=== PATIENT | male | born 1940 | race Caucasian/White ===

== ENCOUNTER 2019-11-22 08:56 | Outpatient (CLI) | payer MEDICARE, SELFPAY ==
[2019-11-22 13:19] LABS: Hematocrit 41.7 % (42.0-52.0); Hemoglobin 13.6 g/dL (14.0-18.0); Mean Corpuscular HGB Conc 32.6 g/dl (32-36); Mean Corpuscular Hemoglobin 32.2 pg (26-34); Mean Corpuscular Volume 98.8 fl (80-100); Mean Platelet Volume 10.5 fl (7.4-10.4); Platelet Count Result 227 k/mm3 (150-375); Red Blood Count 4.22 M/mm3 (4.6-6.20); Red Cell Distribution Width 12.1 % (11.5-14.5); White Blood Count 5.2 K/mm3 (4.5-10.0)
[2019-11-22 13:30] LABS: Alanine Aminotransferase 30 U/L (4-50); Albumin Level 4.2 g/dL (3.5-5.1); Alkaline Phosphatase 128 U/L (38-126); Aspartate Amino Transferase 53 U/L (17-59); Bilirubin,Total 0.7 mg/dL (0.2-1.3); Blood Urea Nitrogen 12 mg/dL (9-20); Calcium 9.5 mg/dL (8.4-10.2); Carbon Dioxide 27 mmol/L (22-30); Chloride 92 mmol/L (98-107); Estimated Glomerular Filt Rate > 60; Glucose 96 mg/dL (75-110); Potassium 4.5 mmol/L (3.4-5.0); Sodium 135 mmol/L (137-145)
== END 2019-11-22 08:57 | disposition home or self-care (01) ==
PROVIDERS: PCP Internal Medicine; Visit Provider Internal Medicine
DX: I10 Essential (primary) hypertension (principal)
CPT/HCPCS: 36415; 80053; 85027

== ENCOUNTER 2020-01-14 11:26 | Emergency (ER) | payer MEDICARE, SELFPAY ==
[2020-01-14 11:38] VITALS: BP 210/95; PULSE 86; RESP 18; TEMP 36.4; O2SAT 100
--- NOTE | 2020-01-14 11:38 | ED.GENADULT ---
HPI - General Adult General Chief complaint: Shortness of Breath/Dyspnea Stated complaint: CO exposure Time Seen by Provider: 01/14/20 11:35 Mode of arrival: ambulatory Limitations: no limitations Related Data Home Medications Medication Instructions Recorded Confirmed lisinopril 40 mg tablet 40 mg PO DAILY 11/26/19 12/09/19 sildenafil 50 mg tablet 50 mg PO DAILY PRN 11/26/19 12/09/19 Allergies Allergy/AdvReac Type Severity Reaction Status Date / Time No Known Allergies Allergy Verified 11/29/19 09:01 [facility] Social History Social History Smoking status: Former smoker Smoking end date: 10/13/1967 Alcohol intake: current Discharge Plan Discharge Prescriptions: No Action verapamil 80 mg tablet 80 mg PO BID Qty: 180 RF: 1 metoprolol tartrate 50 mg tablet 50 mg PO Q12H Qty: 180 RF: 1 lisinopril 40 mg tablet 40 mg PO DAILY RF: 0 sildenafil [Viagra] 50 mg tablet 50 mg PO DAILY PRNRF: 0
== END 2020-01-14 11:46 | disposition left against medical advice (07) ==
LOC: ANHED 11:42
PROVIDERS: Emergency Provider Emergency Medicine; PCP Internal Medicine
DX: Z53.21 Procedure and treatment not carried out due to patient leaving prior to being seen by health care provider (principal)
CPT/HCPCS: 99199

== ENCOUNTER 2020-08-15 13:00 | Outpatient (CLI) | payer MEDICARE, SELFPAY ==
--- NOTE | ~2020-08-15 | XR_ITS ---
EXAMINATION: XR chest 2V EXAM DATE: 08/15/2020 13:28 INDICATION: Aortic valve replacement. CABG. TECHNIQUE: Frontal and lateral projections of the chest obtained and reviewed. There is no prior leland dy for comparison. FINDINGS: Sternotomy wires are present without findings to suggest sternal dehiscence. Small to moder ate left pleural effusion, adjacent linear opacities likely atelectasis. No pneumothorax. Right lung is clear, no right pleural effusion. Mild cardiomegaly. Left shoulder replacement. There is aortic ar teriosclerosis. Old left rib fractures. IMPRESSION: Small to moderate left pleural effusion, adjacent atelectasis. Mild cardiomegaly. Reviewed, dictated and finalized at location B. STRAINER
== END 2020-08-15 13:01 | disposition home or self-care (01) ==
PROVIDERS: PCP Internal Medicine
DX: Z95.1 Presence of aortocoronary bypass graft (principal); J90 Pleural effusion, not elsewhere classified; J98.11 Atelectasis; I51.7 Cardiomegaly
CPT/HCPCS: 71046

== ENCOUNTER 2020-09-04 10:24 | Emergency (ER) | payer MEDICARE, SELFPAY ==
--- NOTE | ~2020-09-04 | XR_ITS ---
EXAMINATION: XR chest 1V portable DATE: 09/04/2020 11:09 INDICATION: Leg swelling. TECHNIQUE: A single frontal view of the chest was obtained. COMPARISON: Chest 2 views 08/15/2020 FINDINGS: There is an interstitial pattern in the lungs, consistent with mild pulmonary edema. There are airspace opacities in left lower lung zone. No pleural effusion or pneumothorax. Cardiomegaly is noted. There are changes of heart valve replacement. There is a left shoulder arthroplasty. IMPRESSION: 1. Mild pulmonary edema. 2. Airspace opacities in left lower lung zone with interval improvement, consistent with atelectasis versus pneumonia. 3. Cardiomegaly. Reviewed, dictated and finalized at location A. ER OFF IMPRESSION: 1. Mild pulmonary edema. 2. Airspace opacities in left lower lung zone with interval improvement, consis tent with atelectasis versus pneumonia. 3. Cardiomegaly.
--- NOTE | ~2020-09-04 | US_ITS ---
EXAMINATION:US venous doppler LE BI INDICATION:Lower extremity swelling TECHNIQUE: Multiple grayscale, color flow and Doppler images of the right and left lower extremity de ep venous systems were obtained and reviewed. COMPARISON:No prior studies for comparison. FINDINGS: The common femoral, superficial femoral and popliteal veins demonstrate normal respiratory variation, augmentation and compressibility. Color flow is also seen within the posterior tibial, pe roneal, greater saphenous and profunda veins. IMPRESSION: 1: No lower extremity deep venous thrombosis. Reviewed, dictated and finalized at location A. ATAL SPECIALIST
[2020-09-04 10:32] VITALS: BP 196/98; PULSE 69; RESP 18; TEMP 36.3; O2SAT 100
--- NOTE | 2020-09-04 11:01 | ECG_ITS ---
Measurements Intervals [place] Rate: 61 P: -9 [place]: 208 QRS: 13 QRSD: 103 T: 126 QT: 432 QTc: 437 Interpretive Statements SINUS RHYTHM POSSIBLE LEFT ATRIAL ENLARGEMENT INFERIOR INFARCT, AGE INDETERMINATE ST-T WAVE ABNORMALITY IN HIGH LATERAL LEADS- CONSIDER ISCHEMIA BASELINE ARTIFACT- I, II, III, AVR, AVL, AVF, V3 ABNORMAL ECG Electronically Signed On 09-04-2020 11:17:54 SENIOR DATA DEVELOPER by Steve Tinsley D.O.
--- NOTE | 2020-09-04 11:09 | ED.GENADULT ---
HPI - General Adult General Chief complaint: Extremity Problem,Nontraumatic Stated complaint: Possible DVT Time Seen by Provider: 09/04/20 10:25 Source: patient Mode of arrival: ambulatory Limitations: no limitations Related Data Home Medications Medication Instructions Recorded Confirmed amiodarone 200 mg tablet 200 mg PO DAILY tablet 08/30/20 apixaban 5 mg tablet 5 mg PO BID 08/30/20 acetaminophen 325 mg capsule 325 mg PO Q6H PRN 08/31/20 aspirin 81 mg tablet,delayed 81 mg PO DAILY 08/31/20 release furosemide 40 mg tablet 40 mg PO QAM 08/31/20 Allergies Allergy/AdvReac Type Severity Reaction Status Date / Time No Known Allergies Allergy Verified 09/04/20 10:43 [facility] Social History Social History Smoking status: Former smoker Smoking end date: 10/13/1967 Alcohol intake: current Gender identity (if verbalized by the patient): Male Course Consultations Consultation #1: Discussed case with cardiology office nurse who notes that the patient follows Friday with the specialist and agrees that the patient can be started on a light diuretic during this period and will be reevaluated on Friday patient given a dose of Lasix in the emergency department patient and family made aware of case findings treatment plan diagnosis and discussion with specialist office Date: 09/04/20 Time: 14:39 Vital Signs Vital signs: Vital Signs Temperature 97.4 F L 09/04/20 10:32 Pulse Rate 69 09/04/20 10:32 Respiratory Rate 18 09/04/20 10:32 Blood Pressure 196/98 H 09/04/20 10:32 Pulse Oximetry 100 09/04/20 10:32 Temperature 97.4 F L 09/04/20 10:32 Pulse Rate 61 09/04/20 12:16 Respiratory Rate 14 09/04/20 12:16 Blood Pressure 190/88 H 09/04/20 12:16 Pulse Oximetry 97 09/04/20 12:16 Medical Decision Making [facility] Narrative Medical decision making narrative: Patient with mild heart failure as the likely etiology of the swelling of his lower legs patient did not have DVT patient is in the room without other high risk changes given a dose of Lasix will follow in clinic with his specialist on Friday and is felt appropriate for outpatient reevaluation Vital Signs Vital Signs: Vital Signs Temperature 97.4 F L 09/04/20 10:32 Pulse Rate 69 09/04/20 10:32 Respiratory Rate 18 09/04/20 10:32 Blood Pressure 196/98 H 09/04/20 10:32 Pulse Oximetry 100 09/04/20 10:32 Temperature 97.4 F L 09/04/20 10:32 Pulse Rate 61 09/04/20 12:16 Respiratory Rate 14 09/04/20 12:16 Blood Pressure 190/88 H 09/04/20 12:16 Pulse Oximetry 97 09/04/20 12:16 Lab Data Result diagrams: 09/04/20 11:04 09/04/20 11:04 Labs: Lab Results 09/04/20 09/04/20 09/04/20 Range/Units 11:04 11:04 11:04 WBC 7.4 (4.5-10.0) K/mm3 RBC 3.57 L (4.6-6.20) M/mm3 Hgb 11.0 L (14.0-18.0) g/dL Hct 34.6 L (42.0-52.0) % MCV 96.9 (80-100) fl MCH 30.8 (26-34) pg MCHC 31.8 L (32-36) g/dl RDW 17.8 H (11.5-14.5) % Plt Count 207 (150-375) k/mm3 MPV 9.4 (7.4-10.4) fl Immature Gran % (Auto) 0.4 (0-0.5) % Neut % (Auto) 53.1 (45.5-73.1) % Lymph % (Auto) 29.4 (18.3-44.2) % [place] % (Auto) 9.1 H (2.6-8.5) % Eos % (Auto) 7.2 H (0-4.4) % Baso % (Auto) 0.8 (0.2-1.2) % Lymph # (Auto) 2.17 (0.9-3.2) K/mm3 [place] # (Auto) 0.7 H (0.1-0.6) K/mm3 Eos # (Auto) 0.5 H (0-0.3) K/mm3 Baso # (Auto) 0.1 (0.0-0.1) K/mm3 Abs Immat Gran (auto) 0.03 (0.00-0.031) K/mm3 Absolute Neuts (auto) 3.9 (1.3-6.7) K/mm3 Absolute Nucleated RBC 0.0 (0.0-0.012) K/mm3 Nucleated RBC % 0.0 (0.0-0.2) % PT 13.3 (11.1-14.7) Seconds INR 1.0 APTT 32.3 (22.3-36.8) SECONDS Sodium 139 (137-145) mmol/L Potassium 3.8 (3.4-5.0) mmol/L Chloride 103 (98-107) mmol/L Carbon Dioxide 27 (22-30) mmol/L Anion Gap 9 (8-16) mmol/L BUN
[2020-09-04 11:10] LABS: Basophils Absolute Auto 0.1 K/mm3 (0.0-0.1); Basophils Percent Auto 0.8 % (0.2-1.2); Eosinophils Absolute Auto 0.5 K/mm3 (0-0.3); Eosinophils Percent Auto 7.2 % (0-4.4); Hematocrit 34.6 % (42.0-52.0); Immature Granulocyte Absolute 0.03 K/mm3 (0.00-0.031); Immature Granulocyte Percent A 0.4 % (0-0.5); Lymphocytes Absolute Auto 2.17 K/mm3 (0.9-3.2); Lymphocytes Percent Auto 29.4 % (18.3-44.2); Mean Corpuscular HGB Conc 31.8 g/dl (32-36); Mean Corpuscular Hemoglobin 30.8 pg (26-34); Mean Corpuscular Volume 96.9 fl (80-100); Mean Platelet Volume 9.4 fl (7.4-10.4); Monocytes Absolute Auto 0.7 K/mm3 (0.1-0.6); Monocytes Percent Auto 9.1 % (2.6-8.5); Neutrophils Absolute Auto 3.9 K/mm3 (1.3-6.7); Neutrophils Percent Auto 53.1 % (45.5-73.1); Platelet Count Result 207 k/mm3 (150-375); Red Blood Count 3.57 M/mm3 (4.6-6.20); Red Cell Distribution Width 17.8 % (11.5-14.5); White Blood Count 7.4 K/mm3 (4.5-10.0)
[2020-09-04 11:22] LABS: Prothrombin Time 13.3 Seconds (11.1-14.7)
[2020-09-04 11:23] LABS: Partial Thromboplastin Time 32.3 SECONDS (22.3-36.8)
[2020-09-04 11:26] LABS: Alanine Aminotransferase 25 U/L (4-50); Albumin Level 3.9 g/dL (3.5-5.1); Alkaline Phosphatase 192 U/L (38-126); Anion Gap 9 mmol/L (8-16); Aspartate Amino Transferase 38 U/L (17-59); Bilirubin,Total 0.7 mg/dL (0.2-1.3); Blood Urea Nitrogen 13 mg/dL (9-20); Calcium 8.7 mg/dL (8.4-10.2); Carbon Dioxide 27 mmol/L (22-30); Chloride 103 mmol/L (98-107); Estimated CRCL calculation 64 ml/min; Estimated Glomerular Filt Rate > 60; Glucose 99 mg/dL (75-110); Potassium 3.8 mmol/L (3.4-5.0); Sodium 139 mmol/L (137-145)
[2020-09-04 11:32] LABS: NT Pro B Type Natriuretic Pept 2760 PG/ML (5-100)
[2020-09-04 12:16] VITALS: BP 190/88; PULSE 61; RESP 14; O2SAT 97
[2020-09-04] MEDS: FUROSEMIDE INJ 40 MG/4 ML VIAL 20 MG IV PUSH (14:58)
== END 2020-09-04 15:47 | disposition home or self-care (01) ==
PROVIDERS: Emergency Medicine Emergency Medical Services; Emergency Provider Emergency Medicine; PCP Internal Medicine
DX: I50.9 Heart failure, unspecified (principal); M79.89 Other specified soft tissue disorders; Z87.891 Personal history of nicotine dependence; R94.31 Abnormal electrocardiogram [ECG] [EKG]
CPT/HCPCS: 36415; 71045; 80053; 83880; 85025; 85610; 85730; 93005; 93970; 96372; 99284; J1940

== ENCOUNTER 2021-01-10 10:16 | Outpatient (CLI) | payer MEDICARE, SELFPAY ==
--- NOTE | ~2021-01-10 | CT_ITS ---
EXAMINATION:CT diagnostic chest wo con DATE: 01/10/2021 11:13 INDICATION: Lump near incision from heart surgery. TECHNIQUE: Computed tomography (CT) of the chest was performed without intravenous contrast. Automate d exposure control and iterative reconstruction technique were employed. The dose-length product (DLP ) was 180.35 mGy-cm. COMPARISON: Chest single view 09/04/2020 FINDINGS: There is mild scarring at the lung apices. There is mild atelectasis bilaterally. There is a small pneumatocele in left lower lobe. No pleural effusion. Cardiomegaly is noted. There are angel ry artery calcifications. There are changes of aortic valve replacement. No pericardial effusion. The re is a moderate-sized sliding hiatal hernia. There is a 3.4 cm cyst in right kidney. There is a tota l left shoulder arthroplasty. There are changes of median sternotomy. There is severe cervical and th oracic spondylosis. IMPRESSION: 1. Changes of median sternotomy. No abnormal chest wall mass. Reviewed, dictated and finalized at location A.
== END 2021-01-10 10:17 | disposition home or self-care (01) ==
PROVIDERS: PCP Internal Medicine
DX: Z95.1 Presence of aortocoronary bypass graft (principal); Z95.2 Presence of prosthetic heart valve; Z98.890 Other specified postprocedural states
CPT/HCPCS: 71250

== ENCOUNTER 2021-03-20 09:29 | Outpatient (CLI) | payer MEDICARE, SELFPAY ==
--- NOTE | ~2021-03-20 | XR_ITS ---
EXAMINATION: XR chest 2V DATE: 03/20/2021 09:55 INDICATION: Hypertension. Preop. Incisional hernia without obstruction or gangrene. TECHNIQUE: Frontal and lateral views of the chest were obtained. COMPARISON: Chest single view 09/04/2020, chest CT 01/10/2021 FINDINGS: There is mild atelectasis at left lung base. No pleural effusion or pneumothorax. Cardiomeg samanta is noted. There are changes of aortic valve replacement. There is a total left shoulder arthropla sty. IMPRESSION: 1. Mild atelectasis at left lung base. 2. Cardiomegaly. Reviewed, dictated and finalized at location A.
--- NOTE | 2021-03-20 09:30 | ECG_ITS ---
Measurements Intervals [place] Rate: 56 P: 52 NM: 275 QRS: 33 QRSD: 108 T: 33 QT: 444 QTc: 431 Interpretive Statements SINUS BRADYCARDIA WITH FIRST DEGREE AV BLOCK ST ELEVATION IN ANTEROLATERAL LEADS, PROBABLY EARLY REPOLARIZATION CONSIDER INFERIOR INFARCT, AGE INDETERMINATE BASELINE ARTIFACT- I, II, III, AVR, AVL, AVF ABNORMAL ECG Electronically Signed On 03-20-2021 12:05:03 CDT by Steve Tinsley D.O.
[2021-03-20 09:57] LABS: Hematocrit 36.8 % (42.0-52.0); Hemoglobin 12.3 g/dL (14.0-18.0); Mean Corpuscular HGB Conc 33.4 g/dl (32-36); Mean Corpuscular Hemoglobin 32.1 pg (26-34); Mean Corpuscular Volume 96.1 fl (80-100); Platelet Count Result 194 k/mm3 (150-375); Red Blood Count 3.83 M/mm3 (4.6-6.20); Red Cell Distribution Width 12.8 % (11.5-14.5); White Blood Count 7.9 K/mm3 (4.5-10.0)
[2021-03-20 10:11] LABS: Anion Gap 10 mmol/L (8-16); Blood Urea Nitrogen 13 mg/dL (9-20); Calcium 9.2 mg/dL (8.4-10.2); Carbon Dioxide 26 mmol/L (22-30); Chloride 99 mmol/L (98-107); Estimated Glomerular Filt Rate > 60; Glucose 92 mg/dL (75-110); Sodium 135 mmol/L (137-145)
[2021-03-20 10:18] LABS: Band Neutrophils Percent 4 % (0-6); Eosinophils Absolute Manual 0.47 K/mm3 (0.02-0.5); Eosinophils Percent Manual 6 % (0-4); Lymphocytes Absolute Manual 2.37 K/mm3 (1.1-4.5); Monocytes Absolute Manual 0.71 K/mm3 (0.1-0.90); Monocytes Percent Manual 9 % (3-9); Neutrophils Absolute Manual 4.34 K/mm3 (1.3-6.7); Neutrophils Percent Manual 51 % (46-73); Platelet Estimate Adequate (Adequate); Total Cells Counted 100
== END 2021-03-20 09:30 | disposition home or self-care (01) ==
PROVIDERS: PCP Internal Medicine; Visit Provider Surgery
DX: K43.2 Incisional hernia without obstruction or gangrene (principal); I44.0 Atrioventricular block, first degree; I51.7 Cardiomegaly; R00.1 Bradycardia, unspecified
CPT/HCPCS: 36415; 71046; 80048; 85025; 93005

== ENCOUNTER → 2021-03-24 01:05 | Outpatient (CLI) | payer MEDICARE, SELFPAY ==
[2021-03-24 17:56] LABS: SARS-CoV-2 RNA PCR Negative
== END ==
PROVIDERS: PCP Internal Medicine; Visit Provider Surgery
DX: Z01.812 Encounter for preprocedural laboratory examination (principal); Z20.822 Contact with and (suspected) exposure to COVID-19
CPT/HCPCS: C9803; U0003; U0005

== ENCOUNTER 2021-03-28 01:05 | Day surgery (SDC) | payer MEDICARE, SELFPAY ==
[2021-03-14 10:56] VITALS: BMI 24.0
--- NOTE | 2021-03-27 13:21 | WPDANESEPPF ---
Anes - Initial Pre Proc Eval Procedure: Operation Date: 03/28/21 13:00 Proposed Procedures p Epigastric Incisional Hernia Repair With Mesh - Vincenzo Starkey MD Date/Time: 03/27/21 13:21 Surgeon: Vincenzo Starkey MD Pre Op Diagnosis: Incisional Hernia Patient Data Age: 80 Gender: M Height: 1.79 m Weight: 77.15 kg Allergies Allergy/AdvReac Type Severity Reaction Status Date / Time No Known Allergies Allergy Verified 03/28/21 09:21 Home Medications Medication Instructions Recorded Confirmed Type aspirin 81 mg tablet,delayed 81 mg PO DAILY 08/31/20 03/28/21 History release amlodipine 10 mg tablet 10 mg PO DAILY 01/31/21 03/28/21 History lisinopril 40 mg tablet See Rx Instructions .ROUTE 02/26/21 03/28/21 Rx .COMPLEX #90 tablet atorvastatin 40 mg PO HS 03/14/21 03/28/21 History furosemide 20 mg PO QAM 03/14/21 03/28/21 History metoprolol tartrate 50 mg PO BID 03/14/21 03/28/21 History multivitamin,eo-rjzd-pdmdyepx 1 tablet PO DAILY 03/14/21 03/28/21 History [Complete Multivitamin] Patient hx anesthesia problems: none Family hx anesthesia problems: none PMFSH Past Medical History Medical History (Updated 03/27/21 @ 13:22 by Reece Shen MD) Aortic stenosis, severe WINSTON (dyspnea on exertion) Essential hypertension Heart disease High cholesterol HTN (hypertension) Incisional hernia Moderate mitral regurgitation Subclinical hypothyroidism Surgical History Surgical History (Updated 03/27/21 @ 13:22 by Reece Shen MD) S/P aortic valve replacement S/P CABG (coronary artery bypass graft) 07/24/20 Social History Social History (Updated 03/05/21 @ 09:07 by Amira Roblero CMA) Smoking packs per day: 2 Smoking cigarettes per day: 40.0 Years smoked: 10 Smoking pack-years: 20.00 Smoking status: Former smoker Tobacco type: cigarettes Smokeless tobacco user: chewing tobacco Smoking end date: 10/13/67 Additional smoking assessment comments: CURRENTLY CHEWING TOBACCO OCCASIONALLY Alcohol intake: current Drinks per week: 9 Substance use: unknown Living arrangements: with family Gender identity (if verbalized by the patient): Male Spiritual care concerns: No Anes - Eval Final PreProcedure Day of Procedure 03/27/21 13:21 Patient weight: normal Heart: regular rate and rhythm Lungs: clear to auscultation and normal air movement Airway: Mallampati scale class II Neurological: alert and oriented Last oral intake: >/= 8 hours ASA classification: III Emergent: no Anesthetic plan: proceed Anesthesia type and monitoring: general GIVS, LMA and ETT Informed Consent: The patient's anesthetic plan and its attendant risks and benefits were discussed with the patient/family/POA. Questions were solicited and answers provided to the satisfaction of the patient/family/POA.
[2021-03-28 09:09] VITALS: BP 159/72; PULSE 64; RESP 16; TEMP 35.9; O2SAT 100
[2021-03-28] MEDS: ACETAMINOPHEN 500 MG TABLET 1000 MG PO (09:29)
[2021-03-28] MEDS: LACTATED RINGERS 1,000 ML 30 ML IV CONT (09:36)
[2021-03-28] MEDS: KETOROLAC 15 MG/ML VIAL (*BKC) IV PUSH (09:37)
--- NOTE | 2021-03-28 09:48 | WPDHPUPDATE1 ---
History and Physical Update Update Date/Time: 03/28/21 09:48 History and Physical has been reviewed, including an updated exam of the patient. There are NO changes in the patient's condition. Risks, benefits, and alternatives have been discussed and questions answered. Patient agrees to proceed with procedure.
[2021-03-28] MEDS: ceFAZolin 2 GM/D5W 50 ML 2 GM/50 ML BAG IVPB (10:04)
[2021-03-28] MEDS: BUPIVACAINE HCL 0.5% PF 30 ML VIAL INFILTRATE (10:33)
[2021-03-28 11:19] VITALS: BP 118/65; PULSE 51; RESP 12; O2SAT 96
--- NOTE | 2021-03-28 11:28 | P.OP_ITS ---
Procedure Note - Detailed Date of Procedure 03/28/21 Pre-op Diagnosis Incisional Hernia Post-op Diagnosis same Procedure Performed Repair incisional hernia with 8.6 cm Parietex underlay mesh Surgeon Vincenzo Starkey MD Policy Cancellation Clerk Shahana Chapman ADMINISTRATIVE DIETITIAN ADMINISTRATIVE DIETITIAN Anesthesia MAC (G IV S) and local (0.5% Marcaine with Exparel) Indications Patient is an 80-year-old man who had coronary surgery last July. He has developed an incisional hernia in the epigastrium at the lower most aspect of his median sternotomy incision. This is getting larger and is sometimes bothersome for him. He is taken to surgery now for repair with mesh. Findings Showed a 2 cm epigastric hernia defect just below and all along side the xiphoid process. Description of Procedure Patient was checked in the preoperative holding area. He was then taken to surgery and IV sedation was administered. Prep and drape was carried out. An ellipse was drawn along the lower aspect of the previous median sternotomy incision to plan to excise this area that was overlying the hernia. Local anesthetic was infiltrated into this area of skin. The old scar was excised. More local was infiltrated at the lower aspect of this incision and the incision was extended in a caudad direction. The hernia was now in the center of the incision. The hernia sac was found and dissected free from the subcutaneous. It was lying on the left side of the xiphoid, very close to the sternum and ribs. Once the hernia defect had been delineated, the hernia sac was excised at its neck. This was discarded. Some of the fatty tissue associated with the falciform ligament was also excised and discarded. Under the xiphoid and ribs the peritoneum was dissected away so that the mesh would be able to lie directly up against the structures. Some undermining around the hernia defect was carried out as well. An 8.6 cm Parietex kw[place]uk was chosen. It was folded and placed in the defect. It was position symmetrically. Several transfascial sutures of 0 Ethibond were then placed to secure the mesh to the undersurface of the lower chest and upper abdomen. Once all the transfascial sutures had been positioned, each was tied down. The mesh appeared to be in very good position and well secured to the abdominal wall. The hernia defect was then closed over the mesh. Each of these sutures were also Ethibond and incorporated a bit of th e mesh as well. The defect was closed completely and the mesh was no longer exposed. Local anesthetic was infiltrated thoroughly in the areas of the transfascial sutures and repair. The subcutaneous was then approximated using interrupted 3 0 Vicryl suture. The skin was loosely approximated with subcuticular interrupted 3 0 Vicryl suture. The skin was finally closed with a running 4 0 Monocryl skin suture. The wound was dressed with Exofin surgical adhesive. The patient was awakened and taken to recovery in good condition. Sponge and needle counts were correct x2. Implants 8.6 cm Parietex mesh Estimated Blood Loss 5 Drains No Packing No Pathology none sent Complications None Condition stable Disposition same day
[2021-03-28 11:50] VITALS: BP 118/65; PULSE 60; RESP 16; O2SAT 99
--- NOTE | 2021-03-28 14:30 | SUR.PHASEII ---
Pt daughter calling with concerns to wound care. States pt called her complaining that wound was bleeding again. Daughter states she doesn't know what to do because patient states he will not return to hospital. Instructed daughter to applying pressure and ice to wound to stop bleeding and if bleeding does not stop within ten minutes of applying pressure/ice to call Dr. Starkey's office for further instruction or return to hospital ER.
== END 2021-03-28 12:35 | disposition home or self-care (01) ==
PROVIDERS: PCP Internal Medicine; Visit Provider Surgery
PROC: 0WQF0ZZ Repair Abdominal Wall, Open Approach (ICD-10-PCS; CPT 49560; principal; 2021-03-28 11:00)
DX: K43.2 Incisional hernia without obstruction or gangrene (principal); I11.9 Hypertensive heart disease without heart failure; E78.00 Pure hypercholesterolemia, unspecified; I35.0 Nonrheumatic aortic (valve) stenosis; I34.0 Nonrheumatic mitral (valve) insufficiency; Z95.4 Presence of other heart-valve replacement; Z95.1 Presence of aortocoronary bypass graft; Z79.82 Long term (current) use of aspirin; F17.220 Nicotine dependence, chewing tobacco, uncomplicated
CPT/HCPCS: 49560; 49568; A9270; C1781; C9290; C9803; J0690; J1100; J1885; J2405; J2704; J3010; J7120; U0003; U0005

== ENCOUNTER 2023-05-02 14:00 | Outpatient (RCR) | payer MEDICARE, SELFPAY ==
--- NOTE | 2023-04-30 13:16 | PTOPEVAL1 ---
Assessment and note entered by Sg Payan, PT Evaluation Information Assessment Status Evaluation Diagnosis low back radiculopathy Onset about 8 days ago Subjective Information Patient reports getting out of bed 8 days ago, when he stood up he felt like his L LE would not support him. Patient Has since then had pain going down to his toes and specifically stabbing in the L quads and a dull pressure on his knee. Patient was given Meloxicam and Gabapentin, but reports it does not feel like it is doing much. Main issue is walking and prolonged time sitting. Prior to this patient reports occasional pain, but no significant back injuries. Reported Pain Level Pain Score 0: Self Report Additional Pain Score Comments can get up to 10/10 pain. stabbing in the proximal leg, dull heavy in the knee. Assessment PT Clinical Summary Leno is an 82 year old male coming into the clinic with a diagnosis of low back radiculopathy going down to his toes. Patient has tight hamstring, low back, piriformis, calfs, and hip flexors to go with a weak core. Physical therapy will work on improving muscle balance through gentle stretching and strengthening along with manual and modalities as needed. Plan of Care Interventions Electrical Stimulation,Gait Training,Hot Pack/Cold Pack,Manual Therapy,Neuro Re-education,Patient/ Caregiver Education,Therapeutic Activities, Therapeutic Exercise,Ultrasound Other Interventions cupping, taping, IASTM PT Services Indicated Yes Treatment Frequency and 1-2x/wk for 4 weeks Duration These treatments will address the objective and functional deficits as defined above. The patient will be advanced safely and appropriately in order for the patient to progress towards his/her prior level of function. Additional exercises will be introduced and as well as a comprehensive home exercise program upon discharge, if needed, ?to ensure carryover of functional gains achieved in the clinic. This treatment plan has been reviewed and agreement upon by the patient.
--- NOTE | 2023-04-30 13:16 | OPREHPOC ---
Outpatient Therapy Plan of Care This is a Multidisciplinary Plan of Care that may contain components documented by all disciplines (PT, OT, and ST.) PT Problem 1 PT Problem #1 Knowledge Deficit PT Goal 1 Goal Independent with HEP Target Visit 8 PT Problem 2 PT Problem #2 Pain PT Goal 1 Goal decrease pain to 3/10 at worst Target Visit 8 PT Goal 2 Goal centralize symptoms to no further down than the hips Target Visit 8 PT Problem 3 PT Problem #3 Impaired Flexibility PT Goal 1 Goal PORFIRIO HS -25 degrees Target Visit 8
--- NOTE | 2023-05-06 08:28 | PCPTNOTE ---
Pt. canceled 05/06/23 appointment stating that a new medication has been bothering him a lot and wouldn't be able to come in.
--- NOTE | 2023-05-09 11:40 | PCPTNOTE ---
Patient did not show up for scheduled appointment this date. After he was called he stated that he had just got a steroid shot and if that goes well he won't need therapy. He stated that he would call and let us know.
--- NOTE | 2023-05-13 08:32 | PCPTNOTE ---
Pt. had steroid injection and he is feeling great and would like to be discharged at this time.
--- NOTE | 2023-05-13 08:50 | PTOPDC ---
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 Asks to be discharged. Assessment PT Clinical Summary Leno is an 82 year old male coming into the clinic with a diagnosis of low back radiculopathy. Patient was evaluated on 04/30/23 and attended one other appointment. Patient has cancelled has following therapy sessions. Since the patient called to asked to be discharged unable to assess goals. Plan of Care PT Services Indicated No
== END 2023-05-13 10:12 | disposition home or self-care (01) ==
LOC: ANHPT 14:00
PROVIDERS: PCP Nurse Practitioner Family; Visit Provider Nurse Practitioner Family
DX: M54.10 Radiculopathy, site unspecified (principal)
CPT/HCPCS: 97110; 97161; 97530; 99199

== ENCOUNTER 2023-06-26 12:11 | Outpatient (CLI) | payer SELFPAY ==
--- NOTE | ~2023-06-26 | XR_ITS ---
AP and lateral views of the left hip Clinical history: Pain Findings: No acute fracture or dislocation is seen. Osseous alignment is anatomic. Left hip joint is intact. Soft tissues are unremarkable. Impression: No significant abnormality is seen. Reviewed, dictated and finalized at location M. Impression: No significant abnormality is seen.
--- NOTE | ~2023-06-26 | XR_ITS ---
Lumbosacral Spine: AP and lateral views Clinical History: Pain Findings: There is mild dextroscoliosis. No acute fracture identified. There is minimal grade 1 retro listhesis of L1 over L2. There is 7 mm anterolisthesis of L4 over L5. There is severe degenerative di sc narrowing throughout the lumbar spine. There is severe facet arthropathy throughout the lumbar spi ne. Sacroiliac joints are normally outlined. Impression: Severe degenerative spondylosis, as above. Minimal grade 1 retrolisthesis of L1 over L2. 7 mm anterolisthesis of L4 over L5. Reviewed, dictated and finalized at location M. Impression: Severe degenerative spondylosis, as above. Minimal grade 1 retrolisthesis of L1 over L2. 7 mm anterolisthesis of L4 over L5.
== END 2023-06-26 12:12 ==
PROVIDERS: PCP Nurse Practitioner Family; Visit Provider Nurse Practitioner Family
DX: M54.10 Radiculopathy, site unspecified (principal); M47.816 Spondylosis without myelopathy or radiculopathy, lumbar region
CPT/HCPCS: 72100; 73502

== ENCOUNTER 2023-10-11 02:24 | Inpatient (IN) | payer MEDICARE, SELFPAY ==
[2023-10-11] VITALS (10 sets, daily range): BP systolic 90–136; BP diastolic 72–84; PULSE 80–110; RESP 13–16; TEMP 36.6–37.2; O2SAT 96–100; BMI 22.7
--- NOTE | ~2023-10-11 | CT_ITS ---
EXAMINATION: CT cervical spine wo con DATE: 10/11/2023 03:12 INDICATION: Neck injury. TECHNIQUE: Computed tomography (CT) of the cervical spine was performed without intravenous contrast. Automated exposure control and iterative reconstruction technique were employed. The dose-length pro duct was 382.34 mGy-cm. COMPARISON: None FINDINGS: There is 3 mm anterolisthesis of C4 on C5 and 3 mm retrolisthesis of C5 on C6. Vertebral joanne dy heights are normal. There is severely decreased disc height from C2-C3 through C6-C7. There is int erbody fusion at C3-C4. There is degenerative pseudopannus around the dens. The following disc levels are specifically discussed: C2-C3: There is moderate bilateral uncovertebral joint osteoarthritis. There is severe bilateral face t joint osteoarthritis. There is mild bilateral neural foraminal stenosis. There is no central canal stenosis. C3-C4: There is ankylosis of the uncovertebral joints with moderate hypertrophy. There is ankylosis o f the facet joints with mild hypertrophy. There is mild bilateral neural foraminal stenosis. There is mild central canal stenosis. C4-C5: There is severe bilateral uncovertebral joint osteoarthritis. There is severe bilateral facet joint osteoarthritis. There is mild right and moderate left neural foraminal stenosis. There is mild central canal stenosis. C5-C6: There is severe bilateral uncovertebral joint osteoarthritis. There is moderate bilateral face t joint osteoarthritis. There is moderate bilateral neural foraminal stenosis. There is mild central canal stenosis. C6-C7: There is severe bilateral uncovertebral joint osteoarthritis. There is severe bilateral facet joint osteoarthritis. There is mild right and moderate left neural foraminal stenosis. There is mild central canal stenosis. C7-T1: There is mild bilateral uncovertebral joint osteoarthritis. There is severe bilateral facet dread int osteoarthritis. There is mild bilateral neural foraminal stenosis. There is no central canal sten osis. IMPRESSION: 1. No fracture. 2. Severe cervical spondylosis. Reviewed, dictated and finalized at location A. ERY RN
--- NOTE | ~2023-10-11 | CT_ITS ---
EXAMINATION: CT chest abdomen pelvis wo con DATE: 10/11/2023 03:12 INDICATION: Chest and abdominal injury. Altered mental status. TECHNIQUE: Computed tomography (CT) of the chest, abdomen, and pelvis was performed without intraveno us contrast. Automated exposure control and iterative reconstruction technique were employed. The dos e-length product was 772.76 mGy-cm. COMPARISON: Chest CT 01/10/2021 FINDINGS: CHEST CT: There are centrilobular nodules and patchy airspace opacities in right middle lobe and right lower lo be. There are groundglass opacities in right upper lobe. There is mild atelectasis bilaterally. No pl eural effusion. Cardiomegaly is noted. There are coronary artery calcifications. There are changes of aortic valve replacement. No pericardial effusion. There is a moderate-sized sliding hiatal hernia. There is severe thoracic spondylosis. Lateral left rib fractures. There is a left shoulder arthroplas ty. ABDOMEN/PELVIS CT: The liver, gallbladder, spleen, pancreas, adrenal glands, and left kidney are normal. There is a 2.9 cm cyst in right kidney. There is no urolithiasis. There is diverticulosis of the colon without evide nce of diverticulitis. The prostate is mildly enlarged. There is a left inguinal hernia containing fa t. The appendix is normal. There is calcified atherosclerosis of the aorta and many of the other ector tisha. There are no pathologically enlarged lymph nodes. There is no free intraperitoneal fluid. There is severe lumbar spondylosis. IMPRESSION: 1. Pneumonia in right lung and left lower lobe. 2. Moderate-sized sliding hiatal hernia. Reviewed, dictated and finalized at location A. URY CRACKING TESTER
--- NOTE | ~2023-10-11 | CT_ITS ---
EXAMINATION: CT brain wo con DATE: 10/11/2023 03:12 INDICATION: Head injury. Altered mental status. TECHNIQUE: Computed tomography (CT) of the head was performed without intravenous contrast. The mA wa s adjusted according to patient size. Iterative reconstruction technique was employed. The dose-lengt h product was 681.00 mGy-cm. COMPARISON: None FINDINGS: There are scattered areas of low attenuation in the cerebral white matter, which is within normal limits for the patient's age. There is no intracranial hemorrhage, acute infarction, or abnorm al intracranial mass lesion. The ventricles are normal in size. There is mucosal thickening in the pa ranasal sinuses. There are likely changes of ocular lens replacement surgeries. The mastoid air cells are normal. IMPRESSION: 1. Normal aging brain. Reviewed, dictated and finalized at location A. OR MAINFRAME DEVELOPER IMPRESSION: 1. Normal aging brain.
[2023-10-11] MEDS: LORazepam INJ (*CRX) 2 MG/ML VIAL 1 MG IV PUSH (02:44)
[2023-10-11 02:58] LABS: Basophils Absolute Auto 0.2 K/mm3 (0.0-0.1); Eosinophils Absolute Auto 0.2 K/mm3 (0-0.3); Hematocrit 41.5 % (42.0-52.0); Hemoglobin 13.7 g/dL (14.0-18.0); Immature Granulocyte Absolute 0.22 K/mm3 (0.00-0.031); Immature Granulocyte Percent A 1.3 % (0-0.5); Lymphocytes Absolute Auto 5.99 K/mm3 (0.9-3.2); Lymphocytes Percent Auto 36.6 % (18.3-44.2); Mean Corpuscular Hemoglobin 32.2 pg (26-34); Mean Corpuscular Volume 97.4 fl (80-100); Mean Platelet Volume 9.8 fl (7.4-10.4); Monocytes Absolute Auto 1.3 K/mm3 (0.1-0.6); Monocytes Percent Auto 8.1 % (2.6-8.5); Neutrophils Absolute Auto 8.5 K/mm3 (1.3-6.7); Platelet Count Result 364 k/mm3 (150-375); Red Blood Count 4.26 M/mm3 (4.6-6.20); Red Cell Distribution Width 11.8 % (11.5-14.5); White Blood Count 16.4 K/mm3 (4.5-10.0)
[2023-10-11 03:05] LABS: Appearance Urine Clear (Clear); Bacteria Urine None Seen /hpf; Bilirubin Urine Negative (Negative); Blood Urine Negative (Negative); Color Urine Yellow (Yellow); Glucose Urine UA Negative (Negative); Ketones Urine Negative (Negative); Leukocyte Esterase Ur Negative LEU/UL (Negative); Nitrate Urine Negative (Negative); Protein Urine 2+ mg/dL (Negative); RBC Urine 0-2 /hpf (0-2); Specific Grav Ur 1.009 (1.001-1.035); Squamous Epithelial Cell Urine None seen /hpf (Few); Urobilinogen Urine 0.2 mg/dL (<2.0); WBC Urine 0-5 /hpf; pH Urine 8.5 (5.0-9.0)
[2023-10-11 03:09] LABS: Alveolar/Arterial O2 Gradient 42.6 mmHg; Base Excess ABG -1.7 mEq/l (+/-2.0); Fractional Inspired Oxygen 21 %; HCO3 ABG 22.1 mEq/l (22.0-26.0); Oxygen Content ABG 17.2 %vol (16.0-22.0); Oxygen Saturation ABG 93.4 % (95.0-100.0); Oxyhemoglobin 91.3 % THb (90.0-100.0); PCO2 ABG 34.9 mmHg (35.0-45.0); PO2 ABG 65.3 mmHg (80.0-100.0); PO2 FiO2 Ratio Arterial Blood 3.11 %; Total Hemoglobin 13.4 g/dL (12.0-18.0)
[2023-10-11 03:10] LABS: Device ROOM AIR; Modified Allen's Test Pass; Site Drawn LEFT RADIAL
[2023-10-11 03:16] LABS: Alanine Aminotransferase 40 U/L (6-50); Albumin Level 4.7 g/dL (3.5-5.1); Alkaline Phosphatase 98 U/L (38-126); Anion Gap 18 mmol/L (8-16); Aspartate Amino Transferase 38 U/L (17-59); Bilirubin,Total 0.5 mg/dL (0.2-1.3); Blood Urea Nitrogen 9 mg/dL (9-20); Calcium 9.9 mg/dL (8.4-10.2); Carbon Dioxide 21 mmol/L (22-30); Chloride 98 mmol/L (98-107); Estimated CRCL calculation 54 ml/min; Estimated Glomerular Filt Rate > 60; Ethanol < 10 mg/dL (<10); Glucose 163 mg/dL (65-110); Magnesium 1.7 mg/dL (1.6-2.3); Potassium 3.6 mmol/L (3.4-5.0); Sodium 137 mmol/L (137-145)
[2023-10-11 03:23] LABS: Lactic Acid Reflex 6.5 mmol/L (0.7-2.0)
[2023-10-11 03:26] LABS: Amphetamine Screen Urine Negative (Negative); Barbiturate Screen Urine Negative (Negative); Benzodiazepines Screen Urine Negative (Negative); Cannabinoid Screen Urine Positive (Negative); Cocaine Screen Urine Negative (Negative); Methadone Screen Urine Negative (Negative); Opiate Screen Urine Negative (Negative); Phencyclidine Screen Urine Negative (Negative)
[2023-10-11 03:26] LABS: Prothrombin Time 14.2 Seconds (11.1-14.7)
[2023-10-11 03:27] LABS: Partial Thromboplastin Time 34.5 SECONDS (22.3-36.8)
[2023-10-11 03:35] LABS: Troponin I < 0.012 ng/mL (0.000-0.034)
[2023-10-11 03:45] LABS: Add Urine Microscopic? YES
[2023-10-11] MEDS: SODIUM CHLORIDE 0.9% IV 1,000 ML 999 ML IV CONT ×2 (03:47)
--- NOTE | 2023-10-11 05:18 | ED.GENADULT ---
HPI - General Adult General Chief complaint: Altered Mental Status Stated complaint: FALL, AMS, COMBATIVE Time Seen by Provider: 10/11/23 02:29 History of Present Illness HPI narrative: Patient is a 83-year-old gentleman presents emerged from with chief complaint of altered mental status per the EMS report the patient had a fall and was confused afterwards the patient was combative initially kicking and yelling when EMS transported him. The family reports that he had fallen and and also use some marijuana today this is the patient is originally said earlier today that he was concerned that he may have COVID. Related Data Home Medications Medication Instructions Recorded Confirmed multivitamin,ri-oksy-tczatpcf 1 tablet PO DAILY 03/14/21 08/27/23 Allergies Allergy/AdvReac Type Severity Reaction Status Date / Time No Known Allergies Allergy Verified 08/27/23 08:51 Review of Systems Review of Systems: A 10 system review of systems was completed on the patient and is negative except for what is stated in the HPI. Nursing and ancillary documentation was reviewed. [facility] Past Medical History Medical History Aortic stenosis, severe WINSTON (dyspnea on exertion) Essential hypertension Heart disease High cholesterol HTN (hypertension) Incisional hernia Moderate mitral regurgitation Subclinical hypothyroidism Surgical History Surgical History History of incisional hernia repair 03/28/21 repair epigastric incisional hernia with mesh S/P aortic valve replacement S/P CABG (coronary artery bypass graft) 07/24/20 Social History Social History Smoking packs per day: 2 Smoking cigarettes per day: 40.0 Years smoked: 10 Smoking pack-years: 20.00 Smoking status: Former smoker Tobacco type: smokeless tobacco Smokeless tobacco user: chewing tobacco Smoking end date: 10/13/67 Additional smoking assessment comments: CURRENTLY CHEWING TOBACCO OCCASIONALLY Alcohol intake: current Drinks per week: 2 Substance use: former Substance use type: marijuana Living arrangements: with family Occupation/Education: retired Gender identity (if verbalized by the patient): Male Spiritual care concerns: No Course Vital Signs Vital signs: Vital Signs Temperature 36.6 C 10/11/23 02:33 Pulse Rate 110 H 10/11/23 02:33 Respiratory Rate 16 10/11/23 02:33 Blood Pressure 90/78 L 10/11/23 02:33 Pulse Oximetry 100 10/11/23 02:33 Oxygen Delivery Room Air 10/11/23 02:33 Temperature 36.6 C 10/11/23 02:33 Pulse Rate 85 10/11/23 04:45 Respiratory Rate 13 10/11/23 04:45 Blood Pressure 133/76 10/11/23 04:45 Pulse Oximetry 96 10/11/23 04:45 Oxygen Delivery Room Air 10/11/23 02:33 Medical Decision Making Vital Signs Vital Signs: Vital Signs Temperature 36.6 C 10/11/23 02:33 Pulse Rate 110 H 10/11/23 02:33 Respiratory Rate 16 10/11/23 02:33 Blood Pressure 90/78 L 10/11/23 02:33 Pulse Oximetry 100 10/11/23 02:33 Oxygen Delivery Room Air 10/11/23 02:33 Temperature 36.6 C 10/11/23 02:33 Pulse Rate 85 10/11/23 04:45 Respiratory Rate 13 10/11/23 04:45 Blood Pressure 133/76 10/11/23 04:45 Pulse Oximetry 96 10/11/23 04:45 Oxygen Delivery Room Air 10/11/23 02:33 Lab Data 10/11/23 02:38 10/11/23 02:38 Labs: Lab Results 10/11/23 10/11/23 10/11/23 Range/Units 02:38 02:40 05:15 WBC 16.4 H (4.5-10.0) K/mm3 RBC 4.26 L (4.6-6.20) M/mm3 Hgb 13.7 L (14.0-18.0) g/dL Hct 41.5 L (42.0-52.0) % MCV 97.4 (80-100) fl MCH 32.2 (26-34) pg MCHC 33.0 (32-36) g/dl RDW 11.8 (11.5-14.5) % Plt Count 364 D (150-375) k/mm3 MPV 9.8 (7.4-10.4) fl Immature Gran % (Auto) 1.3
[2023-10-11 05:41] LABS: Lactic Acid Reflex 2.4 mmol/L (0.7-2.0)
[2023-10-11 05:47] LABS: Reflex Lactic Acid Yes or No Add Lactic
[2023-10-11 06:46] LABS: Influenza A QL RT-PCR Negative (Negative); Influenza B QL RT-PCR Negative (Negative); RSV RNA, RT-PCR Positive (Negative); SARS-CoV-2 RNA PCR Negative (Negative)
--- NOTE | 2023-10-11 08:40 | ADMGEN ---
This patient, Adán Wall, was admitted to Medical Room 255-01. Patient/family oriented to hospital policies and general routines including ID bracelet, bed and alarms, visiting hours, pain management, procedures, bathroom and other care routines, personal items, smoking policy, room service/diet, and visiting hours. Information on how to activate the Rapid Response Team has been discussed. Patient/Family are encouraged to report perceived risks to care and to ask questions if they do not understand what they are told or what they should do.
[2023-10-11] MEDS: AZITHROMYCIN 500 MG/NS 250 ML 500 MG/250 ML BAG 250 MG IVPB (09:00)
[2023-10-11] MEDS: SODIUM CHLORIDE 0.9% IV 1,000 ML 125 ML IV CONT ×2 (09:00→19:25)
--- NOTE | 2023-10-11 13:37 | PM.IMHP ---
H&P: HPI History of Present Illness Date/Time: 10/11/23 13:30 Chief Complaint: Fall, altered mental status. Narrative: This is an 83-year-old male with hypertension, hyperlipidemia, coronary artery disease status post bypass, bioprosthetic porcine aortic valve replacement, and gastroesophageal reflux disease who presented to the emergency department via EMS for evaluation altered mental status and fall. He is not the greatest historian thus some of the following is supplemented via a review of his electronic medical records. He has not been feeling well for couple of days and reports having a fall yesterday evening though he can provide no specifics. Family members felt that he was acting differently after the fall (unknown if he had any head trauma or loss of consciousness) and they called the ambulance to bring in for evaluation. He was combative for EMS and was placed in soft restraints on arrival to the ED. Upon arrival the patient voiced that he was concerned that he may have COVID due to URI symptoms the last couple of days. He tested negative for COVID but did test positive for RSV. Urine drug screen was positive for cannabinoids which he admits to using daily. Head and cervical spine CT were negative for acute findings. CT of the chest, abdomen, and pelvis showed pneumonia in the right lung and left lower lobe. He was given 2 L of normal saline, 2 mg of Ativan, 1 g ceftriaxone, and 500 mg azithromycin and he has been admitted to the floor for further treatment and evaluation. Since arrival to the floor he has been calm and cooperative. He has no current complaints and denies fever, chest pain, shortness a breath, abdominal pain, nausea, vomiting, and diarrhea. Review of Systems Review of Systems: Twelve systems were reviewed and are negative except for as per HPI. [facility] Past Medical History Medical History Aortic stenosis Arthritis Coronary artery disease Essential hypertension Gastroesophageal reflux disease Hyperlipidemia Hypertension Subclinical hypothyroidism Surgical History Surgical History History of aortic valve replacement with bioprosthetic valve (07/2020) At [facility]. History of arthroplasty of left shoulder History of coronary artery bypass graft x 1 (07/2020) At [facility]. History of incisional hernia repair (03/2021) Epigastric incisional hernia with mesh. Family History Family History Other Family history unknown Social History Social History Social History: Surrogate medical decision maker: Kalyani Haley, daughter. Code status: Full code. Smoking packs per day: 2 Smoking cigarettes per day: 40.0 Years smoked: 10 Smoking pack-years: 20.00 Smoking status: Former smoker Smokeless tobacco user: chewing tobacco Alcohol intake: current Drinks per week: 2 Substance use: former Substance use type: marijuana Do You Feel Safe in your Home?: No Lack of Transportation: No Lack of Food: Never True Current Housing: I Do Not Have Housing Concerned About Future Housing: No Difficulty Paying Gas/Electric Bills: No Difficulty Paying for Meds: No Currently Unemployed: No Education: Don't Know Difficulty w/ Childcare or Family Care: No Living arrangements: with family Occupation/Education: retired Spiritual care concerns: No Meds Home Medications and Allergies Home Medications Medication Instructions Recorded Confirmed Type multivitamin,gf-zxyl-rizxosya 1 tablet PO DAILY 03/14/21 10/11/23 History amlodipine 10 mg tablet 10 mg PO DAILY #90 tabs 05/19/23 10/11/23 Rx duloxetine 60 mg capsule,delayed 60 mg PO DAILY #30 caps 07/09/23 10/11/23 Rx release metoprolol tartrate 50 mg tablet See Rx Instructions .Route 07/29/23 10/11/23 Rx
[2023-10-12] VITALS: PULSE 78
[2023-10-12 04:00] VITALS: PULSE 94
[2023-10-12 04:53] VITALS: BP 120/81; BP 142/74; PULSE 88; PULSE 93
[2023-10-12 04:54] VITALS: BP 126/66; PULSE 105
[2023-10-12 05:02] VITALS: RESP 19; TEMP 36.4; O2SAT 99
[2023-10-12 05:39] LABS: Hematocrit 38.5 % (42.0-52.0); Mean Corpuscular HGB Conc 33.8 g/dl (32-36); Mean Corpuscular Hemoglobin 32.3 pg (26-34); Mean Corpuscular Volume 95.5 fl (80-100); Mean Platelet Volume 9.1 fl (7.4-10.4); Platelet Count Result 323 k/mm3 (150-375); Red Blood Count 4.03 M/mm3 (4.6-6.20); Red Cell Distribution Width 11.8 % (11.5-14.5); White Blood Count 9.3 K/mm3 (4.5-10.0)
[2023-10-12 05:52] LABS: Anion Gap 10 mmol/L (8-16); Blood Urea Nitrogen 4 mg/dL (9-20); Calcium 8.5 mg/dL (8.4-10.2); Carbon Dioxide 23 mmol/L (22-30); Chloride 103 mmol/L (98-107); Estimated CRCL calculation 78 ml/min; Estimated Glomerular Filt Rate > 60; Glucose 89 mg/dL (65-110); Magnesium 1.5 mg/dL (1.6-2.3); Sodium 136 mmol/L (137-145)
[2023-10-12 05:53] LABS: Ammonia < 9 umol/L (9-30)
[2023-10-12 06:58] LABS: Folic Acid > 20.0 ng/mL (2.76->20); Vitamin B12 > 1000.0 pg/mL (239-931)
[2023-10-12 08:00] VITALS: PULSE 93
[2023-10-12] MEDS: amLODIPine BESYLATE 5 MG TABLET 10 MG PO (09:15)
[2023-10-12] MEDS: DULoxetine HCL 60 MG CAPSULE.DR PO (09:15)
[2023-10-12] MEDS: AZITHROMYCIN 500 MG/NS 250 ML 500 MG/250 ML BAG 250 MG IVPB (09:16)
[2023-10-12] MEDS: METOPROLOL TARTRATE 50 MG TAB BY MOUTH (09:16)
[2023-10-12] MEDS: THERAPEUTIC MULTIVITAMINS/MINERALS TAB (*BKC) 1 TABLET PO (09:16)
[2023-10-12] MEDS: MAGNESIUM OXIDE 400 MG TABLET PO (09:18)
[2023-10-12] MEDS: POTASSIUM CHLORIDE 20 MEQ ER TABLET 60 MEQ PO (09:18)
--- NOTE | 2023-10-12 11:22 | PM.DS ---
DS: Admitting Diagnosis Discharge Date 10/12/2023 Admitting Diagnosis Altered mental status, pneumonia, RSV infection, hypertension DS: Discharge Diagnosis Discharge Diagnosis (1) Altered mental status: Code(s): R41.82 - Altered mental status, unspecified Status: Acute (2) Pneumonia: Code(s): J18.9 - Pneumonia, unspecified organism Status: Acute (3) RSV infection: Code(s): B33.8 - Other specified viral diseases Status: Acute (4) Hypertension: Code(s): I10 - Essential (primary) hypertension Status: Acute DS: Summary Hospital Course Reason for hospitalization: Patient was admitted for altered mental status in the setting of RSV and pneumonia Hospital Course: Patient was admitted after fluids IV antibiotics. He initially had elevated lactic acid tachycardia tachypnea and elevated white blood cell. This may all be attributable to RSV or he may coinciding bacterial pneumonia. This morning white blood cell count had improved and chemistry panel remained unremarkable except for slightly decreased potassium and magnesium. Oral replacement ordered for those. On exam patient demanded immediate discharge. He states that he was out of it yesterday or he never would of let anybody bring him to the hospital. He states that he feels fine this morning. Patient denies any respiratory discomfort, difficulty breathing, pain, nausea, vomiting or any other concerning symptoms. He states that he feels back to his normal self and that he is ready to go back home a. Family has been called and they agree with discharge. He will be discharged with Augmentin and azithromycin for presumed bacterial pneumonia. Time spent discussing smoking cessation with patient: 3 to 10 minutes Status at Discharge Cognitive/behavioral status at discharge: Awake alert oriented Functional status at discharge: independent ambulation Overall status at discharge: patient is progressing back to baseline Time Spent with Patient Time attestation: Total time spent providing and/or coordinating discharge services: 35 minutes Time spent: Greater than 30 minutes Exam Narrative: General: Nontoxic-appearing male in the semi-Dixon position in bed. Weight: HEENT: Normocephalic, atraumatic. PERRL, EOMI. Sclera anicteric. Moist mucous membranes. Neck: Supple. No JVD. Respiratory: Respirations are nonlabored. Coarse lung sounds heard at the bases. Cardiovascular: Regular rate and rhythm with S1-S2. Systolic murmur at the upper sternal border. Gastrointestinal: Abdomen is soft, nontender, and nondistended with positive bowel sounds. Skin: Warm and dry. No rash or lesions on limited exam. Extremities: No cyanosis, clubbing, or edema. Radial and pedal pulses intact. Neurological: Alert. Cranial nerves 2-12 are grossly intact. No gross focal deficits to casual conversation. Psychiatric: Cooperative with appropriate mood but insistent on prompt discharge. DS: Data Data Completed and Pending Completed studies during hospitalization: Head CT, C-spine CT, chest abdomen pelvis CT Labs on day of discharge: Labs from last 24 hours 10/12/23 10/12/23 05:26 02:07 WBC 9.3 RBC 4.03 L Hgb 13.0 L Hct 38.5 L MCV 95.5 MCH 32.3 MCHC 33.8 RDW 11.8 Plt Count 323 MPV 9.1 Sodium 136 L Potassium 3.0 L Chloride 103 Carbon Dioxide 23 Anion Gap 10 BUN 4 L D Creatinine 0.60 L Estim Creat Clear Calc 78 Estimated GFR > 60 Glucose 89 Calcium 8.5 Magnesium 1.5 L Ammonia < 9 L Vitamin B12 > 1000.0 H Folate > 20.0 H TSH (Reflex) 1.340 Ur L.pneumophila Ag Pending Mycoplasma pneumon IgM Pending Urine Pneumococcal Ag Pending Preliminary micro results at discharge 10/11/23 07:38 Blood Culture - Preliminary Blood 10/11/23 07:38 Blood Culture - Preliminary Blood Additional Comments Additional comments: Patient definitely improved much faster than anti
[2023-10-15 00:47] LABS: Pneumococcal Antigen Urine Not Detected (Not Detected)
[2023-10-15 04:03] LABS: Legionella pneumophila Ag Ur Not Detected (Not Detected)
[2023-10-15 11:50] LABS: Mycoplasma IgM Antibody Titer 49 U/mL (<770)
== END 2023-10-12 12:50 | disposition home or self-care (01) | DRG 195 ==
LOC: ANHED 07:28 → ANH2MED 08:09 → ANH3MEDSUR 08:09
PROVIDERS: Physician Assistant; Admitting Provider Internal Medicine; Emergency Provider Emergency Medicine; PCP Nurse Practitioner Family; Visit Provider Nurse Practitioner
DX: J18.9 Pneumonia, unspecified organism (principal); B97.4 Respiratory syncytial virus as the cause of diseases classified elsewhere; E78.5 Hyperlipidemia, unspecified; I10 Essential (primary) hypertension; I25.10 Atherosclerotic heart disease of native coronary artery without angina pectoris; K21.9 Gastro-esophageal reflux disease without esophagitis; W19.XXXA Unspecified fall, initial encounter; Z28.21 Immunization not carried out because of patient refusal; Z20.822 Contact with and (suspected) exposure to COVID-19; Z95.1 Presence of aortocoronary bypass graft; Z87.891 Personal history of nicotine dependence; Z95.2 Presence of prosthetic heart valve
CPT/HCPCS: 36415; 36600; 70450; 71250; 72125; 74176; 80048; 80053; 80307; 81001; 82140; 82607; 82746; 82805; 83605; 83735; 84145; 84443; 84484; 85025; 85027; 85610; 85730; 86738; 87040; 87449; 87637; 87899; 96361; 96374; 99285; A9270; J0456; J0696; J2060; J7030

== ENCOUNTER 2023-10-30 06:28 | Emergency (ER) | payer MEDICARE, SELFPAY ==
--- NOTE | ~2023-10-30 | CT_ITS ---
EXAMINATION: CT cervical spine wo con DATE: 10/30/2023 08:09 INDICATION: Neck pain. TECHNIQUE: Computed tomography (CT) of the cervical spine was performed without intravenous contrast. Automated exposure control and iterative reconstruction technique were employed. The dose-length pro duct was 389.03 mGy-cm. COMPARISON: CT cervical spine 10/11/2023 FINDINGS: There is 3 mm anterolisthesis of C4 on C5 and 3 mm retrolisthesis of C5 on C6. Vertebral joanne dy heights are normal. There is severely decreased disc height from C2-C3 through C6-C7. There is int erbody fusion at C3-C4. There is degenerative pseudopannus around the dens. The following disc levels are specifically discussed: C2-C3: There is moderate bilateral uncovertebral joint osteoarthritis. There is severe bilateral face t joint osteoarthritis. There is mild bilateral neural foraminal stenosis. There is no central canal stenosis. C3-C4: There is ankylosis of the uncovertebral joints with moderate hypertrophy. There is ankylosis o f the facet joints with mild hypertrophy. There is mild bilateral neural foraminal stenosis. There is mild central canal stenosis. C4-C5: There is severe bilateral uncovertebral joint osteoarthritis. There is severe bilateral facet joint osteoarthritis. There is mild right and moderate left neural foraminal stenosis. There is mild central canal stenosis. C5-C6: There is severe bilateral uncovertebral joint osteoarthritis. There is moderate bilateral face t joint osteoarthritis. There is moderate bilateral neural foraminal stenosis. There is mild central canal stenosis. C6-C7: There is severe bilateral uncovertebral joint osteoarthritis. There is severe bilateral facet joint osteoarthritis. There is mild right and moderate left neural foraminal stenosis. There is mild central canal stenosis. C7-T1: There is mild bilateral uncovertebral joint osteoarthritis. There is severe bilateral facet dread int osteoarthritis. There is mild bilateral neural foraminal stenosis. There is no central canal sten osis. IMPRESSION: 1. Stable severe cervical spondylosis. Reviewed, dictated and finalized at location E. ETING RESEARCH COORDINATOR
[2023-10-30 06:33] VITALS: BP 151/89; PULSE 110; RESP 16; TEMP 36.6; O2SAT 100
[2023-10-30] MEDS: HYDROcodone/acetaminophen (*CRX) 7.5-325 MG TABLET 1 TAB PO (07:02)
[2023-10-30 07:04] VITALS: BP 172/90; PULSE 99; RESP 15; O2SAT 100
--- NOTE | 2023-10-30 08:12 | ED.GENADULT ---
HPI - General Adult General Chief complaint: Neck Pain/Injury Stated complaint: neck pain Time Seen by Provider: 10/30/23 07:29 History of Present Illness HPI narrative: Patient is an 83-year-old male who presents emergency department this morning complaining of neck pain that has been ongoing for the past few days. Patient denies any injury, denies lifting any heavy objects and denies any recent falls or trauma. Patient states that the pain is in the left and right paraspinal lesions worse on the left side. Patient states any time he tries to move his head to the right or to the left he feels pain in his muscles and feels as though they are stiff. Patient has not tried to take anything for the pain at home. Patient denies any pain, numbness or tingling along his bilateral upper extremities denies any shooting pain. He denies any additional symptoms including chest pain, shortness of breath, nausea, vomiting, abdominal pain, dysuria, hematuria, constipation, diarrhea, melena, hematochezia, fevers or chills. Patient also denies any headaches, dizziness, lightheadedness, blurry visions, focal weakness, numbness and or tingling. There are no other modifying, alleviating, or precipitating factors at this time. Related Data Home Medications Medication Instructions Recorded Confirmed multivitamin,[id number] 1 tablet PO DAILY 03/14/21 10/11/23 Allergies Allergy/AdvReac Type Severity Reaction Status Date / Time No Known Allergies Allergy Verified 08/27/23 08:51 Review of Systems Review of Systems: All systems are reviewed and are negative unless stated otherwise in the HPI. [facility] Past Medical History Medical History Aortic stenosis Arthritis Coronary artery disease Essential hypertension Gastroesophageal reflux disease Hyperlipidemia Hypertension Subclinical hypothyroidism Surgical History Surgical History History of aortic valve replacement with bioprosthetic valve (07/2020) At [facility]. History of arthroplasty of left shoulder History of coronary artery bypass graft x 1 (07/2020) At [facility]. History of incisional hernia repair (03/2021) Epigastric incisional hernia with mesh. Family History Family History Other Family history unknown Social History Social History Social History: Surrogate medical decision maker: Kalyani Haley, daughter. Code status: Full code. Smoking packs per day: 2 Smoking cigarettes per day: 40.0 Years smoked: 10 Smoking pack-years: 20.00 Smoking status: Former smoker Smokeless tobacco user: chewing tobacco Alcohol intake: current Drinks per week: 2 Substance use: former Substance use type: marijuana Do You Feel Safe in your Home?: No Lack of Transportation: No Lack of Food: Never True Current Housing: I Do Not Have Housing Concerned About Future Housing: No Difficulty Paying Gas/Electric Bills: No Difficulty Paying for Meds: No Currently Unemployed: No Education: Don't Know Difficulty w/ Childcare or Family Care: No Living arrangements: with family Occupation/Education: retired Spiritual care concerns: No Exam Narrative: General: Alert, awake, afebrile, in no acute distress. HEENT: PERRL, no rhinorrhea, no post nasal drip, oropharynx clear. Neck: Trachea midline, no JVD, no lymphadenopathy, reproducible tenderness to palpation over the bilateral cervical paraspinal region along the superior portion of the trapezius muscle, negative Spurling's test. Cardiovascular: Regular rate and rhythm, no murmurs, rubs or gallops, no peripheral edema. Respiratory: Clear to auscultation bilaterally, no tachypnea, no wheezing, no rhonchi, no rubs, no respiratory distress. Abdomen: Soft, nontender, nondistended, no rebou
== END 2023-10-30 08:30 | disposition home or self-care (01) ==
PROVIDERS: Emergency Provider Emergency Medicine; PCP Nurse Practitioner Family
DX: S16.1XXA Strain of muscle, fascia and tendon at neck level, initial encounter (principal); S46.812A Strain of other muscles, fascia and tendons at shoulder and upper arm level, left arm, initial encounter; S46.811A Strain of other muscles, fascia and tendons at shoulder and upper arm level, right arm, initial encounter; I35.0 Nonrheumatic aortic (valve) stenosis; I25.10 Atherosclerotic heart disease of native coronary artery without angina pectoris; I10 Essential (primary) hypertension; E78.5 Hyperlipidemia, unspecified; E03.8 Other specified hypothyroidism; K21.9 Gastro-esophageal reflux disease without esophagitis; M19.90 Unspecified osteoarthritis, unspecified site; Z95.2 Presence of prosthetic heart valve; Z95.1 Presence of aortocoronary bypass graft; Z96.612 Presence of left artificial shoulder joint; Z87.891 Personal history of nicotine dependence; X58.XXXA Exposure to other specified factors, initial encounter
CPT/HCPCS: 72125; 99284; A9270

== ENCOUNTER 2024-06-17 20:16 | Emergency (ER) | payer MEDICARE, SELFPAY ==
--- NOTE | ~2024-06-17 | CT_ITS ---
EXAMINATION: CT brain wo con DATE: 06/17/2024 22:56 INDICATION: Seizure. TECHNIQUE: Computed tomography (CT) of the head was performed without intravenous contrast. The mA wa s adjusted according to patient size. Iterative reconstruction technique was employed. The dose-lengt h product was 605.33 mGy-cm. COMPARISON: Head CT 10/11/2023 FINDINGS: There is no intracranial hemorrhage, acute infarction, or abnormal intracranial mass lesion . There are scattered areas of low attenuation in the cerebral white matter, which is within normal l imits for the patient's age. The ventricles are normal in size. There are likely changes of ocular le ns replacement surgeries. There is mild mucosal thickening in the paranasal sinuses. The mastoid air cells are normal. IMPRESSION: 1. Normal aging brain. Reviewed, dictated and finalized at location A. IMPRESSION: 1. Normal aging brain.
--- NOTE | ~2024-06-17 | XR_ITS ---
EXAMINATION: XR chest 1V portable DATE: 06/17/2024 20:50 INDICATION: Altered mental status. TECHNIQUE: A single frontal view of the chest was obtained. COMPARISON: Chest 2 views 03/20/2021 FINDINGS: There is a moderate-sized hiatal hernia. No pneumonia, pleural effusion, or pneumothorax. T he heart size is normal. There are changes of aortic valve replacement. There are bilateral shoulder arthroplasties. There are old healed left rib fractures. IMPRESSION: 1. Moderate-sized hiatal hernia. Reviewed, dictated and finalized at location A.
[2024-06-17 20:18] VITALS: BP 142/65; PULSE 97; RESP 25; TEMP 36.6; O2SAT 100
--- NOTE | 2024-06-17 20:24 | ECG_ITS ---
Test Date: 2024-06-17 21:27:00 Measurements Intervals [place] Rate: 77 P: 0 MT: 0 QRS: 40 QRSD: 95 T: 32 QT: 425 QTc: 484 Interpretive Statements SINUS RHYTHM FREQUENT ATRIAL PREMATURE COMPLEX BORDERLINE AV CONDUCTION DELAY DELAYED PRECORDIAL R/S TRANSITION BORDERLINE ST-T WAVE ABNORMALITY- INFERIOR LEADS BASELINE ARTIFACT- I, II, III, AVR, AVL, AVF, V1-V6 ABNORMAL ECG No previous ECG available for comparison Electronically Signed On 06-18-2024 06:49:08 CDT by Steve Tinsley D.O.
--- NOTE | 2024-06-17 20:25 | ED.GENADULT ---
HPI - General Adult General Chief complaint: Seizure Stated complaint: POSSIBLE SZ? History of Present Illness HPI narrative: 83-year-old male presenting to the emergency department for evaluation after having a possible seizure. Patient went to check on him and found him unresponsive in his chair. When EMS arrived he was rigid. Please suspected they had been to the hospital for an suspected that he did have a prior history of seizure. Patient and family deny any prior history of seizure. Patient was combative EN route to the emergency department but upon arrival to the emergency department patient is more alert and appropriate. Patient is unsure of where he is at but denies any prior history of seizure and denies any current pain or injury. EMS reports that the patient does drink beer daily. Related Data Allergies Allergy/AdvReac Type Severity Reaction Status Date / Time No Known Allergies Allergy Verified 06/10/24 09:03 Review of Systems Review of Systems: All systems reviewed & are unremarkable except as noted in HPI and below PMFSH Past Medical History Medical History Aortic stenosis Aortic stenosis, severe Arthritis Coronary artery disease Essential hypertension Gastroesophageal reflux disease Hyperlipidemia Hypertension Subclinical hypothyroidism Surgical History Surgical History History of aortic valve replacement with bioprosthetic valve (07/2020) At [facility]. History of arthroplasty of left shoulder History of coronary artery bypass graft x 1 (07/2020) At [facility]. History of incisional hernia repair (03/2021) Epigastric incisional hernia with mesh. S/P aortic valve replacement Family History Family History Other Family history unknown Social History Social History Social History: Surrogate medical decision maker: Kalyani Haley, daughter. Code status: Full code. Smoking packs per day: 2 Smoking cigarettes per day: 40.0 Years smoked: 10 Smoking pack-years: 20.00 Smoking status: Former smoker Smokeless tobacco user: chewing tobacco Second hand tobacco smoke exposure: No Alcohol intake: current Drinks per week: 2 Substance use: current Substance use type: marijuana Lack of Food: Never True Current Housing: Decline to Answer Concerned About Future Housing: Decline to Answer Difficulty Paying Gas/Electric Bills: Decline to Answer Difficulty Paying for Meds: Decline to Answer Currently Unemployed: Decline to Answer Education: Decline to Answer Difficulty w/ Childcare or Family Care: Decline to Answer Living arrangements: with family Occupation/Education: retired Additional occupation/education comments: [employer] Gender identity (if verbalized by the patient): Male Spiritual care concerns: No Exam Narrative: APPEARANCE: Well appearing, no pain, no distress, well-nourished. HEAD: normocephalic, atraumatic. EYES: PERRLA/EOMI, conjunctivae clear. NOSE: Normal no drainage EARS:TMS clear with good light reflex. THROAT: Pharynx clear, no exudate. NECK: Supple. No adenopathy, no masses. RESPIRATORY: Airway patent, respirations nonlabored. Clear to auscultation bilaterally, no rales, rhonchi, wheezing. CARDIOVASCULAR: Regular rate and rhythm without murmurs rubs or gallops. ABDOMINAL: Soft, nontender, nondistended, normal bowel sounds MUSCULOSKELETAL: Moves all extremities. Strength/ROM intact, No edema, No calf tenderness. NEURO: Alert but confused. Cranial nerves II through XII intact. Good gait. Good coordination SKIN: Warm, dry. Normal Color Course Course Emergency Course: Patient had a first-time seizure, he was willing to start medications for seizure but preferred to be discharged to home. Vital Signs Vital signs: Vital
--- NOTE | 2024-06-17 20:28 | PC.NURSE ---
Unable to fully complete triage d/t pt condition.
[2024-06-17 20:40] LABS: Hematocrit 41.2 % (42.0-52.0); Hemoglobin 13.7 g/dL (14.0-18.0); Mean Corpuscular HGB Conc 33.3 g/dl (32-36); Mean Corpuscular Hemoglobin 31.7 pg (26-34); Mean Corpuscular Volume 95.4 fl (80-100); Mean Platelet Volume 9.3 fl (7.4-10.4); Platelet Count Result 286 k/mm3 (150-375); Red Blood Count 4.32 M/mm3 (4.6-6.20); Red Cell Distribution Width 14.1 % (11.5-14.5); White Blood Count 12.5 K/mm3 (4.5-10.0)
[2024-06-17 20:41] VITALS: PULSE 84; O2SAT 95
[2024-06-17 20:42] VITALS: BP 115/67; PULSE 81; RESP 24; TEMP 36.6; O2SAT 95
[2024-06-17 20:45] LABS: Glucose Point of Care 104 mg/dl (65-105)
[2024-06-17 20:50] LABS: Prothrombin Time 13.2 Seconds (11.1-14.7)
[2024-06-17 20:51] LABS: Partial Thromboplastin Time 26.5 Seconds (22.3-36.8)
[2024-06-17 20:52] LABS: Acetaminophen < 10 ug/mL (10-30); Ethanol 18 mg/dL (<10); Salicylate < 1.0 mg/dL (2-20)
[2024-06-17 20:53] LABS: Alanine Aminotransferase 15 U/L (6-50); Albumin Level 4.7 g/dL (3.5-5.1); Alkaline Phosphatase 94 U/L (38-126); Anion Gap 19 mmol/L (4-12); Aspartate Amino Transferase 34 U/L (17-59); Bilirubin,Total 0.3 mg/dL (0.2-1.3); Blood Urea Nitrogen 11 mg/dL (9-20); Calcium 9.5 mg/dL (8.4-10.2); Carbon Dioxide 20 mmol/L (22-30); Chloride 94 mmol/L (98-107); Estimated CRCL calculation 57 ml/min; Estimated Glomerular Filt Rate > 60; Glucose 110 mg/dL (65-110); Magnesium 1.7 mg/dL (1.6-2.3); Potassium 3.8 mmol/L (3.4-5.0); Sodium 133 mmol/L (137-145)
[2024-06-17 20:56] LABS: Lactic Acid Reflex 7.1 mmol/L (0.7-2.0)
[2024-06-17 21:02] LABS: Add Urine Microscopic? YES; Appearance Urine Clear (Clear); Bacteria Urine None Seen /hpf; Bilirubin Urine Negative (Negative); Blood Urine Negative (Negative); Color Urine Yellow (Yellow); Glucose Urine UA Negative (Negative); Hyaline Casts Urine Present /lpf; Ketones Urine Negative (Negative); Leukocyte Esterase Ur Negative LEU/UL (Negative); Mucus Urine Present /lpf; Need Manual Microscopic Reviewed; Nitrate Urine Negative (Negative); Protein Urine 1+ mg/dL (Negative); RBC Urine 0-2 /hpf (0-2); Specific Grav Ur 1.016 (1.001-1.035); Squamous Epithelial Cell Urine None Seen /hpf (Few); Urobilinogen Urine 0.2 mg/dL (<2.0); WBC Urine 0-5 /hpf (0-3)
[2024-06-17 21:09] LABS: Basophils Absolute Manual 0.12 K/mm3 (0.0-0.1); Basophils Percent Manual 1 % (0-1); Lymphocytes Absolute Manual 4.37 K/mm3 (1.1-4.5); Lymphocytes Percent Manual 35 % (18-44); Metamyelocytes Percent 8 %; Monocytes Absolute Manual 0.75 K/mm3 (0.1-0.90); Monocytes Percent Manual 6 % (3-9); Myelocytes Percent 4 %; Neutrophils Percent Manual 46 % (46-73); Total Cells Counted 100
[2024-06-17 21:10] LABS: Platelet Estimate Adequate (Adequate); Schistocytes None Seen
[2024-06-17 21:16] LABS: Influenza A QL RT-PCR Negative (Negative); Influenza B QL RT-PCR Negative (Negative); RSV RNA, RT-PCR Negative (Negative); SARS-CoV-2 RNA PCR Negative (Negative)
[2024-06-17] MEDS: SODIUM CHLORIDE 0.9% IV 1,000 ML 999 ML IV CONT (21:19)
[2024-06-17] MEDS: levETIRAcetam 1000MG/NACL100ML 1,000 MG/100 ML BAG 400 MG IVPB (21:43)
[2024-06-17 23:01] VITALS: BP 131/81; PULSE 82; RESP 16; TEMP 36.4; O2SAT 99
[2024-06-17 23:05] LABS: Lactic Acid Reflex 2.3 mmol/L (0.7-2.0)
[2024-06-17 23:37] LABS: Reflex Lactic Acid Yes or No Add Lactic
== END 2024-06-17 23:44 | disposition home or self-care (01) ==
PROVIDERS: Emergency Provider Emergency Medicine; PCP Nurse Practitioner Family
DX: R56.9 Unspecified convulsions (principal); I25.10 Atherosclerotic heart disease of native coronary artery without angina pectoris; K21.9 Gastro-esophageal reflux disease without esophagitis; E78.5 Hyperlipidemia, unspecified; I10 Essential (primary) hypertension; Z87.891 Personal history of nicotine dependence; Z20.822 Contact with and (suspected) exposure to COVID-19
CPT/HCPCS: 36415; 70450; 71045; 80053; 80307; 81001; 82948; 83605; 83735; 84443; 85025; 85610; 85730; 87637; 93005; 96374; 99284; J1953; J7030

== ENCOUNTER 2024-08-09 07:14 | Outpatient (CLI) | payer MEDICARE, SELFPAY ==
--- NOTE | ~2024-08-09 | NM_ITS ---
EXAMINATION: NM meir stress w perfusion DATE: 08/09/2024 10:48 INDICATION: Presence of echogenic heart valve TECHNIQUE: Rest images were obtained following intravenous administration of 11.6 mCi Tc99m tetrofosm in (Myoview). The patient was infused intravenously with Lexiscan (Regadenoson). Then, 34.3 mCi Tc99m tetrofosmin (Myoview) was administered intravenously, and stress images were obtained. Data was peg nstructed into short axis and horizontal and vertical long axis SPECT images. Gated SPECT images were also obtained. COMPARISON: None. FINDINGS: There is no definite reversible or fixed perfusion abnormality to suggest ischemia or infar ction. There is normal left ventricular chamber size, wall motion and ejection fraction. Left ventr icular ejection fraction measures 68%. IMPRESSION: 1. Normal myocardial perfusion at rest and during stress. 2. Left ventricular ejection fraction measuring 68%. Reviewed, dictated and finalized at location A.
--- NOTE | 2024-08-09 07:50 | ECHO_ITS ---
Patient Info Name: Adán Wall Age: 84 years : 1940 Gender: Male Ht: 70 in Wt: 150 lbs BSA: 1.83 m2 HR: 65 bpm BP: 156 / 93 mmHg Technical Quality: Good Exam Date: 08/09/2024 8:12 AM Exam Location: Echo Lab Patient Status: Outpatient Admit Date: 08/09/2024 Staff Ordering Physician: Steve Tinsley DO Channel Sales Manager: Ruby Solis RDCS Attending Provider: Steve Tinsley DO Referring Physician: Laureano HUNT; Exam Type: CA echo doppler color flow Study Info Indications Z95.3 - PRESENCE OF XENOGENIC HEART VALVE Complete two-dimensional, color flow and Doppler transthoracic echocardiogram is performed. Strain analysis performed. Summary 1. Complete two-dimensional, color flow and Doppler transthoracic echocardiogram is performed. 2. Left ventricular chamber dimension is normal. 3. Left ventricular systolic function is normal, estimated at 60-65%. 4. The left ventricular diastolic function is grade I diastolic dysfunction. 5. E/e' 11 is mildly elevated. 6. Global longitudinal strain is mildly abnormal at -16.6%. 7. Left atrial chamber dimension is moderately enlarged. 8. Right atrial chamber dimension is moderately enlarged. 9. The aortic valve is not well visualized. Cannot determine number of aortic valve leaflets. 10. The mitral valve has mildly calcified annulus. 11. There is moderate mitral valve regurgitation. 12. There is moderate tricuspid valve regurgitation. 13. No pulmonary hypertension, estimated pulmonary arterial systolic pressure is 36 mmHg. Left Ventricle E/e' 11 is mildly elevated. Global longitudinal strain is mildly abnormal at -16.6%. Left ventricular chamber dimension is normal. Left ventricular systolic function is normal, estimated at 60-65%. The left ventricular diastolic function is grade I diastolic dysfunction. Right Ventricle Right ventricular systolic function is normal and with normal TAPSE 2.2 cm. Right ventricular chamber dimension is normal. Left Atria Left atrial chamber dimension is moderately enlarged. Right Atria Right atrial chamber dimension is moderately enlarged. Aortic Valve The aortic valve is not well visualized. Cannot determine number of aortic valve leaflets. There is no aortic valve stenosis based on valve area and gradients. There is no aortic valve regurgitation. Pulmonic Valve There is no pulmonic regurgitation. Mitral Valve The mitral valve has mildly calcified annulus. There is no mitral valve stenosis. There is moderate mitral valve regurgitation. Tricuspid Valve There is moderate tricuspid valve regurgitation. No pulmonary hypertension, estimated pulmonary arterial systolic pressure is 36 mmHg. Pericardium/Pleural There is no pericardial effusion. Inferior Vena Cava Normal inferior vena cava with >50% collapse upon inspiration consistent with normal right atrial pressure, 5 mmHg. Aorta The aortic root size at the sinus of Valsalva is normal. Left Ventricular Outflow Tract Name Value Normal LVOT 2D LVOT Diameter 1.9 cm LVOT Doppler LVOT Peak Gradient 6 mmHg LVOT Mean Gradient 3 mmHg LVOT VTI 37 cm LVOT VTI/AV VTI Ratio 0.8 LVOT Stroke Volume 99 ml LVOT CO 7.1 l/min LVOT CI 3.9 l/min/m2 Pulmonic Valve Name Value Normal RVOT Doppler RVOT Peak Gradient 1 mmHg PV Doppler PV Peak Gradient 4 mmHg Mitral Valve Name Value Normal MV Doppler MV Decel Converse 320 cm/s2 MV PHT 78 ms MV Area (PHT) 2.8 cm2 4.0-5.0 MV Regurgitation Doppler MR Peak Gradient 95 mmHg MV Diastolic Function MV E Peak Velocity 86 cm/s MV A Peak Velocity 94 cm/s MV E/A 0.9 MV Decel Time 269 ms Tricuspid Valve Name Value Normal TV Regurgitation Doppler TR Peak Velocity 280 cm/s TR Peak Gradient 31 mmHg Estimated PAP/RSVP RA Pressure 5 mmHg <=5 PA Systolic Pressure 36 mmHg <36 RV Systolic Pressure 36 mmHg <36 Aorta Name Value Normal Ascending Aorta Ao Root Diameter (MM) 2.2 cm Ao Root Diam Index (MM) 1.2 cm/m2 Aortic Valve Name Value Normal AV Doppler AV Peak Velocity 207 cm/s AV Peak Gradient 16 mmHg AV Mean Gradient 9 mmHg AV VTI 44 cm AV Area (Cont Eq VTI) 2.3 cm2 >=3.0 AV Area (Cont Eq Tariq) 1.7 cm2 AV Regurgitation 2D LVOT Area 2.7 cm2 Ventricles Name Value Normal LV Dimensions 2D/MM IVS Diastolic Thickness (2D) 0.7 cm 0.6-1.0 IVS Diastole Thickness (MM) 0.6 cm 0.6-1.0 LVID Diastole (2D) 4.6 cm 4.2-5.8 LVID Diastole (MM) 6.3 cm 4.2-5.8 LVIW Diastolic Thickness (2D) 1.0 cm 0.6-1.0 LVIW Diastolic Thickness (MM) 0.7 cm 0.6-1.0 LVID Systole (2D) 2.6 cm 2.5-4.0 LVID Systole (MM) 3.9 cm 2.5-4.0 LVOT Diameter 1.9 cm LV Mass (2D Cubed) 128.05 g 88.00-224.00 LV Mass Index (2D Cubed) 70 g/m2 49-115 Relative Wall Thickness (2D) 0.44 LV Mass (MM Cubed) 156.06 g 88.00-224.00 LV Mass Index (MM Cubed) 85 g/m2 49-115 Relative Wall Thickness (MM) 0.22 LV Fractional Shortening/Ejection Fraction 2D/MM LV Fractional Shortening (2D) 42 % 25-43 LV Fractional Shortening (MM) 37 % 25-43 LV EF (MM Teicholz) 67 % 52-72 LV EF (2D Teicholz) 73 % 52-72 LV Diastolic Volume (4C MOD) 65 ml LV EF (4C MOD) 70 % LV Diastolic Volume (2C MOD) 40 ml LV EF (2C MOD) 71 % LV Diastolic Volume (BP MOD) 51 ml 62-150 LV Diastolic Volume Index (BP MOD) 28 ml/m2 34-74 LV Systolic Volume (BP MOD) 15 ml 21-61 LV Systolic Volume Index (BP MOD) 8 ml/m2 11-31 LV EF (BP MOD) 70 % 52-72 LV Diastolic Length (4C) 7.4 cm LV Systolic Length (4C) 5.5 cm LV Stroke Volume (4C MOD) 46 ml Atria Name Value Normal LA Dimensions LA Dimension (MM) 3.2 cm 3.0-4.1 LA Volume (4C A-L) 61 ml LA Volume (BP A-L) 63 ml RA Dimensions RA Area (4C) 24.5 cm2 <=18.0 EchoPAC Name Value Normal AutoEF LVCO_BiP_Q (Lfgi5EDN) 2.4 l/min LVEF_BiP_Q (Yrrx1FZT) 54 % LVSV_BiP_Q (Mzyy6VDE) 40 ml LVVED_BiP_Q (Mcxq2DBC) 73 ml LVVES_BiP_Q (Uifi9OAW) 33 ml HR_4Ch_Q (Vyzx0YJB) 61 bpm LVCO_4Ch_Q (Mnww0YRF) 2.5 l/min LVEF_4Ch_Q (Lawv1WGC) 53 % LVLd_4Ch_Q (Sajn4LUG) 7.1 cm LVLs_4Ch_Q (Tudr5GCU) 5.9 cm LVSV_4Ch_Q (Sxjl1GDM) 42 ml LVVED_4Ch_Q (Ansz1YUY) 79 ml LVVES_4Ch_Q (Zmsv7XNV) 37 ml HR_2Ch_Q (Vogy5SUL) 63 bpm LVCO_2Ch_Q (Zfnn8QGN) 2.2 l/min LVEF_2Ch_Q (Hqoz8NBB) 53 % LVLd_2Ch_Q (Klew9ANR) 7.0 cm LVLs_2Ch_Q (Vxoy4NAT) 6.0 cm LVSV_2Ch_Q (Kgsz4YOS) 35 ml LVVED_2Ch_Q (Iwkk1SIH) 66 ml LVVES_2Ch_Q (Wguj1QZI) 31 ml JOCY AA peak sys SL (AWMA) 5.4 % AAS peak sys SL (AWMA) 26.5 % AI peak sys SL (AWMA) 25.2 % AL peak sys SL (AWMA) 18.2 % AP peak sys SL (AWMA) 21.7 % peak sys SL (AWMA) 25.8 % AVC (AWMA) 397 ms BA peak sys SL (AWMA) 18.2 % BAS peak sys SL (AWMA) 12.1 % BI peak sys SL (AWMA) 13.4 % BL peak sys SL (AWMA) 17.1 % BP peak sys SL (AWMA) 11.0 % BS peak sys SL (AWMA) 7.9 % G peak SL(A2C) (AWMA) 15.3 % G peak SL(A4C) (AWMA) 17.5 % G peak SL(APLAX) (AWMA) 17.3 % G peak SL(Avg) (AWMA) 16.7 % MA peak sys SL (AWMA) 8.3 % MAS peak sys SL (AWMA) 23.0 % NC peak sys SL (AWMA) 20.7 % ML peak sys SL (AWMA) 17.9 % MP peak sys SL (AWMA) 14.5 % MS peak sys SL (AWMA) 23.1 % Report Signatures
--- NOTE | 2024-08-09 07:50 | EST_ITS ---
Patient Info Name: Adán Wall Age: 84 years : 1940 Gender: Male Ht: 70 in Wt: 150 lbs BSA: 1.83 m2 HR: 64 bpm BP: 140 / 82 mmHg Heart Rhythm: Sinus Rhythm Exam Date: 08/09/2024 9:40 AM Exam Location: Echo Lab Patient Status: Outpatient Admit Date: 08/09/2024 Staff Ordering Physician: Steve Tinsley DO Attending Provider: Steve Tinsley DO Exercise Technologist: Sara Richardson RDCS Exercise Physician: Steve Tinsley DO Exam Type: CA stress meir w NM Study Info A regadenoson stress test was performed. Summary 1. 1. Negative lexiscan stress test for ischemic ST changes by ECG criteria. 2. 2. Baseline hypertension. 3. 3. Nuclear scan to follow and will be reported separately. Please correlate with it. 4. 4. Patient informed of the above results. Protocol: Lexiscan Stress ECG Details Stage: REST Duration (min): 0 min : 42 sec HR (bpm): 63 SBP (mmHg): 140 DBP (mmHg): 82 Stage: REST Duration (min): 9 min : 44 sec HR (bpm): 68 SBP (mmHg): 140 DBP (mmHg): 82 Stage: STAGE 1 Duration (min): 1 min : 0 sec HR (bpm): 81 SBP (mmHg): 140 DBP (mmHg): 82 Stage: RECOVERY Duration (min): 1 min : 0 sec HR (bpm): 87 SBP (mmHg): 140 DBP (mmHg): 82 Stage: RECOVERY Duration (min): 2 min : 0 sec HR (bpm): 83 SBP (mmHg): 140 DBP (mmHg): 82 Stage: RECOVERY Duration (min): 3 min : 0 sec HR (bpm): 79 SBP (mmHg): 152 DBP (mmHg): 85 Stage: RECOVERY Duration (min): 4 min : 0 sec HR (bpm): 86 SBP (mmHg): 152 DBP (mmHg): 85 Stage: RECOVERY Duration (min): 5 min : 0 sec HR (bpm): 82 SBP (mmHg): 141 DBP (mmHg): 89 Stage: RECOVERY Duration (min): 5 min : 8 sec HR (bpm): 81 SBP (mmHg): 141 DBP (mmHg): 89 Rest HR: 68 bpm Peak HR: 88 bpm Rest Sys BP: 140 mmHg Peak Sys BP: 152 mmHg Max Pred HR: 134 bpm % Max Pred HR: 66 % Target HR: 114 bpm Max RPP: 13,376 bpm*mmHg Termination Reason: Completed protocol Cardiac Symptoms: Shortness of breath Total Time: 1 min : 0 sec Rest Flores BP: 82 mmHg Peak Flores BP: 85 mmHg Total Dose: 0.4 mg Resting ECG Sinus rhythm. Stress ECG No ST changes. Arrhythmias None. Report Signatures
== END 2024-08-09 07:15 | disposition home or self-care (01) ==
LOC: ANHCARD 07:15
PROVIDERS: PCP Nurse Practitioner Family; Visit Provider Internal Medicine Cardiovascular Disease
DX: I08.1 Rheumatic disorders of both mitral and tricuspid valves (principal); Z95.3 Presence of xenogenic heart valve; R93.429 Abnormal radiologic findings on diagnostic imaging of unspecified kidney
CPT/HCPCS: 78452; 93017; 93306; A9502; J2785

== ENCOUNTER 2024-08-19 11:50 | Outpatient (CLI) | payer MEDICARE, SELFPAY ==
[2024-08-19 13:57] LABS: Basophils Absolute Auto 0.1 K/mm3 (0.0-0.1); Basophils Percent Auto 1.2 % (0.2-1.2); Eosinophils Absolute Auto 0.5 K/mm3 (0-0.3); Eosinophils Percent Auto 4.3 % (0-4.4); Hematocrit 39.5 % (42.0-52.0); Hemoglobin 13.2 g/dL (14.0-18.0); Immature Granulocyte Absolute 0.05 K/mm3 (0.00-0.031); Immature Granulocyte Percent A 0.5 % (0-0.5); Lymphocytes Absolute Auto 3.71 K/mm3 (0.9-3.2); Lymphocytes Percent Auto 35.4 % (18.3-44.2); Mean Corpuscular HGB Conc 33.4 g/dl (32-36); Mean Corpuscular Volume 95.9 fl (80-100); Mean Platelet Volume 9.7 fl (7.4-10.4); Monocytes Percent Auto 9.8 % (2.6-8.5); Neutrophils Absolute Auto 5.1 K/mm3 (1.3-6.7); Neutrophils Percent Auto 48.8 % (45.5-73.1); Platelet Count Result 378 k/mm3 (150-375); Red Blood Count 4.12 M/mm3 (4.6-6.20); Red Cell Distribution Width 13.2 % (11.5-14.5); White Blood Count 10.5 K/mm3 (4.5-10.0)
[2024-08-19 14:04] LABS: Albumin Level 4.6 g/dL (3.5-5.1); Estimated Glomerular Filt Rate > 60; Glucose 96 mg/dL (65-110)
[2024-08-19 14:06] LABS: Hemoglobin A1C 5.4 % (<5.7)
[2024-08-19 14:11] LABS: Urine Cotinine NEGATIVE
[2024-08-19 16:25] LABS: MRSA (PCR) DETECTED (NOT DETECTE)
== END 2024-08-19 11:51 | disposition home or self-care (01) ==
LOC: ANHSURGERY 11:55
PROVIDERS: PCP Nurse Practitioner Family; Visit Provider Orthopaedic Surgery
DX: Z01.812 Encounter for preprocedural laboratory examination (principal); M17.12 Unilateral primary osteoarthritis, left knee
CPT/HCPCS: 80307; 82040; 82565; 82947; 83036; 85025; 86850; 86900; 86901; 87641

== ENCOUNTER 2024-09-03 10:50 | Inpatient (IN) | payer MEDICARE, SELFPAY ==
[2024-08-19 12:01] VITALS: BMI 24.3
--- NOTE | 2024-08-19 12:35 | PC.NURSE ---
Addendum entered by Coty Piña RN 08/19/24 14:57: NAPROXEN PER DR HERRERA Original Note: Report to the Outpatient Waiting Room, entrance under the green pavilion located off [facility], at time _8 AM on date 09/01/24 . Planned Procedure Time: __10 AM .? Time changes happen often and if your time is changed the preop area will call you the afternoon before. - You and your visitor will be asked to self-screen and do not enter if you have any COVID symptoms. Please call surgeon if you need to reschedule. - A mask is optional within the hospital at this time. Patients may have clear liquids (water, carbonated beverages, clear teas, apple juice) until 3 hours prior to surgery( 7 AM) with a maximum of 20 ounces. - No food from midnight until time of surgery and no smoking - Infants may have breast milk until 4 hours before surgery, infant formula 6 hours prior to surgery. - Children will be allowed to drink immediately following surgery.? If applicable, please bring a bottle or sippy cup to assist with drinking. Juice, water, soda, and popsicles are readily available.? For infants on formula, please bring formula the day of surgery.? Pacifiers are allowed. Take only the following medications with a SIP of water on the morning of surgery: __AMLODIPINE,METOPROLOL DO NOT STOP ANY OF YOUR OTHER PRESCRIPTION MEDICATIONS PRIOR TO SURGERY EXCEPT THE FOLLOWING Medications to discontinue per physician ___HOLD ALL VITAMINS 3 DAYS PRE OP .LAST DOSE 08/28/24. Please no make-up, nail libyan, hairspray, perfume, deodorant, or body powder the day of surgery.? No jewelry (including any body piercings) or valuables the day of surgery, leave them at home.? Please take a shower or bath the night before, or the morning of, surgery with an antibacterial soap.? Wear comfortable, loose fitting clothing.? Children are encouraged to wear pajamas. - Jewelry must be removed prior to entering the operating room.? Rings and piercings that are not removed may be cut off. - The hospital will not accept responsibility for valuables.? - Please leave all valuables, including medications, at home the day of surgery. If you are going home after surgery, a licensed driver education road instructor must drive you home.? - NO public transportation without another adult if you receive anesthesia. - We recommend that an adult stay with you for 24 hours following discharge. - We also recommend that you do not drive, make important decision, drink alcoholic beverages, or take any drugs that were not prescribed by your health care provider for at least 24 hours after your discharge time. Follow any additional instructions given to you from your surgeon. VERBAL AND WRITTEN instructions given to _PATIENT and asked if any additional questions and then verbalized understanding. Patient advised to call surgeon office or pre surgery nurse liaison [phone] if any additional questions.
[2024-08-19 12:54] VITALS: BP 134/85; PULSE 69; RESP 18; TEMP 36.7; O2SAT 99
--- NOTE | 2024-08-31 07:31 | PM.IMHP ---
H&P: HPI History of Present Illness Date/Time: 08/31/24 07:31 Chief Complaint: Patient has osteoarthritis left knee unresponsive to conservative treatment. He like to consider knee replacement surgery. Review of Systems Musculoskeletal: Musculoskeletal: Reports arthralgias, Reports joint swelling and Reports stiffness Neurologic: Reports abnormal gait [facility] Past Medical History Medical History (Updated 07/06/24 @ 09:22 by Steve Tinsley DO) Aortic stenosis Aortic stenosis, severe Arthritis Coronary artery disease Essential hypertension Gastroesophageal reflux disease Hyperlipidemia Hypertension Subclinical hypothyroidism Surgical History Surgical History (Updated 07/06/24 @ 09:21 by Steve Tinsley DO) History of aortic valve replacement with bioprosthetic valve (07/2020) At [facility]. History of arthroplasty of left shoulder History of coronary artery bypass graft x 1 (07/2020) At [facility]. History of incisional hernia repair (03/2021) Epigastric incisional hernia with mesh. S/P aortic valve replacement Family History Family History Other Family history unknown Social History Social History Social History: Surrogate medical decision maker: Kalyani Haley, daughter. Code status: Full code. Smoking packs per day: 1 Smoking cigarettes per day: 20.0 Years smoked: 15 Smoking pack-years: 15.00 Smoking status: Former smoker Tobacco type: cigarettes Smokeless tobacco user: chewing tobacco Second hand tobacco smoke exposure: No Smoking end date: 10/13/69 Alcohol intake: current Drinks per week: 7 Alcohol use details: BEER Substance use: current Substance use type: marijuana Lack of Food: Never True Current Housing: Decline to Answer Concerned About Future Housing: Decline to Answer Difficulty Paying Gas/Electric Bills: Decline to Answer Difficulty Paying for Meds: Decline to Answer Currently Unemployed: Decline to Answer Education: Decline to Answer Difficulty w/ Childcare or Family Care: Decline to Answer Living arrangements: with family Occupation/Education: retired Additional occupation/education comments: [employer] Gender identity (if verbalized by the patient): Male Spiritual care concerns: No Meds Home Medications and Allergies Home Medications Medication Instructions Recorded Confirmed Type amlodipine 10 mg tablet 10 mg PO DAILY #90 tabs 03/03/24 08/19/24 Rx metoprolol tartrate 50 mg tablet See Rx Instructions .Route 07/02/24 08/19/24 Rx .COMPLEX #90 tabs multivitamin 1 tablet PO DAILY 08/19/24 08/19/24 History naproxen 500 mg tablet 500 mg PO PRN PRN Pain 08/19/24 08/19/24 History mupirocin 2 % topical ointment 1 applic topical BID #15 grams 08/23/24 Rx Allergies Allergy/AdvReac Type Severity Reaction Status Date / Time No Known Allergies Allergy Verified 08/19/24 12:03 Exam Narrative: Examination of his left knee demonstrates motion from about 3-110 degrees. He has varus deformity. He has grinding crepitus and pain with any manipulation. Neurologically he is grossly intact. He walks with an antalgic gait. Eyes: General: appearance normal, both eyes and all related structures Neck: Neck: supple Resp: Effort & Inspection: normal respiratory effort Cardio: Rate: regular rate Rhythm: regular rhythm Assessment and Plan Assessment and plan (1) Osteoarthritis of left knee: Code(s): M17.12 - Unilateral primary osteoarthritis, left knee Status: Acute Assessment and Plan: Patient has osteoarthritis of the left knee. He has been unresponsive to conservative treatment. He continues to have pain and difficult time getting around. He like to consider knee replacement surgery. I discussed this with him risks benefits limitations and alternatives in detail. He understands and agrees would like to proceed. Will proceed per his request.
[2024-09-01] VITALS (16 sets, daily range): BP systolic 89–130; BP diastolic 52–81; PULSE 55–113; RESP 10–19; TEMP 36–36.3; O2SAT 91–100
[2024-09-01] MEDS: LACTATED RINGERS 1,000 ML 30 ML IV CONT ×2 (08:30→11:58)
[2024-09-01] MEDS: TRANEXAMIC ACID 1,000MG/ISO100 1,000 MG/100 ML BAG 200 MG IVPB (08:30)
[2024-09-01] MEDS: VANCOMYCIN 1,250 MG/NS 250 ML BAG 166.67 MG IVPB (08:30)
[2024-09-01] MEDS: ACETAMINOPHEN 500 MG TABLET 1000 MG PO (08:30)
--- NOTE | 2024-09-01 08:55 | WPDHPUPDATE1 ---
History and Physical Update Update Date/Time: 09/01/24 08:55 History and Physical has been reviewed, including an updated exam of the patient. There are NO changes in the patient's condition. Risks, benefits, and alternatives have been discussed and questions answered. Patient agrees to proceed with procedure.
--- NOTE | 2024-09-01 09:41 | P.PNAN_ITS ---
Anes - Initial Pre Proc Eval Procedure: Operation Date: 09/01/24 10:00 Proposed Procedures p Left Total Knee Arthroplasty - Karl Parada MD Date/Time: 09/01/24 09:41 Surgeon: Karl Parada MD Pre Op Diagnosis: OA left knee Patient Data Age: 84 Gender: M Height: 1.7 m Weight: 67.4 kg Last Vital Signs Temp 36.2 C L 09/01/24 08:30 Pulse 56 L 09/01/24 08:30 Resp 16 09/01/24 08:30 BP 128/68 09/01/24 08:30 Pulse Ox 100 09/01/24 08:30 O2 Del Method Room Air 09/01/24 08:30 Allergies Allergy/AdvReac Type Severity Reaction Status Date / Time No Known Allergies Allergy Verified 09/01/24 09:17 Home Medications Medication Instructions Recorded Confirmed Type amlodipine 10 mg tablet 10 mg PO DAILY #90 tabs 03/03/24 09/01/24 Rx metoprolol tartrate 50 mg tablet See Rx Instructions .Route 07/02/24 09/01/24 Rx .COMPLEX #90 tabs multivitamin 1 tablet PO DAILY 08/19/24 09/01/24 History naproxen 500 mg tablet 500 mg PO PRN PRN Pain 08/19/24 09/01/24 History mupirocin 2 % topical ointment 1 applic topical BID #15 grams 08/23/24 09/01/24 Rx Patient hx anesthesia problems: none Family hx anesthesia problems: none Results Review: All pre-operative results and documents have been reviewed as part of the pre- operative evaluation. [facility] Past Medical History Medical History Aortic stenosis Aortic stenosis, severe Arthritis Coronary artery disease Essential hypertension Gastroesophageal reflux disease Hyperlipidemia Hypertension Subclinical hypothyroidism Surgical History Surgical History History of aortic valve replacement with bioprosthetic valve (07/2020) At [facility]. History of arthroplasty of left shoulder History of coronary artery bypass graft x 1 (07/2020) At [facility]. History of incisional hernia repair (03/2021) Epigastric incisional hernia with mesh. S/P aortic valve replacement Family History Family History Other Family history unknown Social History Social History Social History: Surrogate medical decision maker: Kalyani Haley, daughter. Code status: Full code. Smoking packs per day: 1 Smoking cigarettes per day: 20.0 Years smoked: 15 Smoking pack-years: 15.00 Smoking status: Former smoker Tobacco type: cigarettes Smokeless tobacco user: chewing tobacco Second hand tobacco smoke exposure: No Smoking end date: 10/13/69 Alcohol intake: current Drinks per week: 7 Alcohol use details: BEER Substance use: current Substance use type: marijuana Lack of Food: Never True Current Housing: Decline to Answer Concerned About Future Housing: Decline to Answer Difficulty Paying Gas/Electric Bills: Decline to Answer Difficulty Paying for Meds: Decline to Answer Currently Unemployed: Decline to Answer Education: Decline to Answer Difficulty w/ Childcare or Family Care: Decline to Answer Living arrangements: with family Occupation/Education: retired Additional occupation/education comments: [employer] Gender identity (if verbalized by the patient): Male Spiritual care concerns: No Anes - Eval Final PreProcedure Day of Procedure 09/01/24 09:41 Patient weight: normal Heart: regular rate and rhythm Lungs: decreased breath sounds Airway: Mallampati scale class II Neurological: alert and oriented Last oral intake: >/= 8 hours ASA classification: III Emergent: no Anesthetic plan: proceed Anesthesia type and monitoring: general LMA and standard monitoring Results Review: All pre-operative results and documents have been reviewed as part of the pre- operative evaluation. Informed Consent: The patient's anesthetic plan and its attendant risks and benefits were discussed with the patient/family/POA. Questions were solicited and answers provided to the satisfaction of the patient/family/POA.
[2024-09-01] MEDS: ceFAZolin 2 GM/D5W 50 ML 2 GM/50 ML BAG IVPB ×2 (09:58→17:03)
[2024-09-01] MEDS: SODIUM CHLORIDE 0.9% IV 37.7 ML, MORPHINE SULFATE INJ (*CRX) 2 MG, ROPivacaine HCL 1% 2... INFILTRATE (10:35)
--- NOTE | 2024-09-01 11:29 | W.PM.PROC2 ---
Procedure Note - Detailed Date of Procedure 09/01/24 Pre-op Diagnosis Osteoarthritis LEFT knee Post-op Diagnosis Same Procedure Performed LEFT total knee arthroplasty Surgeon Karl Parada MD [facility] Anesthesia General Indications Pain and Arthritis Description of Procedure The patient was brought to operating room #7. A general anesthetic was administered. Placed on the operating table and sterilely prepped and draped in usual manner. A longitudinal incision was made. Tourniquet inflated to 300 mmHg for a total of 42 minutes. Dissection was carried down to the fascia. Medial parapatellar incision was made and the patella subluxated laterally. Patella cut from 27 to 17 mm and sized for a 37 mm button. The tibia was cut perpendicular to the long axis and femur cut in 5 degrees of valgus. A 67.5 femur trialed. 71 tibia was felt to fit the best. The soft tissues balanced, hemostasis obtained. All [address], 71 tibia, 67.5 femur, 37 mm patella, and 12AS mm poly. Motion was 0-125 degrees with good stability in both flexion and extension. The wound was closed with #2 Vicryl, 2-0 Vicryl and monika. [employer]plants [employer] Estimated Blood Loss 200 Drains No Packing No Pathology None sent Complications No immediate complications Condition Stable Disposition PACU [facility] Billing Surgery - Charge Forward: Surgery Billing ([id number] Total Knee)
--- NOTE | 2024-09-01 12:06 | WPDANESPNB ---
Anes - Peripheral Nerve Block Date/Time: 09/01/24 12:06 I have discussed with the patient/family/POA the placement of a peripheral nerve block for post-operative pain management, including associated risks, benefits, complications, and side effects. Alternative methods of post-operative analgesia were detailed. Questions were solicited and answers provided to the satisfaction of the patient/family/POA. Time-Out: A pre-procedural Time-Out was completed immediately before starting the procedure and confirmed: Patient Identification, Site, Procedure, Patient Position and the Availability of Requisite Equipment. Clinical Indications: Acute post-operative pain management requested by the operative surgeon. Nerve Block Insertion Note Anes-nerve block: adductor canal left Patient position: supine Skin prep: chlorhexidine Needle: 22 gauge, stimulating, insulated echogenic needle. Needle length: 80 mm Technique: ultrasound Technique comment: mid2mg [id number] Injectate: bupivacaine 0.5% with epi 5 mcg/ml (30ml no epi) Observations: tolerated well Complications: none Procedure start time:: 949 Procedure end time:: 956
--- NOTE | 2024-09-01 14:14 | P.CONIM_ITS ---
Assessment and Plan Assessment and plan (1) Osteoarthritis of left knee: Code(s): M17.12 - Unilateral primary osteoarthritis, left knee Status: Acute Assessment and Plan: * postop day 0 from left total knee arthroplasty done by Dr. Parada * Orthopedic surgery primary * continue pain and nausea control * PT and OT ordered * continue incentive spirometry Q 2 hours * continue neurovascular checks * full weight-bearing status as tolerated * SCDs and Xarelto ordered per ortho surgery team * history of MRSA on 08/19/2024 * continue antibiotics postoperative per ortho team (2) Essential hypertension: Code(s): I10 - Essential (primary) hypertension Status: Acute Assessment and Plan: * blood pressure ranging 119/75 to 121/69 * continue amlodipine and metoprolol (3) Coronary artery disease: Code(s): I25.10 - Atherosclerotic heart disease of [place] coronary artery without angina pectoris Status: Acute Assessment and Plan: * status post CABG 1 vessel * Not on any statins HPI Date of Consult Consult date: 09/01/24 Requesting Physician: Karl Parada MD Primary Care Provider: Ana Murillo APRN Consult Narrative Narrative: Adán Wall is a 84 year old male with a significant past medical history of aortic stenosis status post aortic valve replacement with bioprosthetic valve, arthritis, coronary artery disease status post CABG x1 vessel, hypertension, GERD, hyperlipidemia, hypothyroidism, hernia repair, former smoker, marijuana abuse, alcohol abuse who presents to the hospital for an elective left total knee arthroplasty with Dr. Parada. His knee x-ray postoperative showed total knee arthroplasty in near anatomical position. Last echo on 08/09/2024 showed a normal LV systolic function with an estimated EF of 60-65%, grade 1 diastolic dysfunction, moderate mitral and tricuspid valve regurgitation. patient is alert oriented x4, like the bed. he initially had nausea postoperatively however that has resolved. He reports that he has no pain while at rest However when he gets up his pain shoots up to about 8/10. He denies any fever, chills, nausea, vomiting, diarrhea, abdominal pain, chest pain, shortness a breath. plan is for him to return home with outpatient PT and OT tomorrow. We were consulted for medical management. Review of Systems Review of Systems: All systems reviewed & are unremarkable except as noted in HPI and below Constitutional: Constitutional: Reports as per HPI and Reports no additional constitutional complaints Eyes: Eyes: Reports as per HPI and Reports no additional eye complaints ENT: Reports system reviewed and no additional complaints, except as documented and Reports as per HPI Cardiovascular: Cardiovascular: Reports as per HPI and Reports no additional cardiovascular complaints Respiratory: Respiratory: Reports as per HPI and Reports no additional respiratory complaints Gastrointestinal: Gastrointestinal: Reports as per HPI and Reports no additional gastrointestinal complaints Genitourinary: Genitourinary: Reports no additional male genitourinary complaints and Reports as per HPI Musculoskeletal: Musculoskeletal: Reports no additional musculoskeletal complaints and Reports as per HPI Integumentary/Breasts: Skin/Breast: Reports system reviewed and no additional complaints, except as docu and Reports as per HPI Neurologic: Reports system reviewed and no additional complaints, except as documented and Reports as per HPI Psychiatric: Psychiatric: Reports no additional psychiatric complaints and Reports as per HPI [facility] Past Medical History Medical History Aortic stenosis Aortic stenosis, severe Arthritis Coronary artery disease Essential hypertension Gastroesophageal reflux disease Hyperlipidemia Hypertension Subclinical hypothyroidism Surgical History Surgical History History of aortic valve replacement with bioprosthetic valve (07/2020) At [facility]. History of arthroplasty of left shoulder History of coronary artery bypass graft x 1 (07/2020) At [facility]. History of incisional hernia repair (03/2021) Epigastric incisional hernia with mesh. S/P aortic valve replacement Family History Family History Other Family history unknown Social History Social History Social History: Surrogate medical decision maker: Kalyani Haley, daughter. Code status: Full code. Smoking packs per day: 1 Smoking cigarettes per day: 20.0 Years smoked: 15 Smoking pack-years: 15.00 Smoking status: Former smoker Tobacco type: cigarettes Smokeless tobacco user: chewing tobacco Second hand tobacco smoke exposure: No Smoking end date: 10/13/69 Alcohol intake: current Drinks per week: 7 Alcohol use details: BEER Substance use: never Substance use type: marijuana Do You Feel Safe in your Home?: Yes Lack of Transportation: No Lack of Food: Never True Current Housing: Decline to Answer Concerned About Future Housing: Decline to Answer Difficulty Paying Gas/Electric Bills: Decline to Answer Difficulty Paying for Meds: Decline to Answer Currently Unemployed: Decline to Answer Education: Decline to Answer Difficulty w/ Childcare or Family Care: Decline to Answer Living arrangements: with family Occupation/Education: retired Additional occupation/education comments: [employer] Gender identity (if verbalized by the patient): Male Spiritual care concerns: No Meds Home Medications and Allergies Home Medications Medication Instructions Recorded Confirmed Type amlodipine 10 mg tablet 10 mg PO DAILY #90 tabs 03/03/24 09/01/24 Rx metoprolol tartrate 50 mg tablet See Rx Instructions .Route 07/02/24 09/01/24 Rx .COMPLEX #90 tabs multivitamin 1 tablet PO DAILY 08/19/24 09/01/24 History naproxen 500 mg tablet 500 mg PO PRN PRN Pain 08/19/24 09/01/24 History mupirocin 2 % topical ointment 1 applic topical BID #15 grams 08/23/24 09/01/24 Rx Allergies Allergy/AdvReac Type Severity Reaction Status Date / Time No Known Allergies Allergy Verified 09/01/24 09:17 Vital Signs Vital Signs - 24 hr 09/01/24 08:30 09/01/24 11:58 09/01/24 12:10 Temperature 97.2 F L 97.4 F L Pulse Rate 56 L 58 L 55 L Respiratory Rate 16 10 L 10 L Blood Pressure 128/68 89/52 L 94/56 L Pulse Oximetry 100 100 98 Oxygen Delivery Room Air Simple Face Mask Simple Face Mask Oxygen Flow Rate 6 6 09/01/24 12:20 09/01/24 12:25 09/01/24 12:40 Temperature Pulse Rate 58 L 61 63 Respiratory Rate 12 12 16 Blood Pressure 120/72 119/75 128/69 Pulse Oximetry 100 100 100 Oxygen Delivery Simple Face Mask Simple Face Mask Room Air Oxygen Flow Rate 8 8 09/01/24 12:47 09/01/24 13:03 09/01/24 13:18 Temperature 96.9 F L Pulse Rate 58 L 61 63 Respiratory Rate 12 15 19 Blood Pressure 122/68 126/67 121/69 Pulse Oximetry 100 100 100 Oxygen Delivery Room Air Room Air Room Air Oxygen Flow Rate Exam Narrative: General: In no acute distress, well nourished Head: atraumatic, no encephalopathy Eyes: EOMI, PERRLA, sclera clear ENT: moist mucous membranes, nasal passages clear Neck: supple, no JVD, no adenopathy, trachea midline Cardiac: Normal S1 and S2. No murmur, gallops or friction rubs, peripheral pulses intact. Respiratory: Lungs clear to auscultation, no adventitious lung sounds, currently on room air Gastrointestinal: soft, non-distended, non-tender, normoactive bowel sounds. : voiding without difficulty. Extremities: Limited range of motion of left knee Skin: surgical incision left knee wrapped in Blake wrap Neuro: Alert and oriented x4, cranial nerves intact, no neuro deficits. Psych: normal mood, normal affect, interactive Results Imaging Radiologist's impression: [id number] Ordering provider: Karl Parada MD History: . POST-OP, LEFT TKA . Comparison: None. FINDINGS: BONES: No acute fracture or dislocation. JOINT SPACES: Total knee arthroplasty. SOFT TISSUES: Postoperative changes in the soft tissues. Vascular calcifications. IMPRESSION: No acute osseous abnormality left knee. Total knee arthroplasty. Reviewed, dictated and finalized at location A. TECH[employer] Quality VTE Prophylaxis VTE prophylaxis: mechanical ordered and pharmacologic ordered Hospitalist [facility] Advance Care Plan I have confirmed that the patient's Advanced Care Plan is present, code status is documented, or surrogate decision maker is listed in patient medical record.: Yes Medication Reconciliation I have utilized all available resources to obtain, update and review the patients current medications (includes all prescriptions, OTC, herbals, cannabis, and nutritional supplements).: Yes
--- NOTE | 2024-09-01 14:14 | ADMGEN ---
This patient, Adán Wall, was admitted to [facility] [place] Surg Room 306-01. Patient/family oriented to hospital policies and general routines including ID bracelet, bed and alarms, visiting hours, pain management, procedures, bathroom and other care routines, personal items, smoking policy, room service/diet, and visiting hours. Information on how to activate the Rapid Response Team has been discussed. Patient/Family are encouraged to report perceived risks to care and to ask questions if they do not understand what they are told or what they should do.
[2024-09-01] MEDS: HYDROcodone/acetaminophen (*CRX) 7.5-325 MG TABLET 1 TAB PO ×2 (16:07→21:59)
[2024-09-01] MEDS: SENNA/DOCUSATE SODIUM TABLET 2 TAB PO (16:07)
[2024-09-01] MEDS: CELECOXIB 200 MG CAPSULE PO (16:07)
[2024-09-01] MEDS: SODIUM CHLORIDE 0.9% IV 1,000 ML 125 ML IV CONT (17:34)
[2024-09-01] MEDS: RIVAROXABAN 10 MG TABLET PO (20:52)
[2024-09-01] MEDS: METOPROLOL TARTRATE 50 MG TAB PO (20:52)
[2024-09-02] VITALS (7 sets, daily range): BP systolic 120–130; BP diastolic 68–81; PULSE 58–82; RESP 14–17; TEMP 36–36.3; O2SAT 98–100
[2024-09-02] MEDS: ceFAZolin 2 GM/D5W 50 ML 2 GM/50 ML BAG IVPB ×2 (01:55→11:10)
[2024-09-02] MEDS: HYDROmorphone HCL INJ (*CRX) 1 MG/ML SYR IV PUSH (02:32)
[2024-09-02] MEDS: HYDROcodone/acetaminophen (*CRX) 7.5-325 MG TABLET 1 TAB PO ×3 (02:59→23:37)
[2024-09-02 06:55] LABS: Basophils Absolute Auto 0.1 K/mm3 (0.0-0.1); Basophils Percent Auto 0.3 % (0.2-1.2); Hematocrit 33.9 % (42.0-52.0); Hemoglobin 11.8 g/dL (14.0-18.0); Immature Granulocyte Absolute 0.14 K/mm3 (0.00-0.031); Immature Granulocyte Percent A 0.8 % (0-0.5); Mean Corpuscular HGB Conc 34.8 g/dl (32-36); Mean Corpuscular Volume 94.7 fl (80-100); Mean Platelet Volume 10.1 fl (7.4-10.4); Monocytes Absolute Auto 0.9 K/mm3 (0.1-0.6); Monocytes Percent Auto 5.5 % (2.6-8.5); Neutrophils Absolute Auto 13.6 K/mm3 (1.3-6.7); Neutrophils Percent Auto 80.4 % (45.5-73.1); Platelet Count Result 257 k/mm3 (150-375); Red Blood Count 3.58 M/mm3 (4.6-6.20); Red Cell Distribution Width 12.3 % (11.5-14.5); White Blood Count 16.9 K/mm3 (4.5-10.0)
--- NOTE | 2024-09-02 07:10 | P.PNOP_ITS ---
Progress Note: A&P Assessment and Plan (1) History of knee replacement procedure of left knee: Code(s): Z96.652 - Presence of left artificial knee joint Status: Acute Assessment and Plan: Patient underwent total knee arthroplasty for osteoarthritis left knee. He has progressed reasonably well so far. Of concern is affect is 84 years old lives with the son-in-law. He feels comfortable home and is relatively comfortable the hospital here. Assuming he does well at therapy will dismissed home. Follow-up in 2 weeks. Subjective Subjective Date/Time Seen: 09/02/24 07:10 Post Op day: 1 Principal diagnosis: Left Total Knee Arthoplasty for Osteoarthritis. Review of Systems Review of Systems: All systems reviewed & are unremarkable except as noted in HPI and below Constitutional: Constitutional: Reports as per HPI and Reports no additional constitutional complaints Eyes: Eyes: Reports as per HPI and Reports no additional eye complaints ENT: Reports system reviewed and no additional complaints, except as documented and Reports as per HPI Cardiovascular: Cardiovascular: Reports as per HPI and Reports no additional cardiovascular complaints Respiratory: Respiratory: Reports as per HPI and Reports no additional respiratory complaints Gastrointestinal: Gastrointestinal: Reports as per HPI and Reports no additional gastrointestinal complaints Genitourinary: Genitourinary: Reports no additional male genitourinary complaints and Reports as per HPI Musculoskeletal: Musculoskeletal: Reports no additional musculoskeletal complaints and Reports as per HPI Integumentary/Breasts: Skin/Breast: Reports system reviewed and no additional complaints, except as docu and Reports as per HPI Neurologic: Reports system reviewed and no additional complaints, except as documented and Reports as per HPI Psychiatric: Psychiatric: Reports no additional psychiatric complaints and Reports as per HPI Exam Narrative: Patient to wiggle his toes his dressing is intact. Neurologically he seems to be intact he can ambulate with a walker. Resp: Effort & Inspection: normal respiratory effort Cardio: Rate: regular rate Rhythm: regular rhythm Objective Data Vital Signs Vital Signs: Vital Signs - 24 hr 09/01/24 08:30 09/01/24 11:58 09/01/24 12:10 Temperature 97.2 F L 97.4 F L Pulse Rate 56 L 58 L 55 L Respiratory Rate 16 10 L 10 L Blood Pressure 128/68 89/52 L 94/56 L Pulse Oximetry 100 100 98 Oxygen Delivery Room Air Simple Face Mask Simple Face Mask Oxygen Flow Rate 6 6 09/01/24 12:20 09/01/24 12:25 09/01/24 12:40 Temperature Pulse Rate 58 L 61 63 Respiratory Rate 12 12 16 Blood Pressure 120/72 119/75 128/69 Pulse Oximetry 100 100 100 Oxygen Delivery Simple Face Mask Simple Face Mask Room Air Oxygen Flow Rate 8 8 09/01/24 12:47 09/01/24 13:03 09/01/24 13:18 Temperature 96.9 F L Pulse Rate 58 L 61 63 Respiratory Rate 12 15 19 Blood Pressure 122/68 126/67 121/69 Pulse Oximetry 100 100 100 Oxygen Delivery Room Air Room Air Room Air Oxygen Flow Rate 09/01/24 14:30 09/01/24 13:50 09/01/24 14:05 Temperature 97.3 F L 96.8 F L Pulse Rate 113 H 66 Respiratory Rate 18 18 Blood Pressure 117/68 107/81 Pulse Oximetry 97 95 Oxygen Delivery Room Air Oxygen Flow Rate 09/01/24 14:35 09/01/24 15:35 09/01/24 19:08 Temperature 97.0 F L 97.1 F L 97.1 F L Pulse Rate 75 65 65 Respiratory Rate 18 18 12 Blood Pressure 130/80 108/61 112/63 Pulse Oximetry 98 95 97 Oxygen Delivery Oxygen Flow Rate 09/01/24 20:52 09/01/24 23:08 09/01/24 20:52 Temperature 97.1 F L Pulse Rate 65 69 Respiratory Rate 16 Blood Pressure 102/61 Pulse Oximetry 91 Oxygen Delivery Room Air Oxygen Flow Rate 09/02/24 03:08 Temperature 97.3 F L Pulse Rate 64 Respiratory Rate 14 Blood Pressure 120/81 Pulse Oximetry 99 Oxygen Delivery Oxygen Flow Rate Intake/Output Intake/Output: Intake & Output 08/30/24 08/31/24 09/01/24 09/02/24 23:59 23:59 23:59 23:59 Intake Total 1110 50 Output Total 300 425 Balance 810 -375 Meds/Results Medications: Active Medications Generic Name Dose Route Start Last Admin Trade Name Freq PRN Reason Stop Dose Admin Hydrocodone Bitart/Acetaminophen 1 tab 09/01/24 13:23 Hydrocodone/Acetaminophen (*Crx) 5-325 Mg Tablet PO Q4H PRN Pain Rated 4-6 Hydrocodone Bitart/Acetaminophen 1 tab 09/01/24 13:23 09/02/24 02:59 Hydrocodone/Acetaminophen (*Crx) 7.5-325 Mg Tablet PO 1 tab Q4H PRN Administration Pain Rated 7-10 Amlodipine Besylate 10 mg 09/02/24 09:00 Amlodipine Besylate 10 Mg Tablet PO DAILY SHANIQUE Celecoxib 200 mg 09/01/24 17:00 09/01/24 16:07 Celecoxib 200 Mg Capsule PO 200 mg BIDWM SHANIQUE Administration Cyclobenzaprine HCl 10 mg 09/01/24 13:23 Cyclobenzaprine Hcl 10 Mg Tablet PO Q8H PRN Spasms Diphenhydramine HCl 25 mg 09/01/24 13:23 Diphenhydramine Hcl Inj 50 Mg/Ml Vial IV PUSH Q6H PRN Itching Hydromorphone HCl 1 mg 09/01/24 13:23 09/02/24 02:32 Hydromorphone Hcl Inj (*Crx) 1 Mg/Ml Syr IV PUSH 1 mg Q2H PRN Administration Breakthrough Pain Rated 7-10 or NPO Hydromorphone HCl 0.5 mg 09/01/24 13:23 Hydromorphone Hcl Inj (*Crx) 1 Mg/Ml Syr IV PUSH Q2H PRN Breakthrough Pain Rated 4-6 or NPO Cefazolin Sodium 2 gm in 50 mls @ 100 mls/hr 09/01/24 18:00 09/02/24 02:25 Ancef 2 Gm/D5w 50 Ml IVPB 09/02/24 10:29 Infused Q8H SHANIQUE Infusion Ibuprofen 800 mg in 200 mls @ 400 mls/hr 09/01/24 13:23 Caldolor 800 Mg/200 Ml IVPB Q6H PRN Breakthrough Pain Rated 1-3 or NPO Metoprolol Tartrate 50 mg 09/01/24 21:00 09/01/24 20:52 Metoprolol Tartrate 50 Mg Tab PO 50 mg Q12HR SHANIQUE Administration Miscellaneous Information 0 each 09/01/24 00:01 Order Clarification XX 10/01/24 00:00 CLARIFY SHANIQUE Naloxone HCl 0.1 mg 09/01/24 13:23 Naloxone Hcl 0.4 Mg/Ml Vial IV PUSH Q2M PRN Opiate Reversal Ondansetron HCl 4 mg 09/01/24 13:23 Ondansetron Inj 4 Mg/2 Ml Vial IV PUSH Q4H PRN Nausea And Vomiting Polyethylene Glycol 17 gm 09/02/24 09:00 Polyethylene Glycol 3350 17 Gm Powd.Pack PO QAM [facility] Rivaroxaban 10 mg 09/01/24 21:00 09/01/24 20:52 Rivaroxaban 10 Mg Tablet PO 09/12/24 17:01 10 mg DAILY@17 SHANIQUE Administration Senna/Docusate Sodium 2 tab 09/01/24 17:00 09/01/24 16:07 Senna/Docusate Sodium Tablet PO 2 tab BID SHANIQUE Administration Tramadol HCl 50 mg 09/01/24 13:23 Tramadol Hcl (*Crx) 50 Mg Tablet PO Q4H PRN Pain Rated 1-3 Radiology Results: ITS Impressions Knee X-Ray 09/01/24 14:13 IMPRESSION: No acute osseous abnormality left knee. Total knee arthroplasty. Labs Labs: Laboratory Results - last 24 hr 09/02/24 06:46 WBC 16.9 H RBC 3.58 L Hgb 11.8 L Hct 33.9 L MCV 94.7 MCH 33.0 MCHC 34.8 RDW 12.3 Plt Count 257 MPV 10.1 Immature Gran % (Auto) 0.8 H Neut % (Auto) 80.4 H Lymph % (Auto) 13.0 L [place] % (Auto) 5.5 Eos % (Auto) 0.0 Baso % (Auto) 0.3 Lymph # (Auto) 2.20 [place] # (Auto) 0.9 H Eos # (Auto) 0.0 Baso # (Auto) 0.1 Abs Immat Gran (auto) 0.14 H Absolute Neuts (auto) 13.6 H Absolute Nucleated RBC 0.000 Nucleated RBC % 0.0
--- NOTE | 2024-09-02 07:12 | PM.DS ---
DS: Admitting Diagnosis Discharge Date 09/01/2024 Admitting Diagnosis Left knee osteoarthritis DS: Discharge Diagnosis Discharge Diagnosis (1) History of knee replacement procedure of left knee: Code(s): Z96.652 - Presence of left artificial knee joint Status: Acute Assessment and Plan: Patient underwent total knee arthroplasty for osteoarthritis left knee. He has progressed well. DS: Summary Hospital Course Hospital Course: Patient underwent total knee arthroplasty on the left for osteoarthritis. He has progressed in a reasonable manner. Will ambulate day and the plan on discharge home pending his performance in therapy. Overall he seems to be progressing nicely. Time Spent with Patient Time attestation: Total time spent providing and/or coordinating discharge services: Exam Narrative: The dressing is intact. Patient can wiggle his toes. He can ambulate with a walker. DS: Data Data Completed and Pending Labs on day of discharge: Labs from last 24 hours 09/02/24 06:46 WBC 16.9 H RBC 3.58 L Hgb 11.8 L Hct 33.9 L MCV 94.7 MCH 33.0 MCHC 34.8 RDW 12.3 Plt Count 257 MPV 10.1 Immature Gran % (Auto) 0.8 H Neut % (Auto) 80.4 H Lymph % (Auto) 13.0 L [place] % (Auto) 5.5 Eos % (Auto) 0.0 Baso % (Auto) 0.3 Lymph # (Auto) 2.20 [place] # (Auto) 0.9 H Eos # (Auto) 0.0 Baso # (Auto) 0.1 Abs Immat Gran (auto) 0.14 H Absolute Neuts (auto) 13.6 H Absolute Nucleated RBC 0.000 Nucleated RBC % 0.0 Sodium Pending Potassium Pending Chloride Pending Carbon Dioxide Pending Anion Gap Pending BUN Pending Creatinine Pending Estim Creat Clear Calc Pending Estimated GFR Pending Glucose Pending Calcium Pending Discharge Plan Discharge Patient Disposition: Home, Self-Care Discharge Instructions: Dr. Karl Parada M.D [id number] [address] POST-OPERATIVE DISCHARGE INSTRUCTIONS TOTAL KNEE ARTHROPLASTY 1. When resting, do not rest in the chair.When resting, lie on your back, with back flat on the couch or bed, with leg elevated above heart to minimize swelling. You may put a pillow under your head. . Significant swelling could indicate a blood clot and if this occurs call the office (or go to the ER) to have a venous ultrasound. Therefore, do not rest in a chair. 2. At least five times a day spend several minutes stretching your knee into flexion while sitting in the chair and also stretching your knee out straight The abilities to bend your knee fulling and straighten your knee fully are two most important knee functions to focus on during your recovery. 3. It is ok to sit in chair to eat, use the toilet and receive a guest and to do your stretching exercises, but, sitting in a chair will cause your leg to swell. Therefore, avoid additional time sitting in the chair. and don't rest in the chair. 4. Wound Care: Nursing will give you an additional Mepilex dressing at the time of discharge. Patient to remove the dressing and apply a new Mepilex dressing at home 7 days after surgery and leave the dressing on until seen in office. 5. May shower with a Mepilex dressing in place.The water will run off the dressing. 6. Unless you are told otherwise, you may put full weight on your operated leg. Use a walker for balance and practice walking as normally as you can, ideally for a few minutes every hour while you are awake. 7. I would advise against putting ice packs on your knee incision. Ice constricts blood flow which can impar healing of the knee incision. IMPORTANT: Remember not to sit in the chair for more than 30 minutes at a time. As a rule, during the first 14 days after surgery, only sit in the chair to work on the chair knee bending stretch exercise, for meals or for use of the restroom. Sitting in the chair promotes significant swelling in the knee and leg which will make your knee stiff and more painful and which simulates having a blood clot in the veins of the leg. If this type of significant diffuse swelling occurs, an ultrasound at the hospital will be necessary to rule out a blood clot. Be up walking around with the walker for a few minutes every hour while awake and then rest laying on your back on the couch or in bed with your leg elevated on cushions or pillows. Do not rest in the chair. Stand Alone Forms: General Discharge Instructions Follow-up/Referrals: Karl Parada MD [Physician] - Discharge Medications: New cyclobenzaprine 10 mg tablet 10 mg PO HS PRN (Reason: muscle spasm) Qty: 30 0RF hydrocodone-acetaminophen 7.5-325 mg tablet 1 tablet PO Q4H PRN (Reason: pain) Qty: 40 0RF doxycycline hyclate 100 mg tablet 100 mg PO DAILY Qty: 10 0RF Continued amlodipine 10 mg tablet 10 mg PO DAILY Qty: 90 1RF multivitamin Tablet 1 tablet PO DAILY naproxen 500 mg tablet 500 mg PO PRN PRN (Reason: Pain) metoprolol tartrate 50 mg tablet See Rx Instructions .ROUTE .COMPLEX Qty: 90 0RF Dose Instruction: TAKE 1 TABLET BY MOUTH TWICE DAILY Rx Instructions: TAKE 1 TABLET BY MOUTH TWICE DAILY mupirocin 2 % ointment 1 applic topical BID Qty: 15 0RF Rx Instructions: Apply to each nostril
[2024-09-02 07:16] LABS: Anion Gap 7 mmol/L (4-12); Blood Urea Nitrogen 17 mg/dL (9-20); Calcium 9.3 mg/dL (8.4-10.2); Carbon Dioxide 26 mmol/L (22-30); Chloride 99 mmol/L (98-107); Estimated CRCL calculation 48 ml/min; Estimated Glomerular Filt Rate > 60; Glucose 105 mg/dL (65-110); Potassium 4.2 mmol/L (3.4-5.0); Sodium 132 mmol/L (137-145)
[2024-09-02] MEDS: HYDROcodone/acetaminophen (*CRX) 5-325 MG TABLET 1 TAB PO (08:11)
[2024-09-02] MEDS: METOPROLOL TARTRATE 50 MG TAB PO ×2 (08:12→19:56)
[2024-09-02] MEDS: polyethylene glycoL 3350 17 GM POWD.PACK PO (08:12)
[2024-09-02] MEDS: CELECOXIB 200 MG CAPSULE PO ×2 (08:12→17:15)
[2024-09-02] MEDS: SENNA/DOCUSATE SODIUM TABLET 2 TAB PO ×2 (08:12→17:15)
[2024-09-02] MEDS: amLODIPine BESYLATE 10 MG TABLET PO (08:13)
--- NOTE | 2024-09-02 09:22 | P.PNIM_ITS ---
Progress Note: A&P Assessment and Plan (1) Osteoarthritis of left knee: Code(s): M17.12 - Unilateral primary osteoarthritis, left knee Status: Acute Assessment and Plan: * postop day 1 from left total knee arthroplasty done by Dr. 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 Pressure dressing with karla wrap. (2) Essential hypertension: Code(s): I10 - Essential (primary) hypertension Status: Acute Assessment and Plan: * blood pressure 128/70 * continue amlodipine and metoprolol (3) Coronary artery disease: Code(s): I25.10 - Atherosclerotic heart disease of [place] coronary artery without angina pectoris Status: Acute Assessment and Plan: * status post CABG 1 vessel * Not on any statins (4) Nausea & vomiting: Code(s): R11.2 - Nausea with vomiting, unspecified Status: Acute Assessment and Plan: * Ondansetron 4 mg ivp q 4 PRN. Subjective Date/time seen: 09/02/24 09:22 Interval history: Nurse reports patient bleeding from a couple areas of incision and she had to change dressing 3 times in 30 minutes. Left knee with blood filling around surgical site. Ortho ordered pressure dressing and karla wrap, ice can be applied. Patient denies pain, headache, dizziness, or shortness of breath. Patient did have episode nausea with small amount of water coming up. Patient reported to nurse that this sometimes happens in the morning. Review of Systems Review of Systems: All systems reviewed & are unremarkable except as noted in HPI and below Exam Const: General: comfortable Resp: Effort & Inspection: normal respiratory effort Auscultation: clear to auscultation bilaterally Cardio: Rate: regular rate Rhythm: regular rhythm GI: GI Palp: Yes Soft to palpation Auscultation: normal bowel sounds Skin: Other: surgical incision with monika bleeding from top mostly, slight middle of incision, and bottom of incision small amount. Incision filling with blood. Pressure dressing and karla wrap applied. Neuro: Speech: normal speech Extrem: General: normal to inspection Psych: Mental Status: mental status grossly normal Affect: normal affect Objective Data Vital Signs Vital Signs: Vital Signs - 24 hr 09/01/24 11:58 09/01/24 12:10 09/01/24 12:20 Temperature 97.4 F L Pulse Rate 58 L 55 L 58 L Respiratory Rate 10 L 10 L 12 Blood Pressure 89/52 L 94/56 L 120/72 Pulse Oximetry 100 98 100 Oxygen Delivery Simple Face Mask Simple Face Mask Simple Face Mask Oxygen Flow Rate 6 6 8 09/01/24 12:25 09/01/24 12:40 09/01/24 12:47 Temperature Pulse Rate 61 63 58 L Respiratory Rate 12 16 12 Blood Pressure 119/75 128/69 122/68 Pulse Oximetry 100 100 100 Oxygen Delivery Simple Face Mask Room Air Room Air Oxygen Flow Rate 8 09/01/24 13:03 09/01/24 13:18 09/01/24 14:30 Temperature 96.9 F L Pulse Rate 61 63 Respiratory Rate 15 19 Blood Pressure 126/67 121/69 Pulse Oximetry 100 100 Oxygen Delivery Room Air Room Air Room Air Oxygen Flow Rate 09/01/24 13:50 09/01/24 14:05 09/01/24 14:35 Temperature 97.3 F L 96.8 F L 97.0 F L Pulse Rate 113 H 66 75 Respiratory Rate 18 18 18 Blood Pressure 117/68 107/81 130/80 Pulse Oximetry 97 95 98 Oxygen Delivery Oxygen Flow Rate 09/01/24 15:35 09/01/24 19:08 09/01/24 20:52 Temperature 97.1 F L 97.1 F L Pulse Rate 65 65 65 Respiratory Rate 18 12 Blood Pressure 108/61 112/63 Pulse Oximetry 95 97 Oxygen Delivery Oxygen Flow Rate 09/01/24 23:08 09/01/24 20:52 09/02/24 03:08 Temperature 97.1 F L 97.3 F L Pulse Rate 69 64 Respiratory Rate 16 14 Blood Pressure 102/61 120/81 Pulse Oximetry 91 99 Oxygen Delivery Room Air Oxygen Flow Rate 09/02/24 07:51 09/02/24 08:12 09/02/24 07:08 Temperature 97.3 F L Pulse Rate 80 61 Respiratory Rate 14 Blood Pressure 121/69 Pulse Oximetry 98 Oxygen Delivery Room Air Oxygen Flow Rate Intake/Output Intake/Output: Intake & Output 08/30/24 08/31/24 09/01/24 09/02/24 23:59 23:59 23:59 23:59 Intake Total 1110 50 Output Total 300 425 Balance 810 -375 Meds/Results Medications: Active Medications Generic Name Dose Route Start Last Admin Trade Name Freq PRN Reason Stop Dose Admin Hydrocodone Bitart/Acetaminophen 1 tab 09/01/24 13:23 09/02/24 08:11 Hydrocodone/Acetaminophen (*Crx) 5-325 Mg Tablet PO 1 tab Q4H PRN Administration Pain Rated 4-6 Hydrocodone Bitart/Acetaminophen 1 tab 09/01/24 13:23 09/02/24 02:59 Hydrocodone/Acetaminophen (*Crx) 7.5-325 Mg Tablet PO 1 tab Q4H PRN Administration Pain Rated 7-10 Amlodipine Besylate 10 mg 09/02/24 09:00 09/02/24 08:13 Amlodipine Besylate 10 Mg Tablet PO 10 mg DAILY SHANIQUE Administration Celecoxib 200 mg 09/01/24 17:00 09/02/24 08:12 Celecoxib 200 Mg Capsule PO 200 mg BIDWM SHANIQUE Administration Cyclobenzaprine HCl 10 mg 09/01/24 13:23 Cyclobenzaprine Hcl 10 Mg Tablet PO Q8H PRN Spasms Diphenhydramine HCl 25 mg 09/01/24 13:23 Diphenhydramine Hcl Inj 50 Mg/Ml Vial IV PUSH Q6H PRN Itching Hydromorphone HCl 1 mg 09/01/24 13:23 09/02/24 02:32 Hydromorphone Hcl Inj (*Crx) 1 Mg/Ml Syr IV PUSH 1 mg Q2H PRN Administration Breakthrough Pain Rated 7-10 or NPO Hydromorphone HCl 0.5 mg 09/01/24 13:23 Hydromorphone Hcl Inj (*Crx) 1 Mg/Ml Syr IV PUSH Q2H PRN Breakthrough Pain Rated 4-6 or NPO Cefazolin Sodium 2 gm in 50 mls @ 100 mls/hr 09/01/24 18:00 09/02/24 02:25 Ancef 2 Gm/D5w 50 Ml IVPB 09/02/24 10:29 Infused Q8H SHANIQUE Infusion Metoprolol Tartrate 50 mg 09/01/24 21:00 09/02/24 08:12 Metoprolol Tartrate 50 Mg Tab PO 50 mg Q12HR SHANIQUE Administration Naloxone HCl 0.1 mg 09/01/24 13:23 Naloxone Hcl 0.4 Mg/Ml Vial IV PUSH Q2M PRN Opiate Reversal Ondansetron HCl 4 mg 09/01/24 13:23 Ondansetron Inj 4 Mg/2 Ml Vial IV PUSH Q4H PRN Nausea And Vomiting Polyethylene Glycol 17 gm 09/02/24 09:00 09/02/24 08:12 Polyethylene Glycol 3350 17 Gm Powd.Pack PO 17 gm QAM SHANIQUE Administration Rivaroxaban 10 mg 09/01/24 21:00 09/01/24 20:52 Rivaroxaban 10 Mg Tablet PO 09/12/24 17:01 10 mg DAILY@17 SHANIQUE Administration Senna/Docusate Sodium 2 tab 09/01/24 17:00 09/02/24 08:12 Senna/Docusate Sodium Tablet PO 2 tab BID SHANIQUE Administration Tramadol HCl 50 mg 09/01/24 13:23 Tramadol Hcl (*Crx) 50 Mg Tablet PO Q4H PRN Pain Rated 1-3 Radiology Results: ITS Impressions Knee X-Ray 09/01/24 14:13 IMPRESSION: No acute osseous abnormality left knee. Total knee arthroplasty. Labs Labs: Laboratory Results - last 24 hr 09/02/24 06:46 WBC 16.9 H RBC 3.58 L Hgb 11.8 L Hct 33.9 L MCV 94.7 MCH 33.0 MCHC 34.8 RDW 12.3 Plt Count 257 MPV 10.1 Immature Gran % (Auto) 0.8 H Neut % (Auto) 80.4 H Lymph % (Auto) 13.0 L [place] % (Auto) 5.5 Eos % (Auto) 0.0 Baso % (Auto) 0.3 Lymph # (Auto) 2.20 [place] # (Auto) 0.9 H Eos # (Auto) 0.0 Baso # (Auto) 0.1 Abs Immat Gran (auto) 0.14 H Absolute Neuts (auto) 13.6 H Absolute Nucleated RBC 0.000 Nucleated RBC % 0.0 Sodium 132 L Potassium 4.2 Chloride 99 Carbon Dioxide 26 Anion Gap 7 BUN 17 Creatinine 0.90 Estim Creat Clear Calc 48 Estimated GFR > 60 Glucose 105 Calcium 9.3 Quality VTE Prophylaxis VTE prophylaxis: mechanical ordered and pharmacologic ordered
--- NOTE | 2024-09-02 09:36 | PCOTNOTE ---
Per MD, no OT treatment this date. Just let Patient rest with a pressure dressing due to increased bleeding. Come back to treat tomorrow.
--- NOTE | 2024-09-02 10:11 | PC.NURSE ---
RN called surgeon Dr. Parada to inform him patient is bleeding through current dressing on left knee. RN changed dressing to a pressure dressing. Patient still continuing to bleed through pressure dressing. RN undated access representative Janis. RN updated hospitalist Dena Shook while she was at bedside with patient. Patient's knee continues to bleed with any movement. access representative and patient's RN changed pressure dressing again. access representative called surgeon Dr. Parada to update him that the patient's left knee is still continuing to bleed. Hospitalist Dena reached out to surgeon Dr. Parada as well to inform him of what has happened in the last [address] Parada come to bedside and assessed patient's knee.
--- NOTE | 2024-09-02 14:43 | P.PNAN_ITS ---
Anes - Prog Note Post-Op Date/Time: 09/02/24 14:43 Cardiovascular status: normal Respiratory status: normal Airway patency: baseline Mental status: baseline Post-Op hydration status: normal Vital Signs: Last Vital Signs Temp 36.1 C L 09/02/24 14:18 Pulse 78 09/02/24 14:18 Resp 14 09/02/24 14:18 BP 128/70 09/02/24 14:18 Pulse Ox 100 09/02/24 14:18 O2 Del Method Room Air 09/02/24 08:21 O2 Flow Rate 8 09/01/24 12:25 Pain Score (VAS): 12/20 I/O: Intake & Output 09/01/24 09/02/24 09/02/24 23:59 07:59 15:59 Intake Total 410 50 550 Output Total 300 425 900 Balance 110 -375 -350 Laboratory Tests 09/02/24 06:46 09/02/24 06:46 09/02/24 06:46 WBC 16.9 H RBC 3.58 L Hgb 11.8 L Hct 33.9 L MCV 94.7 MCH 33.0 MCHC 34.8 RDW 12.3 Plt Count 257 MPV 10.1 Immature Gran % (Auto) 0.8 H Neut % (Auto) 80.4 H Lymph % (Auto) 13.0 L [place] % (Auto) 5.5 Eos % (Auto) 0.0 Baso % (Auto) 0.3 Lymph # (Auto) 2.20 [place] # (Auto) 0.9 H Eos # (Auto) 0.0 Baso # (Auto) 0.1 Abs Immat Gran (auto) 0.14 H Absolute Neuts (auto) 13.6 H Absolute Nucleated RBC 0.000 Nucleated RBC % 0.0 Sodium 132 L Potassium 4.2 Chloride 99 Carbon Dioxide 26 Anion Gap 7 BUN 17 Creatinine 0.90 Estim Creat Clear Calc 48 Estimated GFR > 60 Glucose 105 Calcium 9.3 Post-procedural complaints: none Patient Feedback: Patient satisfied with anesthetic care.
[2024-09-02] MEDS: CALCIUM CARBONATE (TUMS) 500 MG (200 MG ELEMENTAL) PO (17:15)
[2024-09-02] MEDS: CYCLOBENZAPRINE HCL 10 MG TABLET PO (20:09)
[2024-09-03] VITALS (12 sets, daily range): BP systolic 103–146; BP diastolic 56–79; PULSE 79–113; RESP 14–18; TEMP 36–36.6; O2SAT 93–99
--- NOTE | ~2024-09-03 | US_ITS ---
EXAMINATION: US carotid duplex BI DATE: 09/05/2024 08:25 INDICATION: New onset seizure disorder. Cerebral atherosclerosis. TECHNIQUE: Grayscale, color Doppler, and pulsed Doppler images of the cervical carotid arteries were obtained. The degree of vessel stenosis is placed in one of the following categories: normal, <50%, 5 0-69%, >=70% but less than near-occlusion, near-occlusion, or total occlusion. Note that percent sten osis relative to normal distal artery lumen diameter is indirectly measured from velocity measurement s as described by Geovany, et al. Radiology 2003; 229:340-346. COMPARISON: None. FINDINGS: RIGHT: The right common carotid artery (CCA) peak systolic velocity (PSV) is 64 cm/s. The right internal car otid artery (ICA) PSV is 63 cm/s. The right ICA end-diastolic velocity (EDV) is 19 cm/s. The right IC A/CCA PSV ratio is 1.0. Grayscale and color Doppler images yield an estimate of <50% diameter reducti on from plaque in the ICA. The external carotid artery (ECA) PSV is 52 cm/s. There is antegrade flow in the right vertebral artery. LEFT: The left CCA PSV is 79 cm/s. The left ICA PSV is 68 cm/s. The left ICA EDV is 19 cm/s. The left ICA/C CA PSV ratio is 0.9. Grayscale and color Doppler images yield an estimate of <50% diameter reduction from plaque in the ICA. The ECA PSV is 55 cm/s. There is antegrade flow in the left vertebral artery. IMPRESSION: 1. <50% stenosis in the right internal carotid artery. 2. <50% stenosis in the left internal carotid artery. Reviewed, dictated and finalized at location A. STANT DIRECTOR OF RESIDENCE LIFE
--- NOTE | ~2024-09-03 | CT_ITS ---
History: Altered mental status PROCEDURE: CT head without contrast. COMPARISON: 06/17/2024 TECHNIQUE: Axial imaging of the head performed from the skull base to the vertex without IV contrast. Sagittal a nd coronal reformations obtained. DLP: 749 mGy-cm FINDINGS: The ventricles are dilated. The dilatation of the ventricles is proportional to the degree of sulcal prominence, not uncommon in the senescent brain. Decreased attenuation is identified within the periventricular white matter, likely secondary to micr ovascular ischemic disease, in a patient of this age. There is no mass, mass effect or midline shift. There is no abnormal extra-axial fluid collection or intracranial hemorrhage. Visualized paranasal sinuses are clear. The mastoid air cells are well aerated. No acute displaced fractures within the overlying cranium. Impression: No acute intracranial hemorrhage or suspicious mass effect. Reviewed, dictated and finalized at location A. ENT SERVICE SPECIALIST Impression: No acute intracranial hemorrhage or suspicious mass effect.
--- NOTE | ~2024-09-03 | XR_ITS ---
[id number] Ordering provider: Karl Parada MD History: . POST-OP, LEFT TKA . Comparison: None. FINDINGS: BONES: No acute fracture or dislocation. JOINT SPACES: Total knee arthroplasty. SOFT TISSUES: Postoperative changes in the soft tissues. Vascular calcifications. IMPRESSION: No acute osseous abnormality left knee. Total knee arthroplasty. Reviewed, dictated and finalized at location A. ED PRODUCTS INSPECTOR TRIMMER
--- NOTE | 2024-09-03 02:30 | PC.NURSE ---
Rapid Response called. See assessment
--- NOTE | 2024-09-03 02:40 | ECG_ITS ---
Test Date: 2024-09-03 03:08:16 Measurements Intervals [place] Rate: 94 P: 88 AL: 195 QRS: 52 QRSD: 109 T: -67 QT: 352 QTc: 442 Interpretive Statements SINUS RHYTHM WITH OCCASIONAL SUPRAVENTRICULAR PREMATURE COMPLEXES ST-T WAVE ABNORMALITY IN INF/LAT LEADS- CONSIDER ISCHEMIA ABNORMAL ECG Compared to ECG 06/17/2024 21:27:00 POSSIBLE ISCHEMIA NOW PRESENT Electronically Signed On 09-03-2024 06:43:02 [employer] by Steve Tinsley D.O.
[2024-09-03 03:00] LABS: Basophils Absolute Auto 0.1 K/mm3 (0.0-0.1); Basophils Percent Auto 0.5 % (0.2-1.2); Eosinophils Absolute Auto 0.1 K/mm3 (0-0.3); Eosinophils Percent Auto 0.4 % (0-4.4); Hematocrit 32.9 % (42.0-52.0); Hemoglobin 11.2 g/dL (14.0-18.0); Immature Granulocyte Absolute 0.04 K/mm3 (0.00-0.031); Immature Granulocyte Percent A 0.3 % (0-0.5); Lymphocytes Absolute Auto 5.67 K/mm3 (0.9-3.2); Lymphocytes Percent Auto 44.5 % (18.3-44.2); Mean Corpuscular Hemoglobin 32.5 pg (26-34); Mean Corpuscular Volume 95.4 fl (80-100); Monocytes Absolute Auto 1.3 K/mm3 (0.1-0.6); Monocytes Percent Auto 10.5 % (2.6-8.5); Neutrophils Absolute Auto 5.6 K/mm3 (1.3-6.7); Neutrophils Percent Auto 43.8 % (45.5-73.1); Platelet Count Result 258 k/mm3 (150-375); Red Blood Count 3.45 M/mm3 (4.6-6.20); Red Cell Distribution Width 12.5 % (11.5-14.5); White Blood Count 12.7 K/mm3 (4.5-10.0)
[2024-09-03] MEDS: LORazepam INJ (*CRX) 2 MG/ML VIAL 1 MG IV PUSH (03:06)
[2024-09-03] MEDS: levETIRAcetam 1500MG/NACL100ML 1,500 MG/100 ML BAG 400 MG IVPB (03:06)
[2024-09-03 03:09] LABS: Anion Gap 12 mmol/L (4-12); Blood Urea Nitrogen 14 mg/dL (9-20); Calcium 9.6 mg/dL (8.4-10.2); Carbon Dioxide 23 mmol/L (22-30); Chloride 100 mmol/L (98-107); Estimated CRCL calculation 48 ml/min; Estimated Glomerular Filt Rate > 60; Glucose 113 mg/dL (65-110); Magnesium 1.4 mg/dL (1.6-2.3); Phosphorus 2.8 mg/dL (2.5-4.5); Potassium 3.7 mmol/L (3.4-5.0); Sodium 135 mmol/L (137-145)
[2024-09-03 03:16] LABS: Glucose Point of Care 98 mg/dl (65-105)
[2024-09-03 03:19] LABS: Lactic Acid Reflex 6.2 mmol/L (0.7-2.0)
--- NOTE | 2024-09-03 03:39 | PC.NURSE ---
To Radiology per bed, transported by Roly GRIJALVA and Aleksandra, unable to obtain Head CT due to restless behaviors.
[2024-09-03] MEDS: MAGNESIUM SULF 2 GM/WATER 50ML 2 GM/50 ML BAG IVPB (04:14)
[2024-09-03 05:57] LABS: Reflex Lactic Acid Yes or No Add Lactic
[2024-09-03 06:37] LABS: Lactic Acid Reflex 1.7 mmol/L (0.7-2.0)
[2024-09-03] MEDS: LORazepam INJ (*CRX) 2 MG/ML VIAL IV PUSH ×2 (08:08→09:05)
--- NOTE | 2024-09-03 08:38 | PCOTNOTE ---
Patient out od the room at this time. Patient down having a head CT at this time. Per RN, Patient had a rapid response called last night, having testing this A.M. and also had to be given medication to assist him in calming down. RN states Patient is unable to participate this A.M. Check back this afternoon.
--- NOTE | 2024-09-03 09:29 | P.PNIM_ITS ---
Progress Note: A&P Assessment and Plan (1) Osteoarthritis of left knee: Code(s): M17.12 - Unilateral primary osteoarthritis, left knee Status: Acute Assessment and Plan: * postop day 2 from left total knee arthroplasty done by Dr. 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 Swollen left knee. Pressure dressing. (2) Seizure: Code(s): R56.9 - Unspecified convulsions Status: Inactive Assessment and Plan: * Patient had seizure overnight. Patient received IV Levetiracetam 1,500 mg IVPB. * Head CT showed No acute intracranial hemorrhage or suspicious mass effect. * Levetiracetam 1,000 mg ivpb q 12. * Seizure precautions. * Neurology consult. * CIWA ordered. * Patient came to the ER on 06/17/24 after having a possible seizure. Patient was ordered Keppra 500 mg PO BID and to follow up closely with provider. (3) Essential hypertension: Code(s): I10 - Essential (primary) hypertension Status: Acute Assessment and Plan: * blood pressure 132/79 * continue amlodipine and metoprolol (4) Coronary artery disease: Code(s): I25.10 - Atherosclerotic heart disease of [place] coronary artery without angina pectoris Status: Acute Assessment and Plan: * status post CABG 1 vessel * Not on any statins (5) Nausea & vomiting: Code(s): R11.2 - Nausea with vomiting, unspecified Status: Acute Assessment and Plan: * Ondansetron 4 mg ivp q 4 PRN. Subjective Date/time seen: 09/03/24 09:29 Interval history: Patient drowsy, arousable to stimulus. Patient had a seizure overnight. Patient received IV Levetiracetam 1,[address] showed No acute intracranial hemorrhage or suspicious mass effect. No nausea or vomiting per nursing. Review of Systems Review of Systems: All systems reviewed & are unremarkable except as noted in HPI and below Exam Const: General: comfortable Other: Drowsy Eyes: Pupils: Equal, round and reactive pupils present Resp: Effort & Inspection: normal respiratory effort Auscultation: clear to auscultation bilaterally Cardio: Rate: regular rate Rhythm: regular rhythm Other: Telemetry SR 85 GI: GI Palp: Yes Soft to palpation Auscultation: normal bowel sounds Skin: Other: left knee surgical incision with monika, scant bloody drainage. Swollen left knee. Extrem: General: normal to inspection Objective Data Vital Signs Vital Signs: Vital Signs - 24 hr 09/02/24 11:05 09/02/24 14:18 09/02/24 19:56 Temperature 96.8 F L 97 F L Pulse Rate 58 L 78 78 Respiratory Rate 14 14 Blood Pressure 126/68 128/70 Pulse Oximetry 100 100 Oxygen Delivery 09/02/24 20:00 09/02/24 21:33 09/03/24 02:30 Temperature 97.1 F L Pulse Rate 82 90 Respiratory Rate 17 16 Blood Pressure 130/74 140/70 Pulse Oximetry 99 99 Oxygen Delivery Room Air 09/03/24 03:15 09/03/24 04:00 09/03/24 02:30 Temperature Pulse Rate 79 80 90 Respiratory Rate 18 16 Blood Pressure 104/57 L 140/70 Pulse Oximetry 96 99 Oxygen Delivery Room Air 09/03/24 08:00 Temperature Pulse Rate 79 Respiratory Rate Blood Pressure Pulse Oximetry Oxygen Delivery Intake/Output Intake/Output: Intake & Output 08/31/24 09/01/24 09/02/24 09/03/24 23:59 23:59 23:59 23:59 Intake Total 1110 700 100 Output Total 300 1775 800 Balance 810 -4075 -700 Meds/Results Medications: Active Medications Generic Name Dose Route Start Last Admin Trade Name Freq PRN Reason Stop Dose Admin Hydrocodone Bitart/Acetaminophen 1 tab 09/01/24 13:23 09/02/24 08:11 Hydrocodone/Acetaminophen (*Crx) 5-325 Mg Tablet PO 1 tab Q4H PRN Administration Pain Rated 4-6 Hydrocodone Bitart/Acetaminophen 1 tab 09/01/24 13:23 09/02/24 23:37 Hydrocodone/Acetaminophen (*Crx) 7.5-325 Mg Tablet PO 1 tab Q4H PRN Administration Pain Rated 7-10 Amlodipine Besylate 10 mg 09/02/24 09:00 09/03/24 09:24 Amlodipine Besylate 10 Mg Tablet PO Not Given DAILY SHANIQUE Calcium Carbonate 200 mg 09/02/24 16:29 09/02/24 17:15 Calcium Carbonate (Tums) 500 Mg (200 Mg Elemental) PO 200 mg Q6H PRN Administration Indigestion Celecoxib 200 mg 09/01/24 17:00 09/03/24 09:24 Celecoxib 200 Mg Capsule PO Not Given BIDWM SHANIQUE Cyclobenzaprine HCl 10 mg 09/01/24 13:23 09/02/24 20:09 Cyclobenzaprine Hcl 10 Mg Tablet PO 10 mg Q8H PRN Administration Spasms Diphenhydramine HCl 25 mg 09/01/24 13:23 Diphenhydramine Hcl Inj 50 Mg/Ml Vial IV PUSH Q6H PRN Itching Hydromorphone HCl 1 mg 09/01/24 13:23 09/02/24 02:32 Hydromorphone Hcl Inj (*Crx) 1 Mg/Ml Syr IV PUSH 1 mg Q2H PRN Administration Breakthrough Pain Rated 7-10 or NPO Hydromorphone HCl 0.5 mg 09/01/24 13:23 Hydromorphone Hcl Inj (*Crx) 1 Mg/Ml Syr IV PUSH Q2H PRN Breakthrough Pain Rated 4-6 or NPO Metoprolol Tartrate 50 mg 09/01/24 21:00 09/03/24 09:25 Metoprolol Tartrate 50 Mg Tab PO Not Given Q12HR [facility] Naloxone HCl 0.1 mg 09/01/24 13:23 Naloxone Hcl 0.4 Mg/Ml Vial IV PUSH Q2M PRN Opiate Reversal Ondansetron HCl 4 mg 09/01/24 13:23 Ondansetron Inj 4 Mg/2 Ml Vial IV PUSH Q4H PRN Nausea And Vomiting Polyethylene Glycol 17 gm 09/02/24 09:00 09/03/24 09:25 Polyethylene Glycol 3350 17 Gm Powd.Pack PO Not Given QAM [facility] Rivaroxaban 10 mg 09/01/24 21:00 09/02/24 17:14 Rivaroxaban 10 Mg Tablet PO Not Given DAILY@17 [facility] Senna/Docusate Sodium 2 tab 09/01/24 17:00 09/03/24 09:24 Senna/Docusate Sodium Tablet PO Not Given BID [facility] Tramadol HCl 50 mg 09/01/24 13:23 Tramadol Hcl (*Crx) 50 Mg Tablet PO Q4H PRN Pain Rated 1-3 Radiology Results: ITS Impressions Knee X-Ray 09/01/24 14:13 IMPRESSION: No acute osseous abnormality left knee. Total knee arthroplasty. Head CT 09/03/24 09:09 Impression: No acute intracranial hemorrhage or suspicious mass effect. Labs Labs: Laboratory Results - last 24 hr 09/03/24 09/03/24 09/03/24 02:31 02:52 06:05 WBC 12.7 H RBC 3.45 L Hgb 11.2 L Hct 32.9 L MCV 95.4 MCH 32.5 MCHC 34.0 RDW 12.5 Plt Count 258 MPV 10.0 Immature Gran % (Auto) 0.3 Neut % (Auto) 43.8 L Lymph % (Auto) 44.5 H [place] % (Auto) 10.5 H Eos % (Auto) 0.4 Baso % (Auto) 0.5 Lymph # (Auto) 5.67 H [place] # (Auto) 1.3 H Eos # (Auto) 0.1 Baso # (Auto) 0.1 Abs Immat Gran (auto) 0.04 H Absolute Neuts (auto) 5.6 Absolute Nucleated RBC 0.000 Nucleated RBC % 0.0 Sodium 135 L Potassium 3.7 Chloride 100 Carbon Dioxide 23 Anion Gap 12 BUN 14 Creatinine 0.90 Estim Creat Clear Calc 48 Estimated GFR > 60 Glucose 113 H POC Capillary Glucose 98 Lactic Acid 6.2 H* 1.7 Calcium 9.6 Phosphorus 2.8 2.0 L Magnesium 1.4 L Quality VTE Prophylaxis VTE prophylaxis: mechanical ordered and pharmacologic ordered
--- NOTE | 2024-09-03 09:45 | PCPTNOTE ---
The patient treatment was not able to be completed at this time. powder loader advises to hold PT this morning due to change in medical status. Patient had increased confusion and was given medication to help him rest and achieve CT scan. Will plan to continue treatment per plan of care.
--- NOTE | 2024-09-03 12:49 | PCOTNOTE ---
Patient unable to be aroused this P.M. Pr RN, Patient had medication in his system to assist with calming him and is aware. Patient unable to participate in therapy sessions.
--- NOTE | 2024-09-03 14:06 | PCPTNOTE ---
PT attempted to see patient this afternoon, however patient sleeping soundly, unable to arouse to participate in PT at this time. RN and hospitalist aware. PT will continue to follow per plan of care.
--- NOTE | 2024-09-03 17:49 | PM.PNORT ---
Progress Note: A&P Assessment and Plan (1) History of knee replacement procedure of left knee: Code(s): Z96.652 - Presence of left artificial knee joint Status: Acute Assessment and Plan: S/P Total Knee. Drainage is better (2) Seizure: Code(s): R56.9 - Unspecified convulsions Status: Acute Subjective Subjective Date/Time Seen: 09/03/24 17:49 Post Op day: 2 Principal diagnosis: Total Knee Review of Systems Review of Systems: Confusion Musculoskeletal: Musculoskeletal: Reports arthralgias, Reports joint swelling and Reports muscle weakness Exam Narrative: Confused Wiggles toes Drainage decreased Objective Data Vital Signs Vital Signs: Vital Signs - 24 hr 09/02/24 19:56 09/02/24 20:00 09/02/24 21:33 Temperature 97.1 F L Pulse Rate 78 82 Pulse Rate [Monitor] Respiratory Rate 17 Blood Pressure 130/74 Pulse Oximetry 99 Oxygen Delivery Room Air 09/03/24 02:30 09/03/24 03:15 09/03/24 04:00 Temperature Pulse Rate 90 79 80 Pulse Rate [Monitor] Respiratory Rate 16 18 Blood Pressure 140/70 104/57 L Pulse Oximetry 99 96 Oxygen Delivery 09/03/24 02:30 09/03/24 08:00 09/03/24 08:00 Temperature Pulse Rate 90 79 Pulse Rate [Monitor] 85 Respiratory Rate 16 Blood Pressure 140/70 Pulse Oximetry 99 Oxygen Delivery Room Air 09/03/24 08:10 09/03/24 12:00 09/03/24 12:02 Temperature Pulse Rate 79 85 Pulse Rate [Monitor] 81 Respiratory Rate 18 Blood Pressure Pulse Oximetry 96 Oxygen Delivery Room Air 09/03/24 13:43 09/03/24 14:00 09/03/24 16:00 Temperature 97.8 F 96.8 F L Pulse Rate 84 90 Pulse Rate [Monitor] 94 Respiratory Rate 16 14 Blood Pressure 103/56 L 132/79 Pulse Oximetry 99 93 Oxygen Delivery Intake/Output Intake/Output: Intake & Output 08/31/24 09/01/24 09/02/24 09/03/24 23:59 23:59 23:59 23:59 Intake Total 1110 700 100 Output Total 300 5170 800 Balance 810 -3851 -520 Meds/Results Medications: Active Medications Generic Name Dose Route Start Last Admin Trade Name Freq PRN Reason Stop Dose Admin Hydrocodone Bitart/Acetaminophen 1 tab 09/01/24 13:23 09/02/24 08:11 Hydrocodone/Acetaminophen (*Crx) 5-325 Mg Tablet PO 1 tab Q4H PRN Administration Pain Rated 4-6 Hydrocodone Bitart/Acetaminophen 1 tab 09/01/24 13:23 09/02/24 23:37 Hydrocodone/Acetaminophen (*Crx) 7.5-325 Mg Tablet PO 1 tab Q4H PRN Administration Pain Rated 7-10 Amlodipine Besylate 10 mg 09/02/24 09:00 09/03/24 09:24 Amlodipine Besylate 10 Mg Tablet PO Not Given DAILY SHANIQUE Calcium Carbonate 200 mg 09/02/24 16:29 09/02/24 17:15 Calcium Carbonate (Tums) 500 Mg (200 Mg Elemental) PO 200 mg Q6H PRN Administration Indigestion Celecoxib 200 mg 09/01/24 17:00 09/03/24 09:24 Celecoxib 200 Mg Capsule PO Not Given BIDWM SHANIQUE Cyclobenzaprine HCl 10 mg 09/01/24 13:23 09/02/24 20:09 Cyclobenzaprine Hcl 10 Mg Tablet PO 10 mg Q8H PRN Administration Spasms Diphenhydramine HCl 25 mg 09/01/24 13:23 Diphenhydramine Hcl Inj 50 Mg/Ml Vial IV PUSH Q6H PRN Itching Hydromorphone HCl 1 mg 09/01/24 13:23 09/02/24 02:32 Hydromorphone Hcl Inj (*Crx) 1 Mg/Ml Syr IV PUSH 1 mg Q2H PRN Administration Breakthrough Pain Rated 7-10 or NPO Hydromorphone HCl 0.5 mg 09/01/24 13:23 Hydromorphone Hcl Inj (*Crx) 1 Mg/Ml Syr IV PUSH Q2H PRN Breakthrough Pain Rated 4-6 or NPO Levetiracetam 1,000 mg in 100 mls @ 400 mls/hr 09/03/24 21:00 Keppra Iv IVPB Q12HR SHANIQUE Metoprolol Tartrate 50 mg 09/01/24 21:00 09/03/24 09:25 Metoprolol Tartrate 50 Mg Tab PO Not Given Q12HR [facility] Naloxone HCl 0.1 mg 09/01/24 13:23 Naloxone Hcl 0.4 Mg/Ml Vial IV PUSH Q2M PRN Opiate Reversal Ondansetron HCl 4 mg 09/01/24 13:23 Ondansetron Inj 4 Mg/2 Ml Vial IV PUSH Q4H PRN Nausea And Vomiting Polyethylene Glycol 17 gm 09/02/24 09:00 09/03/24 09:25 Polyethylene Glycol 3350 17 Gm Powd.Pack PO Not Given QAM [facility] Rivaroxaban 10 mg 09/01/24 21:00 09/02/24 17:14 Rivaroxaban 10 Mg Tablet PO Not Given DAILY@17 [facility] Senna/Docusate Sodium 2 tab 09/01/24 17:00 09/03/24 09:24 Senna/Docusate Sodium Tablet PO Not Given BID SHANIQUE Tramadol HCl 50 mg 09/01/24 13:23 Tramadol Hcl (*Crx) 50 Mg Tablet PO Q4H PRN Pain Rated 1-3 Radiology Results: ITS Impressions Knee X-Ray 09/01/24 14:13 IMPRESSION: No acute osseous abnormality left knee. Total knee arthroplasty. Head CT 09/03/24 09:09 Impression: No acute intracranial hemorrhage or suspicious mass effect. Labs Labs: Laboratory Results - last 24 hr 09/03/24 09/03/24 09/03/24 02:31 02:52 06:05 WBC 12.7 H RBC 3.45 L Hgb 11.2 L Hct 32.9 L MCV 95.4 MCH 32.5 MCHC 34.0 RDW 12.5 Plt Count 258 MPV 10.0 Immature Gran % (Auto) 0.3 Neut % (Auto) 43.8 L Lymph % (Auto) 44.5 H [place] % (Auto) 10.5 H Eos % (Auto) 0.4 Baso % (Auto) 0.5 Lymph # (Auto) 5.67 H [place] # (Auto) 1.3 H Eos # (Auto) 0.1 Baso # (Auto) 0.1 Abs Immat Gran (auto) 0.04 H Absolute Neuts (auto) 5.6 Absolute Nucleated RBC 0.000 Nucleated RBC % 0.0 Sodium 135 L Potassium 3.7 Chloride 100 Carbon Dioxide 23 Anion Gap 12 BUN 14 Creatinine 0.90 Estim Creat Clear Calc 48 Estimated GFR > 60 Glucose 113 H POC Capillary Glucose 98 Lactic Acid 6.2 H* 1.7 Calcium 9.6 Phosphorus 2.8 2.0 L Magnesium 1.4 L
[2024-09-03] MEDS: levETIRAcetam 1000MG/NACL100ML 1,000 MG/100 ML BAG 400 MG IVPB (20:08)
[2024-09-03] MEDS: HYDROmorphone HCL INJ (*CRX) 1 MG/ML SYR IV PUSH (22:29)
[2024-09-04] VITALS (8 sets, daily range): BP systolic 107–127; BP diastolic 63–65; PULSE 86–120; RESP 14–20; TEMP 36.1–36.6; O2SAT 95–100
[2024-09-04] MEDS: HYDROmorphone HCL INJ (*CRX) 1 MG/ML SYR IV PUSH (05:52)
[2024-09-04 06:23] LABS: Basophils Absolute Auto 0.1 K/mm3 (0.0-0.1); Basophils Percent Auto 1.1 % (0.2-1.2); Eosinophils Absolute Auto 0.1 K/mm3 (0-0.3); Hemoglobin 11.9 g/dL (14.0-18.0); Immature Granulocyte Absolute 0.03 K/mm3 (0.00-0.031); Immature Granulocyte Percent A 0.3 % (0-0.5); Lymphocytes Percent Auto 28.9 % (18.3-44.2); Mean Corpuscular Hemoglobin 32.5 pg (26-34); Mean Corpuscular Volume 95.6 fl (80-100); Mean Platelet Volume 10.6 fl (7.4-10.4); Monocytes Absolute Auto 1.1 K/mm3 (0.1-0.6); Monocytes Percent Auto 10.3 % (2.6-8.5); Neutrophils Absolute Auto 6.1 K/mm3 (1.3-6.7); Neutrophils Percent Auto 58.4 % (45.5-73.1); Platelet Count Result 242 k/mm3 (150-375); Red Blood Count 3.66 M/mm3 (4.6-6.20); Red Cell Distribution Width 12.5 % (11.5-14.5); White Blood Count 10.4 K/mm3 (4.5-10.0)
[2024-09-04 06:36] LABS: Alanine Aminotransferase 12 U/L (6-50); Albumin Level 4.1 g/dL (3.5-5.1); Alkaline Phosphatase 84 U/L (38-126); Anion Gap 10 mmol/L (4-12); Aspartate Amino Transferase 48 U/L (17-59); Bilirubin,Total 0.8 mg/dL (0.2-1.3); Blood Urea Nitrogen 13 mg/dL (9-20); Calcium 9.1 mg/dL (8.4-10.2); Carbon Dioxide 26 mmol/L (22-30); Chloride 100 mmol/L (98-107); Estimated CRCL calculation 61 ml/min; Estimated Glomerular Filt Rate > 60; Glucose 73 mg/dL (65-110); Magnesium 1.9 mg/dL (1.6-2.3); Potassium 3.1 mmol/L (3.4-5.0); Sodium 136 mmol/L (137-145)
[2024-09-04] MEDS: levETIRAcetam 1000MG/NACL100ML 1,000 MG/100 ML BAG 400 MG IVPB ×2 (09:16→19:33)
--- NOTE | 2024-09-04 10:29 | P.PNIM_ITS ---
Progress Note: A&P Assessment and Plan (1) Osteoarthritis of left knee: Code(s): M17.12 - Unilateral primary osteoarthritis, left knee Status: Acute Assessment and Plan: * postop day 3 from left total knee arthroplasty done by Dr. 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 Swollen left knee. Pressure dressing. (2) Seizure: Code(s): R56.9 - Unspecified convulsions Status: Inactive Assessment and Plan: * Patient had seizure overnight. Patient received IV Levetiracetam 1,500 mg IVPB. * Head CT showed No acute intracranial hemorrhage or suspicious mass effect. * Levetiracetam 1,000 mg ivpb q 12. * Seizure precautions. * Neurology consult. * CIWA ordered. * Patient came to the ER on 06/17/24 after having a possible seizure. Patient was ordered Keppra 500 mg PO BID and to follow up closely with provider. (3) Essential hypertension: Code(s): I10 - Essential (primary) hypertension Status: Acute Assessment and Plan: * blood pressure 121/63 * continue amlodipine and metoprolol (4) Coronary artery disease: Code(s): I25.10 - Atherosclerotic heart disease of [place] coronary artery without angina pectoris Status: Acute Assessment and Plan: * status post CABG 1 vessel * Not on any statins Subjective Date/time seen: 09/04/24 10:29 Interval history: Alert to self. Restless at times pulling off telemetry, gown, and pulled out an IV. Answers questions but not appropriately at times. Denies pain, headache, dizziness, shortness of breath, nausea, or vomiting. Review of Systems Review of Systems: All systems reviewed & are unremarkable except as noted in HPI and below Exam Const: General: comfortable and no acute distress Eyes: Pupils: Equal, round and reactive pupils present Resp: Effort & Inspection: normal respiratory effort Auscultation: clear to auscultation bilaterally Cardio: Other: Patient briefly in afib at [address] with 1st degree AV block with rate of 102 on EKG. GI: GI Palp: Yes Soft to palpation Auscultation: normal bowel sounds Skin: Other: Left knee surgical incision with scant dried blood on dressing. Trace edema left knee. Extrem: General: normal to inspection Psych: Other: Restless at times pulling off telemetry, gown, and pulled out an IV. Answers questions but not appropriately at times. Objective Data Vital Signs Vital Signs: Vital Signs - 24 hr 09/03/24 12:00 09/03/24 12:02 09/03/24 13:43 Temperature 97.8 F Pulse Rate 85 84 Pulse Rate [Left Pedal (Dorsalis Pedis) Palpation] Pulse Rate [Monitor] 81 Pulse Rate [Right Pedal (Dorsalis Pedis) Palpation] Respiratory Rate 16 Blood Pressure 103/56 L Pulse Oximetry 99 Oxygen Delivery 09/03/24 14:00 09/03/24 16:00 09/03/24 16:00 Temperature 96.8 F L Pulse Rate 90 113 H Pulse Rate [Left Pedal (Dorsalis Pedis) Palpation] Pulse Rate [Monitor] 94 Pulse Rate [Right Pedal (Dorsalis Pedis) Palpation] Respiratory Rate 14 Blood Pressure 132/79 Pulse Oximetry 93 Oxygen Delivery 09/03/24 22:41 09/03/24 22:00 09/03/24 20:00 Temperature 96.9 F L Pulse Rate 85 Pulse Rate [Left Pedal (Dorsalis Pedis) Palpation] Pulse Rate [Monitor] 95 Pulse Rate [Right Pedal (Dorsalis Pedis) Palpation] 95 Respiratory Rate 14 Blood Pressure 146/69 H Pulse Oximetry 95 Oxygen Delivery Room Air 09/04/24 00:00 09/04/24 00:00 09/04/24 04:00 Temperature Pulse Rate 103 H 106 H Pulse Rate [Left Pedal (Dorsalis Pedis) Palpation] 86 Pulse Rate [Monitor] 89 Pulse Rate [Right Pedal (Dorsalis Pedis) Palpation] 86 Respiratory Rate Blood Pressure Pulse Oximetry Oxygen Delivery 09/04/24 06:00 09/04/24 08:00 Temperature 97.0 F L Pulse Rate 100 100 Pulse Rate [Left Pedal (Dorsalis Pedis) Palpation] Pulse Rate [Monitor] Pulse Rate [Right Pedal (Dorsalis Pedis) Palpation] Respiratory Rate 14 Blood Pressure 121/63 Pulse Oximetry 95 Oxygen Delivery Intake/Output Intake/Output: Intake & Output 09/01/24 09/02/24 09/03/24 09/04/24 23:59 23:59 23:59 23:59 Intake Total 1110 700 200 75 Output Total 300 8275 800 Balance 810 -6400 -694 75 Meds/Results Medications: Active Medications Generic Name Dose Route Start Last Admin Trade Name Freq PRN Reason Stop Dose Admin Hydrocodone Bitart/Acetaminophen 1 tab 09/01/24 13:23 09/02/24 08:11 Hydrocodone/Acetaminophen (*Crx) 5-325 Mg Tablet PO 1 tab Q4H PRN Administration Pain Rated 4-6 Hydrocodone Bitart/Acetaminophen 1 tab 09/01/24 13:23 09/02/24 23:37 Hydrocodone/Acetaminophen (*Crx) 7.5-325 Mg Tablet PO 1 tab Q4H PRN Administration Pain Rated 7-10 Amlodipine Besylate 10 mg 09/02/24 09:00 09/03/24 09:24 Amlodipine Besylate 10 Mg Tablet PO Not Given DAILY SHANIQUE Calcium Carbonate 200 mg 09/02/24 16:29 09/02/24 17:15 Calcium Carbonate (Tums) 500 Mg (200 Mg Elemental) PO 200 mg Q6H PRN Administration Indigestion Celecoxib 200 mg 09/01/24 17:00 09/03/24 17:51 Celecoxib 200 Mg Capsule PO Not Given BIDWM SHANIQUE Cyclobenzaprine HCl 10 mg 09/01/24 13:23 09/02/24 20:09 Cyclobenzaprine Hcl 10 Mg Tablet PO 10 mg Q8H PRN Administration Spasms Diphenhydramine HCl 25 mg 09/01/24 13:23 Diphenhydramine Hcl Inj 50 Mg/Ml Vial IV PUSH Q6H PRN Itching Hydromorphone HCl 1 mg 09/01/24 13:23 09/04/24 05:52 Hydromorphone Hcl Inj (*Crx) 1 Mg/Ml Syr IV PUSH 1 mg Q2H PRN Administration Breakthrough Pain Rated 7-10 or NPO Hydromorphone HCl 0.5 mg 09/01/24 13:23 Hydromorphone Hcl Inj (*Crx) 1 Mg/Ml Syr IV PUSH Q2H PRN Breakthrough Pain Rated 4-6 or NPO Levetiracetam 1,000 mg in 100 mls @ 400 mls/hr 09/03/24 21:00 09/04/24 09:16 Keppra Iv IVPB 400 mls/hr Q12HR SHANIQUE Administration Metoprolol Tartrate 50 mg 09/01/24 21:00 09/03/24 20:10 Metoprolol Tartrate 50 Mg Tab PO Not Given Q12HR SH[facility]QUE Naloxone HCl 0.1 mg 09/01/24 13:23 Naloxone Hcl 0.4 Mg/Ml Vial IV PUSH Q2M PRN Opiate Reversal Ondansetron HCl 4 mg 09/01/24 13:23 Ondansetron Inj 4 Mg/2 Ml Vial IV PUSH Q4H PRN Nausea And Vomiting Polyethylene Glycol 17 gm 09/02/24 09:00 09/03/24 09:25 Polyethylene Glycol 3350 17 Gm Powd.Pack PO Not Given QAM [facility] Rivaroxaban 10 mg 09/01/24 21:00 09/02/24 17:14 Rivaroxaban 10 Mg Tablet PO Not Given DAILY@17 [facility] Senna/Docusate Sodium 2 tab 09/01/24 17:00 09/03/24 17:51 Senna/Docusate Sodium Tablet PO Not Given BID [facility] Tramadol HCl 50 mg 09/01/24 13:23 Tramadol Hcl (*Crx) 50 Mg Tablet PO Q4H PRN Pain Rated 1-3 Radiology Results: ITS Impressions Knee X-Ray 09/01/24 14:13 IMPRESSION: No acute osseous abnormality left knee. Total knee arthroplasty. Head CT 09/03/24 09:09 Impression: No acute intracranial hemorrhage or suspicious mass effect. Labs Labs: Laboratory Results - last 24 hr 09/04/24 05:47 WBC 10.4 H RBC 3.66 L Hgb 11.9 L Hct 35.0 L MCV 95.6 MCH 32.5 MCHC 34.0 RDW 12.5 Plt Count 242 MPV 10.6 H Immature Gran % (Auto) 0.3 Neut % (Auto) 58.4 Lymph % (Auto) 28.9 [place] % (Auto) 10.3 H Eos % (Auto) 1.0 Baso % (Auto) 1.1 Lymph # (Auto) 3.00 [place] # (Auto) 1.1 H Eos # (Auto) 0.1 Baso # (Auto) 0.1 Abs Immat Gran (auto) 0.03 Absolute Neuts (auto) 6.1 Absolute Nucleated RBC 0.000 Nucleated RBC % 0.0 Sodium 136 L Potassium 3.1 L Chloride 100 Carbon Dioxide 26 Anion Gap 10 BUN 13 Creatinine 0.70 Estim Creat Clear Calc 61 Estimated GFR > 60 Glucose 73 Calcium 9.1 Magnesium 1.9 Total Bilirubin 0.8 AST 48 ALT 12 Alkaline Phosphatase 84 Total Protein 8.0 Albumin 4.1 Quality VTE Prophylaxis VTE prophylaxis: mechanical ordered and pharmacologic ordered
[2024-09-04] MEDS: CELECOXIB 200 MG CAPSULE PO ×2 (10:30→17:31)
[2024-09-04] MEDS: METOPROLOL TARTRATE 50 MG TAB PO ×2 (10:30→19:32)
[2024-09-04] MEDS: amLODIPine BESYLATE 10 MG TABLET PO (10:30)
--- NOTE | 2024-09-04 10:38 | ECG_ITS ---
Test Date: 2024-09-04 11:11:36 Measurements Intervals [place] Rate: 102 P: 116 NM: 214 QRS: 39 QRSD: 106 T: -85 QT: 343 QTc: 447 Interpretive Statements SINUS TACHYCARDIA WITH FIRST DEGREE AV BLOCK WITH OCCASIONAL SUPRAVENTRICULAR PREMATURE COMPLEXES CONSIDER INFERIOR INFARCT, AGE INDETERMINATE BORDERLINE ST-T WAVE ABNORMALITY- ANTEROLATERAL LEADS BASELINE ARTIFACT- I, II, III, AVR, AVL, AVF, V1-V6 ABNORMAL ECG Compared to ECG 09/03/2024 03:08:16 First degree AV block now present Electronically Signed On 09-04-2024 15:48:53 [employer] by Steve Tinsley D.O.
[2024-09-04] MEDS: POTASSIUM CHLORIDE INJ 40 MEQ in SODIUM CHLORIDE 0.9% IV 500 ML 130 MEQ IVPB (13:00)
[2024-09-04] MEDS: SENNA/DOCUSATE SODIUM TABLET 2 TAB PO (17:31)
[2024-09-04 18:22] LABS: Folic Acid > 20.0 ng/mL (2.76->20)
--- NOTE | 2024-09-04 18:41 | P.CONNEU_ITS ---
Assessment and Plan Assessment and plan (1) Seizure disorder: Code(s): G40.909 - Epilepsy, unspecified, not intractable, without status epilepticus Status: Acute (2) History of aortic valve replacement with bioprosthetic valve: Onset Date: 07/2020 Code(s): Z95.3 - Presence of xenogenic heart valve Status: Acute (3) History of knee replacement procedure of left knee: Code(s): Z96.652 - Presence of left artificial knee joint Status: Acute Plan it appears the patient became combative and has had head injury in September 2023. I am not sure whether he had a seizure that led to the injury or he had an injury that led to the seizure or neither since the history was not clear. He is not thought to have had a seizure that time. There was a change in mental status and he was admitted to the hospital for day but heme was stable and discharged home after that. Then he was seen again in emergency room in [facility]20[facility] and was diagnosed to have seizure and started on Keppra 500 mg twice a day. A CT scan of brain without contrast done on both occasion were within normal range. Her the CT scan the brain performed on this admission after he had a seizure last night also was within normal range. I will suggest an MRI of the brain with and without contrast and a EEG and a carotid Doppler study. If his baseline is not combativeness then he can be kept on Keppra or or he can be switched to Depakote extended release at bedtime as an alternate since Depakote may have some calming effect compared to Keppra. We can clinically follow-up and also discusses the family members. In view of the seizure I would suggest to discontinue tramadol since the tramadol can cause seizures. Also a question regarding alcohol use that may require some further looking into from the family members. Consult date: 09/04/24 HPI: Adán Wall is a 84 year old male Admitted to the hospital for left knee arthroplasty on 07/02/2024 and has had a seizure last night. He has been confused and somewhat combative today. According to the records he was admitted to the hospital on 10/11/2023 with a spell where he became combative and he was brought by ambulance to the hospital. Apparently he has had some sort of head trauma. CT scan of brain was normal at that time. There did not appear to be in a suspicion of a seizure-like activity at the time however he was seen again emergency room on 06/17/2024 with a seizure-like spell and was started on Keppra at the time. Appointment was made for him to see me in the Neurology office. He has not been to see me yet. According to his son-in-law who normally takes care of him he has not been compliant with the medications. Patient apparently lives with his son-in-law. He states that he is normally independent and is able to walk except for the knee problem. He has had aortic valve replacement in the past and is on Xarelto for that. At this time he denies any active symptoms. Review of Systems Review of Systems: All systems reviewed & are unremarkable except as noted in HPI and below PMFSH Past Medical History Medical History (Updated 09/04/24 @ 18:46 by Isidro Jean Baptiste MD) Aortic stenosis Aortic stenosis, severe Arthritis Coronary artery disease Essential hypertension Gastroesophageal reflux disease Hyperlipidemia Hypertension Seizure disorder Subclinical hypothyroidism Surgical History Surgical History (Updated 09/04/24 @ 18:46 by Isidro Jean Baptiste MD) History of aortic valve replacement with bioprosthetic valve (07/2020) At [facility]. History of arthroplasty of left knee History of arthroplasty of left shoulder History of coronary artery bypass graft x 1 (07/2020) At [facility]. History of incisional hernia repair (03/2021) Epigastric incisional hernia with mesh. S/P aortic valve replacement Family History Family History Other Family history unknown Social History Social History Social History: Surrogate medical decision maker: Kalyani Haley, daughter. Code status: Full code. Smoking packs per day: 1 Smoking cigarettes per day: 20.0 Years smoked: 15 Smoking pack-years: 15.00 Smoking status: Former smoker Tobacco type: cigarettes Smokeless tobacco user: chewing tobacco Second hand tobacco smoke exposure: No Smoking end date: 10/13/69 Alcohol intake: current Drinks per week: 7 Alcohol use details: BEER Substance use: never Substance use type: marijuana Do You Feel Safe in your Home?: Yes Lack of Transportation: No Lack of Food: Never True Current Housing: Decline to Answer Concerned About Future Housing: Decline to Answer Difficulty Paying Gas/Electric Bills: Decline to Answer Difficulty Paying for Meds: Decline to Answer Currently Unemployed: Decline to Answer Education: Decline to Answer Difficulty w/ Childcare or Family Care: Decline to Answer Living arrangements: with family Occupation/Education: retired Additional occupation/education comments: [employer] Gender identity (if verbalized by the patient): Male Spiritual care concerns: No Meds Home Medications and Allergies Home Medications Medication Instructions Recorded Confirmed Type amlodipine 10 mg tablet 10 mg PO DAILY #90 tabs 03/03/24 09/01/24 Rx metoprolol tartrate 50 mg tablet See Rx Instructions .Route 07/02/24 09/01/24 Rx .COMPLEX #90 tabs multivitamin 1 tablet PO DAILY 08/19/24 09/01/24 History naproxen 500 mg tablet 500 mg PO PRN PRN Pain 08/19/24 09/01/24 History mupirocin 2 % topical ointment 1 applic topical BID #15 grams 08/23/24 09/01/24 Rx cyclobenzaprine 10 mg tablet 10 mg PO HS PRN muscle spasm #30 09/02/24 Rx tabs doxycycline hyclate 100 mg tablet 100 mg PO DAILY #10 tabs 09/02/24 Rx hydrocodone 7.5 mg-acetaminophen 1 tablet PO Q4H PRN pain #40 tabs 09/02/24 Rx 325 mg tablet Allergies Allergy/AdvReac Type Severity Reaction Status Date / Time No Known Allergies Allergy Verified 09/01/24 09:17 Vital Signs Vital Signs - 24 hr 09/03/24 22:41 09/03/24 22:00 09/03/24 20:00 Temperature 96.9 F L Pulse Rate 85 Pulse Rate [Left Pedal (Dorsalis Pedis) Palpation] Pulse Rate [Monitor] 95 Pulse Rate [Right Pedal (Dorsalis Pedis) Palpation] 95 Respiratory Rate 14 Blood Pressure 146/69 H Pulse Oximetry 95 Oxygen Delivery Room Air 09/04/24 00:00 09/04/24 00:00 09/04/24 04:00 Temperature Pulse Rate 103 H 106 H Pulse Rate [Left Pedal (Dorsalis Pedis) Palpation] 86 Pulse Rate [Monitor] 89 Pulse Rate [Right Pedal (Dorsalis Pedis) Palpation] 86 Respiratory Rate Blood Pressure Pulse Oximetry Oxygen Delivery 09/04/24 06:00 09/04/24 08:00 09/04/24 10:30 Temperature 97.0 F L Pulse Rate 100 100 120 H Pulse Rate [Left Pedal (Dorsalis Pedis) Palpation] Pulse Rate [Monitor] Pulse Rate [Right Pedal (Dorsalis Pedis) Palpation] Respiratory Rate 14 Blood Pressure 121/63 Pulse Oximetry 95 Oxygen Delivery 09/04/24 14:40 09/04/24 08:00 Temperature 97.9 F Pulse Rate 95 Pulse Rate [Left Pedal (Dorsalis Pedis) Palpation] Pulse Rate [Monitor] Pulse Rate [Right Pedal (Dorsalis Pedis) Palpation] Respiratory Rate 20 Blood Pressure 107/65 Pulse Oximetry 99 Oxygen Delivery Room Air Exam Narrative: Fully conscious alert oriented to self time place and person. Patient appears disheveled and somewhat argumentative. No aphasia or dysarthria. Examination head and neck shows no evidence of external injuries. No carotid bruit. No nuchal rigidity. Cranial nerves pupils were equal reactive light. Visual richards by confrontation are normal. There is no facial asymmetry. Face sensation normal. Tongue was midline. Other cranial nerves within normal limits. Motor system normal power and tone in both upper lower limbs. Bandages around the left knee were noted. Deep tendon reflexes except left knee did not show any asymmetry. Plantars were downgoing. Since sensations are grossly intact. Ataxia nystagmus or intention tremors were noted. No involuntary movements are seen. No cogwheeling. Results Labs 09/04/24 05:47 09/04/24 05:47 Labs: Short CBC 09/04/24 Range/Units 05:47 WBC 10.4 H (4.5-10.0) K/mm3 Hgb 11.9 L (14.0-18.0) g/dL Hct 35.0 L (42.0-52.0) % Plt Count 242 (150-375) k/mm3 [facility] 09/04/24 05:47 Sodium 136 L Potassium 3.1 L Chloride 100 Carbon Dioxide 26 BUN 13 Creatinine 0.70 Glucose 73 Calcium 9.1 Liver Function 09/04/24 Range/Units 05:47 Total Bilirubin 0.8 (0.2-1.3) mg/dL AST 48 (17-59) U/L ALT 12 (6-50) U/L Alkaline Phosphatase 84 (38-126) U/L Albumin 4.1 (3.5-5.1) g/dL
[2024-09-04] MEDS: SODIUM CHLORIDE 0.9% IV 250 ML 100 ML IV CONT (18:45)
[2024-09-04] MEDS: DIVALPROEX SODIUM ER 500 MG TAB.24H PO (19:32)
[2024-09-04] MEDS: HYDROcodone/acetaminophen (*CRX) 5-325 MG TABLET 1 TAB PO (19:32)
[2024-09-04 20:06] LABS: Vitamin D 25 Hydroxy 24.6 ng/mL
[2024-09-04 21:01] LABS: Folic Acid 19.1 ng/mL (2.76->20); Vitamin B12 > 1000.0 pg/mL (239-931)
[2024-09-05 06:00] VITALS: BP 127/75; PULSE 82; RESP 18; TEMP 36.4; O2SAT 99
[2024-09-05 06:38] LABS: Basophils Absolute Auto 0.1 K/mm3 (0.0-0.1); Basophils Percent Auto 0.9 % (0.2-1.2); Eosinophils Absolute Auto 0.4 K/mm3 (0-0.3); Eosinophils Percent Auto 4.2 % (0-4.4); Hematocrit 29.5 % (42.0-52.0); Hemoglobin 9.8 g/dL (14.0-18.0); Immature Granulocyte Absolute 0.06 K/mm3 (0.00-0.031); Immature Granulocyte Percent A 0.6 % (0-0.5); Lymphocytes Absolute Auto 2.81 K/mm3 (0.9-3.2); Lymphocytes Percent Auto 26.7 % (18.3-44.2); Mean Corpuscular HGB Conc 33.2 g/dl (32-36); Mean Corpuscular Hemoglobin 31.8 pg (26-34); Mean Corpuscular Volume 95.8 fl (80-100); Mean Platelet Volume 10.6 fl (7.4-10.4); Monocytes Absolute Auto 0.9 K/mm3 (0.1-0.6); Monocytes Percent Auto 8.6 % (2.6-8.5); Neutrophils Absolute Auto 6.2 K/mm3 (1.3-6.7); Platelet Count Result 256 k/mm3 (150-375); Red Blood Count 3.08 M/mm3 (4.6-6.20); Red Cell Distribution Width 12.4 % (11.5-14.5); White Blood Count 10.5 K/mm3 (4.5-10.0)
[2024-09-05 06:49] LABS: Alanine Aminotransferase 11 U/L (6-50); Albumin Level 3.4 g/dL (3.5-5.1); Alkaline Phosphatase 76 U/L (38-126); Anion Gap 7 mmol/L (4-12); Aspartate Amino Transferase 44 U/L (17-59); Blood Urea Nitrogen 15 mg/dL (9-20); Calcium 8.5 mg/dL (8.4-10.2); Carbon Dioxide 25 mmol/L (22-30); Chloride 102 mmol/L (98-107); Estimated CRCL calculation 61 ml/min; Estimated Glomerular Filt Rate > 60; Glucose 77 mg/dL (65-110); Magnesium 1.7 mg/dL (1.6-2.3); Potassium 3.4 mmol/L (3.4-5.0); Sodium 134 mmol/L (137-145)
--- NOTE | 2024-09-05 09:09 | PCPTNOTE ---
pt refused PT treatment, pt was encouraged to participate and educated on the importance of strengthening his legs but still refused and stated he needed to get cleaned up from breakfast, nursing staff aware
[2024-09-05] MEDS: amLODIPine BESYLATE 10 MG TABLET PO (10:08)
[2024-09-05] MEDS: POTASSIUM CHLORIDE 20 MEQ ER TABLET 40 MEQ PO (10:08)
[2024-09-05] MEDS: CELECOXIB 200 MG CAPSULE PO ×2 (10:08→17:26)
[2024-09-05] MEDS: SENNA/DOCUSATE SODIUM TABLET 2 TAB PO ×2 (10:08→17:26)
[2024-09-05] MEDS: METOPROLOL TARTRATE 50 MG TAB PO ×2 (10:08→20:23)
[2024-09-05] MEDS: CHOLECALCIFEROL 1,000 UNITS TABLET 1000 UNITS PO (10:08)
--- NOTE | 2024-09-05 10:59 | P.PNIM_ITS ---
Progress Note: A&P Assessment and Plan (1) Osteoarthritis of left knee: Code(s): M17.12 - Unilateral primary osteoarthritis, left knee Status: Acute Assessment and Plan: * postop day 4 from left total knee arthroplasty done by Dr. 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 Swollen left knee. Pressure dressing. (2) Seizure: Code(s): R56.9 - Unspecified convulsions Status: Inactive Assessment and Plan: * Patient had seizure overnight. Patient received IV Levetiracetam 1,500 mg IVPB. * Head CT showed No acute intracranial hemorrhage or suspicious mass effect. * Levetiracetam 1,000 mg PO q12 * Seizure precautions. * Neurology following * CIWA ordered. * Patient came to the ER on 06/17/24 after having a possible seizure. Patient was ordered Keppra 500 mg PO BID and to follow up closely with provider. * Carotid dopplers: IMPRESSION: 1. <50% stenosis in the right internal carotid artery. 2. <50% stenosis in the left internal carotid artery. * EEG ordered * MRI brain/brain stem with and without contrast ordered. (3) Essential hypertension: Code(s): I10 - Essential (primary) hypertension Status: Acute Assessment and Plan: * blood pressure 127/75 * continue amlodipine and metoprolol (4) Coronary artery disease: Code(s): I25.10 - Atherosclerotic heart disease of [place] coronary artery without angina pectoris Status: Acute Assessment and Plan: * status post CABG 1 vessel * Not on any statins Subjective Date/time seen: 09/05/24 10:59 Interval history: Patient denies chest pain, palpitations, headache, dizziness, nausea, or vomiting. Patient joking around. Alert and oriented 2-3. Walked in [place] with therapy today. Patient reports pain in left knee is a 4 , constant, and aching. Review of Systems Review of Systems: All systems reviewed & are unremarkable except as noted in HPI and below Exam Const: General: no acute distress and uncomfortable Resp: Effort & Inspection: normal respiratory effort Auscultation: clear to auscultation bilaterally Skin: Other: Left knee surgical incision with scant dried blood on dressing. Trace edema left knee. Neuro: Speech: normal speech Extrem: Other: Left knee surgical incision with scant dried blood on dressing. Trace edema left knee. Psych: Affect: normal affect Other: A&O2-3 Objective Data Vital Signs Vital Signs: Vital Signs - 24 hr 09/04/24 14:40 09/04/24 19:48 09/04/24 19:49 Temperature 97.9 F Pulse Rate 95 Pulse Rate [Monitor] 92 Respiratory Rate 20 Blood Pressure 107/65 Pulse Oximetry 99 Oxygen Delivery Room Air 09/04/24 21:43 09/05/24 06:00 Temperature 97.6 F 97.6 F Pulse Rate 98 82 Pulse Rate [Monitor] Respiratory Rate 18 18 Blood Pressure 127/63 127/75 Pulse Oximetry 100 99 Oxygen Delivery Intake/Output Intake/Output: Intake & Output 09/02/24 09/03/24 09/04/24 09/05/24 23:59 23:59 23:59 23:59 Intake Total 700 200 775 500 Output Total 1775 800 250 Balance -1075 -600 775 250 Meds/Results Medications: Active Medications Generic Name Dose Route Start Last Admin Trade Name Freq PRN Reason Stop Dose Admin Hydrocodone Bitart/Acetaminophen 1 tab 09/01/24 13:23 09/04/24 19:32 Hydrocodone/Acetaminophen (*Crx) 5-325 Mg Tablet PO 1 tab Q4H PRN Administration Pain Rated 4-6 Hydrocodone Bitart/Acetaminophen 1 tab 09/01/24 13:23 09/02/24 23:37 Hydrocodone/Acetaminophen (*Crx) 7.5-325 Mg Tablet PO 1 tab Q4H PRN Administration Pain Rated 7-10 Amlodipine Besylate 10 mg 09/02/24 09:00 09/05/24 10:08 Amlodipine Besylate 10 Mg Tablet PO 10 mg DAILY SHANIQUE Administration Calcium Carbonate 200 mg 09/02/24 16:29 09/02/24 17:15 Calcium Carbonate (Tums) 500 Mg (200 Mg Elemental) PO 200 mg Q6H PRN Administration Indigestion Celecoxib 200 mg 09/01/24 17:00 09/05/24 10:08 Celecoxib 200 Mg Capsule PO 200 mg BIDWM SHANIQUE Administration Cyclobenzaprine HCl 10 mg 09/01/24 13:23 09/02/24 20:09 Cyclobenzaprine Hcl 10 Mg Tablet PO 10 mg Q8H PRN Administration Spasms Diphenhydramine HCl 25 mg 09/01/24 13:23 Diphenhydramine Hcl Inj 50 Mg/Ml Vial IV PUSH Q6H PRN Itching Divalproex Sodium 500 mg 09/04/24 21:00 09/04/24 19:32 Divalproex Sodium Er 500 Mg Tab.24h PO 500 mg QHS SHANIQUE Administration Hydromorphone HCl 1 mg 09/01/24 13:23 09/04/24 05:52 Hydromorphone Hcl Inj (*Crx) 1 Mg/Ml Syr IV PUSH 1 mg Q2H PRN Administration Breakthrough Pain Rated 7-10 or NPO Hydromorphone HCl 0.5 mg 09/01/24 13:23 Hydromorphone Hcl Inj (*Crx) 1 Mg/Ml Syr IV PUSH Q2H PRN Breakthrough Pain Rated 4-6 or NPO Levetiracetam 1,000 mg in 100 mls @ 400 mls/hr 09/03/24 21:00 09/04/24 19:33 Keppra Iv IVPB 400 mls/hr Q12HR SHANIQUE Administration Metoprolol Tartrate 50 mg 09/01/24 21:00 09/05/24 10:08 Metoprolol Tartrate 50 Mg Tab PO 50 mg Q12HR SHANIQUE Administration Naloxone HCl 0.1 mg 09/01/24 13:23 Naloxone Hcl 0.4 Mg/Ml Vial IV PUSH Q2M PRN Opiate Reversal Ondansetron HCl 4 mg 09/01/24 13:23 Ondansetron Inj 4 Mg/2 Ml Vial IV PUSH Q4H PRN Nausea And Vomiting Polyethylene Glycol 17 gm 09/02/24 09:00 09/05/24 10:08 Polyethylene Glycol 3350 17 Gm Powd.Pack PO Not Given QAM [facility] Rivaroxaban 10 mg 09/01/24 21:00 09/02/24 17:14 Rivaroxaban 10 Mg Tablet PO Not Given DAILY@17 SHANIQUE Senna/Docusate Sodium 2 tab 09/01/24 17:00 09/05/24 10:08 Senna/Docusate Sodium Tablet PO 2 tab BID SHANIQUE Administration Vitamin D 1,000 units 09/05/24 09:00 09/05/24 10:08 Cholecalciferol 1,000 Units Tablet PO 1,000 units DAILY SHANIQUE Administration Radiology Results: ITS Impressions Knee X-Ray 09/01/24 14:13 IMPRESSION: No acute osseous abnormality left knee. Total knee arthroplasty. Head CT 09/03/24 09:09 Impression: No acute intracranial hemorrhage or suspicious mass effect. Labs Labs: Laboratory Results - last 24 hr 09/04/24 09/04/24 09/05/24 16:57 16:59 06:09 WBC 10.5 H RBC 3.08 L Hgb 9.8 L Hct 29.5 L MCV 95.8 MCH 31.8 MCHC 33.2 RDW 12.4 Plt Count 256 MPV 10.6 H Immature Gran % (Auto) 0.6 H Neut % (Auto) 59.0 Lymph % (Auto) 26.7 Dickson % (Auto) 8.6 H Eos % (Auto) 4.2 Baso % (Auto) 0.9 Lymph # (Auto) 2.81 [place]icks[place] # (Auto) 0.9 H Eos # (Auto) 0.4 H Baso # (Auto) 0.1 Abs Immat Gran (auto) 0.06 H Absolute Neuts (auto) 6.2 Absolute Nucleated RBC 0.000 Nucleated RBC % 0.0 Sodium 134 L Potassium 3.4 Chloride 102 Carbon Dioxide 25 Anion Gap 7 BUN 15 Creatinine 0.70 Estim Creat Clear Calc 61 Estimated GFR > 60 Glucose 77 Calcium 8.5 Magnesium 1.7 Total Bilirubin 1.0 AST 44 ALT 11 Alkaline Phosphatase 76 Total Protein 7.0 Albumin 3.4 L Vitamin B12 > 1000.0 H Vitamin D 25-Hydroxy 24.6 Folate 19.1 > 20.0 H Quality VTE Prophylaxis VTE prophylaxis: mechanical ordered and pharmacologic ordered
[2024-09-05 14:00] VITALS: BP 105/51; PULSE 75; RESP 17; TEMP 35.9; O2SAT 93
[2024-09-05] MEDS: levETIRAcetam 500 MG TABLET 1000 MG PO (20:23)
[2024-09-05 21:55] VITALS: BP 99/52; PULSE 61; RESP 20; TEMP 36.6; O2SAT 94
[2024-09-06 06:00] VITALS: BP 106/75; PULSE 85; RESP 18; TEMP 36.4; O2SAT 96
[2024-09-06 07:32] LABS: Basophils Absolute Auto 0.1 K/mm3 (0.0-0.1); Basophils Percent Auto 1.2 % (0.2-1.2); Eosinophils Absolute Auto 0.6 K/mm3 (0-0.3); Eosinophils Percent Auto 6.1 % (0-4.4); Hematocrit 29.5 % (42.0-52.0); Hemoglobin 9.8 g/dL (14.0-18.0); Immature Granulocyte Absolute 0.06 K/mm3 (0.00-0.031); Immature Granulocyte Percent A 0.6 % (0-0.5); Lymphocytes Absolute Auto 3.01 K/mm3 (0.9-3.2); Lymphocytes Percent Auto 31.7 % (18.3-44.2); Mean Corpuscular HGB Conc 33.2 g/dl (32-36); Mean Corpuscular Volume 96.4 fl (80-100); Mean Platelet Volume 11.1 fl (7.4-10.4); Monocytes Absolute Auto 0.7 K/mm3 (0.1-0.6); Monocytes Percent Auto 7.3 % (2.6-8.5); Neutrophils Percent Auto 53.1 % (45.5-73.1); Platelet Count Result 287 k/mm3 (150-375); Red Blood Count 3.06 M/mm3 (4.6-6.20); Red Cell Distribution Width 12.6 % (11.5-14.5); White Blood Count 9.5 K/mm3 (4.5-10.0)
--- NOTE | 2024-09-06 07:38 | PM.PNORT ---
Progress Note: A&P Assessment and Plan (1) History of arthroplasty of left knee: Code(s): Z96.652 - Presence of left artificial knee joint Status: Acute Assessment and Plan: S/P TKA for osteoarthritis. Slow progress due to other medical issues, primarily a seizure. From orthopedic standpoint he is doing OK. (2) Seizure disorder: Code(s): G40.909 - Epilepsy, unspecified, not intractable, without status epilepticus Status: Acute Subjective Subjective Date/Time Seen: 09/06/24 07:38 Post Op day: 5 Principal diagnosis: Left Total Knee:Seizure Review of Systems Review of Systems: Confusion Musculoskeletal: Musculoskeletal: Reports arthralgias, Reports joint swelling and Reports muscle weakness Exam Narrative: Dressing intact Moves toes well Ambulates with a walker Objective Data Vital Signs Vital Signs: Vital Signs - 24 hr 09/05/24 13:12 09/05/24 14:00 09/05/24 08:00 Temperature 96.6 F L Pulse Rate 75 Respiratory Rate 17 Blood Pressure 105/51 L Pulse Oximetry 93 Oxygen Delivery Room Air Room Air 09/05/24 21:55 09/05/24 20:00 09/06/24 06:00 Temperature 97.9 F 97.6 F Pulse Rate 61 85 Respiratory Rate 20 18 Blood Pressure 99/52 L 106/75 Pulse Oximetry 94 96 Oxygen Delivery Room Air Intake/Output Intake/Output: Intake & Output 09/03/24 09/04/24 09/05/24 09/06/24 23:59 23:59 23:59 23:59 Intake Total 109 507 6839 550 Output Total 800 650 200 Balance -600 775 750 350 Meds/Results Medications: Active Medications Generic Name Dose Route Start Last Admin Trade Name Freq PRN Reason Stop Dose Admin Hydrocodone Bitart/Acetaminophen 1 tab 09/01/24 13:23 09/04/24 19:32 Hydrocodone/Acetaminophen (*Crx) 5-325 Mg Tablet PO 1 tab Q4H PRN Administration Pain Rated 4-6 Hydrocodone Bitart/Acetaminophen 1 tab 09/01/24 13:23 09/02/24 23:37 Hydrocodone/Acetaminophen (*Crx) 7.5-325 Mg Tablet PO 1 tab Q4H PRN Administration Pain Rated 7-10 Amlodipine Besylate 10 mg 09/02/24 09:00 09/05/24 10:08 Amlodipine Besylate 10 Mg Tablet PO 10 mg DAILY SHANIQUE Administration Calcium Carbonate 200 mg 09/02/24 16:29 09/02/24 17:15 Calcium Carbonate (Tums) 500 Mg (200 Mg Elemental) PO 200 mg Q6H PRN Administration Indigestion Celecoxib 200 mg 09/01/24 17:00 09/05/24 17:26 Celecoxib 200 Mg Capsule PO 200 mg BIDWM SHANIQUE Administration Cyclobenzaprine HCl 10 mg 09/01/24 13:23 09/02/24 20:09 Cyclobenzaprine Hcl 10 Mg Tablet PO 10 mg Q8H PRN Administration Spasms Diphenhydramine HCl 25 mg 09/01/24 13:23 Diphenhydramine Hcl Inj 50 Mg/Ml Vial IV PUSH Q6H PRN Itching Hydromorphone HCl 1 mg 09/01/24 13:23 09/04/24 05:52 Hydromorphone Hcl Inj (*Crx) 1 Mg/Ml Syr IV PUSH 1 mg Q2H PRN Administration Breakthrough Pain Rated 7-10 or NPO Hydromorphone HCl 0.5 mg 09/01/24 13:23 Hydromorphone Hcl Inj (*Crx) 1 Mg/Ml Syr IV PUSH Q2H PRN Breakthrough Pain Rated 4-6 or NPO Levetiracetam 1,000 mg 09/05/24 21:00 09/05/24 20:23 Levetiracetam 500 Mg Tablet PO 1,000 mg Q12HR [facility] Administration Metoprolol Tartrate 50 mg 09/01/24 21:00 09/05/24 20:23 Metoprolol Tartrate 50 Mg Tab PO 50 mg Q12HR [facility] Administration Naloxone HCl 0.1 mg 09/01/24 13:23 Naloxone Hcl 0.4 Mg/Ml Vial IV PUSH Q2M PRN Opiate Reversal Ondansetron HCl 4 mg 09/01/24 13:23 Ondansetron Inj 4 Mg/2 Ml Vial IV PUSH Q4H PRN Nausea And Vomiting Polyethylene Glycol 17 gm 09/02/24 09:00 09/05/24 10:08 Polyethylene Glycol 3350 17 Gm Powd.Pack PO Not Given QAM [facility] Rivaroxaban 10 mg 09/01/24 21:00 09/02/24 17:14 Rivaroxaban 10 Mg Tablet PO Not Given DAILY@17 [facility] Senna/Docusate Sodium 2 tab 09/01/24 17:00 09/05/24 17:26 Senna/Docusate Sodium Tablet PO 2 tab BID SHANIQUE Administration Vitamin D 1,000 units 09/05/24 09:00 09/05/24 10:08 Cholecalciferol 1,000 Units Tablet PO 1,000 units DAILY SHANIQUE Administration Radiology Results: ITS Impressions Knee X-Ray 09/01/24 14:13 IMPRESSION: No acute osseous abnormality left knee. Total knee arthroplasty. Head CT 09/03/24 09:09 Impression: No acute intracranial hemorrhage or suspicious mass effect. Carotid Doppler Study 09/05/24 10:56 IMPRESSION: 1. <50% stenosis in the right internal carotid artery. 2. <50% stenosis in the left internal carotid artery. Labs Labs: Laboratory Results - last 24 hr 09/06/24 06:29 WBC 9.5 RBC 3.06 L Hgb 9.8 L Hct 29.5 L MCV 96.4 MCH 32.0 MCHC 33.2 RDW 12.6 Plt Count 287 MPV 11.1 H Immature Gran % (Auto) 0.6 H Neut % (Auto) 53.1 Lymph % (Auto) 31.7 Carbon % (Auto) 7.3 Eos % (Auto) 6.1 H Baso % (Auto) 1.2 Lymph # (Auto) 3.01 Carbon # (Auto) 0.7 H Eos # (Auto) 0.6 H Baso # (Auto) 0.1 Abs Immat Gran (auto) 0.06 H Absolute Neuts (auto) 5.0 Absolute Nucleated RBC 0.000 Nucleated RBC % 0.0
[2024-09-06 07:55] LABS: Alanine Aminotransferase 14 U/L (6-50); Albumin Level 3.6 g/dL (3.5-5.1); Alkaline Phosphatase 80 U/L (38-126); Anion Gap 9 mmol/L (4-12); Aspartate Amino Transferase 50 U/L (17-59); Blood Urea Nitrogen 20 mg/dL (9-20); Calcium 8.4 mg/dL (8.4-10.2); Carbon Dioxide 27 mmol/L (22-30); Chloride 99 mmol/L (98-107); Estimated CRCL calculation 48 ml/min; Estimated Glomerular Filt Rate > 60; Glucose 93 mg/dL (65-110); Magnesium 1.7 mg/dL (1.6-2.3); Potassium 3.4 mmol/L (3.4-5.0); Sodium 135 mmol/L (137-145)
[2024-09-06] MEDS: ASPIRIN 325 MG TABLET PO (08:45)
[2024-09-06] MEDS: SENNA/DOCUSATE SODIUM TABLET 2 TAB PO (08:45)
[2024-09-06] MEDS: polyethylene glycoL 3350 17 GM POWD.PACK PO (08:45)
[2024-09-06] MEDS: levETIRAcetam 500 MG TABLET 1000 MG PO (08:45)
[2024-09-06] MEDS: amLODIPine BESYLATE 10 MG TABLET PO (08:45)
[2024-09-06] MEDS: POTASSIUM CHLORIDE 20 MEQ ER TABLET 40 MEQ PO (08:45)
[2024-09-06] MEDS: MAGNESIUM SULF 1 GM/D5W 100 ML 1 GM/100 ML BAG IVPB (08:45)
[2024-09-06] MEDS: METOPROLOL TARTRATE 50 MG TAB PO (08:45)
[2024-09-06] MEDS: CHOLECALCIFEROL 1,000 UNITS TABLET 1000 UNITS PO (08:45)
[2024-09-06] MEDS: CELECOXIB 200 MG CAPSULE PO (08:45)
[2024-09-06 08:48] VITALS: O2SAT 95
--- NOTE | 2024-09-06 10:49 | WPDNEUROLOGY ---
Neurology EEG Report General Information Date of Study: 09/06/24 TEST EEG DIAGNOSIS new onset seizures. CONDITION OF RECORDING awake, drowsy and asleep. EEG NUMBER [id number] CLINICAL HISTORY Patient reports he was at home and had a new onset seizures. Had no warning symptoms before. EEG DESCRIPTION Basic resting occipital frequency consists of low voltage 8 to 9 hertz per 2nd alpha admixed with low-voltage 5 to 7 hertz per 2nd theta and 15 to 18 hertz per 2nd beta activity. During drowsiness bilateral low voltage 5 to 7 hertz per 2nd theta activity seen admixed with waxing and waning beta activity. Bilateral symmetrical sleep activity is noted during sleep with symmetrical spindles without any paroxysmal discharge. Non paroxysmal. Nonfocal. Nonlateralizing. IMPRESSION No significant abnormalities noted clinical correlation recommended patient can have the normal EEG and still can have clinical seizures.
--- NOTE | 2024-09-06 11:03 | P.PNIM_ITS ---
Progress Note: A&P Assessment and Plan (1) Osteoarthritis of left knee: Code(s): M17.12 - Unilateral primary osteoarthritis, left knee Status: Acute Assessment and Plan: * postop day 4 from left total knee arthroplasty done by Dr. 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 Swollen left knee. Pressure dressing. (2) Seizure: Code(s): R56.9 - Unspecified convulsions Status: Inactive Assessment and Plan: * Patient had seizure overnight. Patient received IV Levetiracetam 1,500 mg IVPB. * Head CT showed No acute intracranial hemorrhage or suspicious mass effect. * Levetiracetam 1,000 mg PO q12 * Seizure precautions. * Neurology following * Patient came to the ER on 06/17/24 after having a possible seizure. Patient was ordered Keppra 500 mg PO BID and to follow up closely with provider. * Carotid dopplers: IMPRESSION: 1. <50% stenosis in the right internal carotid artery. 2. <50% stenosis in the left internal carotid artery. * EEG - normal * MRI brain/brain stem with and without contrast to be done outpatient once information obtained about prosthetic valve. Neurology okayed to be outpatient. * Patient to be discharged today. (3) Essential hypertension: Code(s): I10 - Essential (primary) hypertension Status: Acute Assessment and Plan: * blood pressure 106/75 * continue amlodipine and metoprolol (4) Coronary artery disease: Code(s): I25.10 - Atherosclerotic heart disease of [place] coronary artery without angina pectoris Status: Acute Assessment and Plan: * status post CABG 1 vessel * Not on any statins Subjective Date/time seen: 09/06/24 11:03 Interval history: Patient sitting up in chair. Wanting to go home today. Patient reports that his mobility is improving and agreeable to follow up with Neurology and to take Keppra medication. EEG normal today. Patient denies pain at present. Patient denies chest pain, palpitations, headache, dizziness, nausea, or vomiting. We are a consult, orthopedic to discharge. Review of Systems Review of Systems: All systems reviewed & are unremarkable except as noted in HPI and below Exam Const: General: comfortable and no acute distress Resp: Effort & Inspection: normal respiratory effort Auscultation: clear to auscultation bilaterally Cardio: Rate: regular rate Rhythm: regular rhythm GI: GI Palp: Yes Soft to palpation Auscultation: normal bowel sounds Skin: Other: Left knee surgical dressing intact. Neuro: Speech: normal speech Psych: Affect: normal affect Other: A&Ox3. Objective Data Vital Signs Vital Signs: Vital Signs - 24 hr 09/05/24 13:12 09/05/24 14:00 09/05/24 21:55 Temperature 96.6 F L 97.9 F Pulse Rate 75 61 Respiratory Rate 17 20 Blood Pressure 105/51 L 99/52 L Pulse Oximetry 93 94 Oxygen Delivery Room Air Fraction of Inspired Oxygen 09/05/24 20:00 09/06/24 06:00 09/06/24 08:48 Temperature 97.6 F Pulse Rate 85 Respiratory Rate 18 Blood Pressure 106/75 Pulse Oximetry 96 95 Oxygen Delivery Room Air Room Air Fraction of Inspired Oxygen 21 Intake/Output Intake/Output: Intake & Output 09/03/24 09/04/24 09/05/24 09/06/24 23:59 23:59 23:59 23:59 Intake Total 931 985 3572 790 Output Total 800 650 200 Balance -600 775 750 590 Meds/Results Medications: Active Medications Generic Name Dose Route Start Last Admin Trade Name Freq PRN Reason Stop Dose Admin Hydrocodone Bitart/Acetaminophen 1 tab 09/01/24 13:23 09/04/24 19:32 Hydrocodone/Acetaminophen (*Crx) 5-325 Mg Tablet PO 1 tab Q4H PRN Administration Pain Rated 4-6 Hydrocodone Bitart/Acetaminophen 1 tab 09/01/24 13:23 09/02/24 23:37 Hydrocodone/Acetaminophen (*Crx) 7.5-325 Mg Tablet PO 1 tab Q4H PRN Administration Pain Rated 7-10 Amlodipine Besylate 10 mg 09/02/24 09:00 09/06/24 08:45 Amlodipine Besylate 10 Mg Tablet PO 10 mg DAILY SHANIQUE Administration Aspirin 325 mg 09/06/24 08:00 09/06/24 08:45 Aspirin 325 Mg Tablet PO 325 mg DAILY@0800 SHANIQUE Administration Calcium Carbonate 200 mg 09/02/24 16:29 09/02/24 17:15 Calcium Carbonate (Tums) 500 Mg (200 Mg Elemental) PO 200 mg Q6H PRN Administration Indigestion Calcium Carbonate 200 mg 09/06/24 10:31 Calcium Carbonate (Tums) 500 Mg (200 Mg Elemental) PO Q6H PRN Indigestion Celecoxib 200 mg 09/01/24 17:00 09/06/24 08:45 Celecoxib 200 Mg Capsule PO 200 mg BIDWM SHANIQUE Administration Cyclobenzaprine HCl 10 mg 09/01/24 13:23 09/02/24 20:09 Cyclobenzaprine Hcl 10 Mg Tablet PO 10 mg Q8H PRN Administration Spasms Diphenhydramine HCl 25 mg 09/01/24 13:23 Diphenhydramine Hcl Inj 50 Mg/Ml Vial IV PUSH Q6H PRN Itching Hydromorphone HCl 1 mg 09/01/24 13:23 09/04/24 05:52 Hydromorphone Hcl Inj (*Crx) 1 Mg/Ml Syr IV PUSH 1 mg Q2H PRN Administration Breakthrough Pain Rated 7-10 or NPO Hydromorphone HCl 0.5 mg 09/01/24 13:23 Hydromorphone Hcl Inj (*Crx) 1 Mg/Ml Syr IV PUSH Q2H PRN Breakthrough Pain Rated 4-6 or NPO Levetiracetam 1,000 mg 09/05/24 21:00 09/06/24 08:45 Levetiracetam 500 Mg Tablet PO 1,000 mg Q12HR SHANIQUE Administration Metoprolol Tartrate 50 mg 09/01/24 21:00 09/06/24 08:45 Metoprolol Tartrate 50 Mg Tab PO 50 mg Q12HR SHANIQUE Administration Naloxone HCl 0.1 mg 09/01/24 13:23 Naloxone Hcl 0.4 Mg/Ml Vial IV PUSH Q2M PRN Opiate Reversal Ondansetron HCl 4 mg 09/01/24 13:23 Ondansetron Inj 4 Mg/2 Ml Vial IV PUSH Q4H PRN Nausea And Vomiting Polyethylene Glycol 17 gm 09/02/24 09:00 09/06/24 08:45 Polyethylene Glycol 3350 17 Gm Powd.Pack PO 17 gm QAM SHANIQUE Administration Rivaroxaban 10 mg 09/01/24 21:00 09/02/24 17:14 Rivaroxaban 10 Mg Tablet PO Not Given DAILY@17 SHANIQUE Senna/Docusate Sodium 2 tab 09/01/24 17:00 09/06/24 08:45 Senna/Docusate Sodium Tablet PO 2 tab BID SHANIQUE Administration Vitamin D 1,000 units 09/05/24 09:00 09/06/24 08:45 Cholecalciferol 1,000 Units Tablet PO 1,000 units DAILY SHANIQUE Administration Radiology Results: ITS Impressions Knee X-Ray 09/01/24 14:13 IMPRESSION: No acute osseous abnormality left knee. Total knee arthroplasty. Head CT 09/03/24 09:09 Impression: No acute intracranial hemorrhage or suspicious mass effect. Carotid Doppler Study 09/05/24 10:56 IMPRESSION: 1. <50% stenosis in the right internal carotid artery. 2. <50% stenosis in the left internal carotid artery. Labs Labs: Laboratory Results - last 24 hr 09/06/24 06:29 WBC 9.5 RBC 3.06 L Hgb 9.8 L Hct 29.5 L MCV 96.4 MCH 32.0 MCHC 33.2 RDW 12.6 Plt Count 287 MPV 11.1 H Immature Gran % (Auto) 0.6 H Neut % (Auto) 53.1 Lymph % (Auto) 31.7 [place] % (Auto) 7.3 Eos % (Auto) 6.1 H Baso % (Auto) 1.2 Lymph # (Auto) 3.01 [place] # (Auto) 0.7 H Eos # (Auto) 0.6 H Baso # (Auto) 0.1 Abs Immat Gran (auto) 0.06 H Absolute Neuts (auto) 5.0 Absolute Nucleated RBC 0.000 Nucleated RBC % 0.0 Sodium 135 L Potassium 3.4 Chloride 99 Carbon Dioxide 27 Anion Gap 9 BUN 20 Creatinine 0.90 Estim Creat Clear Calc 48 Estimated GFR > 60 Glucose 93 Calcium 8.4 Magnesium 1.7 Total Bilirubin 1.0 AST 50 ALT 14 Alkaline Phosphatase 80 Total Protein 7.0 Albumin 3.6 Quality VTE Prophylaxis VTE prophylaxis: mechanical ordered and pharmacologic ordered
--- NOTE | 2024-09-06 11:28 | PM.DS ---
DS: Admitting Diagnosis Discharge Date 09/01/24 Admitting Diagnosis Osteoarthritis Left Knee DS: Discharge Diagnosis Discharge Diagnosis (1) History of arthroplasty of left knee: Code(s): Z96.652 - Presence of left artificial knee joint Status: Acute Assessment and Plan: Patient underwent Total Knee replacement for Osteoarthritis Left Knee. This was complicated by a seizure. Seizure W/U is negative. Will dismiss today. He may be full weight bearing (2) Seizure disorder: Code(s): G40.909 - Epilepsy, unspecified, not intractable, without status epilepticus Status: Acute DS: Summary Hospital Course Hospital Course: Eventful course complicated postoperatively by a seizure. Time Spent with Patient Time attestation: Total time spent providing and/or coordinating discharge services: Exam Narrative: Wiggles Toes Awake and Alert NVI Walks with a Walker DS: Data Data Completed and Pending Labs on day of discharge: Labs from last 24 hours 09/06/24 06:29 WBC 9.5 RBC 3.06 L Hgb 9.8 L Hct 29.5 L MCV 96.4 MCH 32.0 MCHC 33.2 RDW 12.6 Plt Count 287 MPV 11.1 H Immature Gran % (Auto) 0.6 H Neut % (Auto) 53.1 Lymph % (Auto) 31.7 [place] % (Auto) 7.3 Eos % (Auto) 6.1 H Baso % (Auto) 1.2 Lymph # (Auto) 3.01 [place] # (Auto) 0.7 H Eos # (Auto) 0.6 H Baso # (Auto) 0.1 Abs Immat Gran (auto) 0.06 H Absolute Neuts (auto) 5.0 Absolute Nucleated RBC 0.000 Nucleated RBC % 0.0 Sodium 135 L Potassium 3.4 Chloride 99 Carbon Dioxide 27 Anion Gap 9 BUN 20 Creatinine 0.90 Estim Creat Clear Calc 48 Estimated GFR > 60 Glucose 93 Calcium 8.4 Magnesium 1.7 Total Bilirubin 1.0 AST 50 ALT 14 Alkaline Phosphatase 80 Total Protein 7.0 Albumin 3.6 Discharge Plan Discharge Attending physician on discharge: Karl Parada Consulting providers: Yanelis Avila; Isidro Jean Baptiste Discharging Clinician: Karl Parada Patient Disposition: Home Health Service Activity: unlimited and no straining Diet: regular Discharge Instructions: Dr. Karl Parada M.D [address] [place] [address] POST-OPERATIVE DISCHARGE INSTRUCTIONS TOTAL KNEE ARTHROPLASTY 1. When resting, do not rest in the chair.When resting, lie on your back, with back flat on the couch or bed, with leg elevated above heart to minimize swelling. You may put a pillow under your head. . Significant swelling could indicate a blood clot and if this occurs call the office (or go to the ER) to have a venous ultrasound. Therefore, do not rest in a chair. 2. At least five times a day spend several minutes stretching your knee into flexion while sitting in the chair and also stretching your knee out straight The abilities to bend your knee fulling and straighten your knee fully are two most important knee functions to focus on during your recovery. 3. It is ok to sit in chair to eat, use the toilet and receive a guest and to do your stretching exercises, but, sitting in a chair will cause your leg to swell. Therefore, avoid additional time sitting in the chair. and don't rest in the chair. 4. Wound Care: Nursing will give you an additional Mepilex dressing at the time of discharge. Patient to remove the dressing and apply a new Mepilex dressing at home 7 days after surgery and leave the dressing on until seen in office. 5. May shower with a Mepilex dressing in place.The water will run off the dressing. 6. Unless you are told otherwise, you may put full weight on your operated leg. Use a walker for balance and practice walking as normally as you can, ideally for a few minutes every hour while you are awake. 7. I would advise against putting ice packs on your knee incision. Ice constricts blood flow which can impar healing of the knee incision. IMPORTANT: Remember not to sit in the chair for more than 30 minutes at a time. As a rule, during the first 14 days after surgery, only sit in the chair to work on the chair knee bending stretch exercise, for meals or for use of the restroom. Sitting in the chair promotes significant swelling in the knee and leg which will make your knee stiff and more painful and which simulates having a blood clot in the veins of the leg. If this type of significant diffuse swelling occurs, an ultrasound at the hospital will be necessary to rule out a blood clot. Be up walking around with the walker for a few minutes every hour while awake and then rest laying on your back on the couch or in bed with your leg elevated on cushions or pillows. Do not rest in the chair. Set up MRI of Brain/ Brain stem with and without contrast outpatient. Patient Instructions: Antibiotic Form, Apixaban (By mouth), Recurrent Seizures in Adults (DC), Vitamin D Deficiency (GEN) Stand Alone Forms: General Discharge Information, General Discharge Instructions Follow-up/Referrals: Karl Parada MD [Physician] - Isidro Jean Baptiste MD [Physician] - 2 Weeks Ana Murillo APRN [Primary Care Provider] - 1 Week Discharge Medications: New cyclobenzaprine 10 mg tablet 10 mg PO HS PRN (Reason: muscle spasm) Qty: 30 0RF hydrocodone-acetaminophen 7.5-325 mg tablet 1 tablet PO Q4H PRN (Reason: pain) Qty: 40 0RF doxycycline hyclate 100 mg tablet 100 mg PO DAILY Qty: 10 0RF cholecalciferol (vitamin D3) [Vitamin D3] 25 mcg (1,000 unit) Tablet 25 mcg PO DAILY Qty: 30 0RF levetiracetam [Keppra] 500 mg Tablet 1,000 mg PO Q12HR Qty: 60 0RF Continued amlodipine 10 mg tablet 10 mg PO DAILY Qty: 90 1RF multivitamin Tablet 1 tablet PO DAILY naproxen 500 mg tablet 500 mg PO PRN PRN (Reason: Pain) metoprolol tartrate 50 mg tablet See Rx Instructions .ROUTE .COMPLEX Qty: 90 0RF Dose Instruction: TAKE 1 TABLET BY MOUTH TWICE DAILY Rx Instructions: TAKE 1 TABLET BY MOUTH TWICE DAILY mupirocin 2 % ointment 1 applic topical BID Qty: 15 0RF Rx Instructions: Apply to each nostril Date of admission: 09/03/24 10:50 Primary Care Provider: Ana Murillo Admitting Provider: Karl Parada Attending physician on admission: Karl Parada Condition: Improved
--- NOTE | 2024-09-06 12:11 | P.PNNEUR_ITS ---
Progress Note: A&P Assessment and Plan (1) Seizure disorder: Code(s): G40.909 - Epilepsy, unspecified, not intractable, without status epilepticus Status: Acute (2) History of arthroplasty of left knee: Code(s): Z96.652 - Presence of left artificial knee joint Status: Acute Plan Given his current mental status I assumed that his combativeness was most likely postictal state and hence we can continue the Keppra 1000 mg twice a day. MRI of the brain if cleared by Cardiology from the point of view of his a heart valve can be done even as an outpatient however I would suggest an MRI with and without contrast and follow up with me. I have given him my phone number to contact and I shall be glad to see her for follow-up in 2 months time. If he has any further seizure-like spells he should come to the emergency room. He should also wear advised to defer driving for Six months. Subjective Date/time seen: 09/06/24 12:11 Interval history: The patient has history of seizure disorder is doing much better now. His previous he was combative and argumentative but even that has improved significantly. Is currently on Keppra 1000 mg twice a day. The nurse practitioner had discussed this with me over the weekend advised that since his combativeness has improved there is no need to give him Depakote and we can continue with the Keppra since it is less likely to interact with the other medications. The patient has had surgery on the left knee and he is doing much better in terms of fair walking and is happy with his own outcome pre was able to go up and down the steps and also walk today and is surprised at the outcome So far. He is scheduled to have an MRI of the brain however there is a history of aortic valve surgery long time ago the details of which are being explored before MRI can be scheduled. The nursing staff also discuss this with me. Review of Systems Review of Systems: All systems reviewed & are unremarkable except as noted in HPI and below Exam Narrative: Pleasant and cooperative. Fully conscious alert oriented to self time place and person. His attention cranial nerves and motor system within normal limits. No involuntary movements seen. Objective Data Vital Signs Vital Signs: Vital Signs - 24 hr 09/05/24 13:12 09/05/24 14:00 09/05/24 21:55 Temperature 96.6 F L 97.9 F Pulse Rate 75 61 Respiratory Rate 17 20 Blood Pressure 105/51 L 99/52 L Pulse Oximetry 93 94 Oxygen Delivery Room Air Fraction of Inspired Oxygen 09/05/24 20:00 09/06/24 06:00 09/06/24 08:48 Temperature 97.6 F Pulse Rate 85 Respiratory Rate 18 Blood Pressure 106/75 Pulse Oximetry 96 95 Oxygen Delivery Room Air Room Air Fraction of Inspired Oxygen 21 Intake/Output Intake/Output: Intake & Output 09/03/24 09/04/24 09/05/24 09/06/24 23:59 23:59 23:59 23:59 Intake Total 694 473 9956 790 Output Total 800 650 200 Balance -600 775 750 590 Meds/Results Medications: Active Medications Generic Name Dose Route Start Last Admin Trade Name Freq PRN Reason Stop Dose Admin Hydrocodone Bitart/Acetaminophen 1 tab 09/01/24 13:23 09/04/24 19:32 Hydrocodone/Acetaminophen (*Crx) 5-325 Mg Tablet PO 1 tab Q4H PRN Administration Pain Rated 4-6 Hydrocodone Bitart/Acetaminophen 1 tab 09/01/24 13:23 09/02/24 23:37 Hydrocodone/Acetaminophen (*Crx) 7.5-325 Mg Tablet PO 1 tab Q4H PRN Administration Pain Rated 7-10 Amlodipine Besylate 10 mg 09/02/24 09:00 09/06/24 08:45 Amlodipine Besylate 10 Mg Tablet PO 10 mg DAILY SHANIQUE Administration Aspirin 325 mg 09/06/24 08:00 09/06/24 08:45 Aspirin 325 Mg Tablet PO 325 mg DAILY@0800 SHANIQUE Administration Calcium Carbonate 200 mg 09/02/24 16:29 09/02/24 17:15 Calcium Carbonate (Tums) 500 Mg (200 Mg Elemental) PO 200 mg Q6H PRN Administration Indigestion Calcium Carbonate 200 mg 09/06/24 10:31 Calcium Carbonate (Tums) 500 Mg (200 Mg Elemental) PO Q6H PRN Indigestion Celecoxib 200 mg 09/01/24 17:00 09/06/24 08:45 Celecoxib 200 Mg Capsule PO 200 mg BIDWM SHANIQUE Administration Cyclobenzaprine HCl 10 mg 09/01/24 13:23 09/02/24 20:09 Cyclobenzaprine Hcl 10 Mg Tablet PO 10 mg Q8H PRN Administration Spasms Diphenhydramine HCl 25 mg 09/01/24 13:23 Diphenhydramine Hcl Inj 50 Mg/Ml Vial IV PUSH Q6H PRN Itching Hydromorphone HCl 1 mg 09/01/24 13:23 09/04/24 05:52 Hydromorphone Hcl Inj (*Crx) 1 Mg/Ml Syr IV PUSH 1 mg Q2H PRN Administration Breakthrough Pain Rated 7-10 or NPO Hydromorphone HCl 0.5 mg 09/01/24 13:23 Hydromorphone Hcl Inj (*Crx) 1 Mg/Ml Syr IV PUSH Q2H PRN Breakthrough Pain Rated 4-6 or NPO Levetiracetam 1,000 mg 09/05/24 21:00 09/06/24 08:45 Levetiracetam 500 Mg Tablet PO 1,000 mg Q12HR SHANIQUE Administration Metoprolol Tartrate 50 mg 09/01/24 21:00 09/06/24 08:45 Metoprolol Tartrate 50 Mg Tab PO 50 mg Q12HR SHANIQUE Administration Naloxone HCl 0.1 mg 09/01/24 13:23 Naloxone Hcl 0.4 Mg/Ml Vial IV PUSH Q2M PRN Opiate Reversal Ondansetron HCl 4 mg 09/01/24 13:23 Ondansetron Inj 4 Mg/2 Ml Vial IV PUSH Q4H PRN Nausea And Vomiting Polyethylene Glycol 17 gm 09/02/24 09:00 09/06/24 08:45 Polyethylene Glycol 3350 17 Gm Powd.Pack PO 17 gm QAM SHANIQUE Administration Rivaroxaban 10 mg 09/01/24 21:00 09/02/24 17:14 Rivaroxaban 10 Mg Tablet PO Not Given DAILY@17 SHANIQUE Senna/Docusate Sodium 2 tab 09/01/24 17:00 09/06/24 08:45 Senna/Docusate Sodium Tablet PO 2 tab BID SHANIQUE Administration Vitamin D 1,000 units 09/05/24 09:00 09/06/24 08:45 Cholecalciferol 1,000 Units Tablet PO 1,000 units DAILY SHANIQUE Administration Radiology Results: ITS Impressions Knee X-Ray 09/01/24 14:13 IMPRESSION: No acute osseous abnormality left knee. Total knee arthroplasty. Head CT 09/03/24 09:09 Impression: No acute intracranial hemorrhage or suspicious mass effect. Carotid Doppler Study 09/05/24 10:56 IMPRESSION: 1. <50% stenosis in the right internal carotid artery. 2. <50% stenosis in the left internal carotid artery. Labs Labs: Laboratory Results - last 24 hr 09/06/24 06:29 WBC 9.5 RBC 3.06 L Hgb 9.8 L Hct 29.5 L MCV 96.4 MCH 32.0 MCHC 33.2 RDW 12.6 Plt Count 287 MPV 11.1 H Immature Gran % (Auto) 0.6 H Neut % (Auto) 53.1 Lymph % (Auto) 31.7 [place] % (Auto) 7.3 Eos % (Auto) 6.1 H Baso % (Auto) 1.2 Lymph # (Auto) 3.01 [place] # (Auto) 0.7 H Eos # (Auto) 0.6 H Baso # (Auto) 0.1 Abs Immat Gran (auto) 0.06 H Absolute Neuts (auto) 5.0 Absolute Nucleated RBC 0.000 Nucleated RBC % 0.0 Sodium 135 L Potassium 3.4 Chloride 99 Carbon Dioxide 27 Anion Gap 9 BUN 20 Creatinine 0.90 Estim Creat Clear Calc 48 Estimated GFR > 60 Glucose 93 Calcium 8.4 Magnesium 1.7 Total Bilirubin 1.0 AST 50 ALT 14 Alkaline Phosphatase 80 Total Protein 7.0 Albumin 3.6
[2024-09-08 09:19] LABS: Vitamin A 22 mcg/dL (38-98)
[2024-09-09 07:38] LABS: Vitamin B6 5.1 ng/mL (2.1-21.7)
[2024-09-10 12:38] LABS: Vitamin B1 <6 nmol/L (8-30)
== END 2024-09-06 15:00 | disposition home or self-care (01) | DRG 470 ==
LOC: ANHSURGERY 10:52 → ANH3MEDSUR 10:52
PROVIDERS: Internal Medicine; Nurse Practitioner Family; Psychiatry & Neurology Neurology; Admitting Provider Orthopaedic Surgery; PCP Nurse Practitioner Family; Visit Provider Orthopaedic Surgery
PROC: 0SRD0J9 Replacement of Left Knee Joint with Synthetic Substitute, Cemented, Open Approach (ICD-10-PCS; CPT 27447; principal; 2024-09-01 10:00)
DX: M17.12 Unilateral primary osteoarthritis, left knee (principal); G40.909 Epilepsy, unspecified, not intractable, without status epilepticus; E78.5 Hyperlipidemia, unspecified; E03.9 Hypothyroidism, unspecified; F10.10 Alcohol abuse, uncomplicated; I10 Essential (primary) hypertension; I25.10 Atherosclerotic heart disease of native coronary artery without angina pectoris; I08.3 Combined rheumatic disorders of mitral, aortic and tricuspid valves; K21.9 Gastro-esophageal reflux disease without esophagitis; R11.2 Nausea with vomiting, unspecified; Z96.612 Presence of left artificial shoulder joint; Z87.891 Personal history of nicotine dependence; Z95.2 Presence of prosthetic heart valve; Z95.1 Presence of aortocoronary bypass graft; Z91.148 Patient's other noncompliance with medication regimen for other reason; Z79.01 Long term (current) use of anticoagulants
CPT/HCPCS: 36415; 70450; 73560; 80048; 80053; 82306; 82607; 82746; 82948; 83605; 83735; 84100; 84207; 84425; 84590; 85025; 93005; 93880; 95816; 97110; 97116; 97161; 97165; 97530; 97535; A9270; C1713; C1776; J0171; J0690; J1171; J1885; J1953; J2060; J2250; J2270; J2371; J2704; J2795; J3370; J3475; J3480; J7030; J7040; J7050; J7120

== ENCOUNTER 2024-11-17 16:00 | Observation (INO) | payer MEDICARE, SELFPAY ==
[2024-11-17] VITALS (30 sets, daily range): BP systolic 91–149; BP diastolic 45–72; PULSE 97–154; RESP 16–39; TEMP 37.7; O2SAT 94–100
--- NOTE | ~2024-11-17 | CT_ITS ---
History: Altered mental status. Multiple seizures PROCEDURE: CT head without contrast. COMPARISON: 09/03/2024 TECHNIQUE: Axial imaging of the head performed from the skull base to the vertex without IV contrast. Sagittal a nd coronal reformations obtained. DLP: 747 mGy-cm Examination is significantly limited by motion artifact FINDINGS: The ventricles are dilated. The dilatation of the ventricles is proportional to the degree of sulcal prominence. No large acute intracranial hemorrhage is appreciated. No acute displaced fractures within the overlying cranium. Impression: Limited examination of the brain secondary to motion artifact without large acute intracranial hemorr reji. Adequate sedation is suggested for repeat study, if the patient is clinically able. Reviewed, dictated and finalized at location A. CH COORDINATOR Impression: Limited examination of the brain secondary to motion artifact without large acu te intracranial hemorrhage. Adequate sedation is suggested for repeat study, if the patient is clinically a ble.
--- NOTE | ~2024-11-17 | XR_ITS ---
EXAMINATION: XR shoulder RT min 2V DATE: 11/18/2024 13:45 INDICATION: Right shoulder pain. TECHNIQUE: 2 views of right shoulder were obtained. COMPARISON: None. FINDINGS: There is a reverse [id number] total right shoulder arthroplasty. There is anterosuperi or dislocation of the humeral component with respect to the glenoid component. No fracture. No peripr osthetic lucency to suggest loosening or infection. 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 IMPRESSION: 1. Dislocated total right shoulder arthroplasty. Reviewed, dictated and finalized at location A. HANDISE STOCKER
--- NOTE | ~2024-11-17 | XR_ITS ---
CHEST RADIOGRAPH CLINICAL HISTORY: seizure . COMPARISON: 06/17/2024 TECHNIQUE: Single portable view of the chest. FINDINGS Sternal wires and mediastinal clips are identified, the wires are midline and intact. The remainder of the cardiomediastinal silhouette is otherwise unremarkable. Coarse interstitial lung markings are identified, likely chronic. The lungs are otherwise clear. Irregularity of the right glenohumeral joint space, for which a posterior dislocation is suspected. IMPRESSION: No focal infiltrate or effusion. Right-sided posterior shoulder dislocation is suspected. Reviewed, dictated and finalized at location A. CARPENTER
--- NOTE | ~2024-11-17 | XR_ITS ---
EXAMINATION: XR shoulder RT min 2V DATE: 11/18/2024 15:13 INDICATION: Right shoulder dislocation status post reduction. TECHNIQUE: 2 views of right shoulder were obtained. COMPARISON: Right shoulder radiographs at 1:37 PM FINDINGS: There is a reverse [id number] total right shoulder arthroplasty in near-anatomic align ment. There is a nondisplaced periprosthetic fracture of proximal right humerus laterally. There is s evere osteoarthritis of acromioclavicular joint. IMPRESSION: 1. Reverse [id number] total right shoulder arthroplasty in near-anatomic alignment. 2. Nondisplaced periprosthetic fracture of proximal right humerus laterally. Reviewed, dictated and finalized at location A. NOLOGY SERVICES MANAGER IMPRESSION: 1. Reverse [id number] total right shoulder arthroplasty in near-anatomic a lignment. 2. Nondisplaced periprosthetic fracture of proximal right humerus laterally.
--- NOTE | 2024-11-17 16:03 | ECG_ITS ---
Test Date: 2024-11-17 17:05:00 Measurements Intervals [place] Rate: 108 P: 54 [place]: 182 QRS: 57 QRSD: 100 T: -60 QT: 331 QTc: 444 Interpretive Statements SINUS TACHYCARDIA WITH SUPRAVENTRICULAR BIGEMINY DELAYED PRECORDIAL R/S TRANSITION ST-T WAVE ABNORMALITY IN INF/LAT LEADS- CONSIDER ISCHEMIA BASELINE WANDER- AVR, AVL, AVF, V4-V6 ABNORMAL ECG Compared to ECG 09/04/2024 11:11:36 SUPRAVENTRICULAR BIGEMINY NOW PRESENT Electronically Signed On 11-17-2024 18:02:27 [employer]SP[employer] WR[employer] by Steve Tinsley D.O.
--- NOTE | 2024-11-17 16:09 | PC.NURSE ---
pt arrived to ED postictal and combative, verbal order from MD to apply soft restraints to prevent pt from harming himself and others.
[2024-11-17 16:51] LABS: Basophils Percent Auto 0.4 % (0.2-1.2); Eosinophils Percent Auto 0.4 % (0-4.4); Hematocrit 36.4 % (42.0-52.0); Hemoglobin 12.2 g/dL (14.0-18.0); Immature Granulocyte Absolute 0.03 K/mm3 (0.00-0.031); Immature Granulocyte Percent A 0.3 % (0-0.5); Lymphocytes Absolute Auto 1.46 K/mm3 (0.9-3.2); Lymphocytes Percent Auto 15.4 % (18.3-44.2); Mean Corpuscular HGB Conc 33.5 g/dl (32-36); Mean Corpuscular Hemoglobin 31.4 pg (26-34); Mean Corpuscular Volume 93.6 fl (80-100); Mean Platelet Volume 9.1 fl (7.4-10.4); Monocytes Absolute Auto 0.4 K/mm3 (0.1-0.6); Monocytes Percent Auto 4.5 % (2.6-8.5); Neutrophils Absolute Auto 7.5 K/mm3 (1.3-6.7); Platelet Count Result 282 k/mm3 (150-375); Red Blood Count 3.89 M/mm3 (4.6-6.20); White Blood Count 9.5 K/mm3 (4.5-10.0)
[2024-11-17 17:11] LABS: Albumin Level 4.2 g/dL (3.5-5.1); Alkaline Phosphatase 89 U/L (38-126); Anion Gap 18 mmol/L (4-12); Aspartate Amino Transferase 28 U/L (17-59); Bilirubin,Total 0.6 mg/dL (0.2-1.3); Blood Urea Nitrogen 16 mg/dL (9-20); Calcium 9.4 mg/dL (8.4-10.2); Carbon Dioxide 16 mmol/L (22-30); Chloride 104 mmol/L (98-107); Estimated Glomerular Filt Rate > 60; Glucose 142 mg/dL (65-110); Potassium 3.5 mmol/L (3.4-5.0); Sodium 138 mmol/L (137-145)
[2024-11-17 17:20] LABS: Alanine Aminotransferase 23 U/L (6-50)
[2024-11-17] MEDS: LORazepam INJ (*CRX) 2 MG/ML VIAL IV PUSH (17:34)
[2024-11-17] MEDS: levETIRAcetam 1000MG/NACL100ML 1,000 MG/100 ML BAG 400 MG IVPB (17:35)
--- NOTE | 2024-11-17 17:51 | ED_ITS ---
HPI - General Adult General Chief complaint: Seizure <Stuart Marin MD - Last Filed: 11/17/24 18:30> Stated complaint: Seizure <Stuart Marin MD - Last Filed: 11/17/24 18:30> Time Seen by Provider: 11/17/24 17:31 <Stuart Marin MD - Last Filed: 11/17/24 18:30> History of Present Illness HPI narrative: patient 84-year-old gentleman who presents emergency department with chief complaint of seizure the patient has prior history of seizures and is noncompliant with his seizure medications patient does have history of alcohol abuse <Stuart Marin MD - Last Filed: 11/17/24 18:30> Related Data Home medications: Home Medications ?Medication ?Instructions ?Recorded ?Confirmed ?Last Taken ?Type naproxen 500 mg tablet 500 mg PO PRN PRN Pain 08/19/24 10/14/24 08/25/24 History <Stuart Marin MD - Last Filed: 11/17/24 18:30> Allergies/adverse reactions: Allergies Allergy/AdvReac Type Severity Reaction Status Date / Time No Known Allergies Allergy Verified 10/14/24 07:14 <Stuart Marin MD - Last Filed: 11/17/24 18:30> Review of Systems 2 Review of Systems: A 10 system review of systems was completed on the patient and is negative except for what is stated in the HPI. Nursing and ancillary documentation was reviewed. 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 History of aortic valve replacement with bioprosthetic valve (07/2020) At [facility]. History of incisional hernia repair (03/2021) Epigastric incisional hernia with mesh. S/P aortic valve replacement <Stuart Marin MD - Last Filed: 11/17/24 18:30> Family History Family History: Family History Other Family history unknown <Stuart Marin MD - Last Filed: 11/17/24 18:30> Social History Social History: Social History Social History: Surrogate medical decision maker: Kalyani Haley, sourav. Code status: Full code. Smoking packs per day: 1 Smoking cigarettes per day: 20.0 Years smoked: 15 Smoking pack-years: 15.00 Smoking status: Former smoker Tobacco type: cigarettes Smokeless tobacco user: chewing tobacco Second hand tobacco smoke exposure: No Smoking end date: 10/13/69 Alcohol intake: former Drinks per week: 7 Alcohol use details: BEER Substance use: never Do You Feel Safe in your Home?: Yes Lack of Transportation: No Current Housing: Decline to Answer Concerned About Future Housing: Decline to Answer Difficulty Paying Gas/Electric Bills: Decline to Answer Difficulty Paying for Meds: Decline to Answer Currently Unemployed: Decline to Answer Education: Decline to Answer Difficulty w/ Childcare or Family Care: Decline to Answer Living arrangements: with family Occupation/Education: retired Additional occupation/education comments: [employer] Gender identity (if verbalized by the patient): Male Sexual Orientation (if Verbalized by the Patient): Straight or Heterosexual Spiritual care concerns: No Agree to blood products: No <Stuart Marin MD - Last Filed: 11/17/24 18:30> Exam 2 Narrative: GENERAL: Well-appearing, well-nourished, and in no acute distress. patient is postictal HEAD: Normocephalic, atraumatic. EYES: PERRLA and EOMI. ENT: Nares clear, no rhinorrhea or epistaxis. Mucous membranes moist. NECK: Supple. CHEST: Clear to auscultation. No respiratory distress. HEART: tachycardic rate and regular rhythm. No murmur heard. Normal peripheral pulses. ABDOMEN: Soft, nontender, nondistended, normal active bowel sounds. EXTREMITIES: Normal range of motion. No edema. SKIN: Warm, dry, no rash. NEURO: No focal deficits. Alert and oriented x3. PSYCH: Normal mood and affect. <Stuart Marin MD - Last Filed: 11/17/24 18:30> Course Course Emergency Course: patient signed out to me pending of results of CT brain and reassessment. I did attempt to reassess patient 2004. he remains somnolent the protecting his airway. CT brain was limited due to motion artifact however no obvious intracranial hemorrhage. Reassessed multiple times, sleeping each time but continues to be protecting his airway. Soft restraint order DC'd by RN as he hasn't required it. Patient is reassessed at 10:10 p.m.. He is continuing to sleep however arouses to verbal stimuli and asks why are you screaming? he states he is feeling better, not any pain. Will have him p.o. challenge and ambulate before discharge given otherwise stable. It does also appear that he had a temp of 100F so will give a dose of acetaminophen. Multiple attempts made by the nurse to contact family. Patient doesn't have a phone and doesn't know any other numbers. He urinates on self and has difficulty swallowing Tylenol. At times he seems seems to be not responding to certain questions that are asked, ignoring them but answering others. Attempted to ambulate patient but he is too unsteady. Patient will require admission for continued monitoring, possibly placement after PT/OT assessment. Discussed with Dr Tapia who recommends placing neurology consultation and completing patient's Keppra load (total 60mg/kg) given he had not initially received full dose. This is ordered. Patient will be med tele. Otherwise, vital signs have been stable. <Kristan Garcia MD - Last Filed: 11/18/24 14:54> Vital Signs Vital signs: Vital Signs Temperature 100 F H 11/17/24 16:02 Pulse Rate 154 H 11/17/24 16:02 Respiratory Rate 22 H 11/17/24 16:02 Pulse Oximetry 95 11/17/24 16:02 Oxygen Delivery Room Air 11/17/24 16:02 Temperature 98.7 F 11/18/24 03:14 Pulse Rate 83 11/18/24 11:07 Respiratory Rate 19 11/18/24 11:07 Blood Pressure 100/59 L 11/18/24 11:07 Pulse Oximetry 98 11/18/24 11:07 Oxygen Delivery Room Air 11/17/24 17:37 <Stuart Marin MD - Last Filed: 11/17/24 18:30> Vital Signs Temperature 100 F H 11/17/24 16:02 Pulse Rate 154 H 11/17/24 16:02 Respiratory Rate 22 H 11/17/24 16:02 Pulse Oximetry 95 11/17/24 16:02 Oxygen Delivery Room Air 11/17/24 16:02 Temperature 98.7 F 11/18/24 03:14 Pulse Rate 83 11/18/24 11:07 Respiratory Rate 19 11/18/24 11:07 Blood Pressure 100/59 L 11/18/24 11:07 Pulse Oximetry 98 11/18/24 11:07 Oxygen Delivery Room Air 11/17/24 17:37 <Kristan Garcia MD - Last Filed: 11/18/24 14:54> Medical Decision Making MDM Narrative Medical decision making narrative: differential diagnosis includes noncompliance, on status epilepticus electrolyte abnormality, infection, the patient was actively seizing in the emergency department was given a dose of Ativan also has been given IV fluids and also was given thiamine as he does have prior history of alcohol abuse. The patient was loaded with a g Keppra as he has been known to be noncompliant. Currently the patient is postictal the patient will be observed until his postictal state has resolved a CT head has been ordered <Stuart Marin MD - Last Filed: 11/17/24 18:30> Vital Signs Vital Signs: Vital Signs Temperature 100 F H 11/17/24 16:02 Pulse Rate 154 H 11/17/24 16:02 Respiratory Rate 22 H 11/17/24 16:02 Pulse Oximetry 95 11/17/24 16:02 Oxygen Delivery Room Air 11/17/24 16:02 Temperature 98.7 F 11/18/24 03:14 Pulse Rate 83 11/18/24 11:07 Respiratory Rate 19 11/18/24 11:07 Blood Pressure 100/59 L 11/18/24 11:07 Pulse Oximetry 98 11/18/24 11:07 Oxygen Delivery Room Air 11/17/24 17:37 <Stuart Marin MD - Last Filed: 11/17/24 18:30> Vital Signs Temperature 100 F H 11/17/24 16:02 Pulse Rate 154 H 11/17/24 16:02 Respiratory Rate 22 H 11/17/24 16:02 Pulse Oximetry 95 11/17/24 16:02 Oxygen Delivery Room Air 11/17/24 16:02 Temperature 98.7 F 11/18/24 03:14 Pulse Rate 83 11/18/24 11:07 Respiratory Rate 19 11/18/24 11:07 Blood Pressure 100/59 L 11/18/24 11:07 Pulse Oximetry 98 11/18/24 11:07 Oxygen Delivery Room Air 11/17/24 17:37 <Kristan Garcia MD - Last Filed: 11/18/24 14:54> Lab Data Result diagrams: 11/17/24 16:46 11/17/24 16:46 <Stuart Marin MD - Last Filed: 11/17/24 18:30> Labs: Lab Results 11/17/24 Range/Units 16:46 WBC 9.5 (4.5-10.0) K/mm3 RBC 3.89 L (4.6-6.20) M/mm3 Hgb 12.2 L (14.0-18.0) g/dL Hct 36.4 L (42.0-52.0) % MCV 93.6 (80-100) fl MCH 31.4 (26-34) pg MCHC 33.5 (32-36) g/dl RDW 13.0 (11.5-14.5) % Plt Count 282 (150-375) k/mm3 MPV 9.1 (7.4-10.4) fl Immature Gran % (Auto) 0.3 (0-0.5) % Neut % (Auto) 79.0 H (45.5-73.1) % Lymph % (Auto) 15.4 L (18.3-44.2) % [place] % (Auto) 4.5 (2.6-8.5) % Eos % (Auto) 0.4 (0-4.4) % Baso % (Auto) 0.4 (0.2-1.2) % Lymph # (Auto) 1.46 (0.9-3.2) K/mm3 [place] # (Auto) 0.4 (0.1-0.6) K/mm3 Eos # (Auto) 0.0 (0-0.3) K/mm3 Baso # (Auto) 0.0 (0.0-0.1) K/mm3 Abs Immat Gran (auto) 0.03 (0.00-0.031) K/mm3 Absolute Neuts (auto) 7.5 H (1.3-6.7) K/mm3 Absolute Nucleated RBC 0.000 (0.0-0.012) K/mm3 Nucleated RBC % 0.0 (0.0-0.2) % Sodium 138 (137-145) mmol/L Potassium 3.5 (3.4-5.0) mmol/L Chloride 104 (98-107) mmol/L Carbon Dioxide 16 L (22-30) mmol/L Anion Gap 18 H (4-12) mmol/L BUN 16 (9-20) mg/dL Creatinine 0.96 (0.7-1.3) mg/dL Estim Creat Clear Calc Not Reportable Estimated GFR > 60 (59 - ) Glucose 142 H (65-110) mg/dL Calcium 9.4 (8.4-10.2) mg/dL Total Bilirubin 0.6 (0.2-1.3) mg/dL AST 28 (17-59) U/L ALT 23 (6-50) U/L Alkaline Phosphatase 89 (38-126) U/L Total Protein 8.0 (6.3-8.2) g/dL Albumin 4.2 (3.5-5.1) g/dL Ethyl Alcohol < 10 (<10) mg/dL <Stuart Marin MD - Last Filed: 11/17/24 18:30> Lab Results 11/17/24 Range/Units 16:46 WBC 9.5 (4.5-10.0) K/mm3 RBC 3.89 L (4.6-6.20) M/mm3 Hgb 12.2 L (14.0-18.0) g/dL Hct 36.4 L (42.0-52.0) % MCV 93.6 (80-100) fl MCH 31.4 (26-34) pg MCHC 33.5 (32-36) g/dl RDW 13.0 (11.5-14.5) % Plt Count 282 (150-375) k/mm3 MPV 9.1 (7.4-10.4) fl Immature Gran % (Auto) 0.3 (0-0.5) % Neut % (Auto) 79.0 H (45.5-73.1) % Lymph % (Auto) 15.4 L (18.3-44.2) % [place] % (Auto) 4.5 (2.6-8.5) % Eos % (Auto) 0.4 (0-4.4) % Baso % (Auto) 0.4 (0.2-1.2) % Lymph # (Auto) 1.46 (0.9-3.2) K/mm3 [place] # (Auto) 0.4 (0.1-0.6) K/mm3 Eos # (Auto) 0.0 (0-0.3) K/mm3 Baso # (Auto) 0.0 (0.0-0.1) K/mm3 Abs Immat Gran (auto) 0.03 (0.00-0.031) K/mm3 Absolute Neuts (auto) 7.5 H (1.3-6.7) K/mm3 Absolute Nucleated RBC 0.000 (0.0-0.012) K/mm3 Nucleated RBC % 0.0 (0.0-0.2) % Sodium 138 (137-145) mmol/L Potassium 3.5 (3.4-5.0) mmol/L Chloride 104 (98-107) mmol/L Carbon Dioxide 16 L (22-30) mmol/L Anion Gap 18 H (4-12) mmol/L BUN 16 (9-20) mg/dL Creatinine 0.96 (0.7-1.3) mg/dL Estim Creat Clear Calc Not Reportable Estimated GFR > 60 (59 - ) Glucose 142 H (65-110) mg/dL Calcium 9.4 (8.4-10.2) mg/dL Total Bilirubin 0.6 (0.2-1.3) mg/dL AST 28 (17-59) U/L ALT 23 (6-50) U/L Alkaline Phosphatase 89 (38-126) U/L Total Protein 8.0 (6.3-8.2) g/dL Albumin 4.2 (3.5-5.1) g/dL Ethyl Alcohol < 10 (<10) mg/dL <Kristan Garcia MD - Last Filed: 11/18/24 14:54> Critical Care Time Critical Care Time Critical Care Time: Yes <Stuart Marin MD - Last Filed: 11/17/24 18:30> Total Critical Care Time: 35 <Stuart Marin MD - Last Filed: 11/17/24 18:30> Discharge Plan Discharge Clinical Impression: Seizure, Alcohol abuse <Stuart Marin MD - Last Filed: 11/17/24 18:30> Patient Disposition: Still a Patient <Stuart Marin MD - Last Filed: 11/17/24 18:30> Condition: Stable <Stuart Marin MD - Last Filed: 11/17/24 18:30> Time of Disposition: 22:17 <Stuart Marin MD - Last Filed: 11/17/24 18:30> 22:17 <Kristan Garcia MD - Last Filed: 11/18/24 14:54>
[2024-11-17] MEDS: SODIUM CHLORIDE 0.9% IV 1,000 ML 999 ML IV CONT (18:04)
[2024-11-17 18:12] LABS: Ethanol < 10 mg/dL (<10)
--- NOTE | 2024-11-17 19:00 | PC.NURSE ---
pt to CT
[2024-11-17] MEDS: THIAMINE 500 MG/NS 100 ML 500 MG/100 ML BAG 200 MG IVPB (19:21)
[2024-11-17] MEDS: ACETAMINOPHEN 500 MG TABLET 1000 MG PO (22:43)
[2024-11-18] VITALS (55 sets, daily range): BP systolic 92–141; BP diastolic 51–89; PULSE 83–119; RESP 11–34; TEMP 36.3–37.1; O2SAT 94–100
--- NOTE | 2024-11-18 00:31 | PC.NURSE ---
This RN called pt daughter twice with no answer.
--- NOTE | 2024-11-18 05:07 | PC.NURSE ---
This RN tried to call pt daughter with no response
[2024-11-18] MEDS: KETOROLAC 15 MG/ML VIAL (*BKC) IV PUSH (05:57)
[2024-11-18] MEDS: levETIRAcetam IV 3,000 MG in DEXTROSE 5% 100 ML 780 MG IVPB (06:02)
[2024-11-18] MEDS: THIAMINE 500 MG/NS 100 ML 500 MG/100 ML BAG 200 MG IVPB ×3 (06:46→22:07)
--- NOTE | 2024-11-18 11:46 | PC.NURSE ---
ATTEMPTED TO CALL NEXT OF KIN DEQUAN AT [phone]. NO ANSWER VOICE MESSAGE WAS LEFT.
--- NOTE | 2024-11-18 14:44 | P.HP_ITS ---
H&P: HPI History of Present Illness Date/Time: 11/18/24 14:44 Chief Complaint: Seizure Narrative: 84 yo male with PMH hypertension, hyperlipidemia, coronary artery disease status post bypass, bioprosthetic porcine aortic valve replacement, and gastroesophageal reflux disease, seizure disorder history on account of seizure episode. Patient at bedside this morning did note he remember what brought him to the hospital. However it deny any chest pain shortness are a fever and dysuria no focal weakness prior to presentation. Discussed with ER provider I was located patient is likely noncompliant with his anti seizure medication. Patient did say he takes his antihypertensive medication but continues to deny that he has a history of seizure. Patient wanted to have another seizure episode while in the ER was given Keppra loading prior to admission. ER evaluation notable for vital signs pressure 100/59, pulse rate 83, respiratory rate 19, satting 98% on room air. Labs grossly unremarkable. Chest x-ray showed right-sided posterior shoulder dislocation, x-ray right shoulder showed a dislocated total right shoulder arthroplasty. CT head no acute changes. Denies alcohol use, no smoking noted pressure or drug abuser. ER physician at the patient's last drink was more than a week prior to presentation. Review of Systems Review of Systems: All other systems reviewed and negative except noted in history above. [facility] Past Medical History Medical History Seizure disorder Arthritis Gastroesophageal reflux disease Coronary artery disease Hyperlipidemia Hypertension Aortic stenosis Subclinical hypothyroidism Aortic stenosis, severe Essential hypertension Surgical History Surgical History History of arthroplasty of left knee History of arthroplasty of left shoulder History of coronary artery bypass graft x 1 (07/2020) At [facility]. History of aortic valve replacement with bioprosthetic valve (07/2020) At [facility]. History of incisional hernia repair (03/2021) Epigastric incisional hernia with mesh. S/P aortic valve replacement Family History Family History Other Family history unknown Social History Social History Social History: Surrogate medical decision maker: Kalyani Haley, daughter. Code status: Full code. Smoking packs per day: 1 Smoking cigarettes per day: 20.0 Years smoked: 15 Smoking pack-years: 15.00 Smoking status: Former smoker Tobacco type: cigarettes Smokeless tobacco user: chewing tobacco Second hand tobacco smoke exposure: No Smoking end date: 10/13/69 Alcohol intake: former Drinks per week: 7 Alcohol use details: BEER Substance use: never Do You Feel Safe in your Home?: Yes Lack of Transportation: No Current Housing: Decline to Answer Concerned About Future Housing: Decline to Answer Difficulty Paying Gas/Electric Bills: Decline to Answer Difficulty Paying for Meds: Decline to Answer Currently Unemployed: Decline to Answer Education: Decline to Answer Difficulty w/ Childcare or Family Care: Decline to Answer Living arrangements: with family Occupation/Education: retired Additional occupation/education comments: [employer] Gender identity (if verbalized by the patient): Male Sexual Orientation (if Verbalized by the Patient): Straight or Heterosexual Spiritual care concerns: No Agree to blood products: No Meds Home Medications and Allergies Home Medications ?Medication ?Instructions ?Recorded ?Confirmed ?Type amlodipine 10 mg tablet 10 mg PO DAILY #90 tabs 03/03/24 10/14/24 Rx naproxen 500 mg tablet 500 mg PO PRN PRN Pain 08/19/24 10/14/24 History mupirocin 2 % topical ointment 1 applic topical BID #15 grams 08/23/24 10/14/24 Rx hydrocodone 7.5 mg-acetaminophen 1 tablet PO Q4H PRN pain #40 tabs 09/02/24 10/14/24 Rx 325 mg tablet cholecalciferol (vitamin D3) 25 25 mcg PO DAILY #30 tabs 09/06/24 10/14/24 Rx mcg (1,000 unit) tablet (Vitamin D3) metoprolol tartrate 50 mg tablet See Rx Instructions .Route 09/13/24 10/14/24 Rx .COMPLEX #90 tabs Allergies Allergy/AdvReac Type Severity Reaction Status Date / Time No Known Allergies Allergy Verified 10/14/24 07:14 Vital Signs Vital Signs - 24 hr 11/17/24 16:02 11/17/24 16:13 11/17/24 16:17 Temperature 100 F H Pulse Rate 154 H Respiratory Rate 22 H Blood Pressure 149/69 H Pulse Oximetry 95 Oxygen Delivery Room Air Room Air 11/17/24 17:26 11/17/24 17:30 11/17/24 17:37 Temperature Pulse Rate 97 114 H Respiratory Rate 16 18 Blood Pressure Pulse Oximetry 96 Oxygen Delivery Room Air 11/17/24 17:40 11/17/24 17:45 11/17/24 18:00 Temperature Pulse Rate 126 H 113 H 105 H Respiratory Rate 20 21 H 31 H Blood Pressure 131/72 Pulse Oximetry 100 99 97 Oxygen Delivery 11/17/24 18:02 11/17/24 18:14 11/17/24 18:15 Temperature Pulse Rate 110 H 119 H 115 H Respiratory Rate 20 23 H 39 H Blood Pressure 112/65 112/65 Pulse Oximetry 96 97 95 Oxygen Delivery 11/17/24 18:17 11/17/24 18:42 11/17/24 18:43 Temperature Pulse Rate 115 H 108 H 110 H Respiratory Rate 31 H 19 21 H Blood Pressure 96/49 L 91/59 L Pulse Oximetry 94 Oxygen Delivery 11/17/24 18:45 11/17/24 18:47 11/17/24 19:13 Temperature Pulse Rate 108 H 111 H 113 H Respiratory Rate 19 17 22 H Blood Pressure 108/57 L Pulse Oximetry Oxygen Delivery 11/17/24 19:15 11/17/24 19:16 11/17/24 19:17 Temperature Pulse Rate 110 H 109 H 109 H Respiratory Rate 16 17 20 Blood Pressure 120/64 115/58 L Pulse Oximetry Oxygen Delivery 11/17/24 19:30 11/17/24 19:32 11/17/24 19:33 Temperature Pulse Rate 104 H 107 H 105 H Respiratory Rate 16 17 18 Blood Pressure 116/65 Pulse Oximetry Oxygen Delivery 11/17/24 20:04 11/17/24 20:18 11/17/24 20:46 Temperature Pulse Rate 107 H 102 H 100 Respiratory Rate 17 17 17 Blood Pressure Pulse Oximetry Oxygen Delivery 11/17/24 21:35 11/17/24 21:45 11/17/24 21:47 Temperature Pulse Rate 97 107 H 114 H Respiratory Rate 20 24 H 21 H Blood Pressure 100/45 L Pulse Oximetry 99 97 Oxygen Delivery 11/17/24 21:48 11/17/24 23:22 11/18/24 00:10 Temperature Pulse Rate 98 108 H 105 H Respiratory Rate 21 H 20 24 H Blood Pressure Pulse Oximetry 98 Oxygen Delivery 11/18/24 00:15 11/18/24 00:17 11/18/24 00:30 Temperature Pulse Rate 105 H 102 H 110 H Respiratory Rate 20 24 H 16 Blood Pressure 110/69 Pulse Oximetry Oxygen Delivery 11/18/24 00:32 11/18/24 00:33 11/18/24 00:45 Temperature Pulse Rate 107 H 106 H 118 H Respiratory Rate 23 H 19 34 H Blood Pressure 110/64 Pulse Oximetry Oxygen Delivery 11/18/24 00:47 11/18/24 01:00 11/18/24 01:02 Temperature Pulse Rate 103 H 107 H 112 H Respiratory Rate 17 19 22 H Blood Pressure 97/65 L 110/63 Pulse Oximetry Oxygen Delivery 11/18/24 01:15 11/18/24 01:17 11/18/24 01:30 Temperature Pulse Rate 105 H 105 H 107 H Respiratory Rate 16 15 27 H Blood Pressure 111/63 97/64 L Pulse Oximetry 95 Oxygen Delivery 11/18/24 01:32 11/18/24 01:45 11/18/24 01:47 Temperature Pulse Rate 97 108 H 102 H Respiratory Rate 16 17 18 Blood Pressure 109/65 111/63 Pulse Oximetry Oxygen Delivery 11/18/24 01:48 11/18/24 02:00 11/18/24 02:01 Temperature Pulse Rate 105 H 106 H 103 H Respiratory Rate 16 16 17 Blood Pressure 108/64 Pulse Oximetry Oxygen Delivery 11/18/24 02:15 11/18/24 02:16 11/18/24 02:17 Temperature Pulse Rate 100 100 102 H Respiratory Rate 15 25 H 22 H Blood Pressure 110/67 Pulse Oximetry Oxygen Delivery 11/18/24 02:31 11/18/24 02:32 11/18/24 02:45 Temperature Pulse Rate 108 H 100 102 H Respiratory Rate 17 15 18 Blood Pressure 101/63 Pulse Oximetry Oxygen Delivery 11/18/24 02:46 11/18/24 03:06 11/18/24 03:14 Temperature 98.7 F Pulse Rate 100 100 Respiratory Rate 16 20 Blood Pressure 92/57 L 101/64 Pulse Oximetry 99 Oxygen Delivery 11/18/24 04:54 11/18/24 04:57 11/18/24 05:00 Temperature Pulse Rate 101 H 98 Respiratory Rate 11 L 15 Blood Pressure 141/70 H Pulse Oximetry 98 Oxygen Delivery 11/18/24 05:01 11/18/24 05:02 11/18/24 05:15 Temperature Pulse Rate 87 94 94 Respiratory Rate 14 15 20 Blood Pressure 130/66 Pulse Oximetry Oxygen Delivery 11/18/24 05:16 11/18/24 06:04 11/18/24 06:52 Temperature Pulse Rate 87 105 H 119 H Respiratory Rate 15 13 18 Blood Pressure 124/87 123/67 Pulse Oximetry 97 98 Oxygen Delivery 11/18/24 06:59 11/18/24 08:16 11/18/24 09:01 Temperature Pulse Rate 97 89 102 H Respiratory Rate 22 H 17 Blood Pressure 110/60 105/65 Pulse Oximetry 98 99 Oxygen Delivery 11/18/24 09:30 11/18/24 11:07 Temperature Pulse Rate 88 83 Respiratory Rate 13 19 Blood Pressure 105/54 L 100/59 L Pulse Oximetry 98 98 Oxygen Delivery Exam Narrative: General: alert and comfortable Eyes: EOMI, PERRLA ENNT External ears normal, Neck is supple, no masses, Respiratory systems: Clear to auscultation Cardiovascular S1, S2, normal rhythm, no murmur, rub, or gallop; no thrill or palpable murmurs on palpation. Gastrointestinal: soft, non-tender, and non-distended abdomen with no masses; BS present Skin: no rash, lesions, ulcerations, subcutaneous nodules or induration Musculoskeletal: decreased range of motion Right shoulder due to pain Neurologic: Alert and oriented x3, non focal Mental Status Exam: normal affect H&P: Results Labs Labs: Short CBC 11/17/24 Range/Units 16:46 WBC 9.5 (4.5-10.0) K/mm3 Hgb 12.2 L (14.0-18.0) g/dL Hct 36.4 L (42.0-52.0) % Plt Count 282 (150-375) k/mm3 BMP 11/17/24 16:46 Sodium 138 Potassium 3.5 Chloride 104 Carbon Dioxide 16 L BUN 16 Creatinine 0.96 Glucose 142 H Calcium 9.4 Liver Function 11/17/24 Range/Units 16:46 Total Bilirubin 0.6 (0.2-1.3) mg/dL AST 28 (17-59) U/L ALT 23 (6-50) U/L Alkaline Phosphatase 89 (38-126) U/L Albumin 4.2 (3.5-5.1) g/dL Assessment and Plan Assessment and plan (1) Seizure: Code(s): R56.9 - Unspecified convulsions Status: Acute Plan Seizure Patient has a history of seizure and appears to be off his anti-seizure meds s/p 2 episodes of seizure continue Keppra 100mg bid, EEG neurology consulted Right shoulder total arthroplasty dislocation XRay reviewed Continue PRN pain control Ortho consulted HTN Blood pressure is soft now and antihypertensive is on hold monitor S/p Aortic bioprosthetic valve replacement monitor CAD s/p CABG Continue Aspirin and statin DVT prophylaxis on Sq Lovenox Full code Hospitalist MIPS Advance Care Plan I have confirmed that the patient's Advanced Care Plan is present, code status is documented, or surrogate decision maker is listed in patient medical record.: Yes Medication Reconciliation I have utilized all available resources to obtain, update and review the patients current medications (includes all prescriptions, OTC, herbals, cannabis, and nutritional supplements).: Yes
[2024-11-18] MEDS: fentaNYL CITRATE INJ (*CRX) 100 MCG/2 ML VIAL 25 MCG IV PUSH (15:00)
[2024-11-18] MEDS: SODIUM CHLORIDE 0.9% IV 1,000 ML 999 ML (15:00)
[2024-11-18] MEDS: PROPOFOL IV EMULSION 200 MG/20 ML VIAL 100 MG IV PUSH (15:01)
--- NOTE | 2024-11-18 15:10 | ED.PROCEDURE ---
Procedures Orthopedic Joint Reduction Joint #1: Time out performed: Yes Side: right Joint reduction location: shoulder Analgesia: procedural sedation Shoulder technique used (if applicable): external rotation Technique used: direct manipulation Post-reduction neuro exam: intact Post-reduction vascular exam: intact Post-reduction x-ray obtained: Yes Post-reduction x-ray results: reduced Patient tolerated procedure: well Other Procedures Procedure 1: Other Procedure: Procedural sedation Sedation for reduction of right shoulder prosthesis dislocation Time-out was performed at 1501 procedure lasted until 1510 Informed consent was obtained risk and benefits were discussed with the patient Last oral intake was last night Patient is a Mallampati 1 ASA 2 Patient was sedated with 25 mics of fentanyl Patient was given 70 mg of propofol fall as the patient is 69.8 kilos Patient tolerated the procedure well with no complications
[2024-11-18] MEDS: ONDANSETRON INJ 4 MG/2 ML VIAL IV PUSH (16:07)
--- NOTE | 2024-11-18 16:28 | ADMGEN ---
This patient, Adán Wall, was admitted to [facility] Surg Room 302-01. Patient/family oriented to hospital policies and general routines including ID bracelet, bed and alarms, visiting hours, pain management, procedures, bathroom and other care routines, personal items, smoking policy, room service/diet, and visiting hours. Information on how to activate the Rapid Response Team has been discussed. Patient/Family are encouraged to report perceived risks to care and to ask questions if they do not understand what they are told or what they should do.
[2024-11-18] MEDS: levETIRAcetam Tablet 250 MG, levETIRAcetam Tablet 500 MG 750 MG PO (22:06)
[2024-11-19] VITALS (8 sets, daily range): BP systolic 118–136; BP diastolic 70–80; PULSE 82–98; RESP 16–20; TEMP 36–36.3; O2SAT 98
[2024-11-19] MEDS: THIAMINE 500 MG/NS 100 ML 500 MG/100 ML BAG 200 MG IVPB ×3 (06:38→21:45)
[2024-11-19 07:46] LABS: Basophils Percent Auto 0.5 % (0.2-1.2); Eosinophils Absolute Auto 0.2 K/mm3 (0-0.3); Eosinophils Percent Auto 2.5 % (0-4.4); Hemoglobin 11.6 g/dL (14.0-18.0); Immature Granulocyte Absolute 0.02 K/mm3 (0.00-0.031); Immature Granulocyte Percent A 0.2 % (0-0.5); Lymphocytes Absolute Auto 1.94 K/mm3 (0.9-3.2); Lymphocytes Percent Auto 23.8 % (18.3-44.2); Mean Corpuscular HGB Conc 32.2 g/dl (32-36); Mean Corpuscular Hemoglobin 30.8 pg (26-34); Mean Corpuscular Volume 95.5 fl (80-100); Mean Platelet Volume 9.8 fl (7.4-10.4); Monocytes Absolute Auto 0.6 K/mm3 (0.1-0.6); Monocytes Percent Auto 7.9 % (2.6-8.5); Neutrophils Absolute Auto 5.3 K/mm3 (1.3-6.7); Neutrophils Percent Auto 65.1 % (45.5-73.1); Platelet Count Result 281 k/mm3 (150-375); Red Blood Count 3.77 M/mm3 (4.6-6.20); Red Cell Distribution Width 12.7 % (11.5-14.5); White Blood Count 8.1 K/mm3 (4.5-10.0)
[2024-11-19 07:53] LABS: Alanine Aminotransferase 13 U/L (6-50); Albumin Level 3.7 g/dL (3.5-5.1); Alkaline Phosphatase 81 U/L (38-126); Anion Gap 10 mmol/L (4-12); Aspartate Amino Transferase 48 U/L (17-59); Bilirubin,Total 0.5 mg/dL (0.2-1.3); Blood Urea Nitrogen 11 mg/dL (9-20); Calcium 8.6 mg/dL (8.4-10.2); Carbon Dioxide 24 mmol/L (22-30); Chloride 104 mmol/L (98-107); Estimated Glomerular Filt Rate > 60; Glucose 83 mg/dL (65-110); Magnesium 1.7 mg/dL (1.6-2.3); Potassium 3.1 mmol/L (3.4-5.0); Sodium 138 mmol/L (137-145)
[2024-11-19] MEDS: levETIRAcetam Tablet 250 MG, levETIRAcetam Tablet 500 MG 750 MG PO ×2 (10:10→21:46)
--- NOTE | 2024-11-19 12:19 | PM.IMPN ---
Progress Note: A&P Assessment and Plan (1) Seizure: Code(s): R56.9 - Unspecified convulsions Status: Acute Plan Seizure Patient has a history of seizure and appears to be off his anti-seizure meds s/p 2 episodes of seizure continue Keppra 1000mg bid, EEG pending awaiting neurology eval Right shoulder total arthroplasty dislocation s/p reduction Xray reviewed Continue PRN pain control ortho following HTN Titrate home medications with clinical course. monitor S/p Aortic bioprosthetic valve replacement monitor CAD s/p CABG Continue Aspirin and statin DVT prophylaxis on Sq Lovenox Full code Subjective Date/time seen: 11/19/24 12:19 Interval history: Patient comfortable at bedside awaiting neuro eval Review of Systems Review of Systems: All other systems reviewed and negative except noted in history above. Exam Narrative: General: alert and comfortable Eyes: EOMI, PERRLA ENNT External ears normal, Neck is supple, no masses, Respiratory systems: Clear to auscultation Cardiovascular S1, S2, normal rhythm, no murmur, rub, or gallop; no thrill or palpable murmurs on palpation. Gastrointestinal: soft, non-tender, and non-distended abdomen with no masses; BS present Skin: no rash, lesions, ulcerations, subcutaneous nodules or induration Musculoskeletal: decreased range of motion Right shoulder due to pain Neurologic: Alert and oriented x3, non focal Mental Status Exam: normal affect Objective Data Vital Signs Vital Signs: Vital Signs - 24 hr 11/18/24 13:06 11/18/24 14:02 11/18/24 15:00 Temperature 97.9 F Pulse Rate 96 112 H Pulse Rate [Apical] 93 Respiratory Rate 21 H 24 H 12 Blood Pressure 139/89 126/72 Blood Pressure [Left Arm] 111/83 Pulse Oximetry 96 96 100 Oxygen Delivery Nasal Cannula Oxygen Flow Rate 2 11/18/24 15:01 11/18/24 15:06 11/18/24 15:11 Temperature Pulse Rate Pulse Rate [Apical] 100 100 103 H Respiratory Rate 12 16 16 Blood Pressure Blood Pressure [Left Arm] 110/51 L 108/58 L 114/68 Pulse Oximetry 100 100 100 Oxygen Delivery Nasal Cannula Nasal Cannula Nasal Cannula Oxygen Flow Rate 2 2 2 11/18/24 15:12 11/18/24 15:27 11/18/24 15:42 Temperature 97.7 F Pulse Rate Pulse Rate [Apical] 102 H 98 96 Respiratory Rate 16 16 16 Blood Pressure Blood Pressure [Left Arm] 126/79 122/84 125/84 Pulse Oximetry 100 96 95 Oxygen Delivery Room Air Room Air Room Air Oxygen Flow Rate 11/18/24 16:00 11/18/24 17:03 11/18/24 20:00 Temperature Pulse Rate 98 Pulse Rate [Apical] Respiratory Rate 16 Blood Pressure 128/85 Blood Pressure [Left Arm] Pulse Oximetry 99 99 94 Oxygen Delivery Room Air Room Air Oxygen Flow Rate 11/18/24 21:20 11/19/24 00:00 11/19/24 06:00 Temperature 97.3 F L 97.4 F L Pulse Rate 99 96 98 Pulse Rate [Apical] Respiratory Rate 16 16 Blood Pressure 139/85 122/80 Blood Pressure [Left Arm] Pulse Oximetry 97 98 Oxygen Delivery Oxygen Flow Rate 11/19/24 08:00 11/19/24 08:00 11/19/24 12:00 Temperature Pulse Rate 88 88 Pulse Rate [Apical] Respiratory Rate Blood Pressure Blood Pressure [Left Arm] Pulse Oximetry 98 Oxygen Delivery Room Air Oxygen Flow Rate Intake/Output Intake/Output: Intake & Output 11/16/24 11/17/24 11/18/24 11/19/24 23:59 23:59 23:59 23:59 Intake Total 1200 910 360 Output Total 250 650 Balance 1200 660 -290 Meds/Results Medications: Active Medications Generic Name Dose Route Start Last Admin Trade Name Freq PRN Reason Stop Dose Admin Acetaminophen 650 mg 11/18/24 05:22 Acetaminophen 325 Mg Tablet PO Q4H PRN Mild Pain (1-3) or Fever Hydrocodone Bitart/Acetaminophen 1 tab 11/18/24 15:12 Hydrocodone/Acetaminophen (*Crx) 5-325 Mg Tablet PO Q4H PRN Pain Rated 4-6 Thiamine HCl 500 mg in 100 mls @ 200 mls/hr 11/18/24 06:00 11/19/24 06:38 IVPB 11/21/24 05:59 200 mls/hr Q8H SHANIQUE Administration Levetiracetam 250 mg/ 750 mg 11/18/24 21:00 11/19/24 10:10 Levetiracetam 500 mg PO 750 mg Q12HR SHANIQUE Administration Ondansetron HCl 4 mg 11/18/24 05:22 11/18/24 16:07 Ondansetron Inj 4 Mg/2 Ml Vial IV PUSH 4 mg Q4H PRN Administration Nausea Radiology Results: ITS Impressions Chest X-Ray 11/17/24 18:15 IMPRESSION: No focal infiltrate or effusion. Right-sided posterior shoulder dislocation is suspected. Head CT 11/17/24 19:28 Impression: Limited examination of the brain secondary to motion artifact without large acute intracranial hemorrhage. Adequate sedation is suggested for repeat study, if the patient is clinically able. Shoulder X-Ray 11/18/24 15:14 IMPRESSION: 1. Reverse [id number] total right shoulder arthroplasty in near-anatomic alignment. 2. Nondisplaced periprosthetic fracture of proximal right humerus laterally. Labs Labs: Laboratory Results - last 24 hr 11/19/24 06:45 WBC 8.1 RBC 3.77 L Hgb 11.6 L Hct 36.0 L MCV 95.5 MCH 30.8 MCHC 32.2 RDW 12.7 Plt Count 281 MPV 9.8 Immature Gran % (Auto) 0.2 Neut % (Auto) 65.1 Lymph % (Auto) 23.8 [place] % (Auto) 7.9 Eos % (Auto) 2.5 Baso % (Auto) 0.5 Lymph # (Auto) 1.94 [place] # (Auto) 0.6 Eos # (Auto) 0.2 Baso # (Auto) 0.0 Abs Immat Gran (auto) 0.02 Absolute Neuts (auto) 5.3 Absolute Nucleated RBC 0.000 Nucleated RBC % 0.0 Sodium 138 Potassium 3.1 L Chloride 104 Carbon Dioxide 24 Anion Gap 10 BUN 11 D Creatinine 0.66 L Estim Creat Clear Calc Not Reportable Estimated GFR > 60 Glucose 83 Calcium 8.6 Magnesium 1.7 Total Bilirubin 0.5 AST 48 ALT 13 Alkaline Phosphatase 81 Total Protein 7.0 Albumin 3.7
--- NOTE | 2024-11-19 12:27 | PCNEURO ---
EEG was completed this morning. There is no neurologist here today to read. Cancelling out the duplicute order
[2024-11-19] MEDS: POTASSIUM CHLORIDE 20 MEQ PACKET (FOR LIQUID) 40 MEQ PO (13:01)
--- NOTE | 2024-11-19 14:14 | P.CONOP_ITS ---
Assessment and Plan Assessment and plan (1) Status post reverse arthroplasty of right shoulder: Code(s): Z96.611 - Presence of right artificial shoulder joint Status: Acute (2) Closed dislocation of right shoulder: Qualifiers: Encounter type: initial encounter Qualified Code(s): S43.004A - Unspecified dislocation of right shoulder joint, initial encounter Code(s): S43.004A - Unspecified dislocation of right shoulder joint, initial encounter Status: Acute Assessment and Plan: patient evaluated and seen for right shoulder dislocation status post right shoulder arthroplasty 4 years ago. Surgery performed at [facility] by Dr. Zapata. reduction performed in the emergency room by the emergency room physician. Post reduction radiographs show anatomic reduction. There is question of an abnormality of the proximal humerus bone. This appears to be artifact and not a true fracture. He has no pain on exam and is neurovascular intact. We discussed treatment with sling immobilization. Pendulum exercises and gentle restricted range of motion. Ice and pain control. Would recommend to start therapy at about 3 weeks. He is going to follow up with his shoulder surgeon. History of Present Illness HPI Consult date: 11/19/24 Requesting physician: Stuart Marin MD Chief complaint: Right shoulder dislocation Narrative: 84-year-old gentleman with history of seizure disorder admitted to hospital yesterday for recent seizure activity and right shoulder dislocation. Closed reduction performed in the emergency room of the right shoulder. Radiographs confirmed reduction. He is admitted to the hospital. He complains of minimal pain right shoulder. Denies numbness or tingling. This is the 1st dislocation. He is approximately 4 years status post shoulder replacement at [facility]. Review of Systems 2 Constitutional: Constitutional: Denies fever(s) Eyes: Eyes: Denies blurry vision ENT: Reports Normal hearing present Cardiovascular: Cardiovascular: Denies chest pain and Denies dyspnea Respiratory: Respiratory: Denies dyspnea and Denies wheezing Gastrointestinal: Gastrointestinal: Denies abdominal pain Genitourinary: Genitourinary: Denies urinary urgency Musculoskeletal: Musculoskeletal: Reports as per HPI and Denies numbness Integumentary/Breasts: Skin/Breast: Denies changing lesions and Denies sores Neurologic: Reports Normal hearing present, Denies behavioral changes, Denies confusion, Denies numbness and Denies convulsions Psychiatric: Psychiatric: Denies behavioral changes, Denies confusion and Denies hallucinations Endocrine: Endocrine: Denies heat intolerance Hematologic/Lymphatic: Hematologic/Lymphatic: Denies easy bleeding Allergic/Immunologic: Allergic/Immunologic: Denies wheezing [facility] Past Medical History Medical History (Updated 11/19/24 @ 14:20 by Russel Wesley MD) Closed dislocation of right shoulder Dislocation, shoulder, posterior Seizure disorder Arthritis Gastroesophageal reflux disease Coronary artery disease Hyperlipidemia Hypertension Aortic stenosis Subclinical hypothyroidism Aortic stenosis, severe Essential hypertension Surgical History Surgical History (Updated 11/19/24 @ 14:18 by Russel Wesley MD) Status post reverse arthroplasty of right shoulder History of arthroplasty of left knee History of arthroplasty of left shoulder History of coronary artery bypass graft x 1 (07/2020) At [facility]. History of aortic valve replacement with bioprosthetic valve (07/2020) At [facility]. History of incisional hernia repair (03/2021) Epigastric incisional hernia with mesh. S/P aortic valve replacement Family History Family History Other Family history unknown Social History Social History Social History: Surrogate medical decision maker: Kalyani Haley, daughter. Code status: Full code. Smoking packs per day: 1 Smoking cigarettes per day: 20.0 Years smoked: 15 Smoking pack-years: 15.00 Smoking status: Former smoker Smokeless tobacco user: chewing tobacco Second hand tobacco smoke exposure: No Alcohol intake: former Drinks per week: 7 Alcohol use details: BEER Substance use: never Do You Feel Safe in your Home?: Yes Lack of Transportation: No Lack of Food: Never True Current Housing: Decline to Answer Concerned About Future Housing: Decline to Answer Difficulty Paying Gas/Electric Bills: Decline to Answer Difficulty Paying for Meds: Decline to Answer Currently Unemployed: Decline to Answer Education: Decline to Answer Difficulty w/ Childcare or Family Care: Decline to Answer Living arrangements: with family Occupation/Education: retired Additional occupation/education comments: [employer] Gender identity (if verbalized by the patient): Male Sexual Orientation (if Verbalized by the Patient): Straight or Heterosexual Spiritual care concerns: No Agree to blood products: No Meds Home Medications and Allergies Home Medications ?Medication ?Instructions ?Recorded ?Confirmed ?Type amlodipine 10 mg tablet 10 mg PO DAILY #90 tabs 03/03/24 11/18/24 Rx naproxen 500 mg tablet 500 mg PO PRN PRN Pain 08/19/24 11/18/24 History mupirocin 2 % topical ointment 1 applic topical BID #15 grams 08/23/24 11/18/24 Rx hydrocodone 7.5 mg-acetaminophen 1 tablet PO Q4H PRN pain #40 tabs 09/02/24 11/18/24 Rx 325 mg tablet cholecalciferol (vitamin D3) 25 25 mcg PO DAILY #30 tabs 09/06/24 11/18/24 Rx mcg (1,000 unit) tablet (Vitamin D3) metoprolol tartrate 50 mg tablet See Rx Instructions .Route 09/13/24 11/18/24 Rx .COMPLEX #90 tabs Allergies Allergy/AdvReac Type Severity Reaction Status Date / Time No Known Allergies Allergy Verified 10/14/24 07:14 Vital Signs Vital Signs - 24 hr 11/18/24 15:00 11/18/24 15:01 11/18/24 15:06 Temperature 97.9 F Pulse Rate Pulse Rate [Apical] 93 100 100 Respiratory Rate 12 12 16 Blood Pressure Blood Pressure [Left Arm] 111/83 110/51 L 108/58 L Pulse Oximetry 100 100 100 Oxygen Delivery Nasal Cannula Nasal Cannula Nasal Cannula Oxygen Flow Rate 2 2 2 11/18/24 15:11 11/18/24 15:12 11/18/24 15:27 Temperature 97.7 F Pulse Rate Pulse Rate [Apical] 103 H 102 H 98 Respiratory Rate 16 16 16 Blood Pressure Blood Pressure [Left Arm] 114/68 126/79 122/84 Pulse Oximetry 100 100 96 Oxygen Delivery Nasal Cannula Room Air Room Air Oxygen Flow Rate 2 11/18/24 15:42 11/18/24 16:00 11/18/24 17:03 Temperature Pulse Rate 98 Pulse Rate [Apical] 96 Respiratory Rate 16 16 Blood Pressure 128/85 Blood Pressure [Left Arm] 125/84 Pulse Oximetry 95 99 99 Oxygen Delivery Room Air Room Air Oxygen Flow Rate 11/18/24 20:00 11/18/24 21:20 11/19/24 00:00 Temperature 97.3 F L Pulse Rate 99 96 Pulse Rate [Apical] Respiratory Rate 16 Blood Pressure 139/85 Blood Pressure [Left Arm] Pulse Oximetry 94 97 Oxygen Delivery Room Air Oxygen Flow Rate 11/19/24 06:00 11/19/24 08:00 11/19/24 08:00 Temperature 97.4 F L Pulse Rate 98 88 Pulse Rate [Apical] Respiratory Rate 16 Blood Pressure 122/80 Blood Pressure [Left Arm] Pulse Oximetry 98 98 Oxygen Delivery Room Air Oxygen Flow Rate 11/19/24 12:00 Temperature Pulse Rate 88 Pulse Rate [Apical] Respiratory Rate Blood Pressure Blood Pressure [Left Arm] Pulse Oximetry Oxygen Delivery Oxygen Flow Rate Exam 2 Const: General: healthy appearing; No in distress or confusion O rientation/consciousness: oriented to person, oriented to place, oriented to time and No confusion HENMT: Head: normal to inspection, normocephalic and atraumatic Eyes: Conjunctivae: conjunctivae normal Sclera: sclerae normal Neck: Neck: supple and nontender Resp: Effort & Inspection: normal respiratory effort and no audible wheezes Cardio: Rate: regular rate Rhythm: regular rhythm Skin: General skin exam: no rashes or lesions noted Neuro: General: oriented to person, oriented to place, oriented to time and No confusion Extrem: Right upper extremity: shoulder/upper arm tenderness of the A-C joint, over the subacromial bursa and other (anterolateral acromion, joint), axillary nerve sensory function normal, abnormal ROM (Active FF 100, ABd 90, ER 40, IR L4) pain with active ROM in ABduction, in flexion and in internal rotation and pain with passive ROM with internal rotation and external rotation- and other (RC 4/5, Bicep 4/5, Deltoid 5-/5, ER 4/5), elbow/forearm normal ROM; no tenderness and no swelling, wrist normal ROM and radial pulse present; no tenderness and Extremity exam: right hand neuromotor exam normal wrist extension normal, thumb opposition normal, thumb IP flexion normal and fingers 2-5 ABduction normal, neurosensory exam normal radial nerve sensory function normal, ulnar nerve sensory function normal, median nerve sensory function normal and digital nerve sensory function normal and vascular exam radial pulse present and normal capillary refill; no tenderness, no swelling and no crepitus Left upper extremity: normal to inspection and shoulder/upper arm normal ROM (FF 130, Abd 125, ER 70, IR T7); no tenderness, no swelling, no ecchymosis and no crepitus Right lower extremity: normal to inspection Left lower extremity: normal to inspection Psych: Affect: normal affect Results Labs 11/19/24 06:45 11/19/24 06:45 Labs: Abnormal lab results 11/19/24 Range/Units 06:45 RBC 3.77 L (4.6-6.20) M/mm3 Hgb 11.6 L (14.0-18.0) g/dL Hct 36.0 L (42.0-52.0) % Potassium 3.1 L (3.4-5.0) mmol/L Creatinine 0.66 L (0.7-1.3) mg/dL H & H 11/17/24 11/19/24 Range/Units 16:46 06:45 Hgb 12.2 L 11.6 L (14.0-18.0) g/dL Hct 36.4 L 36.0 L (42.0-52.0) % All other labs normal. Results of Diagnostic Exam (Interpreted Today) Order: 11/18/24 XR shoulder RT min 2V Stat XR shoulder RT min 2V Stat Interpretation: Dislocation of right total shoulder arthroplasty. Post reduction films show good reduction. There is a questionable abnormality of the lateral cortex of the proximal humerus which appears to be chronic and not actual fracture.
[2024-11-19] MEDS: POTASSIUM CHLORIDE INJ 40 MEQ in SODIUM CHLORIDE 0.9% IV 500 ML 130 MEQ IVPB (14:19)
[2024-11-20] MEDS: THIAMINE 500 MG/NS 100 ML 500 MG/100 ML BAG 200 MG IVPB ×2 (05:38→13:53)
[2024-11-20 06:00] VITALS: BP 137/91; PULSE 90; RESP 16; TEMP 36.3; O2SAT 99
[2024-11-20 06:28] LABS: Basophils Percent Auto 0.4 % (0.2-1.2); Eosinophils Absolute Auto 0.2 K/mm3 (0-0.3); Eosinophils Percent Auto 2.6 % (0-4.4); Hematocrit 32.8 % (42.0-52.0); Hemoglobin 10.7 g/dL (14.0-18.0); Immature Granulocyte Absolute 0.01 K/mm3 (0.00-0.031); Immature Granulocyte Percent A 0.1 % (0-0.5); Mean Corpuscular HGB Conc 32.6 g/dl (32-36); Mean Corpuscular Hemoglobin 30.8 pg (26-34); Mean Corpuscular Volume 94.5 fl (80-100); Mean Platelet Volume 9.8 fl (7.4-10.4); Monocytes Absolute Auto 0.7 K/mm3 (0.1-0.6); Monocytes Percent Auto 9.7 % (2.6-8.5); Neutrophils Absolute Auto 4.2 K/mm3 (1.3-6.7); Neutrophils Percent Auto 58.2 % (45.5-73.1); Platelet Count Result 269 k/mm3 (150-375); Red Blood Count 3.47 M/mm3 (4.6-6.20); Red Cell Distribution Width 12.5 % (11.5-14.5); White Blood Count 7.2 K/mm3 (4.5-10.0)
[2024-11-20 06:38] LABS: Alanine Aminotransferase 15 U/L (6-50); Albumin Level 3.4 g/dL (3.5-5.1); Alkaline Phosphatase 81 U/L (38-126); Anion Gap 12 mmol/L (4-12); Aspartate Amino Transferase 36 U/L (17-59); Bilirubin,Total 0.6 mg/dL (0.2-1.3); Blood Urea Nitrogen 11 mg/dL (9-20); Calcium 8.3 mg/dL (8.4-10.2); Carbon Dioxide 20 mmol/L (22-30); Chloride 105 mmol/L (98-107); Estimated Glomerular Filt Rate > 60; Glucose 112 mg/dL (65-110); Magnesium 1.6 mg/dL (1.6-2.3); Potassium 3.4 mmol/L (3.4-5.0); Sodium 137 mmol/L (137-145)
[2024-11-20 08:00] VITALS: PULSE 92
[2024-11-20] MEDS: levETIRAcetam Tablet 250 MG, levETIRAcetam Tablet 500 MG 750 MG PO (08:07)
[2024-11-20 12:00] VITALS: PULSE 98
--- NOTE | 2024-11-20 12:14 | WPDNEUROLOGY ---
Neurology EEG Report General Information Date of Study: 11/19/24 TEST Eeg DIAGNOSIS seizures CONDITION OF RECORDING awake, drowsy and asleep. EEG NUMBER [id number] CLINICAL HISTORY Patient states he is here because he had another seizure. Had 1 about a month ago and had a normal EEG at that particular time. EEG DESCRIPTION Background rhythm consists of low voltage 8 to 9 hertz per 2nd alpha posteriorly admixed with low-voltage 6 to 7 hertz per 2nd theta activity intermittently. Bilateral symmetrical sleep activity is noted with admixture of alpha beta and theta activity initially and then evolving into bilateral symmetrical sleep spindles. Photic stimulation not done. Hyperventilation not done. Non paroxysmal. Nonfocal. Nonlateralizing. IMPRESSION Normal record the history of clinical seizures. EEG can be normal given the patient has had the seizures the clinical correlation recommended ,there is no evidence of any focal abnormal activity.
--- NOTE | 2024-11-20 12:44 | P.CONNEU_ITS ---
Assessment and Plan Assessment and plan (1) Closed dislocation of right shoulder: Qualifiers: Encounter type: initial encounter Qualified Code(s): S43.004A - Unspecified dislocation of right shoulder joint, initial encounter Code(s): S43.004A - Unspecified dislocation of right shoulder joint, initial encounter Status: Acute (2) Status post reverse arthroplasty of right shoulder: Code(s): Z96.611 - Presence of right artificial shoulder joint Status: Acute (3) Seizure: Code(s): R56.9 - Unspecified convulsions Status: Acute (4) Seizure: Code(s): R56.9 - Unspecified convulsions Status: Acute Plan 1. Seizure disorder with history of being noncompliant obviously needs to be started on the anticonvulsant that is Keppra with strong instruction for the follow-up 2. Carpal tunnel syndrome versus ulnar neuropathy with obvious wasting of the small muscles of the hand. 3. Noncompliance with the anticonvulsants 4. History of reverse arthroplasty of her right shoulder with subsequent right shoulder dislocation during this hospitalization requiring immobilization. Consult date: 11/20/24 HPI: Adán Wall is a 84 year old male has been admitted to the hospital through the emergency room for the chief complaint of seizure and also with the history the patient is known to have seizure disorder but unfortunately is a noncompliant patient in addition to the history of alcohol abuse. His medication at the time of admission to the ER included naproxen 500mg p.r.n., documented to be not allergic to any medication, and he has ongoing history of 1. Seizure disorder 2. Coronary artery disease with hyperlipidemia and hypertension and aortic stenosis of severe degree 3. History of left shoulder, left knee surgery and also history of coronary artery bypass grafting in July 2020 an aortic valve replacement with bioprosthetic valve in July of 2020, history of smoking packs per day 1 years smoked 15 but at present he is former smoker but history of drinking 7 drinks per week. Initial exam in the emergency room he was notedly postictal with grossly no focal neurological deficit. He was notedly very sleepy in the emergency room with difficulties in contacting with the family he was notedly unsteady when they tried to ambulate he was loaded with Keppra, his vital signs were with pulse rate of 154 respiration 22, initial CBC was normal so as the BMP and master scan except a glucose of [address] scan of the head was negative for the large intracranial bleed. Patient is being maintained on thiamine 500mg IV piggyback q.8 hours, levetiracetam 750mg q.[address] scan of the head was negative for the bleed the ventricles were somewhat dilated with prominent sulci. orthopedic consultation was also obtained in the ER for the dislocation right shoulder joint which has undergone arthroplasty about 4 years ago there was no fracture and sling immobilization was carried with follow-up therapy and follow-up with the ortho surgeon. EEG has already been obtained which is normal. Review of Systems 2 Review of Systems: All systems reviewed & are unremarkable except as noted in HPI and below PMFSH Past Medical History Medical History Closed dislocation of right shoulder Dislocation, shoulder, posterior Seizure disorder Arthritis Gastroesophageal reflux disease Coronary artery disease Hyperlipidemia Hypertension Aortic stenosis Subclinical hypothyroidism Aortic stenosis, severe Essential hypertension Surgical History Surgical History Status post reverse arthroplasty of right shoulder History of arthroplasty of left knee History of arthroplasty of left shoulder History of coronary artery bypass graft x 1 (07/2020) At [facility]. History of aortic valve replacement with bioprosthetic valve (07/2020) At [facility]. History of incisional hernia repair (03/2021) Epigastric incisional hernia with mesh. S/P aortic valve replacement Family History Family History Other Family history unknown Social History Social History Social History: Surrogate medical decision maker: Kalyani Haley, daughter. Code status: Full code. Smoking packs per day: 1 Smoking cigarettes per day: 20.0 Years smoked: 15 Smoking pack-years: 15.00 Smoking status: Former smoker Smokeless tobacco user: chewing tobacco Second hand tobacco smoke exposure: No Alcohol intake: former Drinks per week: 7 Alcohol use details: BEER Substance use: never Do You Feel Safe in your Home?: Yes Lack of Transportation: No Lack of Food: Never True Current Housing: Decline to Answer Concerned About Future Housing: Decline to Answer Difficulty Paying Gas/Electric Bills: Decline to Answer Difficulty Paying for Meds: Decline to Answer Currently Unemployed: Decline to Answer Education: Decline to Answer Difficulty w/ Childcare or Family Care: Decline to Answer Living arrangements: with family Occupation/Education: retired Additional occupation/education comments: [employer] Gender identity (if verbalized by the patient): Male Sexual Orientation (if Verbalized by the Patient): Straight or Heterosexual Spiritual care concerns: No Agree to blood products: No Meds Home Medications and Allergies Home Medications ?Medication ?Instructions ?Recorded ?Confirmed ?Type amlodipine 10 mg tablet 10 mg PO DAILY #90 tabs 03/03/24 11/18/24 Rx naproxen 500 mg tablet 500 mg PO PRN PRN Pain 08/19/24 11/18/24 History mupirocin 2 % topical ointment 1 applic topical BID #15 grams 08/23/24 11/18/24 Rx hydrocodone 7.5 mg-acetaminophen 1 tablet PO Q4H PRN pain #40 tabs 09/02/24 11/18/24 Rx 325 mg tablet cholecalciferol (vitamin D3) 25 25 mcg PO DAILY #30 tabs 09/06/24 11/18/24 Rx mcg (1,000 unit) tablet (Vitamin D3) metoprolol tartrate 50 mg tablet See Rx Instructions .Route 09/13/24 11/18/24 Rx .COMPLEX #90 tabs Allergies Allergy/AdvReac Type Severity Reaction Status Date / Time No Known Allergies Allergy Verified 10/14/24 07:14 Vital Signs Vital Signs - 24 hr 11/19/24 14:00 11/19/24 16:00 11/19/24 20:00 Temperature 36.3 C L Pulse Rate 86 87 87 Respiratory Rate 20 18 Blood Pressure 118/70 Pulse Oximetry 98 98 Oxygen Delivery Room Air 11/19/24 20:00 11/19/24 22:00 11/20/24 06:00 Temperature 36.0 C L 36.3 C L Pulse Rate 82 87 90 Respiratory Rate 18 16 Blood Pressure 136/75 137/91 H Pulse Oximetry 98 99 Oxygen Delivery 11/20/24 08:00 11/20/24 08:00 11/20/24 08:10 Temperature Pulse Rate 92 Respiratory Rate Blood Pressure Pulse Oximetry Oxygen Delivery Room Air Room Air 11/20/24 08:10 Temperature Pulse Rate Respiratory Rate Blood Pressure Pulse Oximetry Oxygen Delivery Room Air Exam 2 Narrative: Exam revealed him to be awake alert comfortable. Head normocephalic with no bruit. Ear nose throat examination normal. Neck supple with no meningeal signs. Regular with no murmur. Lungs clear to auscultation with no rhonchi or crepitation. Abdomen is soft nontender normal bowel sounds. Neurologically he is awake alert cooperative, speech not dysphasic not dysarthric, cranial examination is normal, motor examination revealed him to have small muscle wasting particularly of the hand raising the possibility of the neuropathy versus carpal tunnel syndrome reflexes symmetrical and plantars are downgoing. Results Labs 11/20/24 05:49 11/20/24 05:49 Labs: Short CBC 11/20/24 Range/Units 05:49 WBC 7.2 (4.5-10.0) K/mm3 Hgb 10.7 L (14.0-18.0) g/dL Hct 32.8 L (42.0-52.0) % Plt Count 269 (150-375) k/mm3 BMP 11/20/24 05:49 Sodium 137 Potassium 3.4 Chloride 105 Carbon Dioxide 20 L BUN 11 Creatinine 0.67 L Glucose 112 H Calcium 8.3 L Liver Function 11/20/24 Range/Units 05:49 Total Bilirubin 0.6 (0.2-1.3) mg/dL AST 36 (17-59) U/L ALT 15 (6-50) U/L Alkaline Phosphatase 81 (38-126) U/L Albumin 3.4 L (3.5-5.1) g/dL
--- NOTE | 2024-11-20 14:34 | PM.DS ---
DS: Admitting Diagnosis Discharge Date 11/20/24 Admitting Diagnosis Seizure DS: Discharge Diagnosis Discharge Diagnosis (1) Seizure: Code(s): R56.9 - Unspecified convulsions Status: Acute (2) Closed dislocation of right shoulder: Qualifiers: Encounter type: initial encounter Qualified Code(s): S43.004A - Unspecified dislocation of right shoulder joint, initial encounter Code(s): S43.004A - Unspecified dislocation of right shoulder joint, initial encounter Status: Acute DS: Summary Hospital Course Hospital Course: 84 yo male with PMH hypertension, hyperlipidemia, coronary artery disease status post bypass, bioprosthetic porcine aortic valve replacement, and gastroesophageal reflux disease, seizure disorder history on account of seizure episode. Patient at bedside this morning did note he remember what brought him to the hospital. However it deny any chest pain shortness are a fever and dysuria no focal weakness prior to presentation. Discussed with ER provider I was located patient is likely noncompliant with his anti seizure medication. Patient did say he takes his antihypertensive medication but continues to deny that he has a history of seizure. Patient wanted to have another seizure episode while in the ER was given Keppra loading prior to admission. ER evaluation notable for vital signs pressure 100/59, pulse rate 83, respiratory rate 19, satting 98% on room air. Labs grossly unremarkable. Chest x-ray showed right-sided posterior shoulder dislocation, x-ray right shoulder showed a dislocated total right shoulder arthroplasty. CT head no acute changes. Patient noted he has not drank since August when he was first diagnosed of seizure. Chart reviewed showed he was discharged on Keppra 1000mg bid, and did not fill his refills since the first one run out. Patient likely has not been on antiseizure meds for more than a month. Thus explains why he presented with seizure and had another episodes in the ER. Patient was placed on Keppra since admission and had no more seizures and he was discharged on the same dose last admission discussed with him the need to adhere to his meds and refills and also follow up with neuro follow up. Patient stated unequivocally he will adhere and follow up with appointment ORtho was consulted and right shoulder arthroplasty dislocation was reduced and eh will follow up with ortho outpatient. Discharged on PRN norco. F/u with PCP in 3-5 days F/u with ortho as instructed adn neuro in 1-2 weeks. Discharged home Time Spent with Patient Time attestation: Total time spent providing and/or coordinating discharge services: DS: Data Data Completed and Pending Labs on day of discharge: Labs from last 24 hours 11/20/24 05:49 WBC 7.2 RBC 3.47 L Hgb 10.7 L Hct 32.8 L MCV 94.5 MCH 30.8 MCHC 32.6 RDW 12.5 Plt Count 269 MPV 9.8 Immature Gran % (Auto) 0.1 Neut % (Auto) 58.2 Lymph % (Auto) 29.0 [place] % (Auto) 9.7 H Eos % (Auto) 2.6 Baso % (Auto) 0.4 Lymph # (Auto) 2.10 [place] # (Auto) 0.7 H Eos # (Auto) 0.2 Baso # (Auto) 0.0 Abs Immat Gran (auto) 0.01 Absolute Neuts (auto) 4.2 Absolute Nucleated RBC 0.000 Nucleated RBC % 0.0 Sodium 137 Potassium 3.4 Chloride 105 Carbon Dioxide 20 L Anion Gap 12 BUN 11 Creatinine 0.67 L Estim Creat Clear Calc Not Reportable Estimated GFR > 60 Glucose 112 H Calcium 8.3 L Magnesium 1.6 Total Bilirubin 0.6 AST 36 ALT 15 Alkaline Phosphatase 81 Total Protein 7.0 Albumin 3.4 L Discharge Plan Discharge Attending physician on discharge: Zuly Arias Consulting providers: Russel Wesley; Gwyn Farmer Discharging Clinician: Zuly Arias Anticipated Discharge Date/Time: 11/20/24 14:28 Patient Disposition: Home, Self-Care Activity: as tolerated Diet: as tolerated Patient Instructions: Antibiotic Form Patient Language: [place] Islander Stand Alone Forms: General Discharge Information Follow-up/Referrals: Russel Wesley MD [Physician] - (F/u with orthopedic surgery as instructed ) Gwyn Farmer MD [Physician] - (F/u with neurology in 1-2 weeks ) UNKNOWN,DOCTOR [Primary Care Provider] - (F/u with PCP in 3-5 days ) Discharge Medications: New oxycodone-acetaminophen 2.5-325 mg tablet 1 tablet PO Q4-6H PRN (Reason: pain) Qty: 12 0RF levetiracetam [Keppra] 1,000 mg tablet 1,000 mg PO BID 30 Days Qty: 60 2RF Continued amlodipine 10 mg tablet 10 mg PO DAILY Qty: 90 1RF naproxen 500 mg tablet 500 mg PO PRN PRN (Reason: Pain) cholecalciferol (vitamin D3) [Vitamin D3] 25 mcg (1,000 unit) Tablet 25 mcg PO DAILY Qty: 30 0RF mupirocin 2 % ointment 1 applic topical BID Qty: 15 0RF Rx Instructions: Apply to each nostril metoprolol tartrate 50 mg tablet See Rx Instructions .ROUTE .COMPLEX Qty: 90 1RF Dose Instruction: TAKE 1 TABLET BY MOUTH TWICE DAILY Rx Instructions: TAKE 1 TABLET BY MOUTH TWICE DAILY Discontinued hydrocodone-acetaminophen 7.5-325 mg tablet 1 tablet PO Q4H PRN (Reason: pain) Qty: 40 0RF Date of admission: 11/18/24 05:22 Primary Care Provider: UNKNOWN,DOCTOR Admitting Provider: Marcelina Bender Attending physician on admission: Marcelina Bender Condition: Stable
== END 2024-11-20 14:50 | disposition home or self-care (01) ==
LOC: ANHED 11-18 05:41 → ANH3MEDSUR 11-18 06:55
PROVIDERS: Emergency Medicine; Admitting Provider Internal Medicine; Emergency Provider Student in an Organized Health Care Education/Training Program; Visit Provider Internal Medicine
DX: G40.909 Epilepsy, unspecified, not intractable, without status epilepticus (principal); Z91.148 Patient's other noncompliance with medication regimen for other reason; F10.10 Alcohol abuse, uncomplicated; T84.028A Dislocation of other internal joint prosthesis, initial encounter; Z96.611 Presence of right artificial shoulder joint; F17.220 Nicotine dependence, chewing tobacco, uncomplicated; I25.10 Atherosclerotic heart disease of native coronary artery without angina pectoris; K21.9 Gastro-esophageal reflux disease without esophagitis; E78.5 Hyperlipidemia, unspecified; I10 Essential (primary) hypertension; E03.8 Other specified hypothyroidism; Z79.899 Other long term (current) drug therapy; Z95.1 Presence of aortocoronary bypass graft; Z95.3 Presence of xenogenic heart valve; Z96.612 Presence of left artificial shoulder joint; Z96.652 Presence of left artificial knee joint
CPT/HCPCS: 23605; 36415; 70450; 71045; 73030; 80053; 82077; 83735; 85025; 93005; 95816; 96361; 96365; 96366; 96367; 96375; 97161; 97165; 99285; A4565; A9270; G0378; J1885; J1953; J2060; J2405; J2704; J3010; J3411; J3480; J7030; J7040

== ENCOUNTER 2025-01-18 04:45 | Inpatient (IN) | payer MEDICARE, SELFPAY ==
[2025-01-18] VITALS (30 sets, daily range): BP systolic 78–133; BP diastolic 46–88; PULSE 59–144; RESP 10–27; TEMP 36.4–36.9; O2SAT 94–100; BMI 20.5
--- NOTE | ~2025-01-18 | CT_ITS ---
EXAMINATION: CT brain wo con DATE: 01/18/2025 13:04 INDICATION: Seizure TECHNIQUE: Computed tomography (CT) of the head was performed without intravenous contrast. Sagittal and coronal reconstructions were performed. The mA was adjusted according to patient size. Iterative reconstruction technique was employed. The dose-length product was 681.00 mGy-cm. COMPARISON: head CT dated 11/17/24 FINDINGS: No acute intracranial hemorrhage, acute infarction or abnormal extra axial fluid collection. There is mild scattered white matter hypoattenuation consistent with chronic small vessel ischemic disease. S ymmetric prominence of the sulci consistent with mild to moderate age-appropriate diffuse cerebral vo lume loss. Ventricles are normal and symmetric. No mass/mass effect. Changes of bilateral intraocular lens replacement. The orbits and mastoid air cells are normal. Mild mucoperiosteal thickening the bi lateral ethmoid sinuses. IMPRESSION: 1. Age-related changes including mild to moderate diffuse volume loss and mild scattered white matter hypoattenuation consistent with chronic small vessel ischemic disease. No acute intracranial process . Reviewed, dictated and finalized at location B. IMPRESSION: 1. Age-related changes including mild to moderate diffuse volume loss and mild scattered white matter hypoattenuation consistent with chronic small vessel isc hemic disease. No acute intracranial process.
--- NOTE | ~2025-01-18 | XR_ITS ---
XR shoulder RT min 2V Ordering provider: Kristan Garcia MD History: . post reduction . Comparison: January 18, 2025 FINDINGS: BONES: No acute fracture or dislocation. Status post reduction of the right shoulder arthroplasty. JOINT SPACES: The acromioclavicular joint shows osteoarthritic changes.. SOFT TISSUES: Normal. IMPRESSION: No acute osseous abnormality right shoulder. Right shoulder arthroplasty. Status post reduction. Reviewed, dictated and finalized at location A.
--- NOTE | ~2025-01-18 | MR_ITS ---
EXAMINATION: MR brain/brain stem wo/w con DATE: 01/20/2025 16:19 INDICATION: Seizure TECHNIQUE: Magnetic resonance imaging (MRI) of the brain and brainstem was performed without and with 13 mL ProHance intravenous contrast. Sequences included sagittal and axial T1-weighted SE, axial dif fusion-weighted FS SE, axial T2*-weighted GRE, axial T2-weighted FLAIR, and axial T2-weighted FSE. Po stcontrast axial and coronal T1-weighted SE was obtained. Apparent diffusion coefficient (ADC) maps w ere created. 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 There are no areas of restricted diffusion to suggest acute infarction. No intracranial hemorrhage or abnormal intracran ial mass lesion. There are scattered areas of nonspecific increased T2-weighted signal intensity in t he cerebral white matter, predominantly involving the deep and periventricular white matter which is within normal limits for age. There are no intraparenchymal signal abnormalities seen on the other pu lse sequences. Symmetric prominence of the sulci consistent with mild to moderate age-appropriate dif fuse cerebral volume loss. The ventricles are symmetric and normal in size. There are no abnormal ex tra-axial fluid collections. Flow voids are seen in the cerebral arteries on the T2-weighted sequence s consistent with their expected patency. Mild mucosal thickening in the paranasal sinuses. Changes o f bilateral intraocular lens replacement. Visualized orbits and soft tissues are unremarkable. There are no areas of abnormal enhancement on the post contrast images. IMPRESSION: 1. 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 No acute intracranial process. 2. Age-related changes including mild to moderate diffuse volume loss and mild scattered periventricu lar predominant white matter T2 hyperintensity consistent with chronic small vessel ischemic disease. Reviewed, dictated and finalized at location B. IMPRESSION: 1. 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 No acute intracranial process. 2. Age-related changes including mild to moderate diffuse volume loss and mild scattered periventricular predominant white matter T2 hyperintensity consistent with chronic small vessel ischemic disease.
--- NOTE | ~2025-01-18 | XR_ITS ---
Right Shoulder Technique: AP and scapular Y views were obtained. Clinical History: Seizure, pain Findings: No fracture or dislocation is seen. Osseous alignment is anatomic. The glenohumeral and acr omioclavicular joint spaces are preserved. Right shoulder arthritis is present. There is apparent sup erior dislocation of the femoral cup component relative to the glenoid component. There is mild AC dread int degenerative change. No acute fracture evident. Soft tissues are unremarkable. Impression: Apparent superior dislocation of right glenohumeral arthroplasty. Reviewed, dictated and finalized at location M. Impression: Apparent superior dislocation of right glenohumeral arthroplasty.
[2025-01-18] MEDS: MIDAZOLAM HCL (*CRX) 2 MG/2 ML VIAL 4 MG IM (04:50)
--- NOTE | 2025-01-18 04:57 | ECG_ITS ---
Test Date: 2025-01-18 05:02:37 Measurements Intervals [place] Rate: 123 P: 0 [place]: 0 QRS: 53 QRSD: 102 T: 241 QT: 304 QTc: 436 Interpretive Statements ATRIAL FIBRILLATION WITH RAPID VENTRICULAR RESPONSE ST DEVIATION AND MODERATE T-WAVE ABNORMALITY, CONSIDER LATERAL ISCHEMIA ST DEVIATION AND MODERATE T-WAVE ABNORMALITY, CONSIDER INFERIOR ISCHEMIA ABNORMAL ECG Compared to ECG 11/17/2024 17:05:00 Sinus tachycardia no longer present Possible ischemia still present Electronically Signed On 01-18-2025 06:29:07 CDT by Steve Tinsley D.O.
[2025-01-18 05:03] LABS: Hematocrit 40.5 % (42.0-52.0); Hemoglobin 13.1 g/dL (14.0-18.0); Mean Corpuscular HGB Conc 32.3 g/dl (32-36); Mean Corpuscular Hemoglobin 30.1 pg (26-34); Mean Corpuscular Volume 93.1 fl (80-100); Platelet Count Result 277 k/mm3 (150-375); Red Blood Count 4.35 M/mm3 (4.6-6.20); White Blood Count 18.7 K/mm3 (4.5-10.0)
[2025-01-18] MEDS: METOPROLOL TARTRATE INJ 5 MG/5 ML VIAL IV PUSH (05:05)
--- OUTSIDE RECORDS SUMMARY | 2025-01-18 05:12 | XMS_ITS | Clinical Summary ---
Author Organization [facility] Address [address] [place] [address] Care Team Providers Care Roller Mechanic Name Role Phone Ronnie Kinney MD Primary Care Provider [phone] Source Comments [facility],non-owned Affiliates and Associated Physician Practices is amultiple site organization consisting of ambulatory clinics and hospital sitesin [place], [place], [place] and [place]. This disclosure is being madepursuant to the Care Everywhere program and may not contain all information available regarding this patient. Last updated 18.[facility] Allergies No known active allergies Medications * Be aware that medications may not be up to date on this document. Alwaysverify current medications with the patient. Medication Sig Dispensed Refills Start Date End Date Status aspirin (ASPIRIN) 81 MG chew tablet Take 2 tablets by mouth once daily 08/01/2020 Active atorvastatin (LIPITOR) 40 MG tablet Take 1 tablet by mouth at bedtime 30 tablet 3 08/01/2020 Active lisinopril (PRINIVIL; ZESTRIL) 40 MG tablet Take 1 tablet by mouth once daily 08/30/2020 Active metoprolol tartrate (LOPRESSOR) 50 MG tablet Take 1 tablet by mouth 2 times daily 08/30/2020 Active amLODIPine (NORVASC) 10 MG tabletIndications:Hy pertension Take 1 (one) tablet by mouth once daily Reasons: High Blood Pressure Disorder 30 tablet 3 01/11/2021 Active furosemide (Lasix) 20 MG tablet TAKE 1 TABLET BY MOUTH EVERY DAY 90 tablet 4 02/28/2023 Active Active Problems Problem Noted Date Diagnosed Date Pre-op evaluation 05/23/2022 Assessment & Plan (05/23/2022 2:58 PM CDT): This individual is at low risk for cardiovascular event during the low risk surgery. The revised cardiovascular risk index is <2 and is associated with a <7 percent risk of major cardiovascular events. He has the following risk factor: history of ischemic heart disease. He does have the ability to perform > 4 MET levels of activity and has no active cardiac conditions. He may proceed with surgery with no additional cardiac testing or procedures. Paroxysmal atrial fibrillation 07/31/2020 Essential hypertension 07/31/2020 Assessment & Plan (05/23/2022 10:39 AM CDT): Good control today. Continue amlodipine, metoprolol, and lisinopril. Chronic systolic congestive heart failure 2019 Coronary artery disease of n ative heart with stable angina pectoris 07/24/2020 Assessment & Plan (05/23/2022 11:48 AM CDT): S/P CABG x 1 in 2020. Stable and asymptomatic today. Continue atorvastatin, metoprolol, and lisinopril. S/P CABG x 1 07/24/2020 Overview (07/24/2020): SVG to PDA S/P AVR (aortic valve replacement) 07/24/2020 Overview (07/24/2020): Serna II Porcine Valve, size 25mm Resolved Problems Problem Noted Date Diagnosed Date Resolved Date Other pneumothorax 07/31/2020 0 Hyponatremia 07/31/2020 08/01/2020 Immunizations Name Administration Dates Next Due Covid Moderna primary monova lent 12+ yr 0.5mL 08/07/2021 INFLUENZA VACCINE, HIGH-DOSE , QUADR. (FLUZONE HIGH-DOSE QUADRIVALENT; 65Y+), 0.7 ML (HD-IIV4) 08/01/2020(Deferred: Patient Refused) Family History Medical History Relation Name Comments None Known Mother 82 years old-sm oker Relation Name Status Comments Father unknown Maternal Grandfather Maternal Grandmother Mother Paternal Grandfather Paternal Grandmother Sister Social History Tobacco Use Types Packs/Day Years Used Date Smoking Tobacco: Former Cigarettes Q uit: 10/13/1967 Smokeless Tobacco: Current Chew Alcohol Use Standard Drinks/Week Comments Yes 7 (1 standard drink = 0.6 oz pur e alcohol) Sex and Gender Information Value Date Recorded Sex Assigned at Not on file Gender Identity Not on file Sexual Orientation Not on file Last Filed Vital Signs Vital Sign Reading Time Taken Comments Blood Pressure 138/80 05/23/2022 10:27 AM CDT Pulse 71 05/23/2022 10:27 AM CDT Temperature 36.4 C (97.5 F) 01/16/2021 4:30 PM CDT Respiratory Rate 20 01/11/2021 12:36 PM CDT Oxygen Saturation 95% 05/23/2022 10:27 AM CDT Inhaled Oxygen Concentration 21% 07/28/2020 9 :00 PM CDT Weight 83 kg (183 lb) 05/23/2022 10:27 AM CDT Height 180.3 cm (5' 11 ) 05/23/2022 10:27 AM CDT Body Mass Index 25.52 05/23/2022 10:27 AM CDT Plan of Treatment Health Maintenance Due Date Last Done Comments DTAP/TDAP/TD VACCINES (1 - Tdap) 1957 PNEUMOCOCCAL VACCINE 50+ (1 of 2 - PCV) 1957 ZOSTER VACCINE (1 of 2) 1988 Respiratory Syncytial Virus (RSV) Vaccine Pt: or over 60 yrs (1 - 1-dose 75+ series) 2013 COVID-19 VACCINE (3 - 2023-2 5 season) 2024 08/07/2021, 01/22/2021 INFLUENZA VACCINE (#1) 2024 DEPRESSION SCREENING 10/13/2024 MEDICARE AWV CALENDAR YEAR 2024 HEPATITIS B VACCINE Aged Out No longe r eligible based on patient's age to complete this topic HIB VACCINE Aged Out No longer eligi ble based on patient's age to complete this topic HPV VACCINE Aged Out No longer eligi ble based on patient's age to complete this topic MENINGOCOCCAL (Group B) VACCINE SHARED DECISION-MAKING Aged Out No longer eligible based on patient's age to complete this topic MENINGOCOCCAL GROUPS A/C/Y/W VACCINE Aged Out No longer eligible b ased on patient's age to complete this topic Medical Devices Implanted Type Area Chemical Process Project Engineer Device Identifier Shelf Expiration Date Model / Serial / Lot Vlv Aor [facility] Ii 25 - [id number] Implanted:Qty: 1 on 07/24/2020 by Gabriele Underwood MD at [facility] N/A: Heart [employer] 03/01/2022 [id number] / [id number] / Kit Tissue Clsr Duo Tssl 4ml Lf - [id number] Implanted:Qty: 1 on 07/24/2020 by Gabriele Underwood MD at [facility] N/A: Heart [employer] 12/10/2020 [id number] / [id number] / [id number] Patch Repair Anabella-Gurd 8.0cm X 14cm Implanted:Qty: 1 on 07/24/2020 by Gabriele Underwood MD at [facility] N/A: Heart [employer] 05/05/2024 [id number] / / [id number] Description:[facility] #[id number] Advance Directives * Full Code (Latest Code Status on File) Date Activated Date Inactivated Comments 07/24/2020 2:24 PM 08/01/2020 1:18 PM Care Teams Roller Mechanic Relationship Specialty Start Date End Date Ronnie Kinney MD [address] [place] [id number] PCP - General 07/19/20
--- OUTSIDE RECORDS SUMMARY | 2025-01-18 05:12 | XMS_ITS | Continuity of Care Document ---
Author Organization [facility] Address [address] [place] [phone] Phone Care Team Providers Care Audio Technician Name Role Phone Erik Jamil MD Unavailable [...] Diagnoses Date Provider Providers Copied on Encounter [facility], [address] [place] [address], [id number] , tel:+ [phone] Main Office No Information 7 Omero Valencia. [address] [place] [address], [id number] , [place]. tel:[phone] OFFICE/OUTPA TIENT VISIT, [facility] [employer] [facility], [address] [place] [address], [id number] , tel:+ [phone] [place] [facility] Consultation (chief complaint) Essential (primary) hypertensionCardia c murmur, unspecifiedOther specified symptoms and signs involving the circulatory and respiratory systems Omero Valencia. [address] [place] [address], [id number] , [place]. tel:[phone] Referring Provider: Stanislaw De Anda, [facility], [address]. tel:[phone] Family History Family Member Type Diagnosis Age At Onset No Information Payers Payer name Insurance type Covered republican ID Authoriza tion(s) [place] Medicare Part B Cl aims Primary MB [id number] Social History Type Description Quantity Date Captured [...] 2D image, spectral Doppler, color flow image ([id number]), Appointment on: , Collected on: , Sent on: Sent Future Order: Radiology Order Du plex scan of extracranial arteries; complete bilateral study ([id number]), Appointment on: , Collected on: , Sent [...]
--- OUTSIDE RECORDS SUMMARY | 2025-01-18 05:12 | XMS_ITS | Encounter Summary ---
Author Organization [facility] Address [address] [place] [address] Care Team Providers Care Flight Kitchen Manager Name Role Phone Ronnie Kinney MD Primary Care Provider [phone] Encounter Details Date Type Department Care Team (Late st Contact Info) Description 03/03/2023 Telephone [facility] - Centralized Scheduling [address] [place] [phone] Herminia Sanches, HEAD SETTER-QUICK MIXER OPERATOR [address] [address] Social History Tobacco Use Types Packs/Day Years Used Date Smoking Tobacco: Former Cigarettes Q uit: 10/13/1967 Smokeless Tobacco: Current Chew Alcohol Use Standard Drinks/Week Comments Yes 7 (1 standard drink = 0.6 oz pur e alcohol) Sex and Gender Information Value Date Recorded Sex Assigned at Not on file Gender Identity Not on file Sexual Orientation Not on file documented as of this encounter Functional Status Functional Status Response Date of Assess ment Is person deaf or have serious hearing difficult y? No 07/25/2020 Is person blind or have serious difficulty seein g? No 07/25/2020 Does person have serious dif ficulty walking/climbing stairs? Yes 07/25/2020 Does person have difficulty dressing/bathing? No 07/25/2020 Does person have difficulty doing errands alone? No 07/25/2020 Cognitive Status Response Date of Assessm ent Does person have difficulty concentrating/remembering/making decisions? No 07/25/2020 documented as of this encounter Plan of Treatment Not on file documented as of this encounter Visit Diagnoses Not on filedocumented in this encounter Care Teams Flight Kitchen Manager Relationship Specialty Start Date End Date Ronnie Kinney MD [address] [place] [phone] PCP - General 07/19/20 documented as of this encounter
--- OUTSIDE RECORDS SUMMARY | 2025-01-18 05:12 | XMS_ITS | Continuity of Care Document ---
Author Organization [facility] Address [address] [place] [phone] Phone Care Team Providers Care Refinery Operator Name Role Phone Unavailable Unavailable Unavailable Advance Directives Directive Yes / No Effective Date File Name No Information Encounters Encounter Description Practice Location Reason(s) For Visit Diagnoses Date Provider Providers Copied on Encounter [facility], [address] [place] [address], [id number], [place] tel:[phone] [facility] No Information 0 2 No Information Family [...]
--- OUTSIDE RECORDS SUMMARY | 2025-01-18 05:12 | XMS_ITS | CONTINUITY OF CARE DOCUMENT ---
Author Name jose garcia Address Unknown Organization [facility] Address [address] [place] [address] [address], [place] [address] Phone [phone] Care Team Providers Care Net Finisher Name Role Phone Lopez Suárez MD Unavailable Lopez Suárez MD Unavailable [phone] INSURANCE PROVIDERS Payer name Policy type / Coverage type [place] red green party ID [facility] [employer] [facility] [id number]
[2025-01-18] MEDS: levETIRAcetam 1500MG/NACL100ML 1,500 MG/100 ML BAG 400 MG IVPB (05:15)
[2025-01-18 05:24] LABS: Band Neutrophils Percent 3 % (0-6); Lymphocytes Absolute Manual 6.35 K/mm3 (1.1-4.5); Monocytes Percent Manual 7 % (3-9); Neutrophils Absolute Manual 11.03 K/mm3 (1.3-6.7); Neutrophils Percent Manual 56 % (46-73); Total Cells Counted 100
[2025-01-18 05:25] LABS: Platelet Estimate Adequate (Adequate); Schistocytes None Seen
--- NOTE | 2025-01-18 05:36 | ED_ITS ---
HPI - Seizure General Chief Complaint: Seizure <Wero Brown MD - Last Filed: 01/18/25 07:26> Stated Complaint: Sz/post ictal, uncooperative <Wero Brown MD - Last Filed: 01/18/25 07:26> Time Seen by Provider: 01/18/25 05:05 <Wero Brown MD - Last Filed: 01/18/25 07:26> Source: EMS <Wero Brown MD - Last Filed: 01/18/25 07:26> Mode of arrival: EMS <Wero Brown MD - Last Filed: 01/18/25 07:26> Limitations: altered mental status <Wero Brown MD - Last Filed: 01/18/25 07:26> History of Present Illness HPI Narrative: This is an 84-year-old male, with history of seizure disorder, brought in by EMS from home for seizure. EMS reports the patient's roommate heard a shaking sounds on the patient's bed. He reportedly found the patient having seizure-like activity lasting 3-4 minutes. EMS reports on arrival the patient appeared postictal and combative. EMS is familiar with the patient in notes this is his normal. <Wero Brown MD - Last Filed: 01/18/25 07:26> Related Data Allergies/Adverse Reactions: Allergies Allergy/AdvReac Type Severity Reaction Status Date / Time No Known Allergies Allergy Verified 10/14/24 07:14 <Wero Brown MD - Last Filed: 01/18/25 07:26> Review of Systems 2 Review of Systems: ROS unobtainable: Yes unobtainable due to mental status <Wero Brown MD - Last Filed: 01/18/25 07:26> [facility], [facility] Past Medical History Medical History: Medical History Seizure disorder Arthritis Gastroesophageal reflux disease Coronary artery disease Hyperlipidemia Hypertension Aortic stenosis Subclinical hypothyroidism <Wero Brown MD - Last Filed: 01/18/25 07:26> Surgical History Surgical History: Surgical History History of reverse total replacement of right shoulder joint History of arthroplasty of left knee History of arthroplasty of left shoulder 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 History of aortic valve replacement with bioprosthetic valve (07/2020) At [facility]. History of incisional hernia repair (03/2021) Epigastric incisional hernia with mesh. <Wero Brown MD - Last Filed: 01/18/25 07:26> Family History Family History: Family History Other Family history unknown <Wero Brown MD - Last Filed: 01/18/25 07:26> Social History Social History: Social History Social History: Surrogate medical decision maker: Kalyani Haley, daughter. Code status: Full code. Smoking packs per day: 1 Smoking cigarettes per day: 20.0 Years smoked: 15 Smoking pack-years: 15.00 Smoking status: Former smoker Smokeless tobacco user: chewing tobacco Second hand tobacco smoke exposure: No Additional smoking assessment comments: quit 20 years ago Alcohol intake: former Drinks per week: 7 Alcohol use details: Beer Substance use: current Substance use type: marijuana Other substance usage details: Patient answer-use ranges from a couple times a year to every week. Do You Feel Safe in your Home?: Yes Lack of Transportation: No Lack of Food: Never True Current Housing: I Have Housing Concerned About Future Housing: No Difficulty Paying Gas/Electric Bills: No Difficulty Paying for Meds: No Currently Unemployed: No Education: High School Diploma/GED Difficulty w/ Childcare or Family Care: No Living arrangements: with roommate(s) Additional living arrangements comments: lives with a roommate Occupation/Education: retired Additional occupation/education comments: [employer] Spiritual care concerns: No Agree to blood products: No <Wero Brown MD - Last Filed: 01/18/25 07:26> Exam 2 Narrative: GENERAL: Well-developed, well-nourished, confused, in mild distress due to disorientation, diaphoretic HEAD: Normocephalic, atraumatic. EYES: PERRLA and EOMI. ENT: Nares clear, no rhinorrhea or epistaxis. Mucous membranes dry. Oropharynx without tonsillar hypertrophy exudate or other lesions. NECK: Supple. CHEST: Clear to auscultation. No respiratory distress. No wheezes rales or rhonchi. There is a well-healed midline surgical scar the chest consistent with thoracotomy HEART: Tachycardic with regular rhythm. No murmur heard. Normal peripheral pulses. ABDOMEN: Soft, nontender, nondistended, normal active bowel sounds. EXTREMITIES: Normal range of motion. No edema. SKIN: Warm, dry, no rash. NEURO: Alert, oriented to self only, moving all 4 limbs without difficulty. Follow some commands <Wero Brown MD - Last Filed: 01/18/25 07:26> Course Course Emergency Course: 04:50 - The patient's heart rate on the monitor was initially in the 160s and gradually decreased to the 130s. An EKG shows AFib with RVR. 05:20 - The patient now appears to be in sinus rhythm on the monitor with a rate of 65. 07:00 - CBC demonstrates white blood cell count of 18.7 with hemoglobin of 13.1. Chemistries demonstrate mild hyponatremia of with sodium of 136. Anion gap of 24. Lactic acid 6. Magnesium 1.5 with chemistries otherwise unremarkable. Urinalysis unremarkable. Urine drug screen positive for cannabinoids. Patient signed out to oncoming ED physician, Dr. Garcia pending sober re-evaluation with anticipated admission for new onset AFib. <Wero Brown MD - Last Filed: 01/18/25 07:26> 04:50 - The patient's heart rate on the monitor was initially in the 160s and gradually decreased to the 130s. An EKG shows AFib with RVR. 05:20 - The patient now appears to be in sinus rhythm on the monitor with a rate of 65. 07:00 - CBC demonstrates white blood cell count of 18.7 with hemoglobin of 13.1. Chemistries demonstrate mild hyponatremia of with sodium of 136. Anion gap of 24. Lactic acid 6. Magnesium 1.5 with chemistries otherwise unremarkable. Urinalysis unremarkable. Urine drug screen positive for cannabinoids. Patient signed out to oncoming ED physician, Dr. Garcia pending sober re-evaluation with anticipated admission for new onset AFib. Patient signed out to fl (Gita) peding re-evaluation. Upon awakening, he is complaining of R shoulder pain. Acetaminophen and xray ordered but after going to bedside can tell patient has an obvious dislocation. However, the direction of dislocation is somewhat unclear. He has a surgical scar overlying R anterio shoulder girdle, history of replacement though he can not state when or where. States there were 2 procedures. He initially refuses Xray but eventually consents after I explain that it can help with planning for reduction and ensuring no underlying hardware issue/fracture. Given direction of dislocation, attempted Dilip maneuver. Patient given analgesic medication. Multiple attempts to explain and position patient but he can not seem to understand how to turn and lay prone. Procedural sedation and joint reduction performed as above. Discussed with talent acquisition operations manager hospitalist who requests I place consults to neurology and cardiology. At first inquires about having patient go to the ICU due to seizure but through discussion, there is no indication given he was not in status epilepticus and no longer in afib with RVR. <Kristan Garcia MD - Last Filed: 01/18/25 21:43> Vital Signs Vital signs: Vital Signs Oxygen Delivery Room Air 01/18/25 04:52 Temperature 98.1 F 01/18/25 19:14 Pulse Rate 103 H 01/18/25 21:01 Respiratory Rate 18 01/18/25 19:14 Blood Pressure 133/73 01/18/25 19:14 Pulse Oximetry 99 01/18/25 19:14 Oxygen Delivery Room Air 01/18/25 10:45 Oxygen Flow Rate 2 01/18/25 10:30 <Wero Brown MD - Last Filed: 01/18/25 07:26> Vital Signs Oxygen Delivery Room Air 01/18/25 04:52 Temperature 98.1 F 01/18/25 19:14 Pulse Rate 103 H 01/18/25 21:01 Respiratory Rate 18 01/18/25 19:14 Blood Pressure 133/73 01/18/25 19:14 Pulse Oximetry 99 01/18/25 19:14 Oxygen Delivery Room Air 01/18/25 10:45 Oxygen Flow Rate 2 01/18/25 10:30 <Kristan Garcia MD - Last Filed: 01/18/25 21:43> Procedures Orthopedic Joint Reduction Joint #1: Orthopedic Joint Reduction Date: 01/18/25 <Kristan Garcia MD - Last Filed: 01/18/25 21:43> Orthopedic Joint Reduction Time: 10:12 <Kristan Garcia MD - Last Filed: 01/18/25 21:43> Time Out Performed: Yes <Kristan Garcia MD - Last Filed: 01/18/25 21:43> Side: right <Kristan Garcia MD - Last Filed: 01/18/25 21:43> Joint Reduction Location: shoulder <Kristan Garcia MD - Last Filed: 01/18/25 21:43> Analgesia: procedural sedation <Kristan Garcia MD - Last Filed: 01/18/25 21:43> Pre-Procedure Neuro Vascular Exam: normal <Kristan Garcia MD - Last Filed: 01/18/25 21:43> Technique used: traction/counter-traction and direct manipulation <Kristan Garcia MD - Last Filed: 01/18/25 21:43> Post-reduction neuro exam: intact <Kristan Garcia MD - Last Filed: 01/18/25 21:43> Post-reduction vascular: intact <Kristan Garcia MD - Last Filed: 01/18/25 21:43> Post Reduction X-Ray Obtained: Yes <Kristan Garcia MD - Last Filed: 01/18/25 21:43> Post Reduction X-Ray Results: reduced <Kristan Garcia MD - Last Filed: 01/18/25 21:43> Patient Tolerated Procedure: well and no complications <Kristan Garcia MD - Last Filed: 01/18/25 21:43> Additional Comments: Sling applied <Kristan Garcia MD - Last Filed: 01/18/25 21:43> Procedural Sedation Procedural Sedation #1: Procedural Sedation Date: 01/18/25 <Kristan Garcia MD - Last Filed: 01/18/25 21:43> Procedural Sedation Time: 10:10 <Kristan Garcia MD - Last Filed: 01/18/25 21:43> Procedure: right shoulder dislocation reduction <Kristan Garcia MD - Last Filed: 01/18/25 21:43> Provider Performed: sedation and procedure <Kristan Garcia MD - Last Filed: 01/18/25 21:43> Informed Consent Obtained: no <Kristan Garcia MD - Last Filed: 01/18/25 21:43> Equipment in Room: bag and mask, capnography, ekg monitor, crash cart, oxygen, pulse oximeter and suction <Kristan Garcia MD - Last Filed: 01/18/25 21:43> Plan for Sedation: moderate sedation <Kristan Garcia MD - Last Filed: 01/18/25 21:43> ASA Class: III <Kristan Garcia MD - Last Filed: 01/18/25 21:43> Mallampati Classification: class III <Kristan Garcia MD - Last Filed: 01/18/25 21:43> NPO Status: last solid food (hours ago) <Kristan Garcia MD - Last Filed: 01/18/25 21:43> Pt. Educated on Procedural Sedation: Yes <Kristan Garcia MD - Last Filed: 01/18/25 21:43> Re-evaluated immediately prior: Yes <Kristan Garcia MD - Last Filed: 01/18/25 21:43> Preparation: ekg monitor applied, pulse oximeter, capnometry used, supplemental O2 applied (due to desaturation after Dilaudid given; 2L NC) and reversal agents at bedside <Kristan Garcia MD - Last Filed: 01/18/25 21:43> Patient Tolerated Procedure: well <Kristan Garcia MD - Last Filed: 01/18/25 21:43> Complications: none <Kristan Garcia MD - Last Filed: 01/18/25 21:43> Additional Comments: Propofol 50; did not require increased titration of oxygen < Kristan Garcia MD - Last Filed: 01/18/25 21:43> MDM - Seizure MDM Narrative Medical decision making narrative: Plan: Labs, EKG, IM Versed, antiepileptics, reassess <Wero Brown MD - Last Filed: 01/18/25 07:26> Differential Diagnosis Differential diagnosis: Likely generalized seizure and other (Medication noncompliance, metabolic abnormality, UTI, urine drug screen, AFib, atrial flutter, other) <Wero Brown MD - Last Filed: 01/18/25 07:26> Lab Data Result diagrams: 01/18/25 04:56 01/18/25 19:56 <Wero Brown MD - Last Filed: 01/18/25 07:26> Labs: Lab Results 01/18/25 01/18/25 01/18/25 Range/Units 04:56 05:15 05:40 WBC 18.7 H (4.5-10.0) K/mm3 RBC 4.35 L (4.6-6.20) M/mm3 Hgb 13.1 L (14.0-18.0) g/dL Hct 40.5 L (42.0-52.0) % MCV 93.1 (80-100) fl MCH 30.1 (26-34) pg MCHC 32.3 (32-36) g/dl RDW 13.0 (11.5-14.5) % Plt Count 277 (150-375) k/mm3 MPV 10.0 (7.4-10.4) fl Immature Gran % (Auto) Not Reportable Neut % (Auto) Not Reportable Lymph % (Auto) Not Reportable [place] % (Auto) Not Reportable Eos % (Auto) Not Reportable Baso % (Auto) Not Reportable Lymph # (Auto) Not Reportable Churchill # (Auto) Not Reportable Eos # (Auto) Not Reportable Baso # (Auto) Not Reportable Abs Immat Gran (auto) Not Reportable Absolute Neuts (auto) Not Reportable Absolute Nucleated RBC Not Reportable Total Counted 100 Neutrophils % (Manual) 56 (46-73) % Band Neutrophils % 3 (0-6) % Lymphocytes % (Manual) 34.0 (18-44) % Monocytes % (Manual) 7 (3-9) % Nucleated RBC % Not Reportable Abs Neuts (Manual) 11.03 H (1.3-6.7) K/mm3 Abs Lymphs (Manual) 6.35 H (1.1-4.5) K/mm3 Abs Monocytes (Manual) 1.30 H (0.1-0.90) K/mm3 Platelet Estimate Adequate (Adequate) Schistocytes None seen Sodium 136 L (137-145) mmol/L Potassium 3.5 (3.4-5.0) mmol/L Chloride 97 L (98-107) mmol/L Carbon Dioxide 15 L (22-30) mmol/L Anion Gap 24 H (4-12) mmol/L BUN 8 L (9-20) mg/dL Creatinine 1.12 (0.7-1.3) mg/dL Estim Creat Clear Calc 39 ml/min Estimated GFR > 60 (59 - ) Glucose 167 H (65-110) mg/dL Lactic Acid 6.0 H* (0.7-2.0) mmol/L Calcium 10.1 (8.4-10.2) mg/dL Magnesium 1.5 L (1.6-2.3) mg/dL Total Bilirubin 1.3 (0.2-1.3) mg/dL AST 32 (17-59) U/L ALT 27 (6-50) U/L Alkaline Phosphatase 100 (38-126) U/L Total Protein 9.0 H (6.3-8.2) g/dL Albumin 4.9 (3.5-5.1) g/dL TSH 5.660 H (0.465-4.680) uIU/mL Urine Color Yellow (Yellow) Urine Appearance Clear (Clear) Urine pH 6.5 (5.0-9.0) Ur Specific [place] 1.011 (1.001-1.035) Urine Protein 2+ H (Negative) mg/dL Urine Glucose (UA) Negative (Negative) mg/dL Urine Ketones Trace H (Negative) mg/dL Ur Blood (Man) Negative (Negative) Urine Nitrate Negative (Negative) Urine Bilirubin Negative (Negative) Urine Urobilinogen 0.2 (<2.0) mg/dL Add Ur Microanalysis Reviewed Leukocyte Esterase Rfl Negative (Negative) DONNY/UL Urine RBC 0-2 (0-2) /hpf Urine WBC 0-5 (0-3) /hpf Ur Squamous Epith Cells None seen (Few) /hpf Urine Bacteria None seen /hpf Urine Casts 6-10 Hyaline Casts Present (None) /lpf Urine Opiates Screen Negative (Negative) Urine Methadone Screen Negative (Negative) Ur Barbiturates Screen Negative (Negative) Ur Phencyclidine Scrn Negative (Negative) Ur Amphetamine Screen Negative (Negative) U Benzodiazepines Scrn Negative (Negative) Urine Cocaine Screen Negative (Negative) U Cannabinoids Screen Positive A (Negative) 01/18/25 Range/Units 07:48 WBC (4.5-10.0) K/mm3 RBC (4.6-6.20) M/mm3 Hgb (14.0-18.0) g/dL Hct (42.0-52.0) % MCV (80-100) fl MCH (26-34) pg MCHC (32-36) g/dl RDW (11.5-14.5) % Plt Count (150-375) k/mm3 MPV (7.4-10.4) fl Immature Gran % (Auto) Neut % (Auto) Lymph % (Auto) [place] % (Auto) Eos % (Auto) Baso % (Auto) Lymph # (Auto) [place] # (Auto) Eos # (Auto) Baso # (Auto) Abs Immat Gran (auto) Absolute Neuts (auto) Absolute Nucleated RBC Total Counted Neutrophils % (Manual) (46-73) % Band Neutrophils % (0-6) % Lymphocytes % (Manual) (18-44) % Monocytes % (Manual) (3-9) % Nucleated RBC % Abs Neuts (Manual) (1.3-6.7) K/mm3 Abs Lymphs (Manual) (1.1-4.5) K/mm3 Abs Monocytes (Manual) (0.1-0.90) K/mm3 Platelet Estimate (Adequate) Schistocytes Sodium (137-145) mmol/L Potassium (3.4-5.0) mmol/L Chloride (98-107) mmol/L Carbon Dioxide (22-30) mmol/L Anion Gap (4-12) mmol/L BUN (9-20) mg/dL Creatinine (0.7-1.3) mg/dL Estim Creat Clear Calc ml/min Estimated GFR (59 - ) Glucose (65-110) mg/dL Lactic Acid 1.9 (0.7-2.0) mmol/L Calcium (8.4-10.2) mg/dL Magnesium (1.6-2.3) mg/dL Total Bilirubin (0.2-1.3) mg/dL AST (17-59) U/L ALT (6-50) U/L Alkaline Phosphatase (38-126) U/L Total Protein (6.3-8.2) g/dL Albumin (3.5-5.1) g/dL TSH (0.465-4.680) uIU/mL Urine Color (Yellow) Urine Appearance (Clear) Urine pH (5.0-9.0) Ur Specific [place] (1.001-1.035) Urine Protein (Negative) mg/dL Urine Glucose (UA) (Negative) mg/dL Urine Ketones (Negative) mg/dL Ur Blood (Man) (Negative) Urine Nitrate (Negative) Urine Bilirubin (Negative) Urine Urobilinogen (<2.0) mg/dL Add Ur Microanalysis Leukocyte Esterase Rfl (Negative) DONNY/UL Urine RBC (0-2) /hpf Urine WBC (0-3) /hpf Ur Squamous Epith Cells (Few) /hpf Urine Bacteria /hpf Urine Casts Hyaline Casts (None) /lpf Urine Opiates Screen (Negative) Urine Methadone Screen (Negative) Ur Barbiturates Screen (Negative) Ur Phencyclidine Scrn (Negative) Ur Amphetamine Screen (Negative) U Benzodiazepines Scrn (Negative) Urine Cocaine Screen (Negative) U Cannabinoids Screen (Negative) <Wero Brown MD - Last Filed: 01/18/25 07:26> Lab Results 01/18/25 01/18/25 01/18/25 Range/Units 04:56 05:15 05:40 WBC 18.7 H (4.5-10.0) K/mm3 RBC 4.35 L (4.6-6.20) M/mm3 Hgb 13.1 L (14.0-18.0) g/dL Hct 40.5 L (42.0-52.0) % MCV 93.1 (80-100) fl MCH 30.1 (26-34) pg MCHC 32.3 (32-36) g/dl RDW 13.0 (11.5-14.5) % Plt Count 277 (150-375) k/mm3 MPV 10.0 (7.4-10.4) fl Immature Gran % (Auto) Not Reportable Neut % (Auto) Not Reportable Lymph % (Auto) Not Reportable [place] % (Auto) Not Reportable Eos % (Auto) Not Reportable Baso % (Auto) Not Reportable Lymph # (Auto) Not Reportable [place] # (Auto) Not Reportable Eos # (Auto) Not Reportable Baso # (Auto) Not Reportable Abs Immat Gran (auto) Not Reportable Absolute Neuts (auto) Not Reportable Absolute Nucleated RBC Not Reportable Total Counted 100 Neutrophils % (Manual) 56 (46-73) % Band Neutrophils % 3 (0-6) % Lymphocytes % (Manual) 34.0 (18-44) % Monocytes % (Manual) 7 (3-9) % Nucleated RBC % Not Reportable Abs Neuts (Manual) 11.03 H (1.3-6.7) K/mm3 Abs Lymphs (Manual) 6.35 H (1.1-4.5) K/mm3 Abs Monocytes (Manual) 1.30 H (0.1-0.90) K/mm3 Platelet Estimate Adequate (Adequate) Schistocytes None seen Sodium 136 L (137-145) mmol/L Potassium 3.5 (3.4-5.0) mmol/L Chloride 97 L (98-107) mmol/L Carbon Dioxide 15 L (22-30) mmol/L Anion Gap 24 H (4-12) mmol/L BUN 8 L (9-20) mg/dL Creatinine 1.12 (0.7-1.3) mg/dL Estim Creat Clear Calc 39 ml/min Estimated GFR > 60 (59 - ) Glucose 167 H (65-110) mg/dL Lactic Acid 6.0 H* (0.7-2.0) mmol/L Calcium 10.1 (8.4-10.2) mg/dL Magnesium 1.5 L (1.6-2.3) mg/dL Total Bilirubin 1.3 (0.2-1.3) mg/dL AST 32 (17-59) U/L ALT 27 (6-50) U/L Alkaline Phosphatase 100 (38-126) U/L Total Protein 9.0 H (6.3-8.2) g/dL Albumin 4.9 (3.5-5.1) g/dL TSH 5.660 H (0.465-4.680) uIU/mL Urine Color Yellow (Yellow) Urine Appearance Clear (Clear) Urine pH 6.5 (5.0-9.0) Ur Specific [place] 1.011 (1.001-1.035) Urine Protein 2+ H (Negative) mg/dL Urine Glucose (UA) Negative (Negative) mg/dL Urine Ketones Trace H (Negative) mg/dL Ur Blood (Man) Negative (Negative) Urine Nitrate Negative (Negative) Urine Bilirubin Negative (Negative) Urine Urobilinogen 0.2 (<2.0) mg/dL Add Ur Microanalysis Reviewed Leukocyte Esterase Rfl Negative (Negative) DONNY/UL Urine RBC 0-2 (0-2) /hpf Urine WBC 0-5 (0-3) /hpf Ur Squamous Epith Cells None seen (Few) /hpf Urine Bacteria None seen /hpf Urine Casts 6-10 Hyaline Casts Present (None) /lpf Urine Opiates Screen Negative (Negative) Urine Methadone Screen Negative (Negative) Ur Barbiturates Screen Negative (Negative) Ur Phencyclidine Scrn Negative (Negative) Ur Amphetamine Screen Negative (Negative) U Benzodiazepines Scrn Negative (Negative) Urine Cocaine Screen Negative (Negative) U Cannabinoids Screen Positive A (Negative) 01/18/25 Range/Units 07:48 WBC (4.5-10.0) K/mm3 RBC (4.6-6.20) M/mm3 Hgb (14.0-18.0) g/dL Hct (42.0-52.0) % MCV (80-100) fl MCH (26-34) pg MCHC (32-36) g/dl RDW (11.5-14.5) % Plt Count (150-375) k/mm3 MPV (7.4-10.4) fl Immature Gran % (Auto) Neut % (Auto) Lymph % (Auto) Churchill % (Auto) Eos % (Auto) Baso % (Auto) Lymph # (Auto) Churchill # (Auto) Eos # (Auto) Baso # (Auto) Abs Immat Gran (auto) Absolute Neuts (auto) Absolute Nucleated RBC Total Counted Neutrophils % (Manual) (46-73) % Band Neutrophils % (0-6) % Lymphocytes % (Manual) (18-44) % Monocytes % (Manual) (3-9) % Nucleated RBC % Abs Neuts (Manual) (1.3-6.7) K/mm3 Abs Lymphs (Manual) (1.1-4.5) K/mm3 Abs Monocytes (Manual) (0.1-0.90) K/mm3 Platelet Estimate (Adequate) Schistocytes Sodium (137-145) mmol/L Potassium (3.4-5.0) mmol/L Chloride (98-107) mmol/L Carbon Dioxide (22-30) mmol/L Anion Gap (4-12) mmol/L BUN (9-20) mg/dL Creatinine (0.7-1.3) mg/dL Estim Creat Clear Calc ml/min Estimated GFR (59 - ) Glucose (65-110) mg/dL Lactic Acid 1.9 (0.7-2.0) mmol/L Calcium (8.4-10.2) mg/dL Magnesium (1.6-2.3) mg/dL Total Bilirubin (0.2-1.3) mg/dL AST (17-59) U/L ALT (6-50) U/L Alkaline Phosphatase (38-126) U/L Total Protein (6.3-8.2) g/dL Albumin (3.5-5.1) g/dL TSH (0.465-4.680) uIU/mL Urine Color (Yellow) Urine Appearance (Clear) Urine pH (5.0-9.0) Ur Specific [place] (1.001-1.035) Urine Protein (Negative) mg/dL Urine Glucose (UA) (Negative) mg/dL Urine Ketones (Negative) mg/dL Ur Blood (Man) (Negative) Urine Nitrate (Negative) Urine Bilirubin (Negative) Urine Urobilinogen (<2.0) mg/dL Add Ur Microanalysis Leukocyte Esterase Rfl (Negative) DONNY/UL Urine RBC (0-2) /hpf Urine WBC (0-3) /hpf Ur Squamous Epith Cells (Few) /hpf Urine Bacteria /hpf Urine Casts Hyaline Casts (None) /lpf Urine Opiates Screen (Negative) Urine Methadone Screen (Negative) Ur Barbiturates Screen (Negative) Ur Phencyclidine Scrn (Negative) Ur Amphetamine Screen (Negative) U Benzodiazepines Scrn (Negative) Urine Cocaine Screen (Negative) U Cannabinoids Screen (Negative) <Kristan Garcia MD - Last Filed: 01/18/25 21:43> Imaging Data Radiologist's impression: Impressions Shoulder X-Ray 01/18/25 09:22 Impression: Apparent superior dislocation of right glenohumeral arthroplasty. Shoulder X-Ray 01/18/25 10:51 IMPRESSION: No acute osseous abnormality right shoulder. Right shoulder arthroplasty. Status post reduction. <Kristan Garcia MD - Last Filed: 01/18/25 21:43> ECG Data EKG #1: Attestation: I personally reviewed and interpreted this ECG as follows: <Wero Brown MD - Last Filed: 01/18/25 07:26> ECG completion date: 01/18/25 <Wero Brown MD - Last Filed: 01/18/25 07:26> ECG completion time: 05:02 <Wero Brown MD - Last Filed: 01/18/25 07:26> Prior ECG tracings: available for review <Wero Brown MD - Last Filed: 01/18/25 07:26> Interpretation: AFib with RVR, rate 123 normal axis, no ST segment elevations concerning for ischemia, ST depressions in lead 1, the for and V5. QTC 377. Compared to EKG done in November 2024, AFib with RVR is new. <Wero Brown MD - Last Filed: 01/18/25 07:26> EKG #2: Attestation: I personally reviewed and interpreted this ECG as follows: <Wero Brown MD - Last Filed: 01/18/25 07:26> ECG completion date: 01/18/25 <Wero Brown MD - Last Filed: 01/18/25 07:26> ECG completion time: 05:45 <Wero Brown MD - Last Filed: 01/18/25 07:26> Prior ECG tracings: available for review <Wero Brown MD - Last Filed: 01/18/25 07:26> Interpretation: AFib, rate 78, normal axis, no ST segment elevations concerning for ischemia, T-wave inversions in V4, V5 and V6. Otherwise normal intervals with QTC of 441. Compared to EKG done earlier this evening, RVR has resolved. <Wero Brown MD - Last Filed: 01/18/25 07:26> Discharge Plan Discharge Clinical Impression: Atrial fibrillation with RVR, Seizure, Acidosis, lactic, Dislocation of right shoulder joint <Wero Brown MD - Last Filed: 01/18/25 07:26> Patient Disposition: Still a Patient <Wero Brown MD - Last Filed: 01/18/25 07:26> Condition: Stable <Wero Brown MD - Last Filed: 01/18/25 07:26> Time of Disposition: 07:00 <Wero Brown MD - Last Filed: 01/18/25 07:26> 07:00 <Kristan Garcia MD - Last Filed: 01/18/25 21:43>
--- NOTE | 2025-01-18 05:42 | ECG_ITS ---
Test Date: 2025-01-18 05:45:09 Measurements Intervals [place] Rate: 78 P: 0 TN: 0 QRS: 51 QRSD: 102 T: 43 QT: 407 QTc: 466 Interpretive Statements ATRIAL FIBRILLATION MINIMAL Q WAVES- INFERIOR LEADS ST DEVIATION AND MODERATE T-WAVE ABNORMALITY, CONSIDER LATERAL ISCHEMIA BASELINE ARTIFACT- II, III, AVF, V2-V3 ABNORMAL ECG Compared to ECG 01/18/2025 05:02:37 HEART RATE HAS DECREASED Electronically Signed On 01-18-2025 06:30:15 CDT by Steve Tinsley D.O.
[2025-01-18 05:54] LABS: Alanine Aminotransferase 27 U/L (6-50); Albumin Level 4.9 g/dL (3.5-5.1); Alkaline Phosphatase 100 U/L (38-126); Anion Gap 24 mmol/L (4-12); Aspartate Amino Transferase 32 U/L (17-59); Bilirubin,Total 1.3 mg/dL (0.2-1.3); Blood Urea Nitrogen 8 mg/dL (9-20); Calcium 10.1 mg/dL (8.4-10.2); Carbon Dioxide 15 mmol/L (22-30); Chloride 97 mmol/L (98-107); Estimated CRCL calculation 39 ml/min; Estimated Glomerular Filt Rate > 60; Glucose 167 mg/dL (65-110); Magnesium 1.5 mg/dL (1.6-2.3); Potassium 3.5 mmol/L (3.4-5.0); Sodium 136 mmol/L (137-145)
[2025-01-18] MEDS: SODIUM CHLORIDE 0.9% IV 1,000 ML 999 ML IV CONT (06:04)
[2025-01-18 06:13] LABS: Add Urine Microscopic? YES; Appearance Urine Clear (Clear); Bacteria Urine None Seen /hpf; Bilirubin Urine Negative (Negative); Blood Urine Negative (Negative); Color Urine Yellow (Yellow); Glucose Urine UA Negative (Negative); Hyaline Casts Urine Present /lpf; Ketones Urine Trace mg/dL (Negative); Leukocyte Esterase Ur Negative LEU/UL (Negative); Need Manual Microscopic Reviewed; Nitrate Urine Negative (Negative); Protein Urine 2+ mg/dL (Negative); RBC Urine 0-2 /hpf (0-2); Specific Grav Ur 1.011 (1.001-1.035); Squamous Epithelial Cell Urine None Seen /hpf (Few); Urobilinogen Urine 0.2 mg/dL (<2.0); WBC Urine 0-5 /hpf (0-3); pH Urine 6.5 (5.0-9.0)
[2025-01-18 06:55] LABS: Amphetamine Screen Urine Negative (Negative); Barbiturate Screen Urine Negative (Negative); Benzodiazepines Screen Urine Negative (Negative); Cannabinoid Screen Urine Positive (Negative); Cocaine Screen Urine Negative (Negative); Methadone Screen Urine Negative (Negative); Opiate Screen Urine Negative (Negative); Phencyclidine Screen Urine Negative (Negative)
[2025-01-18 07:19] LABS: Reflex Lactic Acid Yes or No Add Lactic
--- NOTE | 2025-01-18 07:36 | PC.NURSE ---
Assumed care of pt. Pt awakens to name. A/O x4. Seizure & fall precautions continued. Pt c/o right shoulder pain ROM WNL CMS intact EDMD informed
--- NOTE | 2025-01-18 07:49 | PC.NURSE ---
Pt awake continues to c/o right shoulder pain. RN noted dislocation of right shoulder. Pt using left arm to move right arm. CMS intact & Dr. Garcia informed.
[2025-01-18 08:09] LABS: Lactic Acid 1.9 mmol/L (0.7-2.0)
[2025-01-18] MEDS: ACETAMINOPHEN 500 MG TABLET 1000 MG PO (08:31)
--- NOTE | 2025-01-18 08:35 | PC.NURSE ---
pt refused Dilaudid pain medication at this time. pt says he's not in a lot of pain and did not want it
[2025-01-18] MEDS: HYDROmorphone HCL INJ (*CRX) 1 MG/ML SYR 0.5 MG IV PUSH (09:09)
[2025-01-18] MEDS: SODIUM CHLORIDE 0.9% IV 500 ML 999 ML IV CONT (09:09)
--- NOTE | 2025-01-18 09:11 | PC.NURSE ---
Dr. Garcia at bedside, spoke with pt concerning procedure to right shoulder & moderatesedation
--- NOTE | 2025-01-18 09:20 | PC.NURSE ---
Staff & pt ready for moderate sedations. Dr. Garcia states seeing other pts. ED charge informed.
[2025-01-18] MEDS: PROPOFOL IV EMULSION 200 MG/20 ML VIAL 70 MG IV PUSH (10:15)
--- NOTE | 2025-01-18 10:41 | PC.NURSE ---
Moderat sedation completed. Pt awake with reg resp. A/O x4. CMS intact to right arm with sling. Post procedure xrays taken
--- NOTE | 2025-01-18 12:15 | PCRCNOTE ---
RT reported to bedside for conscious sedation. RT stood SB for nearly 35 minuets. Sedation procedure was then not preformed.
--- NOTE | 2025-01-18 12:15 | P.HP_ITS ---
H&P: HPI History of Present Illness Date/Time: 01/18/25 12:15 Chief Complaint: Seizure. Narrative: This is an 84-year-old male with history of seizures, hypertension, hyperlipidemia, coronary artery disease status post 1 vessel bypass, bioprosthetic porcine aortic valve replacement, gastroesophageal reflux disease, and tobacco and alcohol abuse in remission who presented to the emergency department via EMS for evaluation after a seizure. He was apparently in bed when his roommate heard a noise common from his room. He found the patient having seizure-like activity which lasted approximately 3 to 4 minutes. EMS was summoned and on their arrival the patient was postictal and a bit combative. At the time of my evaluation he is alert and oriented. He states compliance with his levetiracetam and reports that he has not had alcohol for couple of years. No recent change in medications. He denies headache, visual changes, fever, cold and flu symptoms, chest pain, shortness a breath, nausea, vomiting, diarrhea, dysuria, focal weakness, and paresthesias. In the ED: Blood pressure was 123/80 on arrival and he was in rapid atrial fibrillation with rates in the 140s which is apparently a new diagnosis for him. Labs were significant for WBC count of 18.7, hemoglobin 13.1, sodium 136, chloride 97, carbon dioxide 15, anion gap 24, BUN 8, creatinine 1.12, glucose 167, lactic acid 6.0, magnesium 1.5. Urine drug screen was positive for cannabinoids. Head CT was without acute findings. Shoulder x-ray showed an apparent superior dislocation of right glenohumeral arthroplasty which was successfully reduced in the ED. he converted to a sinus rhythm after receiving IV metoprolol. He is being admitted in this setting for close monitoring and Cardiology and Neurology consultations. Review of Systems Review of Systems: 12 systems were reviewed and are negativ e except for as per HPI. [facility] Past Medical History Medical History Seizure disorder Arthritis Gastroesophageal reflux disease Coronary artery disease Hyperlipidemia Hypertension Aortic stenosis Subclinical hypothyroidism Surgical History Surgical History History of reverse total replacement of right shoulder joint History of arthroplasty of left knee History of arthroplasty of left shoulder History of coronary artery bypass graft x 1 (07/2020) At [facility]. History of aortic valve replacement with bioprosthetic valve (07/2020) At [facility]. History of incisional hernia repair (03/2021) Epigastric incisional hernia with mesh. Family History Family History Other Family history unknown Social History Social History Social History: Surrogate medical decision maker: Kalyani Haley, daughter. Code status: Full code. Smoking packs per day: 1 Smoking cigarettes per day: 20.0 Years smoked: 15 Smoking pack-years: 15.00 Smoking status: Former smoker Smokeless tobacco user: chewing tobacco Second hand tobacco smoke exposure: No Additional smoking assessment comments: quit 20 years ago Alcohol intake: former Drinks per week: 7 Alcohol use details: Beer Substance use: current Substance use type: marijuana Other substance usage details: Patient answer-use ranges from a couple times a year to every week. Do You Feel Safe in your Home?: Yes Lack of Transportation: No Lack of Food: Never True Current Housing: I Have Housing Concerned About Future Housing: No Difficulty Paying Gas/Electric Bills: No Difficulty Paying for Meds: No Currently Unemployed: No Education: High School Diploma/GED Difficulty w/ Childcare or Family Care: No Living arrangements: with roommate(s) Additional living arrangements comments: lives with a roommate Occupation/Education: retired Additional occupation/education comments: [place] Spiritual care concerns: No Agree to blood products: No Meds Home Medications and Allergies Home Medications ?Medication ?Instructions ?Recorded ?Confirmed ?Type metoprolol tartrate 50 mg tablet See Rx Instructions .Route 09/13/24 01/18/25 Rx .COMPLEX #90 tabs levetiracetam 1,000 mg tablet 1,000 mg PO BID 30 days #60 tabs 11/20/24 01/18/25 Rx (Keppra) amlodipine 10 mg tablet 10 mg PO DAILY #90 tabs 12/27/24 01/18/25 Rx Allergies Allergy/AdvReac Type Severity Reaction Status Date / Time No Known Allergies Allergy Verified 10/14/24 07:14 Vital Signs Vital Signs - 24 hr 01/18/25 04:52 01/18/25 04:57 01/18/25 05:03 Temperature 97.8 F Pulse Rate 144 H 144 H Pulse Rate [Apical] Respiratory Rate 23 H Blood Pressure 123/80 Blood Pressure [Left Arm] Pulse Oximetry 98 Oxygen Delivery Room Air Oxygen Flow Rate 01/18/25 05:05 01/18/25 05:08 01/18/25 05:20 Temperature 98.4 F Pulse Rate 126 H 63 Pulse Rate [Apical] Respiratory Rate 13 Blood Pressure 106/71 Blood Pressure [Left Arm] Pulse Oximetry 100 100 Oxygen Delivery Room Air Oxygen Flow Rate 01/18/25 05:23 01/18/25 05:33 01/18/25 06:01 Temperature Pulse Rate 62 74 70 Pulse Rate [Apical] Respiratory Rate 17 15 Blood Pressure 105/82 78/46 L Blood Pressure [Left Arm] Pulse Oximetry 96 Oxygen Delivery Oxygen Flow Rate 01/18/25 06:02 01/18/25 06:04 01/18/25 06:16 Temperature Pulse Rate 71 72 63 Pulse Rate [Apical] Respiratory Rate 23 H 22 H 12 Blood Pressure 81/56 L 99/73 L 113/60 Blood Pressure [Left Arm] Pulse Oximetry 94 Oxygen Delivery Oxygen Flow Rate 01/18/25 06:46 01/18/25 07:16 01/18/25 07:31 Temperature Pulse Rate 66 62 59 L Pulse Rate [Apical] Respiratory Rate 18 27 H 18 Blood Pressure 101/54 L 109/57 L 110/79 Blood Pressure [Left Arm] Pulse Oximetry 100 98 Oxygen Delivery Oxygen Flow Rate 01/18/25 07:32 01/18/25 08:01 01/18/25 08:32 Temperature 97.6 F Pulse Rate 75 66 74 Pulse Rate [Apical] Respiratory Rate 16 17 14 Blood Pressure 110/79 125/63 127/71 Blood Pressure [Left Arm] Pulse Oximetry 98 Oxygen Delivery Oxygen Flow Rate 01/18/25 10:10 01/18/25 10:15 01/18/25 10:30 Temperature 97.6 F 97.6 F 97.9 F Pulse Rate Pulse Rate [Apical] 66 68 75 Respiratory Rate 12 10 L 14 Blood Pressure Blood Pressure [Left Arm] 112/63 105/53 L 125/75 Pulse Oximetry 100 98 100 Oxygen Delivery Nasal Cannula Nasal Cannula Oxygen Flow Rate 2 2 01/18/25 10:45 01/18/25 11:57 Temperature 97.6 F Pulse Rate 84 Pulse Rate [Apical] 88 Respiratory Rate 16 14 Blood Pressure 113/65 Blood Pressure [Left Arm] 122/88 Pulse Oximetry 98 95 Oxygen Delivery Room Air Oxygen Flow Rate Exam 2 Narrative: General: Thin, nontoxic-appearing elderly male in the semi-Dixon position in bed in no distress. Weight: 64.7 kg. BMI: 20.5. HEENT: Normocephalic, atraumatic. PERRL, EOMI. Sclera anicteric. Tacky mucous membranes. Neck: Supple. No midline vertebral tenderness. Respiratory: Respirations are nonlabored and lungs are clear to auscultation. Cardiovascular: Regular rate and rhythm with S1-S2. Systolic murmur at the up per sternal border. Gastrointestinal: Abdomen is soft, nontender, and nondistended with positive bowel sounds. Skin: Warm and dry. Extremities: No cyanosis, clubbing, or edema. Radial and pedal pulses intact. Musculoskeletal: Right arm is in a sling. No deformities of the right upper extremity. Neurological: Alert and oriented. Cranial nerves 2-12 are grossly intact. Speech is clear. No facial asymmetry. Noted to move upper and lower extremities without obvious limitation. No gross focal deficits to casual conversation. Psychiatric: Cooperative with appropriate mood. H&P: Results Labs Labs: Short CBC 01/18/25 Range/Units 04:56 WBC 18.7 H (4.5-10.0) K/mm3 Hgb 13.1 L (14.0-18.0) g/dL Hct 40.5 L (42.0-52.0) % Plt Count 277 (150-375) k/mm3 BMP 01/18/25 04:56 Sodium 136 L Potassium 3.5 Chloride 97 L Carbon Dioxide 15 L BUN 8 L Creatinine 1.12 Glucose 167 H Calcium 10.1 Liver Function 01/18/25 Range/Units 04:56 Total Bilirubin 1.3 (0.2-1.3) mg/dL AST 32 (17-59) U/L ALT 27 (6-50) U/L Alkaline Phosphatase 100 (38-126) U/L Albumin 4.9 (3.5-5.1) g/dL Urine 01/18/25 Range/Units 05:40 Urine Color Yellow (Yellow) Urine Appearance Clear (Clear) Urine pH 6.5 (5.0-9.0) Ur Specific [place] 1.011 (1.001-1.035) Urine Protein 2+ H (Negative) mg/dL Urine Glucose (UA) Negative (Negative) mg/dL Imaging Shoulder X-Ray 01/18/25 09:22 Impression: Apparent superior dislocation of right glenohumeral arthroplasty. Shoulder X-Ray 01/18/25 10:51 IMPRESSION: No acute osseous abnormality right shoulder. Right shoulder arthroplasty. Status post reduction. Assessment and Plan Assessment and plan (1) Breakthrough seizure: Code(s): G40.919 - Epilepsy, unspecified, intractable, without status epilepticus Status: Acute (2) Paroxysmal atrial fibrillation: Code(s): I48.0 - Paroxysmal atrial fibrillation Status: Acute (3) Closed dislocation of right shoulder: Qualifiers: Encounter type: initial encounter Qualified Code(s): S43.004A - Unspecified dislocation of right shoulder joint, initial encounter Code(s): S43.004A - Unspecified dislocation of right shoulder joint, initial encounter Status: Acute (4) Hypertension: Code(s): I10 - Essential (primary) hypertension Status: Acute (5) Coronary artery disease: Code(s): I25.10 - Atherosclerotic heart disease of [place] coronary artery without angina pectoris Status: Acute Plan The patient presented to the emergency department via EMS from home for evaluation after a witnessed seizure as detailed in HPI. Labs, imaging, EKG, and all reports were personally reviewed. Patient states compliance with his home levetiracetam and is unclear why he is having breakthrough seizures. Neurology was consulted by the ED physician and their input is appreciated. He was found to be in rapid atrial fibrillation on arrival today which is apparently new nancy gnosis for him. He was seen by his cupola worker, Dr. Tinsley, who is starting the patient on sotalol and apixaban for stroke prophylaxis given elevated [id number] VASc. Blood pressures have been stable although he had transient hypotension after receiving propofol for shoulder reduction. He has no complaints of chest pain and EKG did not demonstrate any concerning ST segment changes. He is very eager for discharge in the morning. His medications will be reviewed and resumed as appropriate. Findings and treatment plan were discussed with the patient. Questions were solicited and answered to satisfaction. The patient's medical management will be taken over by the hospitalist team in a.m. Quality VTE Prophylaxis VTE prophylaxis: pharmacologic ordered (started on apixaban per cardiology) The patient has been admitted under observation status. Hospitalist MIPS Advance Care Plan I have confirmed that the patient's Advanced Care Plan is present, code status is documented, or surrogate decision maker is listed in patient medical record.: Yes Medication Reconciliation I have utilized all available resources to obtain, update and review the patients current medications (includes all prescriptions, OTC, herbals, cannabis, and nutritional supplements).: Yes
--- NOTE | 2025-01-18 12:41 | PC.NURSE ---
ER refused to give report.
--- NOTE | 2025-01-18 13:29 | PC.NURSE ---
Patient received from ER without report. Telemetry applied. Taken for previously ordered stat head CT. Admission completed.
--- OUTSIDE RECORDS SUMMARY | 2025-01-18 13:43 | XMS_ITS | Encounter Summary ---
Author Organization [facility] Address [address] [address] Care Team Providers Care Emery Wheel Molder Name Role Phone Ronnie Kinney MD Primary Care Provider [phone] Encounter Details Date Type Department Care Team (Late st Contact Info) Description 03/03/2023 Telephone [facility] - Centralized Scheduling [address] [place] [id number] Herminia Sanches, SUPERVISOR MAPPING-SUPERVISOR RESEARCH KENNEL [address] [id number] Social History Tobacco Use Types Packs/Day Years [...] on filedocumented in this encounter Care Teams Emery Wheel Molder Relationship Specialty Start Date End Date Ronnie Kinney MD [address] [place] [phone] PCP - General 07/19/20 documented as of this encounter
--- OUTSIDE RECORDS SUMMARY | 2025-01-18 13:43 | XMS_ITS | CONTINUITY OF CARE DOCUMENT ---
Author Name jose garcia Address Unknown Organization [facility] Address [address] [place] [address] [address], [place] [address] Phone [phone] Care Team Providers Care Obstetrics Tech Name Role Phone Lopez Suárez MD Unavailable [phone] Lopez Suárez MD Unavailable [phone] INSURANCE PROVIDERS Payer name Policy type / Coverage type Energy red alliance party ID [facility] [id number]
--- OUTSIDE RECORDS SUMMARY | 2025-01-18 13:43 | XMS_ITS | Continuity of Care Document ---
Author [email or web address] Address [address] [place] [phone] Phone Care Team Providers Care Pharmacovigilance Scientist Name Role Phone Erik Jamil MD Unavailable [...] Diagnoses Date Provider Providers Copied on Encounter [facility], [address] [place] [address], [id number] , tel:[phone] Main Office No Information 7 Omero Valencia. [address] [place] [address], [id number] , [place]. tel:[phone] OFFICE/OUTPA TIENT VISIT, [facility], [address] [place] [address], [id number] , tel:+ [phone] [place] [facility] Consultation (chief complaint) Essential (primary) hypertensionCardia c murmur, unspecifiedOther specified symptoms and signs involving the circulatory and respiratory systems Omero Valencia. [address] [place] [address], [id number] , [place]. tel:[phone] Referring Provider: Stanislaw De Anda, [facility], [address]. tel:[phone] Family History Family Member Type Diagnosis Age At Onset No Information Payers Payer name Insurance type Covered democrat ID Authoriza tion(s) [place] Medicare Part B Cl aims Primary MB [id number] Social History Type Description Quantity Date Captured [...] 2D image, spectral Doppler, color flow image ([id number]), Appointment on: , Collected on: , Sent on: Sent Future Order: Radiology Order Du plex scan of extracranial arteries; complete bilateral study ([id number]), Appointment on: , Collected on: , Sent [...]
--- OUTSIDE RECORDS SUMMARY | 2025-01-18 13:44 | XMS_ITS | Continuity of Care Document ---
Author Organization [facility] Address [address] [place] [phone] Phone Care Team Providers Care Dough Cutting Machine Operator Name Role Phone Unavailable Unavailable Unavailable Advance Directives Directive Yes / No Effective Date File Name No Information Encounters Encounter Description Practice Location Reason(s) For Visit Diagnoses Date Provider Providers Copied on Encounter [facility], [address] [place] [address], [id number], [place] tel:[phone] [facility] No Information 0 2 No Information Family History Family Member Type Diagnosis Age At Onset No Information Payers Payer name Insurance type Covered libertarian ID Authoriza tion(s) No Information Social History [...]
--- OUTSIDE RECORDS SUMMARY | 2025-01-18 13:44 | XMS_ITS | Clinical Summary ---
Author Organization [facility] Address [address] [facility] [place] [address] Care Team Providers Care Grassland Conservationist Name Role Phone Ronnie Kinney MD Primary Care Provider [phone] Source Comments [facility],non-owned Affiliates and Associated Physician Practices is amultiple site organization consisting of ambulatory clinics and hospital sitesin [place], [place], [place] and [place]. This disclosure is being madepursuant to the Care Everywhere program and may not contain all information available regarding this patient. Last updated 18.[facility] Allergies No known active allergies Medications * [...] this topic Medical Devices Implanted Type Area Hotel Or Motel Receptionist Device Identifier Shelf Expiration Date Model / Serial / Lot Vlv Aor [facility] Ii 25 - [id number] Implanted:Qty: 1 on 07/24/2020 by Gabriele Underwood MD at [facility] N/A: Heart [employer] 03/01/2022 [id number] / [id number] / Kit Tissue Clsr Duo Tssl 4ml Lf - [id number] Implanted:Qty: 1 on 07/24/2020 by Gabriele Underwood MD at [facility] N/A: Heart [employer] 12/10/2020 [id number] / [id number] / [id number] Patch Repair Anabella-Gurd 8.0cm X 14cm Implanted:Qty: 1 on 07/24/2020 by Gabriele Underwood MD at [facility] N/A: Heart [employer] 05/05/2024 [id number] / / [id number] Description:[facility] #[id number] Advance Directives * Full Code (Latest Code Status on File) Date Activated Date Inactivated Comments 07/24/2020 2:24 PM 08/01/2020 1:18 PM Care Teams Grassland Conservationist Relationship Specialty Start Date End Date Ronnie Kinney MD [address] [place] [id number] PCP - General 07/19/20
--- NOTE | 2025-01-18 16:57 | P.CONCA_ITS ---
Assessment and Plan Assessment and plan (1) PAF (paroxysmal atrial fibrillation): Code(s): I48.0 - Paroxysmal atrial fibrillation Status: Acute Assessment and Plan: Back in Sinus rhythm. Probably due to age. [id number] 4. Start Sotalol 80 mg BID to prevent recurrence. Check EKG 1 hour after each dose of Sotalol. Start Eliquis 2.5 mg BID. Replete Mag. (2) CAD (coronary artery disease), autologous vein bypass graft: Code(s): I25.810 - Atherosclerosis of coronary artery bypass graft(s) without angina pectoris Status: Acute Assessment and Plan: Stable. (3) Hypertension: Code(s): I10 - Essential (primary) hypertension Status: Acute Assessment and Plan: Stable. (4) History of aortic valve replacement with bioprosthetic valve: Onset Date: 07/2020 Code(s): Z95.3 - Presence of xenogenic heart valve Status: Acute Assessment and Plan: Stable. History of Present Illness History of Present Illness Consult date/time: 01/18/25 16:57 Reason For Visit: Breakthrough Seizure/Transient Afib RVR(resolved)/ Narrative: 84 yr old man who is my regular cardiology patient and a patient of Ana Murillo presents to ER after a seizure episode. He has a history of CAD, CABG x1 vessel, aortic stenosis with S/P SAVR in [place] in around 2018, hypertension, former smoking. Family members are at bedside. Reports he was at home in bed when he had sudden onset generalized seizure witnessed by his brother in law. Paramedics were called and reported he was postictal. EKG was done which showed he was in atrial fibrillation. Currently no longer confused. He is limited at walking a couple of blocks due to fatigue and WINSTON. He had left knee surgery. Denies chest pain, orthopnea, PND, edema, dizziness, palpitations. Cardiovascular Procedures Echo/MUGA:: 08/09/24 Echo: EF 60-65%, grade I diastolic dysfunction (E/e' 11), mod biatrial enlargement, bioprosthetic AVR, mod MR/TR. 06/25/19 Echo: EF 60-65%, mod LVH, diastolic dysfunction (E/e' 15), mod biatrial enlargement, mod-severe (CHRISTI 1.0 cm2), mild-mod MR, severe TR, RVSP 54 mmHg. Electrophysiology:: 07/06/24 EKG: Sinus rhythm. 06/17/24 EKG: Sinus rhythm, frequent PAC's, borderline AV conduction delay, delayed precordial R/S transition, borderline ST-T wave abnormality. Stress test: 08/09/24 Lexiscan myoview: Negative. Review of Systems 2 Review of Systems: All systems reviewed & are unremarkable except as noted in HPI and below Constitutional: Constitutional: Reports as per HPI, Denies chills and Denies fever(s) Cardiovascular: Cardiovascular: Reports as per HPI, Denies chest pain and Denies irregular heart rhythm Respiratory: Respiratory: Reports as per HPI and Denies dyspnea Gastrointestinal: Gastrointestinal: Reports as per HPI and Denies abdominal pain Genitourinary: Genitourinary: Reports as per HPI and Denies dysuria Musculoskeletal: Musculoskeletal: Reports as per HPI Neurologic: Reports as per HPI, Denies dizziness and Denies syncope [facility] Past Medical History Medical History (Updated 01/18/25 @ 17:03 by Steve Tinsley DO) Seizure disorder Arthritis Gastroesophageal reflux disease Coronary artery disease Hyperlipidemia Hypertension Aortic stenosis Subclinical hypothyroidism Surgical History Surgical History History of reverse total replacement of right shoulder joint History of arthroplasty of left knee History of arthroplasty of left shoulder History of coronary artery bypass graft x 1 (07/2020) At [facility]. History of aortic valve replacement with bioprosthetic valve (07/2020) At [facility]. History of incisional hernia repair (03/2021) Epigastric incisional hernia with mesh. Family History Family History Other Family history unknown Social History Social History Social History: Surrogate medical decision maker: Kalyani Haley, daughter. Code status: Full code. Smoking packs per day: 1 Smoking cigarettes per day: 20.0 Years smoked: 15 Smoking pack-years: 15.00 Smoking status: Former smoker Smokeless tobacco user: chewing tobacco Second hand tobacco smoke exposure: No Additional smoking assessment comments: quit 20 years ago Alcohol intake: former Drinks per week: 7 Alcohol use details: Beer Substance use: current Substance use type: marijuana Other substance usage details: Patient answer-use ranges from a couple times a year to every week. Do You Feel Safe in your Home?: Yes Lack of Transportation: No Lack of Food: Never True Current Housing: I Have Housing Concerned About Future Housing: No Difficulty Paying Gas/Electric Bills: No Difficulty Paying for Meds: No Currently Unemployed: No Education: High School Diploma/GED Difficulty w/ Childcare or Family Care: No Living arrangements: with roommate(s) Additional living arrangements comments: lives with a roommate Occupation/Education: retired Additional occupation/education comments: [employer] Spiritual care concerns: No Agree to blood products: No Meds Home Medications and Allergies Home Medications ?Medication ?Instructions ?Recorded ?Confirmed ?Type metoprolol tartrate 50 mg tablet See Rx Instructions .Route 09/13/24 01/18/25 Rx .COMPLEX #90 tabs levetiracetam 1,000 mg tablet 1,000 mg PO BID 30 days #60 tabs 11/20/24 01/18/25 Rx (Keppra) amlodipine 10 mg tablet 10 mg PO DAILY #90 tabs 12/27/24 01/18/25 Rx Allergies Allergy/AdvReac Type Severity Reaction Status Date / Time No Known Allergies Allergy Verified 10/14/24 07:14 Vital Signs Vital Signs - 24 hr 01/18/25 04:52 01/18/25 04:57 01/18/25 05:03 Temperature 97.8 F Pulse Rate 144 H 144 H Pulse Rate [Apical] Respiratory Rate 23 H Blood Pressure 123/80 Blood Pressure [Left Arm] Pulse Oximetry 98 Oxygen Delivery Room Air Oxygen Flow Rate 01/18/25 05:05 01/18/25 05:08 01/18/25 05:20 Temperature 98.4 F Pulse Rate 126 H 63 Pulse Rate [Apical] Respiratory Rate 13 Blood Pressure 106/71 Blood Pressure [Left Arm] Pulse Oximetry 100 100 Oxygen Delivery Room Air Oxygen Flow Rate 01/18/25 05:23 01/18/25 05:33 01/18/25 06:01 Temperature Pulse Rate 62 74 70 Pulse Rate [Apical] Respiratory Rate 17 15 Blood Pressure 105/82 78/46 L Blood Pressure [Left Arm] Pulse Oximetry 96 Oxygen Delivery Oxygen Flow Rate 01/18/25 06:02 01/18/25 06:04 01/18/25 06:16 Temperature Pulse Rate 71 72 63 Pulse Rate [Apical] Respiratory Rate 23 H 22 H 12 Blood Pressure 81/56 L 99/73 L 113/60 Blood Pressure [Left Arm] Pulse Oximetry 94 Oxygen Delivery Oxygen Flow Rate 01/18/25 06:46 01/18/25 07:16 01/18/25 07:31 Temperature Pulse Rate 66 62 59 L Pulse Rate [Apical] Respiratory Rate 18 27 H 18 Blood Pressure 101/54 L 109/57 L 110/79 Blood Pressure [Left Arm] Pulse Oximetry 100 98 Oxygen Delivery Oxygen Flow Rate 01/18/25 07:32 01/18/25 08:01 01/18/25 08:32 Temperature 97.6 F Pulse Rate 75 66 74 Pulse Rate [Apical] Respiratory Rate 16 17 14 Blood Pressure 110/79 125/63 127/71 Blood Pressure [Left Arm] Pulse Oximetry 98 Oxygen Delivery Oxygen Flow Rate 01/18/25 10:10 01/18/25 10:15 01/18/25 10:30 Temperature 97.6 F 97.6 F 97.9 F Pulse Rate Pulse Rate [Apical] 66 68 75 Respiratory Rate 12 10 L 14 Blood Pressure Blood Pressure [Left Arm] 112/63 105/53 L 125/75 Pulse Oximetry 100 98 100 Oxygen Delivery Nasal Cannula Nasal Cannula Oxygen Flow Rate 2 2 01/18/25 10:45 01/18/25 11:57 01/18/25 12:33 Temperature 97.6 F 97.6 F Pulse Rate 84 74 Pulse Rate [Apical] 88 Respiratory Rate 16 14 16 Blood Pressure 113/65 107/75 Blood Pressure [Left Arm] 122/88 Pulse Oximetry 98 95 98 Oxygen Delivery Room Air Oxygen Flow Rate 01/18/25 12:42 01/18/25 14:00 01/18/25 15:42 Temperature 98.1 F 98 F Pulse Rate 87 96 89 Pulse Rate [Apical] Respiratory Rate 16 18 Blood Pressure 132/66 105/55 L Blood Pressure [Left Arm] Pulse Oximetry 98 98 Oxygen Delivery Oxygen Flow Rate 01/18/25 16:00 Temperature Pulse Rate 88 Pulse Rate [Apical] Respiratory Rate Blood Pressure Blood Pressure [Left Arm] Pulse Oximetry Oxygen Delivery Oxygen Flow Rate Exam 2 Const: General: cooperative, healthy appearing and comfortable Resp: Auscultation: clear to auscultation bilaterally, no crackles, no rales, no rhonchi and no wheezes Cardio: Rate: regular rate Rhythm: regular rhythm Heart sounds: no murmurs Peripheral pulses: dorsalis pedis present GI: GI Palp: No abdominal tenderness and Yes Soft to palpation Neuro: General: oriented to person, oriented to place and oriented to time Extrem: Right lower extremity: no edema Left lower extremity: no edema Results Labs and Meds 01/18/25 04:56 01/18/25 04:56 Lab results: Cardiac Enzymes 01/18/25 Range/Units 04:56 AST 32 (17-59) U/L CBC 01/18/25 Range/Units 04:56 WBC 18.7 H (4.5-10.0) K/mm3 RBC 4.35 L (4.6-6.20) M/mm3 Hgb 13.1 L (14.0-18.0) g/dL Hct 40.5 L (42.0-52.0) % Plt Count 277 (150-375) k/mm3 Lymph # (Auto) Not Reportable [place] # (Auto) Not Reportable Eos # (Auto) Not Reportable Baso # (Auto) Not Reportable Comprehensive Metabolic Panel 01/18/25 Range/Units 04:56 Sodium 136 L (137-145) mmol/L Potassium 3.5 (3.4-5.0) mmol/L Chloride 97 L (98-107) mmol/L Carbon Dioxide 15 L (22-30) mmol/L BUN 8 L (9-20) mg/dL Creatinine 1.12 (0.7-1.3) mg/dL Glucose 167 H (65-110) mg/dL Calcium 10.1 (8.4-10.2) mg/dL AST 32 (17-59) U/L ALT 27 (6-50) U/L Alkaline Phosphatase 100 (38-126) U/L Total Protein 9.0 H (6.3-8.2) g/dL Albumin 4.9 (3.5-5.1) g/dL Intake and Output 01/18/25 01/18/25 01/18/25 07:59 15:59 23:59 Intake Total 1100 500 Output Total 300 Balance 1100 200 Intake: IV 1100 500 Sodium Chloride 0.9% IV 1,000 1000 ml @ 999 mls/hr IV CONT .Q1H1M STA Rx#:[id number] Sodium Chloride 0.9% IV 500 ml 500 @ 999 mls/hr IV CONT .Q31M STA Rx#:[id number] levETIRAcetam 1500MG/[id number] 100 1,500 mg In 100 ml @ 400 mls/hr IVPB ONCE STA Rx#:[id number] Output: Urine 300 Patient Weight 01/18/25 23:59 Weight 64.7 kg
[2025-01-18 20:20] LABS: Anion Gap 14 mmol/L (4-12); Blood Urea Nitrogen 10 mg/dL (9-20); Calcium 8.9 mg/dL (8.4-10.2); Carbon Dioxide 20 mmol/L (22-30); Chloride 102 mmol/L (98-107); Estimated CRCL calculation 55 ml/min; Estimated Glomerular Filt Rate > 60; Glucose 90 mg/dL (65-110); Magnesium 1.4 mg/dL (1.6-2.3); Potassium 3.2 mmol/L (3.4-5.0); Sodium 136 mmol/L (137-145)
[2025-01-18] MEDS: APIXABAN 2.5 MG TABLET PO (21:00)
[2025-01-18] MEDS: levETIRAcetam 500 MG TABLET 1000 MG PO (21:00)
[2025-01-18] MEDS: SOTALOL HCL 80 MG TABLET PO (21:01)
--- NOTE | 2025-01-18 22:01 | ECG_ITS ---
Test Date: 2025-01-18 22:03:16 Measurements Intervals [place] Rate: 86 P: 89 TN: 220 QRS: 44 QRSD: 98 T: 64 QT: 394 QTc: 473 Interpretive Statements SINUS RHYTHM WITH FIRST DEGREE AV BLOCK WITH VENTRICULAR PREMATURE COMPLEX AND FREQUENT ATRIAL PREMATURE COMPLEXES BORDERLINE R WAVE PROGRESSION, ANTERIOR LEADS CONSIDER INFERIOR INFARCT, AGE INDETERMINATE NONSPECIFIC ST & T-WAVE ABNORMALITY- LAT/HIGH LAT LEADS BASELINE ARTIFACT- I, III, AVR, AVL, AVF, V1-V6 ABNORMAL ECG Compared to ECG 01/18/2025 05:45:09 NO SIGNIFICANT CHANGE Electronically Signed On 01-19-2025 06:21:58 CDT by Steve Tinsley D.O.
--- NOTE | 2025-01-18 22:38 | PC.NURSE ---
Patient refusing to keep on cafeteria monitor. Patient states that nothing is wrong with him and that he is tired of people coming in to check on it. Patient made aware of what the cafeteria monitor is used for/needed for. Jerome MOREIRA made aware with orders to remove cafeteria monitor at this time.
--- NOTE | 2025-01-18 23:01 | ECG_ITS ---
Test Date: 2025-01-18 22:02:48 Measurements Intervals [place] Rate: 82 P: 91 [place]: 210 QRS: 47 QRSD: 100 T: 39 QT: 394 QTc: 461 Interpretive Statements SINUS RHYTHM WITH FIRST DEGREE AV BLOCK WITH FREQUENT SUPRAVENTRICULAR PREMATURE COMPLEXES BORDERLINE R WAVE PROGRESSION, ANTERIOR LEADS CONSIDER INFERIOR INFARCT, AGE INDETERMINATE BORDERLINE ST-T WAVE ABNORMALITY- HIGH LATERAL LEADS BASELINE ARTIFACT- I, II, III, AVR, AVL, AVF, V4-V6 ABNORMAL ECG Compared to ECG 01/18/2025 05:45:09 ATRIAL FIBRILLATION NO LONGER PRESENT Electronically Signed On 01-19-2025 06:23:32 CDT by Steve Tinsley D.O.
--- NOTE | 2025-01-18 23:10 | ECG_ITS ---
Test Date: 2025-01-18 23:11:34 Measurements Intervals [place] Rate: 81 P: 56 WV: 184 QRS: 45 QRSD: 100 T: 55 QT: 414 QTc: 482 Interpretive Statements SINUS RHYTHM WITH OCCASIONAL SUPRAVENTRICULAR PREMATURE COMPLEXES DELAYED PRECORDIAL R/S TRANSITION CONSIDER INFERIOR INFARCT, AGE INDETERMINATE BORDERLINE ST-T WAVE ABNORMALITY- HIGH LATERAL LEADS ABNORMAL ECG Compared to ECG 01/18/2025 22:03:16 NO SIGNIFICANT CHANGE Electronically Signed On 01-19-2025 06:24:30 CDT by Steve Tinsley D.O.
[2025-01-19] VITALS (9 sets, daily range): BP systolic 105–135; BP diastolic 52–86; PULSE 69–90; RESP 16–20; TEMP 36.4–37; O2SAT 95–100
[2025-01-19 04:25] LABS: Hematocrit 34.3 % (42.0-52.0); Hemoglobin 11.2 g/dL (14.0-18.0); Mean Corpuscular HGB Conc 32.7 g/dl (32-36); Mean Corpuscular Hemoglobin 29.7 pg (26-34); Mean Platelet Volume 10.1 fl (7.4-10.4); Platelet Count Result 240 k/mm3 (150-375); Red Blood Count 3.77 M/mm3 (4.6-6.20); Red Cell Distribution Width 12.9 % (11.5-14.5); White Blood Count 8.7 K/mm3 (4.5-10.0)
[2025-01-19 04:34] LABS: Anion Gap 12 mmol/L (4-12); Blood Urea Nitrogen 9 mg/dL (9-20); Calcium 8.9 mg/dL (8.4-10.2); Carbon Dioxide 21 mmol/L (22-30); Chloride 102 mmol/L (98-107); Estimated CRCL calculation 55 ml/min; Estimated Glomerular Filt Rate > 60; Glucose 86 mg/dL (65-110); Potassium 3.2 mmol/L (3.4-5.0); Sodium 135 mmol/L (137-145)
--- NOTE | 2025-01-19 06:50 | PC.NURSE ---
Patient refuses to wear his arm sling. He is noted to be confused at this time, but oriented to person, place and time. Patient also pulled out his IV and is stating that he had a $250 watch wear the IV was placed. This nurse placed the IV in his L. forearm and there was no watch noted. He is expressing the urge to leave the hospital. Charge nurse made aware. Patient was able to be redirected into bed at this time. Bed alarm is on, as patient's gait is unsteady.
--- NOTE | 2025-01-19 07:45 | PM.PNCARD ---
Progress Note: A&P Assessment and Plan (1) PAF (paroxysmal atrial fibrillation): Code(s): I48.0 - Paroxysmal atrial fibrillation Status: Acute Assessment and Plan: Back in Sinus rhythm. Probably due to age. [id number] 4. Started Sotalol 80 mg BID to prevent recurrence. Check EKG 1 hour after each dose of Sotalol. Started Eliquis 2.5 mg BID. Replete Mag and KCl. Anticipate being here until tomorrow for Sotalol loading. (2) CAD (coronary artery disease), autologous vein bypass graft: Code(s): I25.810 - Atherosclerosis of coronary artery bypass graft(s) without angina pectoris Status: Acute Assessment and Plan: Stable. (3) Hypertension: Code(s): I10 - Essential (primary) hypertension Status: Acute Assessment and Plan: Stable. (4) History of aortic valve replacement with bioprosthetic valve: Onset Date: 07/2020 Code(s): Z95.3 - Presence of xenogenic heart valve Status: Acute Assessment and Plan: Stable. Subjective Date/time seen: 01/19/25 07:45 Interval history: Denies chest pain or sob. Exam Const: General: cooperative, healthy appearing and comfortable Orientation/consciousness: oriented to person, oriented to place and oriented to time Resp: Auscultation: clear to auscultation bilaterally, no crackles, no rales, no rhonchi and no wheezes Cardio: Rate: regular rate Rhythm: regular rhythm Heart sounds: no murmurs Peripheral pulses: dorsalis pedis present Neuro: General: oriented to person, oriented to place and oriented to time Extrem: Right lower extremity: no edema Left lower extremity: no edema Objective Data Vital Signs Vital Signs: Vital Signs - 24 hr 01/18/25 08:01 01/18/25 08:32 01/18/25 10:10 Temperature 97.6 F Pulse Rate 66 74 Pulse Rate [Apical] 66 Respiratory Rate 17 14 12 Blood Pressure 125/63 127/71 Blood Pressure [Left Arm] 112/63 Pulse Oximetry 100 Oxygen Delivery Oxygen Flow Rate 01/18/25 10:15 01/18/25 10:30 01/18/25 10:45 Temperature 97.6 F 97.9 F 97.6 F Pulse Rate Pulse Rate [Apical] 68 75 88 Respiratory Rate 10 L 14 16 Blood Pressure Blood Pressure [Left Arm] 105/53 L 125/75 122/88 Pulse Oximetry 98 100 98 Oxygen Delivery Nasal Cannula Nasal Cannula Room Air Oxygen Flow Rate 2 2 01/18/25 11:57 01/18/25 12:33 01/18/25 12:42 Temperature 97.6 F 98.1 F Pulse Rate 84 74 87 Pulse Rate [Apical] Respiratory Rate 14 16 16 Blood Pressure 113/65 107/75 132/66 Blood Pressure [Left Arm] Pulse Oximetry 95 98 98 Oxygen Delivery Oxygen Flow Rate 01/18/25 14:00 01/18/25 15:42 01/18/25 16:00 Temperature 98 F Pulse Rate 96 89 88 Pulse Rate [Apical] Respiratory Rate 18 Blood Pressure 105/55 L Blood Pressure [Left Arm] Pulse Oximetry 98 Oxygen Delivery Oxygen Flow Rate 01/18/25 19:14 01/18/25 20:00 01/18/25 20:00 Temperature 98.1 F Pulse Rate 93 92 Pulse Rate [Apical] Respiratory Rate 18 Blood Pressure 133/73 Blood Pressure [Left Arm] Pulse Oximetry 99 Oxygen Delivery Room Air Oxygen Flow Rate 01/18/25 21:01 01/19/25 00:00 01/19/25 00:00 Temperature 98 F Pulse Rate 103 H 84 Pulse Rate [Apical] Respiratory Rate 18 Blood Pressure 105/52 L Blood Pressure [Left Arm] Pulse Oximetry 99 Oxygen Delivery Room Air Oxygen Flow Rate 01/19/25 03:20 01/19/25 04:00 Temperature 97.8 F Pulse Rate 90 Pulse Rate [Apical] Respiratory Rate 18 Blood Pressure 135/68 Blood Pressure [Left Arm] Pulse Oximetry 100 Oxygen Delivery Room Air Oxygen Flow Rate Intake/Output Intake/Output: Intake & Output 01/16/25 01/17/25 01/18/25 01/19/25 23:59 23:59 23:59 23:59 Intake Total 2340 Output Total 300 400 Balance 2040 -400 Meds/Results Medications: Active Medications Generic Name Dose Route Start Last Admin Trade Name Freq PRN Reason Stop Dose Admin Acetaminophen 650 mg 01/18/25 11:50 Acetaminophen 325 Mg Tablet PO Q4H PRN Mild Pain (1-3) or Fever Amlodipine Besylate 10 mg 01/19/25 09:00 Amlodipine Besylate 10 Mg Tablet PO DAILY [facility] Apixaban 2.5 mg 01/18/25 17:00 01/18/25 21:00 Apixaban 2.5 Mg Tablet PO 2.5 mg BID SHANIQUE Administration Magnesium Sulfate 2 gm in 50 mls @ 25 mls/hr 01/19/25 06:32 Magnesium Sulf 2 Gm/Water 50ml IVPB 01/19/25 08:31 ONCE ONE Levetiracetam 1,000 mg 01/18/25 19:25 01/18/25 21:00 Levetiracetam 500 Mg Tablet PO 1,000 mg Q12HR SHANIQUE Administration Magnesium Oxide 400 mg 01/19/25 09:00 Magnesium Oxide 400 Mg Tablet PO DAILY SHANIQUE Ondansetron HCl 4 mg 01/18/25 11:50 Ondansetron Inj 4 Mg/2 Ml Vial IV PUSH Q4H PRN Nausea Sotalol HCl 80 mg 01/18/25 21:00 01/18/25 21:01 Sotalol Hcl 80 Mg Tablet PO 80 mg Q12HR SHANIQUE Administration Radiology Results: ITS Impressions Shoulder X-Ray 01/18/25 10:51 IMPRESSION: No acute osseous abnormality right shoulder. Right shoulder arthroplasty. Status post reduction. Head CT 01/18/25 13:14 IMPRESSION: 1. Age-related changes including mild to moderate diffuse volume loss and mild scattered white matter hypoattenuation consistent with chronic small vessel ischemic disease. No acute intracranial process. Labs Labs: Laboratory Results - last 24 hr 01/18/25 01/18/25 01/18/25 04:56 07:48 19:56 WBC RBC Hgb Hct MCV MCH MCHC RDW Plt Count MPV Sodium 136 L Potassium 3.2 L Chloride 102 Carbon Dioxide 20 L Anion Gap 14 H BUN 10 Creatinine 0.76 Estim Creat Clear Calc 55 Estimated GFR > 60 Glucose 90 Lactic Acid 1.9 Calcium 8.9 Magnesium 1.4 L TSH 5.660 H 01/19/25 04:02 WBC 8.7 RBC 3.77 L Hgb 11.2 L Hct 34.3 L MCV 91.0 MCH 29.7 MCHC 32.7 RDW 12.9 Plt Count 240 MPV 10.1 Sodium 135 L Potassium 3.2 L Chloride 102 Carbon Dioxide 21 L Anion Gap 12 BUN 9 Creatinine 0.76 Estim Creat Clear Calc 55 Estimated GFR > 60 Glucose 86 Lactic Acid Calcium 8.9 Magnesium TSH
[2025-01-19] MEDS: POTASSIUM CHLORIDE 20 MEQ ER TABLET 40 MEQ PO ×2 (08:01→18:37)
[2025-01-19] MEDS: levETIRAcetam 500 MG TABLET 1000 MG PO ×2 (08:02→20:43)
[2025-01-19] MEDS: MAGNESIUM OXIDE 400 MG TABLET PO (08:02)
[2025-01-19] MEDS: APIXABAN 2.5 MG TABLET PO ×2 (08:02→16:45)
[2025-01-19] MEDS: amLODIPine BESYLATE 10 MG TABLET PO (08:02)
[2025-01-19] MEDS: SOTALOL HCL 80 MG TABLET PO ×2 (08:02→20:43)
[2025-01-19] MEDS: MAGNESIUM SULF 2 GM/WATER 50ML 2 GM/50 ML BAG IVPB (08:43)
--- NOTE | 2025-01-19 09:02 | ECG_ITS ---
Test Date: 2025-01-19 09:57:14 Measurements Intervals [place] Rate: 78 P: 0 IN: 0 QRS: 32 QRSD: 97 T: 13 QT: 422 QTc: 482 Interpretive Statements SINUS RHYTHM ATRIAL COUPLETS DELAYED PRECORDIAL R/S TRANSITION CONSIDER INFERIOR INFARCT, AGE INDETERMINATE ABNORMAL ECG Compared to ECG 01/18/2025 23:11:34 NO SIGNIFICANT CHANGE Electronically Signed On 01-19-2025 10:03:26 CDT by Steve Tinsley D.O.
--- NOTE | 2025-01-19 12:31 | P.CONNEU_ITS ---
Assessment and Plan Assessment and plan (1) Paroxysmal atrial fibrillation: Code(s): I48.0 - Paroxysmal atrial fibrillation Status: Acute (2) Breakthrough seizure: Code(s): G40.919 - Epilepsy, unspecified, intractable, without status epilepticus Status: Acute (3) Closed dislocation of right shoulder: Qualifiers: Encounter type: initial encounter Qualified Code(s): S43.004A - Unspecified dislocation of right shoulder joint, initial encounter Code(s): S43.004A - Unspecified dislocation of right shoulder joint, initial encounter Status: Acute Plan 1. Breakthrough seizures patient is already taking Keppra 1000mg per day 2. Ongoing history of epilepsy in the past 3. Paroxysmal atrial fibrillation noted in the ER and treated accordingly 4. Close dislocation of the right shoulder has also been taken care in the ER 5. Hypertension 6. Coronary artery disease. Initial CT scan of the head was negative for the bleed patient is being continued on Keppra 1000mg twice a day no further neurological intervention would be suggested until and unless marketing outreach coordinator wants to pursue further for the paroxysmal atrial fibrillation. 7. Maintain the seizure precaution while in the hospital. Consult date: 01/19/25 HPI: Adán Wall is a 84 year old male Admitted to the hospital through the emergency room with history of seizure brought to the ED hospital by the EMS from his home. Roommate heard a shaking sounds of the patient's bed and he found the patient having the seizure-like activity which lasted for 3 to 4 minutes when the EMS arrived to the scene he was postictal. He is not known to be allergic to any medication, has ongoing history of seizure disorder, coronary artery disease with hyperlipidemia and hypertension, aortic stenosis, has undergone multiple surgeries as outlined particularly aortic valve replacement with bioprosthetic aortic valve done in July 2020, his smoking history is 1 pack per day years smoked 15 and smoking pack years 15 though at present is a former smoker also former alcohol intake or 7 drinks per week currently he is mad when I use, initial exam in the emergency room grossly nonfocal, routine blood studies not very significant with hemoglobin 11.2, sodium 135 with potassium 3.2, toxicology screen negative except positive for cannabinoids, CT of the head normally with age-related changes but no bleed or hydrocephalus. It was mention in the notes that he was in rapid atrial fibrillation and came to the ER also shoulder x-rays revealed superior dislocation of the right glenohumeral arthroplasty which was subsequently successfully reduced in the emergency room and also a converted to sinus rhythm after receiving IV metoprolol. He has been continued on levetiracetam 1000mg twice a day in addition to metoprolol and amlodipine. Review of Systems 2 Review of Systems: All systems reviewed & are unremarkable except as noted in HPI and below PMFSH Past Medical History Medical History Seizure disorder Arthritis Gastroesophageal reflux disease Coronary artery disease Hyperlipidemia Hypertension Aortic stenosis Subclinical hypothyroidism Surgical History Surgical History History of reverse total replacement of right shoulder joint History of arthroplasty of left knee History of arthroplasty of left shoulder History of coronary artery bypass graft x 1 (07/2020) At [facility]. History of aortic valve replacement with bioprosthetic valve (07/2020) At [facility]. History of incisional hernia repair (03/2021) Epigastric incisional hernia with mesh. Family History Family History Other Family history unknown Social History Social History Social History: Surrogate medical decision maker: Kalyani Haley, daughter. Code status: Full code. Smoking packs per day: 1 Smoking cigarettes per day: 20.0 Years smoked: 15 Smoking pack-years: 15.00 Smoking status: Former smoker Smokeless tobacco user: chewing tobacco Second hand tobacco smoke exposure: No Additional smoking assessment comments: quit 20 years ago Alcohol intake: former Drinks per week: 7 Alcohol use details: Beer Substance use: current Substance use type: marijuana Other substance usage details: Patient answer-use ranges from a couple times a year to every week. Do You Feel Safe in your Home?: Yes Lack of Transportation: No Lack of Food: Never True Current Housing: I Have Housing Concerned About Future Housing: No Difficulty Paying Gas/Electric Bills: No Difficulty Paying for Meds: No Currently Unemployed: No Education: High School Diploma/GED Difficulty w/ Childcare or Family Care: No Living arrangements: with roommate(s) Additional living arrangements comments: lives with a roommate Occupation/Education: retired Additional occupation/education comments: [employer] Spiritual care concerns: No Agree to blood products: No Meds Home Medications and Allergies Home Medications ?Medication ?Instructions ?Recorded ?Confirmed ?Type metoprolol tartrate 50 mg tablet See Rx Instructions .Route 09/13/24 01/18/25 Rx .COMPLEX #90 tabs levetiracetam 1,000 mg tablet 1,000 mg PO BID 30 days #60 tabs 11/20/24 01/18/25 Rx (Keppra) amlodipine 10 mg tablet 10 mg PO DAILY #90 tabs 12/27/24 01/18/25 Rx Allergies Allergy/AdvReac Type Severity Reaction Status Date / Time No Known Allergies Allergy Verified 10/14/24 07:14 Vital Signs Vital Signs - 24 hr 01/18/25 12:33 01/18/25 12:42 01/18/25 14:00 Temperature 36.4 C 36.7 C Pulse Rate 74 87 96 Respiratory Rate 16 16 Blood Pressure 107/75 132/66 Pulse Oximetry 98 98 Oxygen Delivery 01/18/25 15:42 01/18/25 16:00 01/18/25 19:14 Temperature 36.6 C 36.7 C Pulse Rate 89 88 93 Respiratory Rate 18 18 Blood Pressure 105/55 L 133/73 Pulse Oximetry 98 99 Oxygen Delivery 01/18/25 20:00 01/18/25 20:00 01/18/25 21:01 Temperature Pulse Rate 92 103 H Respiratory Rate Blood Pressure Pulse Oximetry Oxygen Delivery Room Air 01/19/25 00:00 01/19/25 00:00 01/19/25 03:20 Temperature 36.6 C 36.6 C Pulse Rate 84 90 Respiratory Rate 18 18 Blood Pressure 105/52 L 135/68 Pulse Oximetry 99 100 Oxygen Delivery Room Air 01/19/25 04:00 01/19/25 08:00 01/19/25 08:55 Temperature 36.8 C Pulse Rate 76 Respiratory Rate 20 Blood Pressure 107/63 Pulse Oximetry 99 95 Oxygen Delivery Room Air Room Air 01/19/25 11:41 Temperature 36.4 C Pulse Rate 72 Respiratory Rate 20 Blood Pressure 134/71 Pulse Oximetry 100 Oxygen Delivery Exam 2 Narrative: Revealed him to be awake alert cooperative in no obvious acute distress, head normocephalic with no bruit, ear nose throat examination normal, neck supple with no cervical bruit no thyromegaly no lymphadenopathy, heart regular with systolic murmur, lungs clear with no crepitations, abdomen soft nontender, his right upper extremity is in the sling, neuro examination revealed him to be awake alert able to follow the verbal commands appropriately, his speech not dysphasic not dysarthric not dysphonic, pupils round regular feels the vision full extraocular movements full face symmetrical tongue midline uvula midline and motor examination revealed him to have no gross drift or decrease in strength of the upper or lower extremities reflexes symmetrical plantars downgoing. Results Labs 01/19/25 04:02 01/19/25 04:02 Labs: Short CBC 01/19/25 Range/Units 04:02 WBC 8.7 (4.5-10.0) K/mm3 Hgb 11.2 L (14.0-18.0) g/dL Hct 34.3 L (42.0-52.0) % Plt Count 240 (150-375) k/mm3 BMP 01/18/25 01/19/25 19:56 04:02 Sodium 136 L 135 L Potassium 3.2 L 3.2 L Chloride 102 102 Carbon Dioxide 20 L 21 L BUN 10 9 Creatinine 0.76 0.76 Glucose 90 86 Calcium 8.9 8.9
--- NOTE | 2025-01-19 13:18 | PM.IMPN ---
Progress Note: A&P Assessment and Plan (1) Breakthrough seizure: Code(s): G40.919 - Epilepsy, unspecified, intractable, without status epilepticus Status: Acute Assessment and Plan: Patient had a seizure in August 2024 while hospitalized for an elective left knee arthroplasty. EEG 09/06/24 showing no significant abnormalities. He was discharged on Keppra but he did not take this at home. Repeat seizure 1 month ago and resumed on Keppra 1000mg BID. He states he is compliant with medications. He last drank > 1 month ago. He denies drug use but eventually admits to marijuana use. CT brain showing no acute findings. UDS was positive for marijuana. Keppra resumed. Neurology consult. Check brain MRI. (2) Paroxysmal atrial fibrillation: Code(s): I48.0 - Paroxysmal atrial fibrillation Status: Acute Assessment and Plan: The patient was found to be in rapid atrial fibrillation on arrival to ED which is apparently new diagnosis for him. [id number] at least 4. 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 Monitor on tele (3) Closed dislocation of right shoulder: Qualifiers: Encounter type: initial encounter Qualified Code(s): S43.004A - Unspecified dislocation of right shoulder joint, initial encounter Code(s): S43.004A - Unspecified dislocation of right shoulder joint, initial encounter Status: Acute Assessment and Plan: Xray showing right shoulder superior dislocation of right glenohumeral arthoplasty. He under went a successful shoulder reduction. Will have patient follow-up with ortho after discharge (4) Hypertension: Code(s): I10 - Essential (primary) hypertension Status: Acute Assessment and Plan: Patient's blood pressure was reviewed on 01/19 BP have been stable although he had transient hypotension after receiving propofol for shoulder reduction. Will continue to monitor (5) Coronary artery disease: Code(s): I25.10 - Atherosclerotic heart disease of three affiliated coronary artery without angina pectoris Status: Acute Assessment and Plan: Patient as no complaints of chest pain and EKG did not demonstrate any concerning ST segment changes. Patient has a hx of CABG x 1 and AV replacement with bioprosthetic valve (07/2020) at [facility]. Defer to cardiology about adding lipitor and ASA Follow Plan DVT prophylaxis - Eliquis Code status - full Subjective Date/time seen: 01/19/25 13:18 Interval history: 84yo male with of seizures, HTN, HLD, CAD status post 1 vessel bypass, bioprosthetic aortic valve replacement, GERD, tobacco abuse and alcohol abuse in remission who presented to ED via EMS for evaluation after a seizure. No problems overnight. Compliant with Keppra. Last drink was over 1 month ago. Does admit to using marijuana. No tobacco use per patient. No CP or SOB. No weakness. Exam Narrative: AF 97.6 134/71 80 20 100% ra Gen - NARD Chest - CTA bilaterally, nml RR CV - RRR S1/S2; Tele showing sinus arrhyhtmias. Abd - soft NT/ND, +BS Ext - no pedla edema Neuro - alert and appropriate Psych - pleasant and cooperative. Skin - warm and dry Objective Data Vital Signs Vital Signs: Vital Signs - 24 hr 01/18/25 14:00 01/18/25 15:42 01/18/25 16:00 Temperature 98 F Pulse Rate 96 89 88 Respiratory Rate 18 Blood Pressure 105/55 L Pulse Oximetry 98 Oxygen Delivery 01/18/25 19:14 01/18/25 20:00 01/18/25 20:00 Temperature 98.1 F Pulse Rate 93 92 Respiratory Rate 18 Blood Pressure 133/73 Pulse Oximetry 99 Oxygen Delivery Room Air 01/18/25 21:01 01/19/25 00:00 01/19/25 00:00 Temperature 98 F Pulse Rate 103 H 84 Respiratory Rate 18 Blood Pressure 105/52 L Pulse Oximetry 99 Oxygen Delivery Room Air 01/19/25 03:20 01/19/25 04:00 01/19/25 08:00 Temperature 97.8 F 98.2 F Pulse Rate 90 76 Respiratory Rate 18 20 Blood Pressure 135/68 107/63 Pulse Oximetry 100 99 Oxygen Delivery Room Air 01/19/25 08:55 01/19/25 11:41 01/19/25 12:00 Temperature 97.6 F Pulse Rate 72 80 Respiratory Rate 20 Blood Pressure 134/71 Pulse Oximetry 95 100 Oxygen Delivery Room Air Intake/Output Intake/Output: Intake & Output 01/16/25 01/17/25 01/18/25 01/19/25 23:59 23:59 23:59 23:59 Intake Total 2340 240 Output Total 300 400 Balance 2040 -160 Meds/Results Medications: Active Medications Generic Name Dose Route Start Last Admin Trade Name Damon PRN Reason Stop Dose Admin Acetaminophen 650 mg 01/18/25 11:50 Acetaminophen 325 Mg Tablet PO Q4H PRN Mild Pain (1-3) or Fever Amlodipine Besylate 10 mg 01/19/25 09:00 01/19/25 08:02 Amlodipine Besylate 10 Mg Tablet PO 10 mg DAILY SHANIQUE Administration Apixaban 2.5 mg 01/18/25 17:00 01/19/25 08:02 Apixaban 2.5 Mg Tablet PO 2.5 mg BID SHANIQUE Administration Levetiracetam 1,000 mg 01/18/25 19:25 01/19/25 08:02 Levetiracetam 500 Mg Tablet PO 1,000 mg Q12HR SHANIQUE Administration Magnesium Oxide 400 mg 01/19/25 09:00 01/19/25 08:02 Magnesium Oxide 400 Mg Tablet PO 400 mg DAILY SHANIQUE Administration Ondansetron HCl 4 mg 01/18/25 11:50 Ondansetron Inj 4 Mg/2 Ml Vial IV PUSH Q4H PRN Nausea Sotalol HCl 80 mg 01/18/25 21:00 01/19/25 08:02 Sotalol Hcl 80 Mg Tablet PO 80 mg Q12HR SHANIQUE Administration Radiology Results: ITS Impressions Shoulder X-Ray 01/18/25 10:51 IMPRESSION: No acute osseous abnormality right shoulder. Right shoulder arthroplasty. Status post reduction. Head CT 01/18/25 13:14 IMPRESSION: 1. Age-related changes including mild to moderate diffuse volume loss and mild scattered white matter hypoattenuation consistent with chronic small vessel ischemic disease. No acute intracranial process. Labs Labs: Laboratory Results - last 24 hr 01/18/25 01/19/25 19:56 04:02 WBC 8.7 RBC 3.77 L Hgb 11.2 L Hct 34.3 L MCV 91.0 MCH 29.7 MCHC 32.7 RDW 12.9 Plt Count 240 MPV 10.1 Sodium 136 L 135 L Potassium 3.2 L 3.2 L Chloride 102 102 Carbon Dioxide 20 L 21 L Anion Gap 14 H 12 BUN 10 9 Creatinine 0.76 0.76 Estim Creat Clear Calc 55 55 Estimated GFR > 60 > 60 Glucose 90 86 Calcium 8.9 8.9 Magnesium 1.4 L
--- NOTE | 2025-01-19 14:30 | PC.NURSE ---
Pt refusing cardiac monitoring due to the telemetry box being uncomfortable and too heavy while he walks despite having available pockets for the monitor. Pt educated on importance of continuous cardiac monitoring while receiving sotalol in the inpatient setting. Pt educated that sotalol can cause EKG changes and that the telemetry monitoring would help to catch any EKG changes early. Pt verbalized understanding but still continues to refuse telemetry. RN educated Pt to alert RN or other hospital staff if he feels any heart palpitation, chest pain, diaphoresis, SOB. Pt still agrees to get EKG after sotalol dose. RN will continue to monitor.
[2025-01-19] MEDS: CALCIUM CARBONATE (TUMS) 500 MG (200 MG ELEMENTAL) PO (21:42)
--- NOTE | 2025-01-19 22:43 | ECG_ITS ---
Test Date: 2025-01-19 22:50:00 Measurements Intervals [place] Rate: 65 P: 23 OK: 202 QRS: 33 QRSD: 99 T: 32 QT: 457 QTc: 478 Interpretive Statements SINUS RHYTHM WITH OCCASIONAL SUPRAVENTRICULAR PREMATURE COMPLEXES NONSPECIFIC ST ELEVATION IN ANTEROLATERAL LEADS BASELINE ARTIFACT- I, II, III, AVR, AVF BORDERLINE ECG Compared to ECG 01/19/2025 09:57:14 NO SIGNIFICANT CHANGE Electronically Signed On 01-20-2025 05:38:25 CDT by Steve Tinsley D.O.
[2025-01-20 03:48] VITALS: BP 102/54; PULSE 93; RESP 16; TEMP 36.4; O2SAT 96
[2025-01-20 04:50] LABS: Anion Gap 11 mmol/L (4-12); Blood Urea Nitrogen 13 mg/dL (9-20); Calcium 8.8 mg/dL (8.4-10.2); Carbon Dioxide 21 mmol/L (22-30); Chloride 103 mmol/L (98-107); Estimated CRCL calculation 49 ml/min; Estimated Glomerular Filt Rate > 60; Glucose 92 mg/dL (65-110); Magnesium 1.8 mg/dL (1.6-2.3); Phosphorus 2.7 mg/dL (2.5-4.5); Potassium 4.5 mmol/L (3.4-5.0); Sodium 135 mmol/L (137-145)
--- NOTE | 2025-01-20 07:37 | PM.PNCARD ---
Progress Note: A&P Assessment and Plan (1) PAF (paroxysmal atrial fibrillation): Code(s): I48.0 - Paroxysmal atrial fibrillation Status: Acute Assessment and Plan: Back in Sinus rhythm. Probably due to age. [id number] 4. On Sotalol 80 mg BID to prevent recurrence. Check EKG 1 hour after each dose of Sotalol. On Eliquis 2.5 mg BID. May d/c home from cardiology standpoint if next EKG is OK after next dose of Sotalol. Then, f/u with me in 1 week. (2) CAD (coronary artery disease), autologous vein bypass graft: Code(s): I25.810 - Atherosclerosis of coronary artery bypass graft(s) without angina pectoris Status: Acute Assessment and Plan: Stable. (3) Hypertension: Code(s): I10 - Essential (primary) hypertension Status: Acute Assessment and Plan: Stable. Stopped Amlodipine as BP running low normal. (4) History of aortic valve replacement with bioprosthetic valve: Onset Date: 07/2020 Code(s): Z95.3 - Presence of xenogenic heart valve Status: Acute Assessment and Plan: Stable. Subjective Date/time seen: 01/20/25 07:37 Interval history: Denies chest pain or sob. Exam Const: General: cooperative, healthy appearing and comfortable Orientation/consciousness: oriented to person, oriented to place and oriented to time Resp: Auscultation: clear to auscultation bilaterally, no crackles, no rales, no rhonchi and no wheezes Cardio: Rate: regular rate Rhythm: regular rhythm Heart sounds: no murmurs Peripheral pulses: dorsalis pedis present Neuro: General: oriented to person, oriented to place and oriented to time Extrem: Right lower extremity: no edema Left lower extremity: no edema Objective Data Vital Signs Vital Signs: Vital Signs - 24 hr 01/19/25 08:00 01/19/25 08:55 01/19/25 11:41 Temperature 98.2 F 97.6 F Pulse Rate 76 72 Respiratory Rate 20 20 Blood Pressure 107/63 134/71 Pulse Oximetry 99 95 100 Oxygen Delivery Room Air 01/19/25 12:00 01/19/25 16:00 01/19/25 19:56 Temperature 98.0 F 98.6 F Pulse Rate 80 77 77 Respiratory Rate 18 16 Blood Pressure 129/75 112/67 Pulse Oximetry 100 99 Oxygen Delivery 01/19/25 23:50 01/20/25 03:48 Temperature 98.2 F 97.6 F Pulse Rate 69 93 Respiratory Rate 16 16 Blood Pressure 107/86 102/54 L Pulse Oximetry 99 96 Oxygen Delivery Intake/Output Intake/Output: Intake & Output 01/17/25 01/18/25 01/19/25 01/20/25 23:59 23:59 23:59 23:59 Intake Total 2340 720 Output Total 300 700 0 Balance 2040 20 0 Meds/Results Medications: Active Medications Generic Name Dose Route Start Last Admin Trade Name Freq PRN Reason Stop Dose Admin Acetaminophen 650 mg 01/18/25 11:50 Acetaminophen 325 Mg Tablet PO Q4H PRN Mild Pain (1-3) or Fever Apixaban 2.5 mg 01/18/25 17:00 01/19/25 16:45 Apixaban 2.5 Mg Tablet PO 2.5 mg BID SHANIQUE Administration Calcium Carbonate 200 mg 01/19/25 20:57 01/19/25 21:42 Calcium Carbonate (Tums) 500 Mg (200 Mg Elemental) PO 200 mg Q6H PRN Administration Indigestion Levetiracetam 1,000 mg 01/18/25 19:25 01/19/25 20:43 Levetiracetam 500 Mg Tablet PO 1,000 mg Q12HR SHANIQUE Administration Magnesium Oxide 400 mg 01/19/25 09:00 01/19/25 08:02 Magnesium Oxide 400 Mg Tablet PO 400 mg DAILY SHANIQUE Administration Ondansetron HCl 4 mg 01/18/25 11:50 Ondansetron Inj 4 Mg/2 Ml Vial IV PUSH Q4H PRN Nausea Sotalol HCl 80 mg 01/18/25 21:00 01/19/25 20:43 Sotalol Hcl 80 Mg Tablet PO 80 mg Q12HR SHANIQUE Administration Radiology Results: ITS Impressions Shoulder X-Ray 01/18/25 10:51 IMPRESSION: No acute osseous abnormality right shoulder. Right shoulder arthroplasty. Status post reduction. Head CT 01/18/25 13:14 IMPRESSION: 1. Age-related changes including mild to moderate diffuse volume loss and mild scattered white matter hypoattenuation consistent with chronic small vessel ischemic disease. No acute intracranial process. Labs Labs: Laboratory Results - last 24 hr 01/20/25 04:22 Sodium 135 L Potassium 4.5 Chloride 103 Carbon Dioxide 21 L Anion Gap 11 BUN 13 Creatinine 0.86 Estim Creat Clear Calc 49 Estimated GFR > 60 Glucose 92 Calcium 8.8 Phosphorus 2.7 Magnesium 1.8 Albumin 4.0
[2025-01-20 07:49] VITALS: BP 134/82; PULSE 62; RESP 18; TEMP 36.3; O2SAT 100
[2025-01-20] MEDS: APIXABAN 2.5 MG TABLET PO ×2 (09:13→17:17)
[2025-01-20] MEDS: MAGNESIUM OXIDE 400 MG TABLET PO (09:13)
[2025-01-20] MEDS: SOTALOL HCL 80 MG TABLET PO (09:14)
[2025-01-20] MEDS: levETIRAcetam 500 MG TABLET 1000 MG PO (09:14)
[2025-01-20 10:33] LABS: Levetiracetam Keppra 22.2 mcg/mL (6.0-46.0)
--- NOTE | 2025-01-20 11:15 | ECG_ITS ---
Test Date: 2025-01-20 11:35:54 Measurements Intervals [place] Rate: 65 P: 0 GA: 0 QRS: 37 QRSD: 88 T: 34 QT: 414 QTc: 431 Interpretive Statements SINUS RHYTHM WITH SECOND DEGREE AV BLOCK, TYPE I (MOBITZ TYPE I) WITH ATRIAL PREMATURE COMPLEX BORDERLINE AV CONDUCTION DELAY NONSPECIFIC ST ELEVATION IN ANTERIOR LEADS ABNORMAL ECG Compared to ECG 01/19/2025 22:50:00 SECOND DEGREE AV BLOCK NOW PRESENT Electronically Signed On 01-20-2025 12:05:07 CDT by Steve Tinsley D.O.
[2025-01-20 11:33] VITALS: BP 122/80; PULSE 74; RESP 18; TEMP 36.4; O2SAT 99
--- NOTE | 2025-01-20 13:38 | PC.NURSE ---
On 01/20/25, the student, [Aylin Nieves], provided care and completed [facility] documentation on this patient. I have reviewed the student's documentation and agree with the findings.
[2025-01-20 16:00] VITALS: BP 120/68; PULSE 72; RESP 18; TEMP 36.8; O2SAT 100
--- NOTE | 2025-01-20 17:01 | P.DS_ITS ---
DS: Admitting Diagnosis Discharge Date 01/20/25 Admitting Diagnosis Seizure DS: Discharge Diagnosis Discharge Diagnosis (1) Breakthrough seizure: Code(s): G40.919 - Epilepsy, unspecified, intractable, without status epilepticus Status: Acute (2) Paroxysmal atrial fibrillation: Code(s): I48.0 - Paroxysmal atrial fibrillation Status: Acute (3) Closed dislocation of right shoulder: Qualifiers: Encounter type: initial encounter Qualified Code(s): S43.004A - Unspecified dislocation of right shoulder joint, initial encounter Code(s): S43.004A - Unspecified dislocation of right shoulder joint, initial encounter Status: Acute (4) Hypertension: Code(s): I10 - Essential (primary) hypertension Status: Acute (5) Coronary artery disease: Code(s): I25.10 - Atherosclerotic heart disease of [place] coronary artery without angina pectoris Status: Acute DS: Summary Hospital Course Reason for hospitalization: 84yo male with of seizures, HTN, HLD, CAD status post 1 vessel bypass, bioprosthetic aortic valve replacement, GERD, tobacco abuse and alcohol abuse in remission who presented to ED via EMS for evaluation after a seizure. Please see H&P for details. Hospital Course: Patient had a seizure in August 2024 while hospitalized for an elective left knee arthroplasty. EEG 09/06/24 showing no significant abnormalities. He was discharged on Keppra but he did not take this at home. Repeat seizure 1 month ago and resumed on Keppra 1000mg BID. He states he has now been compliant with medications. He last drank > 1 month ago. He denies drug use but eventually admits to marijuana use. CT brain showing no acute findings. UDS was positive for marijuana. Brain MRI showing small old lacunar infarct in the right frontal lobe angel radiata but no acute process. Age related changes noted. Neurology was consulted. Keppra resumed and dose advanced per neurology recommendations. The patient was found to be in rapid atrial fibrillation on arrival to ED which is apparently new diagnosis for him. [id number] at least 6. He was seen by cardiology here and was started on sotalol and apixaban for stroke prophylaxis. He was monitored on telemetry. EKG on day of discharge showing normal sinus with 2nd degree AVB, Type I with PACs and nonspecific ST elevation in the anterior leads. Plan for patient to follow up with cardiology in 1 week. On admission, patient had shoulder pain with xray showing right shoulder superior dislocation of right glenohumeral arthroplasty. He under went a successful shoulder reduction in the ED. Plan for him to follow-up with ortho after discharge. Patient's blood pressure was monitored closely and BP has been stable although he had transient hypotension after receiving propofol for shoulder reduction. Norvasc was held. Patient as no complaints of chest pain and EKG did not demonstrate any concerning ST segment changes. Patient has a hx of CABG x 1 and AV replacement with bioprosthetic valve (07/2020) at [facility]. Will defer to cardiology about adding lipitor and ASA. The patient was up ambulating without issue. No further seizure episodes. The patient overall did well and was able to be discharged home on 01/20/25. Status at Discharge Cognitive/behavioral status at discharge: stable Time Spent with Patient Time attestation: Total time spent providing and/or coordinating discharge services: 36 minutes Time spent: Greater than 30 minutes Exam Narrative: AF 97.6 122/80 74 18 99% ra Gen - NARD Chest - CTA bilaterally, nml RR CV - RRR S1/S2 Abd - soft NT/ND, +BS Ext - no pedla edema Neuro - alert and oriented x4. Psych - pleasant and cooperative. Skin - warm and dry DS: Data Data Completed and Pending Labs on day of discharge: Labs from last 24 hours 01/20/25 01/18/25 04:22 19:56 Sodium 135 L Potassium 4.5 Chloride 103 Carbon Dioxide 21 L Anion Gap 11 BUN 13 Creatinine 0.86 Estim Creat Clear Calc 49 Estimated GFR > 60 Glucose 92 Calcium 8.8 Phosphorus 2.7 Magnesium 1.8 Albumin 4.0 Levetiracetam 22.2 Discharge Plan Discharge Attending physician on discharge: Stuart Garcia Consulting providers: Steve Tinsley; Gwyn Farmer Discharging Clinician: Stuart Garcia Anticipated Discharge Date/Time: 01/20/25 17:18 Patient Disposition: Home Activity: as tolerated Diet: heart healthy Discharge Instructions: Please avoid using any products that may contain alcohol. Please avoid all recreational drug use including marijuana. Take precautions to avoid falls. Rise slowly from a lying or sitting position. Pause before standing or walking. Contact your doctor or call 911 and come to the Emergency Room if you have seizure, trauma, lightheadedness with standing or other worrisome symptoms. Avoid NSAIDs (ibuprofen, naproxen, Aleve). Tylenol is safe to take. Your Keppra dose has been increased to 1250mg every 12 hours. You will take a 1000mg tablet + 250mg tablet = 1250mg to be taken every 12 hours. STOP Metoprolol. Continue Sotalol 40mg every 12 hours. You have been started on a blood thinner called Eliquis (apixaban). Contact your doctor or come to the Emergency Dept if you develop episodes of bleeding or if you sustain trauma. Follow-up with your primary care provider in 1-2 weeks. Please call for appointment. Follow-up on Orthopedics in 1-2 weeks. Please call for an appointment. Follow-up with Cardiology in 1 week. Please call for an appointment. Follow-up with Neurology in 4-6 weeks. Please call for an appointment. Thank you for using [facility] for your health care needs. Patient Instructions: Antibiotic Form, Apixaban (By mouth) Patient Language: Hungarian Stand Alone Forms: General Discharge Information Follow-up/Referrals: Steve Tinsley DO [Physician] - Call for Appointment Gwyn Farmer MD [Physician] - Call for Appointment Ana Murillo APRN [Primary Care Provider] - Call for Appointment Discharge Medications: New Eliquis 2.5 mg Tablet 2.5 mg PO Q12H Qty: 60 1RF sotalol 80 mg Tablet 40 mg PO Q12HR Qty: 60 1RF levetiracetam 250 mg Tablet 250 mg PO Q12HR Qty: 60 1RF Rx Instructions: Take with 1000mg table = 1250mg total dose every 12 hours. Changed levetiracetam [Keppra] 1,000 mg tablet 1,000 mg PO Q12H 30 Days Qty: 60 2RF Rx Instructions: Take with 250mg table = 1250mg total every 12 hours. Discontinued metoprolol tartrate 50 mg tablet See Rx Instructions .ROUTE .COMPLEX Qty: 90 1RF Dose Instruction: TAKE 1 TABLET BY MOUTH TWICE DAILY Rx Instructions: TAKE 1 TABLET BY MOUTH TWICE DAILY amlodipine 10 mg tablet 10 mg PO DAILY Qty: 90 1RF Date of admission: 01/19/25 09:09 Primary Care Provider: Ana Murillo Admitting Provider: Frank Martinez Attending physician on admission: Frank Martinez Condition: Stable Hospitalist MIPS Heart Failure (Exclusion) Patient has history of Heart Transplant or Left Ventricular Assistive Device?: No IF YES, STOP HERE Heart Failure (Qualifier) Patient has current or prior documentation of LVEF less than or equal to 40%, or mod/servere depressed LVSF?: No IF NO, STOP HERE
--- NOTE | 2025-01-20 17:23 | WPDNEUROPN ---
Progress Note: A&P Assessment and Plan (1) Seizure disorder: Code(s): G40.909 - Epilepsy, unspecified, not intractable, without status epilepticus Status: Acute (2) PAF (paroxysmal atrial fibrillation): Code(s): I48.0 - Paroxysmal atrial fibrillation Status: Acute Plan I saw him after he had a knee replacement surgery in August 2024. He had a prolonged course of the postictal state during which he was hallucinating and combative but he eventually he improved and he was fairly well and went home. His went home with his son in law. Now he has had another episode for which was hospitalized in November with dislocation the right shoulder. I would suggest to increase the dose of Keppra 1250 mg twice a day and emphasized the need to stay compliant. Patient states that he always takes his medications. He had atrial fibrillation at the time of presentation which subsequently resolved to sinus rhythm. I shall be glad to see him for follow-up in my office for from seizures point of view. Subjective Date/time seen: 01/20/25 17:23 Interval history: The patient Is 84 years old white male with history of seizure disorder followed by postictal state that sometimes last for 1-3 days. I saw him previously in August admission. Thereafter he had another incidence in November when he had dislocation of the right shoulder. He has been on Keppra 2000 mg a day and there is a suspicion that he may not be taking the medication regularly however this is not confirmed. There is also question of history of alcohol drinking. According to 1 of the record that he was drinking and to 2 years ago however another record reflects that he had drink month ago. When he came to the emergency room he was found to be in atrial fibrillation with a heart rate of 140. This was the of course a new development that he has not had before however he reverted back to sinus rhythm after that with medications. Has not gone back to that. This time he is feeling fairly well. Review of Systems Review of Systems: All systems reviewed & are unremarkable except as noted in HPI and below Exam Narrative: fully conscious alert oriented to self time place and person. Cranial nerves you testing intact. Motor system normal power and tone in both upper lower limbs. No involuntary movements are seen. The patient seems to be mentally clear and fairly cooperative at this time. Objective Data Vital Signs Vital Signs: Vital Signs - 24 hr 01/19/25 19:56 01/19/25 23:50 01/20/25 03:48 Temperature 98.6 F 98.2 F 97.6 F Pulse Rate 77 69 93 Respiratory Rate 16 16 16 Blood Pressure 112/67 107/86 102/54 L Pulse Oximetry 99 99 96 01/20/25 07:49 01/20/25 11:33 Temperature 97.4 F L 97.6 F Pulse Rate 62 74 Respiratory Rate 18 18 Blood Pressure 134/82 122/80 Pulse Oximetry 100 99 Intake/Output Intake/Output: Intake & Output 01/17/25 01/18/25 01/19/25 01/20/25 23:59 23:59 23:59 23:59 Intake Total 2340 720 480 Output Total 300 700 0 Balance 2040 20 480 Meds/Results Medications: Active Medications Generic Name Dose Route Start Last Admin Trade Name Freq PRN Reason Stop Dose Admin Acetaminophen 650 mg 01/18/25 11:50 Acetaminophen 325 Mg Tablet PO Q4H PRN Mild Pain (1-3) or Fever Apixaban 2.5 mg 01/18/25 17:00 01/20/25 17:17 Apixaban 2.5 Mg Tablet PO 2.5 mg BID [facility] Administration Calcium Carbonate 200 mg 01/19/25 20:57 01/19/25 21:42 Calcium Carbonate (Tums) 500 Mg (200 Mg Elemental) PO 200 mg Q6H PRN Administration Indigestion Levetiracetam 1,250 mg 01/20/25 21:00 Levetiracetam 250 Mg Tablet PO Q12HR [facility] Magnesium Oxide 400 mg 01/19/25 09:00 01/20/25 09:13 Magnesium Oxide 400 Mg Tablet PO 400 mg DAILY [facility] Administration Ondansetron HCl 4 mg 01/18/25 11:50 Ondansetron Inj 4 Mg/2 Ml Vial IV PUSH Q4H PRN Nausea Sotalol HCl 40 mg 01/20/25 21:00 Sotalol Hcl 80 Mg Tablet PO Q12HR [facility] Radiology Results: ITS Impressions Shoulder X-Ray 01/18/25 10:51 IMPRESSION: No acute osseous abnormality right shoulder. Right shoulder arthroplasty. Status post reduction. Head CT 01/18/25 13:14 IMPRESSION: 1. Age-related changes including mild to moderate diffuse volume loss and mild scattered white matter hypoattenuation consistent with chronic small vessel ischemic disease. No acute intracranial process. Brain MRI 01/20/25 16:21 IMPRESSION: 1. 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 No acute intracranial process. 2. Age-related changes including mild to moderate diffuse volume loss and mild scattered periventricular predominant white matter T2 hyperintensity consistent with chronic small vessel ischemic disease. Labs Labs: Laboratory Results - last 24 hr 01/18/25 01/20/25 19:56 04:22 Sodium 135 L Potassium 4.5 Chloride 103 Carbon Dioxide 21 L Anion Gap 11 BUN 13 Creatinine 0.86 Estim Creat Clear Calc 49 Estimated GFR > 60 Glucose 92 Calcium 8.8 Phosphorus 2.7 Magnesium 1.8 Albumin 4.0 Levetiracetam 22.2
[2025-01-20 19:58] VITALS: BP 124/75; PULSE 74; RESP 16; TEMP 36.9; O2SAT 97
[2025-01-20] MEDS: levETIRAcetam 250 MG TABLET 1250 MG PO (20:50)
[2025-01-20] MEDS: MAGNESIUM SULF 1 GM/D5W 100 ML 1 GM/100 ML BAG IVPB (20:50)
[2025-01-20 20:53] VITALS: PULSE 68
[2025-01-20] MEDS: SOTALOL HCL 40 MG TABLET PO (20:53)
--- NOTE | 2025-01-20 22:30 | ECG_ITS ---
Test Date: 2025-01-20 22:44:21 Measurements Intervals [place] Rate: 70 P: 0 [place]: 0 QRS: 47 QRSD: 94 T: 35 QT: 448 QTc: 483 Interpretive Statements SINUS RHYTHM WITH ATRIAL PREMATURE COMPLEXES AND NON-CONDUCTED PAC MINIMAL Q WAVES- INFERIOR LEADS BASELINE ARTIFACT- I, II, III, AVR, AVL, AVF, V1-V6 BORDERLINE ECG Compared to ECG 01/20/2025 11:35:54 Second-degree AV block, [place] type I (Wenckebach) no longer present Electronically Signed On 01-21-2025 06:33:34 CDT by Steve Tinsley D.O.
[2025-01-21] VITALS: BP 146/77; PULSE 86; RESP 20; TEMP 36.7; O2SAT 100
[2025-01-21 04:00] VITALS: BP 100/58; PULSE 58; RESP 18; TEMP 36.6; O2SAT 99
[2025-01-21 05:29] LABS: Anion Gap 11 mmol/L (4-12); Blood Urea Nitrogen 13 mg/dL (9-20); Calcium 8.8 mg/dL (8.4-10.2); Carbon Dioxide 21 mmol/L (22-30); Chloride 102 mmol/L (98-107); Estimated CRCL calculation 56 ml/min; Estimated Glomerular Filt Rate > 60; Glucose 95 mg/dL (65-110); Sodium 134 mmol/L (137-145)
[2025-01-21 07:55] VITALS: BP 101/58; PULSE 76; RESP 16; TEMP 36.7; O2SAT 99
--- NOTE | 2025-01-21 08:16 | P.PNCA_ITS ---
Progress Note: A&P Assessment and Plan (1) PAF (paroxysmal atrial fibrillation): Code(s): I48.0 - Paroxysmal atrial fibrillation Status: Acute Assessment and Plan: Back in Sinus rhythm. Probably due to age. [id number] 4. Sotalol decreased to Sotalol 40 mg BID due to 2nd degree AV block type I (Wenkebach). Check EKG 1 hour after each dose of Sotalol. On Eliquis 2.5 mg BID. May d/c home from cardiology standpoint and f/u with me in 1 week. (2) CAD (coronary artery disease), autologous vein bypass graft: Code(s): I25.810 - Atherosclerosis of coronary artery bypass graft(s) without angina pectoris Status: Acute Assessment and Plan: Stable. (3) Hypertension: Code(s): I10 - Essential (primary) hypertension Status: Acute Assessment and Plan: Stable. Stopped Amlodipine as BP running low normal. (4) History of aortic valve replacement with bioprosthetic valve: Onset Date: 07/2020 Code(s): Z95.3 - Presence of xenogenic heart valve Status: Acute Assessment and Plan: Stable. Subjective Date/time seen: 01/21/25 08:16 Interval history: Denies chest pain or sob. Exam Const: General: cooperative, healthy appearing and comfortable Orientation/consciousness: oriented to person, oriented to place and oriented to time Resp: Auscultation: clear to auscultation bilaterally, no crackles, no rales, no rhonchi and no wheezes Cardio: Rate: regular rate Rhythm: regular rhythm Heart sounds: no murmurs Peripheral pulses: dorsalis pedis present Neuro: General: oriented to person, oriented to place and oriented to time Extrem: Right lower extremity: no edema Left lower extremity: no edema Objective Data Vital Signs Vital Signs: Vital Signs - 24 hr 01/20/25 11:33 01/20/25 16:00 01/20/25 19:58 Temperature 97.6 F 98.2 F 98.5 F Pulse Rate 74 72 74 Respiratory Rate 18 18 16 Blood Pressure 122/80 120/68 124/75 Pulse Oximetry 99 100 97 Oxygen Delivery 01/20/25 20:00 01/20/25 20:53 01/21/25 00:00 Temperature 98.1 F Pulse Rate 68 86 Respiratory Rate 20 Blood Pressure 146/77 H Pulse Oximetry 100 Oxygen Delivery Room Air 01/21/25 00:00 01/21/25 04:00 01/21/25 04:00 Temperature 98 F Pulse Rate 58 L Respiratory Rate 18 Blood Pressure 100/58 L Pulse Oximetry 99 Oxygen Delivery Room Air Room Air 01/21/25 07:55 Temperature 98.0 F Pulse Rate 76 Respiratory Rate 16 Blood Pressure 101/58 L Pulse Oximetry 99 Oxygen Delivery Intake/Output Intake/Output: Intake & Output 01/18/25 01/19/25 01/20/25 01/21/25 23:59 23:59 23:59 23:59 Intake Total 2340 720 600 200 Output Total 300 700 550 Balance 2040 20 50 200 Meds/Results Medications: Active Medications Generic Name Dose Route Start Last Admin Trade Name Freq PRN Reason Stop Dose Admin Acetaminophen 650 mg 01/18/25 11:50 Acetaminophen 325 Mg Tablet PO Q4H PRN Mild Pain (1-3) or Fever Apixaban 2.5 mg 01/18/25 17:00 01/20/25 17:17 Apixaban 2.5 Mg Tablet PO 2.5 mg BID [facility] Administration Calcium Carbonate 200 mg 01/19/25 20:57 01/19/25 21:42 Calcium Carbonate (Tums) 500 Mg (200 Mg Elemental) PO 200 mg Q6H PRN Administration Indigestion Levetiracetam 1,250 mg 01/20/25 21:00 01/20/25 20:50 Levetiracetam 250 Mg Tablet PO 1,250 mg Q12HR [facility] Administration Magnesium Oxide 400 mg 01/19/25 09:00 01/20/25 09:13 Magnesium Oxide 400 Mg Tablet PO 400 mg DAILY [facility] Administration Ondansetron HCl 4 mg 01/18/25 11:50 Ondansetron Inj 4 Mg/2 Ml Vial IV PUSH Q4H PRN Nausea Sotalol HCl 40 mg 01/20/25 21:00 01/20/25 20:53 Sotalol Hcl 40 Mg Tablet PO 40 mg Q12HR [facility] Administration Radiology Results: ITS Impressions Shoulder X-Ray 01/18/25 10:51 IMPRESSION: No acute osseous abnormality right shoulder. Right shoulder arthroplasty. Status post reduction. Head CT 01/18/25 13:14 IMPRESSION: 1. Age-related changes including mild to moderate diffuse volume loss and mild scattered white matter hypoattenuation consistent with chronic small vessel isc hemic disease. No acute intracranial process. Brain MRI 01/20/25 16:21 IMPRESSION: 1. 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 No acute intracranial process. 2. Age-related changes including mild to moderate diffuse volume loss and mild scattered periventricular predominant white matter T2 hyperintensity consistent with chronic small vessel ischemic disease. Labs Labs: Laboratory Results - last 24 hr 01/18/25 01/21/25 19:56 05:04 Sodium 134 L Potassium 4.0 Chloride 102 Carbon Dioxide 21 L Anion Gap 11 BUN 13 Creatinine 0.74 Estim Creat Clear Calc 56 Estimated GFR > 60 Glucose 95 Calcium 8.8 Magnesium 2.0 Levetiracetam 22.2
[2025-01-21 09:47] VITALS: PULSE 64
[2025-01-21] MEDS: SOTALOL HCL 40 MG TABLET PO (09:47)
[2025-01-21] MEDS: APIXABAN 2.5 MG TABLET PO ×2 (09:47→16:54)
[2025-01-21] MEDS: MAGNESIUM OXIDE 400 MG TABLET PO (09:49)
--- NOTE | 2025-01-21 11:30 | ECG_ITS ---
Test Date: 2025-01-21 12:11:03 Measurements Intervals [place] Rate: 62 P: 0 [place]: 0 QRS: 42 QRSD: 92 T: 39 QT: 455 QTc: 463 Interpretive Statements SINUS RHYTHM WITH FIRST DEGREE AV BLOCK WITH ATRIAL PREMATURE COMPLEXES DELAYED PRECORDIAL R/S TRANSITION MINIMAL Q WAVES- INFERIOR LEADS BASELINE ARTIFACT- I, II, III, AVR, AVL, AVF, V3-V6 BORDERLINE ECG Compared to ECG 01/20/2025 22:44:21 NO SIGNIFICANT CHANGE Electronically Signed On 01-21-2025 12:36:00 CDT by Steve Tinsley D.O.
[2025-01-21] MEDS: levETIRAcetam 250 MG TABLET 1250 MG PO (11:36)
[2025-01-21 12:00] VITALS: BP 104/70; PULSE 63; RESP 18; TEMP 36.6; O2SAT 100
--- NOTE | 2025-01-21 15:44 | P.DS_ITS ---
DS: Admitting Diagnosis Discharge Date 01/21/25 Admitting Diagnosis Seizure DS: Discharge Diagnosis Discharge Diagnosis (1) Breakthrough seizure: Code(s): G40.919 - Epilepsy, unspecified, intractable, without status epilepticus Status: Acute (2) Paroxysmal atrial fibrillation: Code(s): I48.0 - Paroxysmal atrial fibrillation Status: Acute (3) Closed dislocation of right shoulder: Qualifiers: Encounter type: initial encounter Qualified Code(s): S43.004A - Unspecified dislocation of right shoulder joint, initial encounter Code(s): S43.004A - Unspecified dislocation of right shoulder joint, initial encounter Status: Acute (4) Hypertension: Code(s): I10 - Essential (primary) hypertension Status: Acute (5) Coronary artery disease: Code(s): I25.10 - Atherosclerotic heart disease of [place] coronary artery without angina pectoris Status: Acute DS: Summary Hospital Course Reason for hospitalization: 84yo male with of seizures, HTN, HLD, CAD status post 1 vessel bypass, bioprosthetic aortic valve replacement, GERD, tobacco abuse and alcohol abuse in remission who presented to ED via EMS for evaluation after a seizure. Please see H&P for details. Hospital Course: Patient had a seizure in August 2024 while hospitalized for an elective left knee arthroplasty. EEG 09/06/24 showing no significant abnormalities. He was discharged on Keppra but he did not take this at home. Repeat seizure 1 month ago and resumed on Keppra 1000mg BID. He states he has now been compliant with medications. He last drank > 1 month ago. He denies drug use but eventually admits to marijuana use. CT brain showing no acute findings. UDS was positive for marijuana. Brain MRI showing small old lacunar infarct in the right frontal lobe angel radiata but no acute process. Age related changes noted. Neurology was consulted. Keppra resumed and dose advanced per neurology recommendations. The patient was found to be in rapid atrial fibrillation on arrival to ED which is apparently new diagnosis for him. [id number] at least 6. He was seen by cardiology here and was started on sotalol and apixaban for stroke prophylaxis. He was monitored on telemetry. EKG on day of discharge showing normal sinus with 2nd degree AVB, Type I with PACs and nonspecific ST elevation in the anterior leads. Plan for patient to follow up with cardiology in 1 week. On admission, patient had shoulder pain with xray showing right shoulder superior dislocation of right glenohumeral arthroplasty. He under went a successful shoulder reduction in the ED. Plan for him to follow-up with ortho after discharge. Patient's blood pressure was monitored closely and BP has been stable although he had transient hypotension after receiving propofol for shoulder reduction. Norvasc was held. Patient as no complaints of chest pain and EKG did not demonstrate any concerning ST segment changes. Patient has a hx of CABG x 1 and AV replacement with bioprosthetic valve (07/2020) at [facility]. Will defer to cardiology about adding lipitor and ASA. The patient was up ambulating without issue. No further seizure episodes. The patient was to be discharged on 01/20 but EKG showing 2nd degree AVB Type I so Sotalol dose was decreased and he was monitored overnight. Repeat EKGs with the lower dose of sotalol show resolution of the AVB. He had no complaints and overall did well and was able to be discharged home on 01/21/25. Status at Discharge Cognitive/behavioral status at discharge: stable Time Spent with Patient Time attestation: Total time spent providing and/or coordinating discharge services: 32 minutes Time spent: Greater than 30 minutes Exam Narrative: AF 97.8 104/70 63 18 100% ra Gen - NARD Chest - CTA bilaterally, nml RR CV - RRR S1/S2 Abd - soft NT/ND, +BS Ext - no pedal edema Neuro - alert and oriented Psych - pleasant and cooperative. Skin - warm and dry DS: Data Data Completed and Pending Labs on day of discharge: Labs from last 24 hours 01/21/25 05:04 Sodium 134 L Potassium 4.0 Chloride 102 Carbon Dioxide 21 L Anion Gap 11 BUN 13 Creatinine 0.74 Estim Creat Clear Calc 56 Estimated GFR > 60 Glucose 95 Calcium 8.8 Magnesium 2.0 Discharge Plan Discharge Attending physician on discharge: Stuart Garcia Consulting providers: Steve Tinsley; Gwyn Farmer Discharging Clinician: Stuart Garcia Anticipated Discharge Date/Time: 01/21/25 15:49 Patient Disposition: Home Activity: as tolerated Diet: heart healthy Discharge Instructions: Please avoid using any products that may contain alcohol. Please avoid all recreational drug use including marijuana. Take precautions to avoid falls. Rise slowly from a lying or sitting position. Pause before standing or walking. Contact your doctor or call 911 and come to the Emergency Room if you have seizure, trauma, lightheadedness with standing or other worrisome symptoms. Avoid NSAIDs (ibuprofen, naproxen, Aleve). Tylenol is safe to take. Your Keppra dose has been increased to 1250mg every 12 hours. You will take a 1000mg tablet + 250mg tablet = 1250mg to be taken every 12 hours. STOP Metoprolol. Continue Sotalol 40mg every 12 hours. You have been started on a blood thinner called Eliquis (apixaban). Contact your doctor or come to the Emergency Dept if you develop episodes of bleeding or if you sustain trauma. Follow-up with your primary care provider in 1-2 weeks. Please call for appointment. Follow-up on Orthopedics in 1-2 weeks. Please call for an appointment. Follow-up with Cardiology in 1 week. Please call for an appointment. Follow-up with Neurology in 4-6 weeks. Please call for an appointment. Thank you for using [facility] for your health care needs. Patient Instructions: Antibiotic Form, Apixaban (By mouth) Patient Language: Portuguese Stand Alone Forms: General Discharge Information Follow-up/Referrals: Steve Tinsley DO [Physician] - Call for Appointment Gwyn Farmer MD [Physician] - Call for Appointment Ana Murillo APRN [Primary Care Provider] - Call for Appointment Discharge Medications: New Eliquis 2.5 mg Tablet 2.5 mg PO Q12H Qty: 60 1RF sotalol 80 mg Tablet 40 mg PO Q12HR Qty: 60 1RF levetiracetam 250 mg Tablet 250 mg PO Q12HR Qty: 60 1RF Rx Instructions: Take with 1000mg table = 1250mg total dose every 12 hours. Changed levetiracetam [Keppra] 1,000 mg tablet 1,000 mg PO Q12H 30 Days Qty: 60 2RF Rx Instructions: Take with 250mg table = 1250mg total every 12 hours. Discontinued metoprolol tartrate 50 mg tablet See Rx Instructions .ROUTE .COMPLEX Qty: 90 1RF Dose Instruction: TAKE 1 TABLET BY MOUTH TWICE DAILY Rx Instructions: TAKE 1 TABLET BY MOUTH TWICE DAILY amlodipine 10 mg tablet 10 mg PO DAILY Qty: 90 1RF Date of admission: 01/19/25 09:09 Primary Care Provider: Ana Murillo Admitting Provider: Frank Martinez Attending physician on admission: Frank Martinez Condition: Stable Hospitalist MIPS Heart Failure (Exclusion) Patient has history of Heart Transplant or Left Ventricular Assistive Device?: No IF YES, STOP HERE Heart Failure (Qualifier) Patient has current or prior documentation of LVEF less than or equal to 40%, or mod/servere depressed LVSF?: No IF NO, STOP HERE
[2025-01-21 16:00] VITALS: BP 105/58; PULSE 65; RESP 18; TEMP 36.6; O2SAT 99
== END 2025-01-21 17:34 | disposition home or self-care (01) | DRG 101 ==
LOC: ANHED 12:00 → ANHIMU 12:40
PROVIDERS: Physician Assistant; Preventive Medicine Aerospace Medicine; Admitting Provider Internal Medicine; Emergency Provider Student in an Organized Health Care Education/Training Program; PCP Nurse Practitioner Family; Visit Provider Internal Medicine
DX: G40.919 Epilepsy, unspecified, intractable, without status epilepticus (principal); I25.810 Atherosclerosis of coronary artery bypass graft(s) without angina pectoris; T84.028A Dislocation of other internal joint prosthesis, initial encounter; I48.0 Paroxysmal atrial fibrillation; E78.5 Hyperlipidemia, unspecified; F10.11 Alcohol abuse, in remission; F12.90 Cannabis use, unspecified, uncomplicated; I95.9 Hypotension, unspecified; I10 Essential (primary) hypertension; K21.9 Gastro-esophageal reflux disease without esophagitis; Z95.1 Presence of aortocoronary bypass graft; Z96.652 Presence of left artificial knee joint; Z86.73 Personal history of transient ischemic attack (TIA), and cerebral infarction without residual deficits; Z95.3 Presence of xenogenic heart valve; Z87.891 Personal history of nicotine dependence; Z96.611 Presence of right artificial shoulder joint
CPT/HCPCS: 23650; 36415; 70450; 70553; 73030; 80048; 80053; 80069; 80177; 80307; 81001; 83605; 83735; 84443; 85025; 85027; 93005; 96372; 96374; 96375; 99285; A4565; A9270; A9577; G0378; J1171; J1953; J2250; J2704; J3475; J7030; J7040

== ENCOUNTER 2025-02-26 23:48 | Emergency (ER) | payer MEDICARE, SELFPAY ==
--- NOTE | ~2025-02-26 | CT_ITS ---
CT head without contrast Indication: Seizure COMPARISON: 01/18/2025 Technique: Serial scans were obtained through the brain without the administration of contrast. Dose reduction technique was used on this scan by utilizing automated exposure control and iterative recon struction technique. The dose-length product (DLP) was 1362.00 mGy-cm. Findings: There is no evidence of intracranial hemorrhage, mass lesion, or acute infarct. The ventri cles and subarachnoid spaces are dilated, consistent with mild atrophy. Low attenuation regions are seen within the periventricular white matter bilaterally, likely representing changes from chronic mi crovascular ischemic disease. There is no evidence of edema, mass effect or midline shift. The visu alized paranasal sinuses and mastoid air cells are clear. Impression: No intracranial hemorrhage, mass, or acute infarct. Atrophy and chronic white matter changes, as above. Reviewed, dictated and finalized at location . Impression: No intracranial hemorrhage, mass, or acute infarct. Atrophy and chronic white matter changes, as above.
[2025-02-26 23:51] VITALS: PULSE 144; RESP 27
[2025-02-26] MEDS: LORazepam INJ (*CRX) 2 MG/ML VIAL 1 MG IV PUSH (23:55)
[2025-02-27] VITALS (12 sets, daily range): BP systolic 129–161; BP diastolic 63–98; PULSE 90–112; RESP 16–26; O2SAT 93–96
[2025-02-27] MEDS: LORazepam INJ (*CRX) 2 MG/ML VIAL 1 MG IV PUSH (00:17)
[2025-02-27 00:31] LABS: Basophils Absolute Auto 0.1 K/mm3 (0.0-0.1); Basophils Percent Auto 0.4 % (0.2-1.2); Eosinophils Absolute Auto 0.1 K/mm3 (0-0.3); Eosinophils Percent Auto 0.4 % (0-4.4); Hematocrit 38.1 % (42.0-52.0); Hemoglobin 12.3 g/dL (14.0-18.0); Immature Granulocyte Absolute 0.11 K/mm3 (0.00-0.031); Immature Granulocyte Percent A 0.5 % (0-0.5); Lymphocytes Absolute Auto 2.37 K/mm3 (0.9-3.2); Lymphocytes Percent Auto 11.8 % (18.3-44.2); Mean Corpuscular HGB Conc 32.3 g/dl (32-36); Mean Corpuscular Hemoglobin 30.6 pg (26-34); Mean Corpuscular Volume 94.8 fl (80-100); Mean Platelet Volume 9.9 fl (7.4-10.4); Monocytes Absolute Auto 0.5 K/mm3 (0.1-0.6); Monocytes Percent Auto 2.3 % (2.6-8.5); Neutrophils Absolute Auto 16.9 K/mm3 (1.3-6.7); Neutrophils Percent Auto 84.6 % (45.5-73.1); Platelet Count Result 178 k/mm3 (150-375); Red Blood Count 4.02 M/mm3 (4.6-6.20); Red Cell Distribution Width 15.6 % (11.5-14.5)
--- NOTE | 2025-02-27 00:38 | PC.NURSE ---
Spoke to son in law who witness seizure states he heard gasping noises and started shaking. Per son pt did not take his seizure medication today, and was complaining of feeling weak.
--- OUTSIDE RECORDS SUMMARY | 2025-02-27 00:53 | XMS_ITS | Continuity of Care Document ---
Author Organization [facility] Address [address] [place] [phone] Phone Care Team Providers Care City Engineer Name Role Phone Erik Jamil MD Unavailable Unavailable Allergies, Adverse Reactions, Alerts Substance Reaction Status Criticality No Known Allergies Active No Inform ation Medications Medication Instructions Dosage Effective Dates (start - stop) Status Comments Cialis 20 mg tablet take 1 tablet by ora l route every day as needed 20 MG - Active lisinopril 20 mg tablet take 2 tablet by oral route every day 40 MG - Active metoprolol tartrate 50 mg tablet take 1 tablet by oral route every day 50 MG - Active verapamil 80 mg tablet take 1 tablet by oral route 2 times every day 80 MG - Active Procedures Procedure Date ELECTROCARDIOGRAM, COMPLETE OFFICE/OUTPATIENT VISIT, NEW Advance Directives Directive Yes / No Effective Date File Name No Information Encounters Encounter Description Practice Location Reason(s) For Visit Diagnoses Date Provider Providers Copied on Encounter [facility], [address] [place] [address], [id number] , tel:[phone] Main Office No Information 7 Omero Valencia. [address] [place] [address], [id number] , [place]. tel:[phone] OFFICE/OUTPA TIENT VISIT, [facility], [address] [place] [address], [id number] , tel:+ [phone] [place] [facility] Consultation (chief complaint) Essential (primary) hypertensionCardia c murmur, unspecifiedOther specified symptoms and signs involving the circulatory and respiratory systems Omero Valencia. [address] [place] [address], [id number] , [place]. tel:[phone] Referring Provider: Stanislaw De Anda, [facility] [address], [address]. tel:[phone] Family History Family Member Type Diagnosis Age At Onset No Information Payers Payer name Insurance type Covered libertarian ID Authoriza tion(s) [place] Medicare Part B Cl aims Primary MB [id number] Social History Type Description Quantity Date Captured [...] 2D image, spectral Doppler, color flow image ([id number]), Appointment on: , Collected on: , Sent on: Sent Future Order: Radiology Order Du plex scan of extracranial arteries; complete bilateral study ([id number]), Appointment on: , Collected on: , Sent [...]
--- OUTSIDE RECORDS SUMMARY | 2025-02-27 00:53 | XMS_ITS | Encounter Summary ---
Author Organization [facility] Address [address] [place] [address] Care Team Providers Care Bell Tier Name Role Phone Ronnie Kinney MD Primary Care Provider [phone] Encounter Details Date Type Department Care Team (Late st Contact Info) Description 03/03/2023 Telephone [facility] - Centralized Scheduling [address] [place] [address] Herminia Sanches, CLAMSHELL OPERATOR-JACQUARD TWINE POLISHER OPERATOR [address] [address] Social History Tobacco Use Types Packs/Day Years Used Date Smoking Tobacco: Former Cigarettes Q uit: 10/13/1967 Smokeless Tobacco: Current Chew Alcohol Use Standard Drinks/Week Comments Yes 7 (1 standard drink = 0.6 oz pur e alcohol) Sex and Gender Information Value Date Recorded Sex Assigned at Not on file Legal Sex Male 10:12 AM CDT Gender Identity Not on file Sexual Orientation Not on file Occupation Industry Job Start Date Job End Date zelaya Not on file Not on file Not on file documented as of this encounter Functional Status * Is person deaf or have serious hearing difficulty? Answer Date of Assessment Author No 07/25/2020 8:28 AM Roverto Medina RN * Is person blind or have serious difficulty seeing? Answer Date of Assessment Author No 07/25/2020 8:28 AM Roverto Medina RN * Does person have serious difficulty walking/climbing stairs? Answer Date of Assessment Author Yes 07/25/2020 8:28 AM Roverto Medina RN * Does person have difficulty dressing/bathing? Answer Date of Assessment Author No 07/25/2020 8:28 AM Roverto Medina RN * Does person have difficulty doing errands alone? Answer Date of Assessment Author No 07/25/2020 8:28 AM Roverto Medina RN documented as of this encounter Mental Status * Does person have difficulty concentrating/remembering/making decisions? Answer Entry Date Author No 07/25/2020 8:28 AM Roverto Medina RN documented in this encounter Plan of Treatment Not on file documented as of this encounter Visit Diagnoses Not on filedocumented in this encounter Care Teams Bell Tier Relationship Specialty Start Date End Date Ronnie Kinney MD [address] [place] [phone] PCP - General 07/19/20 documented as of this encounter
--- OUTSIDE RECORDS SUMMARY | 2025-02-27 00:53 | XMS_ITS | Clinical Summary ---
Author Organization [facility] Address [address] [facility] [place] [address] Care Team Providers Care Cotton Ginner Name Role Phone Ronnie Kinney MD Primary Care Provider [phone] Source Comments [facility],non-owned Affiliates and Associated Physician Practices is amultiple site organization consisting of ambulatory clinics and hospital sitesin [place], [place], [place] and [place]. This disclosure is being madepursuant to the Care Everywhere program and may not contain all information available regarding this patient. Last updated 18.[facility] Allergies No known active allergies Medications * Be aware that medications may not be up to date on this document. Alwaysverify current medications with the patient. aspirin (ASPIRIN) 81 MG chew tablet Take [...] daily 08/30/2020 Active amLODIPine (NORVASC) 10 MG tabletIndicatio ns:Hypertension Take 1 (one) tablet by mouth once [...] pneumothorax 07/31/2020 0 Hyponatremia 07/31/2020 08/01/2020 Immunizations Immunization Administration Dates Next Due Covid Moderna primary monova lent 12+ yr 0.5mL 08/07/2021 INFLUENZA VACCINE, HIGH-DOSE , QUADR. (FLUZONE HIGH-DOSE QUADRIVALENT; 65Y+), 0.7 ML (HD-IIV4) 08/01/2020(Deferred: Patient Refused) Family History Medical History Relation Name Comments None Known Mother 82 years old- oker Relation Name Status Comments Father unknown [...] Industry Job Start Date Job End Date garcia Not on file Not on file Not on file Last Filed Vital Signs [...] - 2023-2 5 season) 2024 08/07/2021, 01/22/2021 DEPRESSION SCREENING 10/13/2024 MEDICARE AWV CALENDAR YEAR 2024 INFLUENZA VACCINE (Season Ended) 2025 HEPATITIS B VACCINE Aged Out No longe [...] this topic Medical Devices Implanted Type Area Aluminum Fabrication Supervisor Device Identifier Shelf Expiration Date Model / Serial / Lot Vlv Aor Hn Ii 25 - [id number] Implanted:Qty: 1 on 07/24/2020 by Gabriele Underwood MD at [facility] N/A: Heart [employer] 03/01/2022 [id number] / [id number] / Kit Tissue Clsr Duo Tssl 4ml Lf - [id number] Implanted:Qty: 1 on 07/24/2020 by Gabriele Underwood MD at [facility] N/A: Heart [employer] 12/10/2020 [id number] / [id number] / [id number] Patch Repair Anabella-Gurd 8.0cm X 14cm Implanted:Qty: 1 on 07/24/2020 by Gabriele Underwood MD at [facility] N/A: Heart [employer] 05/05/2024 [id number] [id number] / / [id number] Description:[facility] #[id number] Insurance [facility] WELLCARE WELLCARE WELLCARE WELLCARE WELLCARE WELLCARE WELLCARE WELLCARE Advance Directives * Full Code (Latest Code Status on File) Date Activated Date Inactivated Comments 07/24/2020 2:24 PM 08/01/2020 1:18 PM Care Teams Cotton Ginner Relationship Specialty Start Date End Date Ronnie Kinney MD [address] [place] [id number] PCP - General 07/19/20
--- NOTE | 2025-02-27 00:55 | ED_ITS ---
HPI - Seizure General Chief Complaint: Seizure Stated Complaint: seizure Time Seen by Provider: 02/26/25 23:49 History of Present Illness HPI Narrative: Patient with history of seizures on Lamictal with missed dose per son-in-law presents here after having seizure, ongoing for about 20 minutes per EMS, has stopped and he is now postictal and thrashing around and confused. Related Data Allergies Allergy/AdvReac Type Severity Reaction Status Date / Time No Known Allergies Allergy Verified 02/08/25 08:30 Review of Systems 2 Review of Systems: ROS unobtainable: Yes unobtainable due to mental status [facility] Past Medical History Medical History Seizure disorder Arthritis Gastroesophageal reflux disease Coronary artery disease Hyperlipidemia Hypertension Aortic stenosis Subclinical hypothyroidism Surgical History Surgical History History of reverse total replacement of right shoulder joint History of arthroplasty of left knee History of arthroplasty of left shoulder History of coronary artery bypass graft x 1 (07/2020) At [facility]. History of aortic valve replacement with bioprosthetic valve (07/2020) At [facility]. History of incisional hernia repair (03/2021) Epigastric incisional hernia with mesh. Family History Family History Other Family history unknown Social History Social History (Updated 02/08/25 @ 11:23 by Beulah Beaver CMA) Social History: Surrogate medical decision maker: Kalyani Haley, daughter. Code status: Full code. Smoking packs per day: 1 Smoking cigarettes per day: 20.0 Years smoked: 15 Smoking pack-years: 15.00 Smoking status: Former smoker Smokeless tobacco user: chewing tobacco Second hand tobacco smoke exposure: No Additional smoking assessment comments: quit 20 years ago Alcohol intake: former Drinks per week: 7 Alcohol use details: Beer Substance use: current Substance use type: marijuana Other substance usage details: Patient answer-use ranges from a couple times a year to every week. Current Housing: Decline to Answer Concerned About Future Housing: Decline to Answer Difficulty Paying Gas/Electric Bills: Decline to Answer Difficulty Paying for Meds: Decline to Answer Currently Unemployed: Decline to Answer Education: Decline to Answer Difficulty w/ Childcare or Family Care: Decline to Answer Living arrangements: with roommate(s) Additional living arrangements comments: lives with a roommate Occupation/Education: retired Additional occupation/education comments: [employer] Spiritual care concerns: No Agree to blood products: No Exam 2 Narrative: EXAMINATION OF ORGAN SYSTEMS/BODY AREAS: Constitutional: Vital signs per nursing GENERAL: Thrashing around in the bed, moving all extremities HEAD: Normal with no signs of head trauma. EYES: EOMI LUNGS: tachypneic HEART: Tachycardic ABD: [Soft], [nontender to palpation] EXT: No obvious deformity NEURO: [Alert but not respond to outside stimuli. Moving all extremities.] Course Vital Signs Vital signs: Vital Signs Pulse Rate 144 H 02/26/25 23:51 Respiratory Rate 27 H 02/26/25 23:51 Pulse Rate 107 H 02/27/25 01:00 Respiratory Rate 25 H 02/27/25 01:00 Blood Pressure 132/65 02/27/25 00:31 Pulse Oximetry 96 02/27/25 01:03 Oxygen Delivery Nasal Cannula 02/27/25 01:03 MDM - Seizure MDM Narrative Medical decision making narrative: 1) Differential diagnosis: Seizure, brain bleed 2) Comorbidities: Seizure 3) External notes reviewed: Prior admission records for seizure 1 month ago 4) History sources independently obtained from: Son-in-law, EMS 5) Discussion of management with: 6) Independent interpretation of: 7) Diagnostic tests or therapies considered but not ordered: 8) Social determinants of health: 9) Shared decision makinM presenting with breakthrough seizures occurring today, likely from nonadherence to medications. Accu-Chek is normal. Seizure precautions are initiated. He initially was postictal, confused, thrashing, given dose of Ativan. Given his confusion and history of Eliquis and unknown trauma history I did obtain CT brain which thankfully was negative for acute bleeding. Patient was loaded with their home medication and counseled about the importance of taking medications daily as prescribed. On re-evaluation, he is now alert, answering questions appropriately. His son-in-law cannot find the medication bottle at home so I will give him a refill of the medication. [He] expressed understanding of instructions, remained stable in the emergency department for a period of observation without any recurrence of the symptoms and was discharged in stable condition with return precautions and outpatient follow-up. Lab Data 02/27/25 00:26 02/27/25 00:45 Labs: Lab Results 02/27/25 02/27/25 Range/Units 00:26 00:45 WBC 20.0 H (4.5-10.0) K/mm3 RBC 4.02 L (4.6-6.20) M/mm3 Hgb 12.3 L (14.0-18.0) g/dL Hct 38.1 L (42.0-52.0) % MCV 94.8 (80-100) fl MCH 30.6 (26-34) pg MCHC 32.3 (32-36) g/dl RDW 15.6 H (11.5-14.5) % Plt Count 178 (150-375) k/mm3 MPV 9.9 (7.4-10.4) fl Immature Gran % (Auto) 0.5 (0-0.5) % Neut % (Auto) 84.6 H (45.5-73.1) % Lymph % (Auto) 11.8 L (18.3-44.2) % [place] % (Auto) 2.3 L (2.6-8.5) % Eos % (Auto) 0.4 (0-4.4) % Baso % (Auto) 0.4 (0.2-1.2) % Lymph # (Auto) 2.37 (0.9-3.2) K/mm3 [place] # (Auto) 0.5 (0.1-0.6) K/mm3 Eos # (Auto) 0.1 (0-0.3) K/mm3 Baso # (Auto) 0.1 (0.0-0.1) K/mm3 Abs Immat Gran (auto) 0.11 H (0.00-0.031) K/mm3 Absolute Neuts (auto) 16.9 H (1.3-6.7) K/mm3 Absolute Nucleated RBC 0.000 (0.0-0.012) K/mm3 Nucleated RBC % 0.0 (0.0-0.2) % Sodium 133 L (137-145) mmol/L Potassium 3.3 L (3.4-5.0) mmol/L Chloride 102 (98-107) mmol/L Carbon Dioxide 21 L (22-30) mmol/L Anion Gap 10 (4-12) mmol/L BUN 16 (9-20) mg/dL Creatinine 0.66 L (0.7-1.3) mg/dL Estim Creat Clear Calc Not Reportable Estimated GFR > 60 (59 - ) Glucose 106 (65-110) mg/dL Calcium 8.8 (8.4-10.2) mg/dL Discharge Plan Discharge Clinical Impression: Seizure Patient Disposition: [facility] Living Condition: Stable Instructions: Epilepsy (ED) Additional Instructions: Make sure you are taking all of your seizure medications as prescribed and follow up with your neurologist; you can always return to the ER for any further issues. Take both the 1000mg and 250 mg levetiracetam (keppra) twice a day for a total of 1250 mg of keppra twice a day. Patient Language: Beninese Prescriptions: New levetiracetam [Keppra] 1,000 mg tablet 1,000 mg PO BID Qty: 60 0RF levetiracetam [Keppra] 250 mg tablet 250 mg PO BID Qty: 60 0RF No Action levetiracetam 250 mg Tablet 250 mg PO Q12HR Qty: 60 1RF Rx Instructions: Take with 1000mg table = 1250mg total dose every 12 hours. Eliquis 2.5 mg Tablet 2.5 mg PO Q12H Qty: 60 1RF sotalol 80 mg Tablet 40 mg PO Q12HR Qty: 60 1RF levetiracetam [Keppra] 1,000 mg tablet 1,000 mg PO Q12H 30 Days Qty: 60 2RF Rx Instructions: Take with 250mg table = 1250mg total every 12 hours. Follow-up/Referrals: Ana Murillo APRN [Primary Care Provider] - Restraint Face to Face Eval. Evaluation Findings Date/Time of evaluation:: 02/27/25 01:03 Pt's immediate situation:: Thrashing, pulling at lines, not responding to external stimulus Pt's reaction to intervention:: Calmed down Pt's med/behavioral condition:: Postictal Restraint or Seclusion Need Need to continue or terminate:: Discontinued after getting Ativan
[2025-02-27 00:59] LABS: Anion Gap 10 mmol/L (4-12); Blood Urea Nitrogen 16 mg/dL (9-20); Calcium 8.8 mg/dL (8.4-10.2); Carbon Dioxide 21 mmol/L (22-30); Chloride 102 mmol/L (98-107); Estimated Glomerular Filt Rate > 60; Glucose 106 mg/dL (65-110); Potassium 3.3 mmol/L (3.4-5.0); Sodium 133 mmol/L (137-145)
[2025-02-27] MEDS: levETIRAcetam 1500MG/NACL100ML 1,500 MG/100 ML BAG 400 MG IVPB (02:40)
== END 2025-02-27 04:45 ==
PROVIDERS: Emergency Provider Emergency Medicine; PCP Nurse Practitioner Family
DX: G40.909 Epilepsy, unspecified, not intractable, without status epilepticus (principal); K21.9 Gastro-esophageal reflux disease without esophagitis; I25.10 Atherosclerotic heart disease of native coronary artery without angina pectoris; E78.5 Hyperlipidemia, unspecified; I10 Essential (primary) hypertension; Z87.891 Personal history of nicotine dependence
CPT/HCPCS: 36415; 70450; 80048; 85025; 96365; 96375; 96376; 99285; J1953; J2060

== ENCOUNTER 2025-04-18 13:42 | Emergency (ER) | payer MEDICARE, SELFPAY ==
[2025-04-18 13:51] VITALS: BP 145/86; PULSE 85; RESP 16; TEMP 36.6; O2SAT 99
--- NOTE | 2025-04-18 13:52 | ED.EXTPRO ---
HPI - Extremity Problem General Chief complaint: Extremity Problem,Nontraumatic Stated complaint: Right Hand Swelling Time Seen by Provider: 04/18/25 13:50 Source: patient and RN notes reviewed Mode of arrival: ambulatory Limitations: dementia History of Present Illness HPI Narrative: 84-year-old male presents with concern for right wrist swelling, redness, warmth, pain. He reports he woke up with these symptoms, he had no injury. He did not get stung by an insect. He reports pain is localized to the wrist and extends towards the thumb and hand. He denies any pain in the digits. Reports little to no pain at rest and worsening pain with range of motion. He denies fever, body aches, chills, sweats. Reports fatigue. MD Complaint: extremity pain and extremity swelling Related Data Home Medications ?Medication ?Instructions ?Recorded ?Confirmed ?Last Taken ?Type potassium chloride 20 mEq 20 meq PO DAILY 04/12/25 04/12/25 Unknown History tablet,extended release (K-Tab) Allergies Allergy/AdvReac Type Severity Reaction Status Date / Time No Known Allergies Allergy Verified 04/18/25 13:51 Review of Systems Review of Systems: CONSTITUTIONAL: Denies malaise, chills, sweats, or fever. Reports fatigue SKIN: Reports redness, swelling, pain to the right wrist. Denies purulent drainage, vesicles, bullae, numbness, pain beyond proportion MUSCULOSKELETAL: Denies myalgia. NEUROLOGIC: Denies headache. All systems reviewed & are unremarkable except as noted in HPI and below PMFSH Past Medical History Medical History Seizure disorder Arthritis Gastroesophageal reflux disease Coronary artery disease Hyperlipidemia Hypertension Aortic stenosis Subclinical hypothyroidism Surgical History Surgical History History of reverse total replacement of right shoulder joint History of arthroplasty of left knee History of arthroplasty of left shoulder History of coronary artery bypass graft x 1 (07/2020) At [facility]. History of aortic valve replacement with bioprosthetic valve (07/2020) At [facility]. History of incisional hernia repair (03/2021) Epigastric incisional hernia with mesh. Family History Family History Mother Hypertension Other Family history unknown Social History Social History Social History: Surrogate medical decision maker: Kalyani Haley, daughter. Code status: Full code. Smoking packs per day: 1 Smoking cigarettes per day: 20.0 Years smoked: 15 Smoking pack-years: 15.00 Smoking status: Former smoker Smokeless tobacco user: chewing tobacco Second hand tobacco smoke exposure: No Additional smoking assessment comments: quit 20 years ago Alcohol intake: former Drinks per week: 7 Alcohol use details: Beer Substance use: current Substance use type: marijuana Other substance usage details: Patient answer-use ranges from a couple times a year to every week. Current Housing: Decline to Answer Concerned About Future Housing: Decline to Answer Difficulty Paying Gas/Electric Bills: Decline to Answer Difficulty Paying for Meds: Decline to Answer Currently Unemployed: Decline to Answer Education: Decline to Answer Difficulty w/ Childcare or Family Care: Decline to Answer Living arrangements: with roommate(s) Additional living arrangements comments: lives with a roommate Occupation/Education: retired Additional occupation/education comments: [employer] care concerns: No Agree to blood products: No Comments At time of signature, agree with nursing past medical, surgical, social and family history. There is no relevant family history pertinent to the presenting complaint Exam Narrative: GENERAL: Well-appearing, well-nourished, and in no acute distress. HEAD: Normocephalic, atraumatic. EYES: PERRLA, conjunctivae clear ENT: Mucous membranes moist. NECK: Supple. No lymphadenopathy CHEST: Clear to auscultation. No respiratory distress. HEART: Regular rate and rhythm. SKIN: Warm, dry. Edema, Erythema, induration, tenderness, warmth noted to the right wrist, erythema and mild induration extending to the hand and just below the wrist without edema. No fluctuation noted. No vesicles, bullae, necrosis, ecchymosis, crepitus noted. NEURO: Alert and oriented x3. PSYCH: Normal mood and affect Course Course Emergency Course: Patient is aware of diagnosis, understands and agrees to treatment plan. Anticipatory guidance given. Patient agrees to follow-up as directed and is aware of reasons to seek care at the emergency department. Portions of this record may have been created with voice recognition software Level of Care: Express Care Visit Vital Signs Vital signs: Vital Signs Temperature 98 F 04/18/25 13:51 Pulse Rate 85 04/18/25 13:51 Respiratory Rate 16 04/18/25 13:51 Blood Pressure 145/86 H 04/18/25 13:51 Pulse Oximetry 99 04/18/25 13:51 Oxygen Delivery Room Air 04/18/25 13:51 Temperature 98 F 04/18/25 13:51 Pulse Rate 85 04/18/25 13:51 Respiratory Rate 16 04/18/25 13:51 Blood Pressure 145/86 H 04/18/25 13:51 Pulse Oximetry 99 04/18/25 13:51 Oxygen Delivery Room Air 04/18/25 13:51 Reviewed. MDM - Extremity (Nontraumatic) MDM Narrative Medical decision making narrative: I evaluated this in the express care. History is obtained from patient who is an independent historian and physical exam was performed.? Available medical records were reviewed. ? Exam findings and relevant testing show no acute concerns or changes; patient is non-toxic appearing and is in no distress. Does not appear at this time to be erythema multiforme, bullous, SJS, TEN; no evidence at this time to suggest RMSF, NSTI, endocarditis or Lyme disease; patient looks well, nontoxic and is tolerating oral intake; no neurologic signs or symptoms; no headache, photophobia or neck pain; afebrile.? Patient does not have history of of penetrating trauma, laceration, blunt trauma, recent surgery, immunosuppression, malignancy, obesity, alcoholism, corticosteroid use.? Patient reports a possible history of gout but it has been many many years ago. He denies any injury, trauma, insect sting. Symptoms are most consistent with cellulitis versus gout, based on patient's fatigue and erythema and induration spreading beyond the wrist joint I will treat for cellulitis. Discussed the importance of follow-up, patient agrees; question, cellulitis versus necrotizing soft tissue infection versus abscess.?? Patient is appropriate for outpatient treatment and follow-up. Critical Care Time Critical Care Time Critical Care Time: No Discharge Plan Discharge Clinical Impression: Cellulitis Patient Disposition: Home Condition: Stable Instructions: Antibiotic Form, Cellulitis (ED) Additional Instructions: Please follow up with your Primary Care Doctor within 48-72 hours - call for an appointment. Rest and elevate affected area; apply moist heat 3-4 times daily for 10-15 minutes. Take Tylenol as needed pain. Please take Antibiotics as directed. If you experience any worsening redness, swelling, streaking (red lines), fever or chills please go to the ER Patient Language: Georgian Prescriptions: New amoxicillin-pot clavulanate 875-125 mg tablet 1 tablet PO Q12H 10 Days Qty: 20 0RF No Action potassium chloride [K-Tab] 20 mEq tablet extended release 20 meq PO DAILY levetiracetam 250 mg tablet 250 mg PO Q12HR Qty: 60 1RF Rx Instructions: Take with 1000mg table = 1250mg total dose every 12 hours. levetiracetam [Keppra] 1,000 mg tablet 1,000 mg PO BID Qty: 60 0RF sotalol 80 mg tablet 40 mg PO Q12HR Qty: 60 1RF Follow-up/Referrals: UNKNOWN,DOCTOR [Primary Care Provider] - Time of Disposition: 14:01
== END 2025-04-18 14:09 | disposition home or self-care (01) ==
PROVIDERS: Emergency Provider Nurse Practitioner
DX: L03.113 Cellulitis of right upper limb (principal); I25.10 Atherosclerotic heart disease of native coronary artery without angina pectoris; I10 Essential (primary) hypertension; G40.909 Epilepsy, unspecified, not intractable, without status epilepticus; M19.90 Unspecified osteoarthritis, unspecified site; K21.9 Gastro-esophageal reflux disease without esophagitis; E78.5 Hyperlipidemia, unspecified; I35.0 Nonrheumatic aortic (valve) stenosis; E03.8 Other specified hypothyroidism; Z95.1 Presence of aortocoronary bypass graft; Z96.652 Presence of left artificial knee joint; Z96.612 Presence of left artificial shoulder joint; Z95.2 Presence of prosthetic heart valve
CPT/HCPCS: 99213; G0463

== ENCOUNTER 2025-04-20 16:14 | Outpatient (CLI) | payer MEDICARE, SELFPAY ==
--- NOTE | ~2025-04-20 | XR_ITS ---
Right wrist Technique: PA and lateral views were obtained. Clinical History: Pain Findings: There is marked widening of the scapholunate interval, compatible with underlying scapholun ate ligament tear. There is proximal migration of the capitate which is intra-articular distal radius now. There is severe degenerative change of the radial scaphoid articulation with subchondral cystic change in the distal radius, scaphoid, and in the lunate. There is moderate degenerative change of t he triscaphe joint. There is mild degenerative change of the first CMC joint. Soft tissues are unrema rkable. 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 Please see details above. Reviewed, dictated and finalized at location M. 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 Please see details above.
--- OUTSIDE RECORDS SUMMARY | 2025-04-20 16:19 | XMS_ITS | Clinical Summary ---
Author Organization [facility] Address [address] [place] [address] Care Team Providers Care Body Service Team Member Name Role Phone Ronnie Kinney MD Primary Care Provider [phone] Source Comments [facility] [employer],non-owned Affiliates and Associated Physician Practices is amultiple site organization consisting of ambulatory clinics and hospital sitesin [place], [place], [place] and [place]. This disclosure is being madepursuant to the Care Everywhere program and may not contain all information available regarding this patient. Last updated 18.[facility] Allergies No known active allergies Medications * [...] 10:27 AM CDT Height 180.3 cm (5' 11) 05/23/2022 10:27 AM CDT Body Mass Index [...] MEDICARE AWV CALENDAR YEAR 2024 INFLUENZA VACCINE (#1) 2025 HEPATITIS B VACCINE Aged Out No [...] this topic Medical Devices Implanted Type Area Senior Quality Assurance Specialist Device Identifier Shelf Expiration Date Model / Serial / Lot Vlv Aor Hn Ii 25 - [id number] Implanted:Qty: 1 on 07/24/2020 by Gabriele Underwood MD at [facility] N/A: Heart [employer] 03/01/2022 [id number] / [id number] / Kit Tissue Clsr Duo Tssl 4ml Lf - [id number] Implanted:Qty: 1 on 07/24/2020 by Gabriele Underwood MD at [facility] N/A: Heart [employer] 12/10/2020 [id number] / [id number] / [id number] Patch Repair Anabella-Gurd 8.0cm X 14cm Implanted:Qty: 1 on 07/24/2020 by Gabriele Underwood MD at [facility] N/A: Heart [employer] 05/05/2024 [id number] 4-0 010 / / [id number] Description:[facility] #[id number] Insurance [facility] WELLCARE WELLCARE WELLCARE WELLCARE WELLCARE WELLCARE WELLCARE WELLCARE Advance Directives * Full Code (Latest Code Status on File) Date Activated Date Inactivated Comments 07/24/2020 2:24 PM 08/01/2020 1:18 PM Care Teams Body Service Team Member Relationship Specialty Start Date End Date Ronnie Kinney MD [address] [place] [address] PCP - General 07/19/20
--- OUTSIDE RECORDS SUMMARY | 2025-04-20 16:19 | XMS_ITS | Encounter Summary ---
Author Organization [facility] Address [address] [place] [address] Care Team Providers Care Calcine Furnace Loader Name Role Phone Ronnie Kinney MD Primary Care Provider [phone] Encounter Details Date Type Department Care Team (Late st Contact Info) Description 03/03/2023 Telephone [facility] - Centralized Scheduling [address] [place] [address] Herminia Sanches, BALER OPERATOR-TECHNICAL SYSTEM ANALYST [address] [address] Social History Tobacco Use Types Packs/Day Years [...] on filedocumented in this encounter Care Teams Calcine Furnace Loader Relationship Specialty Start Date End Date Ronnie Kinney MD [address] [place] [address] PCP - General 07/19/20 documented as of this encounter
--- OUTSIDE RECORDS SUMMARY | 2025-04-20 16:19 | XMS_ITS | Continuity of Care Document ---
Author Organization [facility] Address [address] [place] [phone] Phone Care Team Providers Care Packing Clerk Name Role Phone Erik Jamil MD Unavailable [...] Diagnoses Date Provider Providers Copied on Encounter [facility], [address] [place] [address], [id number] , tel:+ [phone] Main Office No Information Omero Valencia. [address] [place] [address], [id number] , [place]. tel:[phone] OFFICE/OUTPA TIENT VISIT, [facility], [address] [place] [address], [id number] , tel:+ [phone] [place] Office Consultation (chief complaint) Essential (primary) hypertensionCardia c murmur, unspecifiedOther specified symptoms and signs involving the circulatory and respiratory systems Omer[facility] Valencia. [address] [place] [address], [id number] , [place]. tel:[phone] Referring Provider: Stanislaw De Anda, [facility], [address]. tel:[phone] Family History Family Member Type Diagnosis Age At Onset No Information Payers Payer name Insurance type Covered constitution party ID Authoriza tion(s) [place] Medicare Part B Cl aims Primary MB [id number] Social History Type Description Quantity Date Captured [...] 2D image, spectral Doppler, color flow image ([id number]), Appointment on: , Collected on: , Sent on: Sent Future Order: Radiology Order Du plex scan of extracranial arteries; complete bilateral study ([id number]), Appointment on: , Collected on: , Sent [...]
--- OUTSIDE RECORDS SUMMARY | 2025-04-20 16:19 | XMS_ITS | Continuity of Care Document ---
Author Organization [facility] Address [address] [place] [phone] Phone Care Team Providers Care Three Dimensional Map Modeler Name Role Phone Unavailable Unavailable Unavailable Advance Directives Directive Yes / No Effective Date File Name No Information Encounters Encounter Description Practice Location Reason(s) For Visit Diagnoses Date Provider Providers Copied on Encounter [facility], [address] [place] [address], [id number], [place] tel:[phone] [facility] No Information 0 2 No Information Family History Family Member Type Diagnosis Age At Onset No Information Payers Payer name Insurance type Covered alliance party ID Authoriza tion(s) No Information Social History [...]
== END 2025-04-20 16:15 | disposition home or self-care (01) ==
PROVIDERS: PCP Nurse Practitioner Family; Visit Provider Nurse Practitioner Family
DX: S63.511A Sprain of carpal joint of right wrist, initial encounter (principal); X58.XXXA Exposure to other specified factors, initial encounter; M19.031 Primary osteoarthritis, right wrist
CPT/HCPCS: 73100

== ENCOUNTER 2025-05-02 09:55 | Outpatient (CLI) | payer MEDICARE, SELFPAY ==
--- NOTE | ~2025-05-02 | XR_ITS ---
EXAM/ PROCEDURE: XR elbow RT min 3V, XR wrist RT min 3V, XR hand RT min 3V - 05/02/2025 10:20 CDT HISTORY: 84 years old Male with M70.21 - Olecranon bursitis, right elbow COMPARISON: None available TECHNIQUE: 5 view(s) each FINDINGS/ IMPRESSION: Right elbow: There are no fractures or dislocations.Joint spaces are within normal limits. 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 Right hand: There are no fractures or dislocations.Joint space narrowing, subchondral sclerosis, subchondral cyst formation and osteophyte formation, compatible with mild osteoarthritis. Reviewed, dictated and finalized at location A.
--- NOTE | ~2025-05-02 | US_ITS ---
EXAMINATION: US venous doppler UE RT DATE: 05/02/2025 11:30 INDICATION: Localized swelling. Mass. TECHNIQUE: Simpson scale images with and without compression and Doppler images of the right upper extre mity veins were obtained. COMPARISON: None. FINDINGS: The right internal jugular vein, subclavian vein, axillary vein, brachial veins, basilic vein, cephal ic vein, radial vein, and ulnar vein are patent. IMPRESSION: 1. Patent right upper extremity veins. No evidence of deep venous thrombosis. Reviewed, dictated and finalized at location A.
--- OUTSIDE RECORDS SUMMARY | 2025-05-02 10:05 | XMS_ITS | Encounter Summary ---
Author Organization [facility] Address [address] [place] [address] Care Team Providers Care Piece Dyeing Machine Tender Name Role Phone Ronnie Kinney MD Primary Care Provider [phone] Encounter Details Date Type Department Care Team (Late st Contact Info) Description 03/03/2023 Telephone [facility] - Centralized Scheduling [address] [place] [address] Herminia Sanches, SVP DIGITAL AD SALES-HOTEL CLERK [address] [address] Social History Tobacco Use Types Packs/Day Years [...] on filedocumented in this encounter Care Teams Piece Dyeing Machine Tender Relationship Specialty Start Date End Date Ronnie Kinney MD [address] [place] [address] PCP - General 07/19/20 documented as of this encounter
--- OUTSIDE RECORDS SUMMARY | 2025-05-02 10:05 | XMS_ITS | Clinical Summary ---
Author Organization [facility] Address [address] [place] [address] Care Team Providers Care Line Dancer Name Role Phone Ronnie Kinney MD Primary Care Provider [phone] Source Comments [facility] [employer],non-owned Affiliates and Associated Physician Practices is amultiple site organization consisting of ambulatory clinics and hospital sitesin [place], [place], [place] and [place]. This disclosure is being madepursuant to the Care Everywhere program and may not contain all information available regarding this patient. Last updated 18.[facility] Allergies No known active allergies Medications * [...] this topic Medical Devices Implanted Type Area Marine Equipment Engineer Device Identifier Shelf Expiration Date Model / Serial / Lot Vlv Aor Hn Ii 25 - [id number] Implanted:Qty: 1 on 07/24/2020 by Gabriele Underwood MD at [facility] N/A: Heart [employer] 03/01/2022 [id number] / [id number] / Kit Tissue Clsr Duo Tssl 4ml Lf - [id number] Implanted:Qty: 1 on 07/24/2020 by Gabriele Underwood MD at [facility] N/A: Heart [employer] 12/10/2020 [id number] / [id number] / [id number] Patch Repair Anabella-Gurd 8.0cm X 14cm Implanted:Qty: 1 on 07/24/2020 by Gabriele Underwood MD at [facility] N/A: Heart [employer] 05/05/2024 [id number] 4-0 010 / / [id number] Description:[facility] #[id number] [facility] WELLCARE WELLCARE WELLCARE WELLCARE WELLCARE WELLCARE WELLCARE WELLCARE Advance Directives * Full Code (Latest Code Status on File) Date Activated Date Inactivated Comments 07/24/2020 2:24 PM 08/01/2020 1:18 PM Care Teams Line Dancer Relationship Specialty Start Date End Date Ronnie Kinney MD [address] [place] [phone] PCP - General 07/19/20
== END 2025-05-02 09:56 | disposition home or self-care (01) ==
PROVIDERS: PCP Family Medicine; Visit Provider Family Medicine
DX: R22.31 Localized swelling, mass and lump, right upper limb (principal); M70.21 Olecranon bursitis, right elbow
CPT/HCPCS: 73080; 73110; 73130; 93971

== ENCOUNTER 2025-06-24 06:35 | Outpatient (CLI) | payer MEDICARE, SELFPAY ==
--- OUTSIDE RECORDS SUMMARY | 2012-07-21 20:00 | XMS_ITS | Continuity of Care Document ---
Author Organization [facility] Address [address] [place] [phone] Phone Care Team Providers Care Eyeglass Fitter Name Role Phone Unavailable Unavailable Unavailable Advance Directives Directive Yes / No Effective Date File Name No Information Encounters Encounter Description Practice Location Reason(s) For Visit Diagnoses Date Provider Providers Copied on Encounter [facility], [address] [place] [address], [id number], [place] tel:[phone] [facility] No Information 0 2 No Information Family History Family Member Type Diagnosis Age At Onset No Information Payers Payer name Insurance type Covered democrat ID Authoriza tion(s) No Information Social History [...]
--- OUTSIDE RECORDS SUMMARY | 2017-06-17 04:00 | XMS_ITS | Continuity of Care Document ---
Author Organization [facility] Address [address] [place] [phone] Phone Care Team Providers Care Cafeteria Director Name Role Phone Erik Jamil MD Unavailable [...] Diagnoses Date Provider Providers Copied on Encounter [facility], [address] [place] [address], [id number] , tel:+ [phone] Main Office No Information 7 Omero Valencia. [address] [place] [address], [id number] , [place]. tel:[phone] OFFICE/OUTPA TIENT VISIT, [facility], [address] [place] [address], [id number] , tel:+ [phone] [place] Office Consultation (chief complaint) Essential (primary) hypertensionCardia c murmur, unspecifiedOther specified symptoms and signs involving the circulatory and respiratory systems Omero Valencia. [address] [place] [address], [id number] , [place]. tel:[phone] Referring Provider: Stanislaw De Anda, [facility] [address], [address]. tel:[phone] Family History Family Member Type Diagnosis Age At Onset No Information Payers Payer name Insurance type Covered green party ID Authoriza tion(s) [place] Medicare Part B Cl aims Primary MB [id number] Social History Type Description Quantity Date Captured [...] 2D image, spectral Doppler, color flow image ([id number]), Appointment on: , Collected on: , Sent on: Sent Future Order: Radiology Order Du plex scan of extracranial arteries; complete bilateral study ([id number]), Appointment on: , Collected on: , Sent [...]
--- NOTE | ~2025-06-24 | MR_ITS ---
EXAMINATION: MR lumbar spine wo con DATE: 06/24/2025 07:18 INDICATION: Low back pain, unspecified. TECHNIQUE: Magnetic resonance imaging (MRI) of the lumbar spine was performed without intravenous contrast. Sequences included sagittal T2-weighted FSE, sagittal T2-weighted FS FSE, sagittal T1-weighted FSE, and axial T2-weighted FSE. COMPARISON: None FINDINGS: There is 14 degrees levoscoliosis of thoracolumbar spine. There is 6 mm anterolisthesis of L4 on L5. Vertebral body heights are normal. There is severely decreased disc height at L1-L2, moderately decreased disc height at L2- L3, and severely decreased disc height from L3-L4 through L5-S1. There is interbody fusion at L5-S1. There is ligamentum flavum hypertrophy at the disc levels from L1-L2 through L4-L5. Epidural lipomatosis is noted. The distal spinal cord signal intensity is normal. The conus medullaris is at L1. The following disc levels are specifically discussed: L1-L2: The disc is bulging and has an annular fissure. There is severe bilateral facet joint osteoarthritis. There is moderate bilateral neural foraminal stenosis. There is mild central canal stenosis. L2-L3: The disc is bulging and has an annular fissure. There is severe bilateral facet joint osteoarthritis. There is mild right and moderate left neural foraminal stenosis. There is mild central canal stenosis. L3-L4: The disc is bulging. There is severe bilateral facet joint osteoarthritis. There is mild right and moderate left neural foraminal stenosis. There is severe central canal stenosis. L4-L5: The disc is bulging and has an annular fissure. There is severe bilateral facet joint osteoarthritis. There is moderate right and severe left neural foraminal stenosis. There is severe central canal stenosis. L5-S1: There is severe right and moderate left facet joint osteoarthritis. There is mild bilateral neural foraminal stenosis. There is mild central canal stenosis. IMPRESSION: 1. Severe lumbar spondylosis. 2. Thoracolumbar levoscoliosis. Reviewed, dictated and finalized at location E.
--- OUTSIDE RECORDS SUMMARY | 2025-06-24 06:39 | XMS_ITS | Clinical Summary ---
Author Organization [facility] Address [address] [place] [address] Care Team Providers Care Wastewater Plant Civil Engineer Name Role Phone Ronnie Kinney MD Primary Care Provider [phone] Source Comments [facility] [employer],non-owned Affiliates and Associated Physician Practices is amultiple site organization consisting of ambulatory clinics and hospital sitesin [place], [place], [place] and [place]. This disclosure is being madepursuant to the Care Everywhere program and may not contain all information available regarding this patient. Last updated 18.[facility] [employer] Allergies No known active allergies Medications * [...] this topic Medical Devices Implanted Type Area Casino Gaming Inspector Device Identifier Shelf Expiration Date Model / Serial / Lot Vlv Aor Hn Ii 25 - [id number] Implanted:Qty: 1 on 07/24/2020 by Gabriele Underwood MD at [facility] N/A: Heart [employer] 03/01/2022 [id number] / [id number] / Kit Tissue Clsr Duo Tssl 4ml Lf - [id number] Implanted:Qty: 1 on 07/24/2020 by Gabriele Underwood MD at [facility] N/A: Heart [employer] 12/10/2020 [id number] / [id number] / [id number] Patch Repair Anabella-Gurd 8.0cm X 14cm Implanted:Qty: 1 on 07/24/2020 by Gabriele Underwood MD at [facility] N/A: Heart [employer] 05/05/2024 [id number] 4-0 010 / / [id number] Description:[facility] #[id number] [facility] WELLCARE WELLCARE WELLCARE WELLCARE WELLCARE WELLCARE WELLCARE Advance Directives * Full Code (Latest Code Status on File) Date Activated Date Inactivated Comments 07/24/2020 2:24 PM 08/01/2020 1:18 PM Care Teams Wastewater Plant Civil Engineer Relationship Specialty Start Date End Date Ronnie Kinney MD [address] [place] [phone] PCP - General 07/19/20
== END 2025-06-24 06:36 | disposition home or self-care (01) ==
PROVIDERS: PCP Orthopaedic Surgery; Visit Provider Orthopaedic Surgery
DX: M47.896 Other spondylosis, lumbar region (principal)
CPT/HCPCS: 72148

== ENCOUNTER 2025-08-14 13:53 | Inpatient (IN) | payer MEDICARE, SELFPAY ==
--- OUTSIDE RECORDS SUMMARY | 2012-07-21 19:00 | XMS_ITS | Continuity of Care Document ---
Author Organization [facility] Address [address] [place] [phone] Phone Care Team Providers Care Garment Steamer Name Role Phone Unavailable Unavailable Unavailable Advance Directives Directive Yes / No Effective Date File Name No Information Encounters Encounter Description Practice Location Reason(s) For Visit Diagnoses Date Provider Providers Copied on Encounter [facility], [address] [place] [address], [id number], [place] tel:[phone] [facility] No Information 0 2 No Information Family History Family Member Type Diagnosis Age At Onset No Information Payers Payer name Insurance type Covered republican ID Authoriza tion(s) No Information Social History Type Description Quantity Date Captured Comments Sex Male Smoking Status No Information Chief Complaint And Reason For Visit No Information Reason For Referral Reason For Referral No Information History Of Present Illness Encounter Date Complaint History Of Prese nt Illness No Information Functional Status Date Functional Assessmen t No Information Instructions Date Instruction Additional Infor mation No Information Assessments Type Assessment Date No Information Patient Care Teams Name Effective Dates (start - stop) Status Members No Information
--- OUTSIDE RECORDS SUMMARY | 2017-06-17 03:00 | XMS_ITS | Continuity of Care Document ---
[facility] Address [address] [place] [phone] Phone Care Team Providers Care Card Tape Converter Operator Name Role Phone Erik Jamil MD Unavailable Unavailable Allergies, Adverse Reactions, Alerts Substance Reaction Status Criticality No Known Allergies Active No Inform ation Medications Medication Instructions Dosage Effective Dates (start - stop) Status Comments verapamil 80 mg tablet take 1 tablet by oral route 2 times every day 80 MG - Active metoprolol tartrate 50 mg tablet take 1 tablet by oral route every day 50 MG - Active lisinopril 20 mg tablet take 2 tablet by oral route every day 40 MG - Active Cialis 20 mg tablet take 1 tablet by ora l route every day as needed 20 MG - Active Procedures Procedure Date ELECTROCARDIOGRAM, COMPLETE OFFICE/OUTPATIENT VISIT, NEW Advance Directives Directive Yes / No Effective Date File Name No Information Encounters Encounter Description Practice Location Reason(s) For Visit Diagnoses Date Provider Providers Copied on Encounter [facility], [address] [place] [address], [id number] , tel:[phone] Main Office No Information 7 Omero Valencia. [address] [place] [address], [id number] , [place]. tel:[phone] OFFICE/OUTPA TIENT VISIT, [facility], [address] [place] [address], [id number] , tel:+ [phone] [place] [facility] Consultation (chief complaint) Essential (primary) hypertensionCardia c murmur, unspecifiedOther specified symptoms and signs involving the circulatory and respiratory systems Omero Valencia. [address] [place] [address], [id number] , [place]. tel:[phone] Referring Provider: Stanislaw De Anda, [facility] [address], [address]. tel:[phone] Family History Family Member Type Diagnosis Age At Onset No Information Payers Payer name Insurance type Covered alliance party ID Authoriza tion(s) [place] Medicare Part B Cl aims Primary MB [id number] Social History Type Description Quantity Date Captured Comments Alcohol Use Details Unknown Caffeine Use Details Unknown Tobacco Use Status No Information Smoking Status No Information Sex Male Chief Complaint And Reason For Visit No Information Reason For Referral Reason For Referral No Information Plan Of Treatment Date Type Action Status Goal Lifestyle educat ion regarding diet completed Future Order: Radiology Order TT E Combined, 2D image, spectral Doppler, color flow image ([id number]), Appointment on: , Collected on: , Sent on: Sent Future Order: Radiology Order Du plex scan of extracranial arteries; complete bilateral study ([id number]), Appointment on: , Collected on: , Sent on: Sent History Of Present Illness Encounter Date Complaint History Of Prese nt Illness Consultation Adán is a 76- year-old white male presents for evaluation of a cardiac murmur and carotid bruit. He feels well exercises on a nearly daily basis without precordial chest pain or shortness of breath. He denies dizziness or presyncope. He denies palpitations. He has had no orthopnea or PND. Functional Status Date Functional Assessmen t No Information Instructions Date Instruction Additional Infor mation Lifestyle education regarding di et Related to Dietary counseling and surveillance Assessments Type Assessment Date No Information Patient Care Teams Name Effective Dates (start - stop) Status Members No Information
[2025-08-14] VITALS (25 sets, daily range): BP systolic 91–172; BP diastolic 48–138; PULSE 100–153; RESP 15–29; TEMP 37.2–38.3; O2SAT 92–99; BMI 20.9
--- NOTE | ~2025-08-14 | CT_ITS ---
EXAMINATION: CT brain wo michael, 08/14/2025 15:10 FORESTRY FACULTY MEMBER HISTORY: altered mental status COMPARISON: No comparisons available. Technique: Axial images obtained of the brain without contrast. One or more of the following dose reduction techniques were used: automated exposure control, adjustment of the mA and/or kV according to patient size, use of iterative reconstruction technique. Findings: No acute infarct or parenchymal hemorrhage. No abnormal mass or mass effect. No midline shift. No extra-axial fluid collections. No hydrocephalus. Mastoid air cells unremarkable. Sinuses and orbits unremarkable. No acute fracture. No significant facial or scalp soft tissue swelling evident. No radiopaque foreign body is seen. Impression: 1.No acute intracranial abnormality. Reviewed, dictated and finalized at location P. STRY FACULTY MEMBER Impression: 1.No acute intracranial abnormality.
--- NOTE | ~2025-08-14 | CT_ITS ---
EXAMINATION: CT chest abdomen pelvis w con, 08/14/2025 16:40 SULFONATOR OPERATOR HISTORY: unknown source of infection COMPARISON: No comparisons available. TECHNIQUE: CT scan of the chest, abdomen and pelvis was performed with contrast Isovue 300, 92cc injected IV. One or more of the following dose reduction techniques were used: automated exposure control, adjustment of the mA and/or kV according to patient size, use of iterative reconstruction technique. Unless otherwise stated, incidental findings do not require dedicated follow up imaging FINDINGS: CT chest: No significant coronary calcification is present ([id number]) LUNGS: No tracheomalacia. No bronchiectasis. Minimal pulmonary fibrotic changes. Minimal emphysematous changes. No significant apical pleural scarring. HEART AND PERICARDIUM: Mild cardiomegaly. AORTA: Atherosclerotic changes aorta without aneurysm. MEDIASTINUM: Unremarkable. THYROID: The thyroid is unremarkable. CT abdomen: LIVER: Cirrhotic changes of the liver suspected. Subcentimeter probable liver cysts. The portal vein is patent. No intrahepatic biliary duct dilatation. SPLEEN: Unremarkable, no splenomegaly. KIDNEYS: Right Kidney: Right kidney midpole simple cyst 3 x 3 cm. Left Kidney: Unremarkable. No calculi. No hydronephrosis ADRENAL GLANDS: Unremarkable. PANCREAS: GALLBLADDER/BILIARY: Unremarkable. No biliary dilatation. STOMACH AND ESOPHAGUS: Nonspecific patulous appearance of the esophagus. There is thickening of the esophagus which may relate to underlying esophagitis, distal stricture is not excluded. Moderate hiatal hernia. BOWEL/MESENTERY: Moderate fecal content. Moderate diverticulosis. No colitis or diverticulitis, motion artifact and artifact limits evaluation. Appendix normal. Mesentery normal. Small bowel normal. RETROPERITONEUM: Unremarkable AORTA/VASCULATURE: Normal caliber aorta. FREE FLUID OR FREE AIR: No free fluid.. CT pelvis: SOLID ORGANS/REPRODUCTIVE: Unremarkable. BLADDER: Circumferential thickening of the bladder wall with a Castellanos catheter in the bladder. LYMPHADENOPATHY: No lymphadenopathy. OSSEOUS STRUCTURES: Moderate degenerative changes in the lumbar spine. No sclerotic or lytic lesions. Bilateral shoulder arthroplasties. Poststernotomy changes are noted. OVERLYING SOFT TISSUES: Unremarkable. IMPRESSION: 1. No acute process in the chest. 2. Cystitis 3. Incidental findings above Reviewed, dictated and finalized at location P. ONATOR OPERATOR
--- NOTE | ~2025-08-14 | XR_ITS ---
EXAMINATION: XR chest 1V portable COMPARISON: No comparisons available. HISTORY: AMS, fall FINDINGS: Mild pulmonary venous congestion. No pneumothorax. Mild cardiomegaly. Mediastinal and hilar contours are within normal limits. Post sternotomy. Bilateral shoulder arthroplasties. Miscellaneous: None Impression: Mild CHF Reviewed, dictated and finalized at location P. OR MEDIA PLANNER Impression: Mild CHF
--- NOTE | ~2025-08-14 | CT_ITS ---
EXAMINATION: CT cervical spine wo con COMPARISON: None HISTORY: fall, unknown mechanism of injury TECHNIQUE: Axial images were obtained through the spine without IV contrast. Coronal, sagittal reconstruction images were obtained from the axial views. CT scan performed using dose optimization techniques including the following automated exposure control; adjustment of mA and/or kV; use of iterative reconstruction technique. Automatic exposure control was used to reduce radiation dose. Permanent radiation dose record is archived to PACS. FINDINGS: Grade 1 anterolisthesis of C2 on C3 and C3 on C4 and C4 on C5, no fracture identified. Severe loss of disc height at C2-3, C3-4, C4-5 C5-6 and C6-7 with severe canal and foraminal stenosis, outpatient MRI is recommended Soft tissues unremarkable. Nonspecific patulous appearance noted of the esophagus. Impression: No acute abnormality. Reviewed, dictated and finalized at location P. ISION MACHINE OPERATOR Impression: No acute abnormality.
--- NOTE | 2025-08-14 13:58 | ECG_ITS ---
Test Date: 2025-08-14 14:42:36 Measurements Intervals Currie Rate: 136 P: 0 IA: 0 QRS: 57 QRSD: 90 T: 31 QT: 317 QTc: 477 Interpretive Statements ATRIAL FIBRILLATION WITH RAPID VENTRICULAR RESPONSE NONSPECIFIC ST & T-WAVE ABNORMALITY ABNORMAL RHYTHM ECG Electronically Signed On 08-14-2025 15:53:18 VIDEO GAME CREATOR by Ingrid Goodwin M.D.
[2025-08-14] MEDS: SODIUM CHLORIDE 0.9% IV 1,000 ML 999 ML IV CONT ×2 (14:11→14:58)
[2025-08-14 14:19] LABS: Hematocrit 47.7 % (42.0-52.0); Hemoglobin 15.9 g/dL (14.0-18.0); Mean Corpuscular HGB Conc 33.3 g/dl (32-36); Mean Corpuscular Hemoglobin 30.3 pg (26-34); Mean Corpuscular Volume 90.9 fl (80-100); Platelet Count Result 294 k/mm3 (150-375); Red Blood Count 5.25 M/mm3 (4.6-6.20); White Blood Count 21.1 K/mm3 (4.5-10.0)
[2025-08-14 14:29] LABS: INR 1.1; Partial Thromboplastin Time 26.5 Seconds (22.3-36.8); Prothrombin Time 14.5 Seconds (11.1-14.7)
[2025-08-14 14:32] LABS: Alanine Aminotransferase 40 U/L (6-50); Albumin Level 4.9 g/dL (3.5-5.1); Alkaline Phosphatase 101 U/L (38-126); Anion Gap 17 mmol/L (4-12); Aspartate Amino Transferase 67 U/L (17-59); Bilirubin,Total 1.4 mg/dL (0.2-1.3); Blood Urea Nitrogen 18 mg/dL (9-20); CRP 2.7 mg/dL (<1.0); Calcium 9.7 mg/dL (8.4-10.2); Carbon Dioxide 23 mmol/L (22-30); Chloride 96 mmol/L (98-107); Creatine Kinase 817 U/L (55-170); Estimated CRCL calculation 42 ml/min; Estimated Glomerular Filt Rate > 60; Glucose 152 mg/dL (65-110); Potassium 4.0 mmol/L (3.4-5.0); Sodium 136 mmol/L (137-145); Total Protein 9.5 g/dL (6.3-8.2)
--- OUTSIDE RECORDS SUMMARY | 2025-08-14 14:43 | XMS_ITS | Clinical Summary ---
Author Organization [facility] Address [address] [place] [address] Care Team Providers Care Merchandising Manager Name Role Phone Ronnie Kinney MD Primary Care Provider [phone] Source Comments [facility],non-owned Affiliates and Associated Physician Practices is amultiple site organization consisting of ambulatory clinics and hospital sitesin [place], [place], [place] and [place]. This disclosure is being madepursuant to the Care Everywhere program and may not contain all information available regarding this patient. 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 Not on file Not on file Not [...] yrs (1 - 1-dose 75+ series) 2013 DEPRESSION SCREENING 10/13/2024 MEDICARE AWV CALENDAR YEAR 2024 COVID-19 VACCINE (3 - 2024-2 6 season) 2025 08/07/2021, 01/22/2021 INFLUENZA VACCINE (#1) 2025 HEPATITIS B VACCINE [...] this topic Medical Devices Implanted Type Area Cook Starch Device Identifier Shelf Expiration Date Model / Serial / Lot Vlv Aor Hnck Ii 25 - [id number] Implanted:Qty: 1 on 07/24/2020 by Gabriele Underwood MD at [facility] N/A: Heart [employer] 03/01/2022 [id number] / [id number] / Kit Tissue Clsr Duo Tssl 4ml Lf - [id number] Implanted:Qty: 1 on 07/24/2020 by Gabriele Underwood MD at [facility] N/A: Heart [employer] 12/10/2020 [id number] / [id number] / [id number] Patch Repair Anabella-Gurd 8.0cm X 14cm Implanted:Qty: 1 on 07/24/2020 by Gabriele Underwood MD at [facility] N/A: Heart [employer] 05/05/2024 [id number] / / [id number] Description:[facility] #[id number] [place] [facility]LL[employer] WELL[employer]ARE WE[employer]ARE [place] [place] [id number] Advance Directives * Full Code (Latest Code Status on File) Date Activated Date Inactivated Comments 07/24/2020 2:24 PM 08/01/2020 1:18 PM Care Teams Merchandising Manager Relationship Specialty Start Date End Date Ronnie Kinney MD [address] [place] [id number] PCP - General 07/19/20
[2025-08-14 14:46] LABS: Band Neutrophils Percent 11 % (0-6); Lymphocytes Absolute Manual 3.37 K/mm3 (1.1-4.5); Lymphocytes Percent Manual 16 % (18-44); Monocytes Absolute Manual 0.42 K/mm3 (0.1-0.90); Monocytes Percent Manual 2 % (3-9); Neutrophils Absolute Manual 17.30 K/mm3 (1.3-6.7); Neutrophils Percent Manual 71 % (46-73); Schistocytes None Seen; Total Cells Counted 100
[2025-08-14 14:46] LABS: Add Urine Microscopic? YES; Appearance Urine Clear (Clear); Glucose Urine UA Negative (Negative); Leukocyte Esterase Ur Negative LEU/UL (Negative); Nitrate Urine Negative (Negative); Specific Grav Ur 1.018 (1.001-1.035)
--- NOTE | 2025-08-14 14:54 | ED_ITS ---
HPI - Altered Mental Status General Chief Complaint: Altered Mental Status Stated Complaint: ??seizure Time Seen by Provider: 08/14/25 14:06 History of Present Illness HPI narrative: Patient is an 85-year-old male who presents to the ER with altered mental status. Per EMS his roommate heard a commotion but didn't go check on pt. His roommate reports this morning he did not hear patient's TV on so he went to go check on the patient. Patient was laying on the floor so his roommate called EMS. Upon arrival to the ER patient is combative and confused. His medical chart indicates he has history of seizures, atrial fibrillation, and high blood pressure. Patient is A&O x 0 at time of arrival in the ER. Related Data Allergies Allergy/AdvReac Type Severity Reaction Status Date / Time peanut AdvReac Intermediate Swelling Verified 08/14/25 21:15 Review of Systems 2 Review of Systems: All systems reviewed & are unremarkable except as noted in HPI and below PMFSH Past Medical History Medical History Essential hypertension Seizure disorder Arthritis Gastroesophageal reflux disease Coronary artery disease Hyperlipidemia Aortic stenosis Subclinical hypothyroidism Surgical History Surgical History History of reverse total replacement of right shoulder joint History of arthroplasty of left knee History of arthroplasty of left shoulder 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 History of aortic valve replacement with bioprosthetic valve (07/2020) At [facility]. History of incisional hernia repair (03/2021) Epigastric incisional hernia with mesh. Family History Family History Mother Hypertension Other Family history unknown Social History Social History Social History: Surrogate medical decision maker: Kalyani Haley, daughter. Code status: Full code. Smoking packs per day: 1 Smoking cigarettes per day: 20.0 Years smoked: 15 Smoking pack-years: 15.00 Smoking status: Former smoker (quit at 35 yo ) Smokeless tobacco user: chewing tobacco Second hand tobacco smoke exposure: No Additional smoking assessment comments: quit 20 years ago Alcohol intake: former Drinks per week: 7 Alcohol use details: Beer Substance use: current Substance use type: marijuana Other substance usage details: Patient answer-use ranges from a couple times a year to every week. Current Housing: Decline to Answer Concerned About Future Housing: Decline to Answer Difficulty Paying Gas/Electric Bills: Decline to Answer Difficulty Paying for Meds: Decline to Answer Currently Unemployed: Decline to Answer Education: Decline to Answer Difficulty w/ Childcare or Family Care: Decline to Answer Living arrangements: with roommate(s) Additional living arrangements comments: lives with a roommate Occupation/Education: retired Additional occupation/education comments: [employer] Spiritual care concerns: No Agree to blood products: No Exam 2 Narrative: GENERAL: Ill appearing, poorly nourished, non-toxic, in acute distress due to agitation HEAD: Normocephalic, atraumatic. NECK: Supple. No adenopathy, no masses. RESPIRATORY: Airway patent, respirations nonlabored. No wheezing. Right lower lobe crackles. CARDIOVASCULAR: Irregular rate, no rubs, or gallops. Peripheral pulses 2+ and equal bilaterally. ABDOMINAL: Soft, nontender, nondistended, no hepatosplenomegaly. Normoactive BS. MUSCULOSKELETAL: Moves all extremities. Strength/ROM intact without gross deformities. Mild wincing with palpation to cervical spine. SKIN: Warm, dry, normal color. No rashes. NEURO: A&O X0. No ataxic movements noted. +Agitation (intermittent) Course Vital Signs Vital signs: Vital Signs Pulse Rate 132 H 08/14/25 14:02 Respiratory Rate 29 H 08/14/25 14:02 Blood Pressure 119/96 H 08/14/25 14:02 Temperature 37.2 C 08/14/25 20:56 Pulse Rate 145 H 08/14/25 20:56 Respiratory Rate 20 08/14/25 20:56 Blood Pressure 113/71 08/14/25 20:56 Pulse Oximetry 92 08/14/25 20:56 Oxygen Delivery Room Air 08/14/25 20:34 MDM - Altered Mental Status MDM Narrative Medical decision making narrative: Patient is an 85-year-old male who presents to the ER with altered mental status. Per EMS his roommate heard a commotion but didn't go check on pt. His roommate reports this morning he did not hear patient's TV on so he went to go check on the patient. Patient was laying on the floor so his roommate called EMS. Upon arrival to the ER patient is combative and confused. His medical chart indicates he has history of seizures, atrial fibrillation, and high blood pressure. Patient is A&O x 0 at time of arrival in the ER. Labs Ordered: CBC, CMP, CRP, ethanol, TSH, CK, PTT, INR, lactic acid, ammonia, troponin Imaging Ordered: CTA PE abdomen pelvis, CT head, CT cervical spine Medications Ordered: 1 L normal saline IV bolus x2, diltiazem 10 mg bolus and drip, Valium IV x2, Tylenol 650 p.o., Keppra for g IV, droperidol IM Results: Patient's CT chest abdomen pelvis indicates 1. No acute process in the chest. 2. Cystitis 3. Incidental findings above Pt's head CT scan indicates No acute intracranial abnormality. Diagnosis: Seizure, elevated lactic acid, elevated troponin, altered mental status, atrial fibrillation with RVR Consults: 1899- neurology, Dr. Farmer, who is in agreement with plan to consult pt tomorrow. MDM: Pt is supposed to take Keppra BID, but it is unclear if he has taken this medication recently. He will be bolused here in the ER. After fluid resuscitation patient's heart rate continues to be in the 150s and his repeat EKG continues to indicate AFib with RVR, so he will be started on Cardizem IV drip (with an intial bolus). Following medication administration, pt's heart rate decreased nicely down to the 80s. Although patient's white blood cell count is elevated, a source of infection is unclear. Discussed this finding with hospitalist prior to admission. Patient's family has left the emergency department. Patient continues to be noncommunicative. He will be admitted to the IMU due to his elevated troponin and Cardizem drip. 1829- Spoke with hospitalist, Raquel Gottlieb NP, who was in agreement with plan for admission. Pt will be admitted to the IMU for further evaluation and treatment. His temperature has been in the mid 37 range throughout the shift, but around 1900 it elevated to 38.1, so pt will be given a dose of rectal Tylenol. Blood cultures have already been drawn. CRITICAL CARE ADDENDUM: Indication: r/o sepsis, abnormal electrolytes requiring treatment Time type: intermittent I provided a total of 55 minutes of critical care excluding separately billable procedures. This includes time w/ EMS, initial bedside evaluation, reviewing old records, review of testing done while under my care, discussion w/ the family, nurses, operational risk consultant and guiding the patient?s care while in the emergency department. Differential Diagnosis Differential diagnosis: Likely alcoholic intoxication, altered mental status, delirium, dementia, hypoglycemia, hyponatremia and subarachnoid hemorrhage Lab Data Attestation: I reviewed the patient's lab results. 08/14/25 14:13 08/14/25 14:13 Labs: Lab Results 08/14/25 08/14/25 08/14/25 Range/Units 14:02 14:13 14:13 WBC 21.1 H (4.5-10.0) K/mm3 RBC 5.25 (4.6-6.20) M/mm3 Hgb 15.9 D (14.0-18.0) g/dL Hct 47.7 (42.0-52.0) % MCV 90.9 (80-100) fl MCH 30.3 (26-34) pg MCHC 33.3 (32-36) g/dl RDW 13.6 (11.5-14.5) % Plt Count 294 D (150-375) k/mm3 MPV 9.7 (7.4-10.4) fl Immature Gran % (Auto) Not Reportable Neut % (Auto) Not Reportable Lymph % (Auto) Not Reportable [place] % (Auto) Not Reportable Eos % (Auto) Not Reportable Baso % (Auto) Not Reportable Lymph # (Auto) Not Reportable [place] # (Auto) Not Reportable Eos # (Auto) Not Reportable Baso # (Auto) Not Reportable Abs Immat Gran (auto) Not Reportable Absolute Neuts (auto) Not Reportable Absolute Nucleated RBC Not Reportable Total Counted 100 Neutrophils % (Manual) 71 (46-73) % Band Neutrophils % 11 H (0-6) % Lymphocytes % (Manual) 16 L (18-44) % Monocytes % (Manual) 2 L (3-9) % Nucleated RBC % Not Reportable Abs Neuts (Manual) 17.30 H (1.3-6.7) K/mm3 Abs Lymphs (Manual) 3.37 (1.1-4.5) K/mm3 Abs Monocytes (Manual) 0.42 (0.1-0.90) K/mm3 Platelet Estimate Adequate (Adequate) Schistocytes None seen PT 14.5 (11.1-14.7) Seconds INR 1.1 APTT 26.5 (22.3-36.8) Seconds Sodium 136 L (137-145) mmol/L Potassium 4.0 (3.4-5.0) mmol/L Chloride 96 L (98-107) mmol/L Carbon Dioxide 23 (22-30) mmol/L Anion Gap 17 H (4-12) mmol/L BUN 18 (9-20) mg/dL Creatinine 1.13 (0.7-1.3) mg/dL Estim Creat Clear Calc 42 ml/min Estimated GFR > 60 (59 - ) Glucose 152 H (65-110) mg/dL POC Capillary Glucose 177 H (65-105) mg/dl Lactic Acid 4.7 H* (0.7-2.0) mmol/L Calcium 9.7 (8.4-10.2) mg/dL Total Bilirubin 1.4 H (0.2-1.3) mg/dL AST 67 H (17-59) U/L ALT 40 (6-50) U/L Alkaline Phosphatase 101 (38-126) U/L Ammonia (9-30) umol/L Total Creatine Kinase 817 H (55-170) U/L Troponin I (0.000-0.034) ng/mL C-Reactive Protein 2.7 H (<1.0) mg/dL Total Protein 9.5 H (6.3-8.2) g/dL Albumin 4.9 (3.5-5.1) g/dL TSH 5.800 H (0.465-4.680) uIU/mL Urine Color (Yellow) Urine Appearance (Clear) Urine pH (5.0-9.0) Ur Specific [place] (1.001-1.035) Urine Protein (Negative) mg/dL Urine Glucose (UA) (Negative) mg/dL Urine Ketones (Negative) mg/dL Ur Blood (Man) (Negative) Urine Nitrate (Negative) Urine Bilirubin (Negative) Urine Urobilinogen (<2.0) mg/dL Leukocyte Esterase Rfl (Negative) DONNY/UL Urine RBC (0-2) /hpf Urine WBC (0-3) /hpf Ur Squamous Epith Cells (Few) /hpf Urine Bacteria /hpf Urine Casts Urine Opiates Screen (Negative) Urine Methadone Screen (Negative) Ur Barbiturates Screen (Negative) Ur Phencyclidine Scrn (Negative) Ur Amphetamine Screen (Negative) U Benzodiazepines Scrn (Negative) Urine Cocaine Screen (Negative) U Cannabinoids Screen (Negative) Ethyl Alcohol < 10 Cancelled (<10) mg/dL 08/14/25 08/14/25 08/14/25 Range/Units 14:20 17:08 17:10 WBC (4.5-10.0) K/mm3 RBC (4.6-6.20) M/mm3 Hgb (14.0-18.0) g/dL Hct (42.0-52.0) % MCV (80-100) fl MCH (26-34) pg MCHC (32-36) g/dl RDW (11.5-14.5) % Plt Count (150-375) k/mm3 MPV (7.4-10.4) fl Immature Gran % (Auto) Neut % (Auto) Lymph % (Auto) [place] % (Auto) Eos % (Auto) Baso % (Auto) Lymph # (Auto) [place] # (Auto) Eos # (Auto) Baso # (Auto) Abs Immat Gran (auto) Absolute Neuts (auto) Absolute Nucleated RBC Total Counted Neutrophils % (Manual) (46-73) % Band Neutrophils % (0-6) % Lymphocytes % (Manual) (18-44) % Monocytes % (Manual) (3-9) % Nucleated RBC % Abs Neuts (Manual) (1.3-6.7) K/mm3 Abs Lymphs (Manual) (1.1-4.5) K/mm3 Abs Monocytes (Manual) (0.1-0.90) K/mm3 Platelet Estimate (Adequate) Schistocytes PT (11.1-14.7) Seconds INR APTT (22.3-36.8) Seconds Sodium (137-145) mmol/L Potassium (3.4-5.0) mmol/L Chloride (98-107) mmol/L Carbon Dioxide (22-30) mmol/L Anion Gap (4-12) mmol/L BUN (9-20) mg/dL Creatinine (0.7-1.3) mg/dL Estim Creat Clear Calc ml/min Estimated GFR (59 - ) Glucose (65-110) mg/dL POC Capillary Glucose (65-105) mg/dl Lactic Acid 3.3 H (0.7-2.0) mmol/L Calcium (8.4-10.2) mg/dL Total Bilirubin (0.2-1.3) mg/dL AST (17-59) U/L ALT (6-50) U/L Alkaline Phosphatase (38-126) U/L Ammonia (9-30) umol/L Total Creatine Kinase (55-170) U/L Troponin I 0.112 H* (0.000-0.034) ng/mL C-Reactive Protein (<1.0) mg/dL Total Protein (6.3-8.2) g/dL Albumin (3.5-5.1) g/dL TSH (0.465-4.680) uIU/mL Urine Color Yellow (Yellow) Urine Appearance Clear (Clear) Urine pH 7.0 (5.0-9.0) Ur Specific [place] 1.018 (1.001-1.035) Urine Protein 3+ H (Negative) mg/dL Urine Glucose (UA) Negative (Negative) mg/dL Urine Ketones 2+ H (Negative) mg/dL Ur Blood (Man) 2+ H (Negative) Urine Nitrate Negative (Negative) Urine Bilirubin Negative (Negative) Urine Urobilinogen 0.2 (<2.0) mg/dL Leukocyte Esterase Rfl Negative (Negative) DONNY/UL Urine RBC 6-10 H (0-2) /hpf Urine WBC 0-5 (0-3) /hpf Ur Squamous Epith Cells None seen (Few) /hpf Urine Bacteria None seen /hpf Urine Casts 3-5 Urine Opiates Screen Negative (Negative) Urine Methadone Screen Negative (Negative) Ur Barbiturates Screen Negative (Negative) Ur Phencyclidine Scrn Negative (Negative) Ur Amphetamine Screen Negative (Negative) U Benzodiazepines Scrn Negative (Negative) Urine Cocaine Screen Negative (Negative) U Cannabinoids Screen Positive A (Negative) Ethyl Alcohol (<10) mg/dL 08/14/25 Range/Units 18:24 WBC (4.5-10.0) K/mm3 RBC (4.6-6.20) M/mm3 Hgb (14.0-18.0) g/dL Hct (42.0-52.0) % MCV (80-100) fl MCH (26-34) pg MCHC (32-36) g/dl RDW (11.5-14.5) % Plt Count (150-375) k/mm3 MPV (7.4-10.4) fl Immature Gran % (Auto) Neut % (Auto) Lymph % (Auto) [place] % (Auto) Eos % (Auto) Baso % (Auto) Lymph # (Auto) [place] # (Auto) Eos # (Auto) Baso # (Auto) Abs Immat Gran (auto) Absolute Neuts (auto) Absolute Nucleated RBC Total Counted Neutrophils % (Manual) (46-73) % Band Neutrophils % (0-6) % Lymphocytes % (Manual) (18-44) % Monocytes % (Manual) (3-9) % Nucleated RBC % Abs Neuts (Manual) (1.3-6.7) K/mm3 Abs Lymphs (Manual) (1.1-4.5) K/mm3 Abs Monocytes (Manual) (0.1-0.90) K/mm3 Platelet Estimate (Adequate) Schistocytes PT (11.1-14.7) Seconds INR APTT (22.3-36.8) Seconds Sodium (137-145) mmol/L Potassium (3.4-5.0) mmol/L Chloride (98-107) mmol/L Carbon Dioxide (22-30) mmol/L Anion Gap (4-12) mmol/L BUN (9-20) mg/dL Creatinine (0.7-1.3) mg/dL Estim Creat Clear Calc ml/min Estimated GFR (59 - ) Glucose (65-110) mg/dL POC Capillary Glucose (65-105) mg/dl Lactic Acid (0.7-2.0) mmol/L Calcium (8.4-10.2) mg/dL Total Bilirubin (0.2-1.3) mg/dL AST (17-59) U/L ALT (6-50) U/L Alkaline Phosphatase (38-126) U/L Ammonia < 9 L (9-30) umol/L Total Creatine Kinase (55-170) U/L Troponin I (0.000-0.034) ng/mL C-Reactive Protein (<1.0) mg/dL Total Protein (6.3-8.2) g/dL Albumin (3.5-5.1) g/dL TSH (0.465-4.680) uIU/mL Urine Color (Yellow) Urine Appearance (Clear) Urine pH (5.0-9.0) Ur Specific [place] (1.001-1.035) Urine Protein (Negative) mg/dL Urine Glucose (UA) (Negative) mg/dL Urine Ketones (Negative) mg/dL Ur Blood (Man) (Negative) Urine Nitrate (Negative) Urine Bilirubin (Negative) Urine Urobilinogen (<2.0) mg/dL Leukocyte Esterase Rfl (Negative) DONNY/UL Urine RBC (0-2) /hpf Urine WBC (0-3) /hpf Ur Squamous Epith Cells (Few) /hpf Urine Bacteria /hpf Urine Casts Urine Opiates Screen (Negative) Urine Methadone Screen (Negative) Ur Barbiturates Screen (Negative) Ur Phencyclidine Scrn (Negative) Ur Amphetamine Screen (Negative) U Benzodiazepines Scrn (Negative) Urine Cocaine Screen (Negative) U Cannabinoids Screen (Negative) Ethyl Alcohol (<10) mg/dL Imaging Data Attestation: I personally reviewed and interpreted this imaging study as follows: Radiologist's impression: Impressions Chest X-Ray 08/14/25 15:06 Impression: Mild CHF Head CT 08/14/25 15:15 Impression: 1.No acute intracranial abnormality. Cervical Spine CT 08/14/25 15:18 Impression: No acute abnormality. Chest/Abdomen/Pelvis CT 08/14/25 16:58 IMPRESSION: 1. No acute process in the chest. 2. Cystitis 3. Incidental findings above Discharge Plan Discharge Clinical Impression: Seizure disorder, Elevated troponin, Elevated lactic acid level, Atrial fibrillation with rapid ventricular response Patient Disposition: Still a Patient Condition: Serious
--- NOTE | 2025-08-14 14:58 | PC.NURSE ---
Pt to CT scan via stretcher at this time.
[2025-08-14 15:05] LABS: Cannabinoid Screen Urine Positive (Negative)
[2025-08-14] MEDS: levETIRAcetam 1500MG/NACL100ML 1,500 MG/100 ML BAG 400 MG IVPB ×2 (15:16→15:18)
[2025-08-14] MEDS: diazePAM INJ (*CRX) 10 MG/2 ML SYRINGE 5 MG IV PUSH ×3 (15:16→23:43)
[2025-08-14] MEDS: levETIRAcetam 1000MG/NACL100ML 1,000 MG/100 ML BAG 400 MG IVPB (15:34)
[2025-08-14 15:42] LABS: Thyroid Stimulating Hormone 5.800 uIU/mL (0.465-4.680)
--- NOTE | 2025-08-14 16:40 | ECG_ITS ---
Test Date: 2025-08-14 17:07:12 Measurements Intervals Egan Rate: 111 P: 0 ID: 0 QRS: 38 QRSD: 93 T: 37 QT: 360 QTc: 491 Interpretive Statements ATRIAL FLUTTER/TACHYCARDIA WITH RAPID VENTRICULAR RESPONSE MODERATE ST DEPRESSION [0.05+ mV ST DEPRESSION] Electronically Signed On 08-14-2025 17:32:05 YACHT CAPTAIN by Ingrid Goodwin M.D.
[2025-08-14] MEDS: dilTIAZem 100 MG/100 ML 100 MG/100 ML BAG IV CONT (17:34)
[2025-08-14 17:45] LABS: Troponin I 0.112 ng/mL (0.000-0.034)
[2025-08-14 18:59] LABS: Ammonia < 9 umol/L (9-30)
[2025-08-14] MEDS: ACETAMINOPHEN 650 MG SUPPOSITORY RECTAL (19:21)
--- NOTE | 2025-08-14 19:25 | PC.NURSE ---
This RN received report from Lizette GRIJALVA.
[2025-08-14] MEDS: SODIUM CHLORIDE 0.9% IV 1,000 ML 125 ML IV CONT (20:00)
--- NOTE | 2025-08-14 20:25 | PC.NURSE ---
This patient, Adán Wall, was admitted to IMU Room 206-02. Patient/family oriented to hospital policies and general routines including ID bracelet, bed and alarms, visiting hours, pain management, procedures, bathroom and other care routines, personal items, smoking policy, room service/diet, and visiting hours. Information on how to activate the Rapid Response Team has been discussed. Patient/Family are encouraged to report perceived risks to care and to ask questions if they do not understand what they are told or what they should do.
[2025-08-14 21:39] LABS: Anion Gap 11 mmol/L (4-12); Blood Urea Nitrogen 16 mg/dL (9-20); Calcium 8.5 mg/dL (8.4-10.2); Carbon Dioxide 19 mmol/L (22-30); Chloride 104 mmol/L (98-107); Estimated CRCL calculation 49 ml/min; Estimated Glomerular Filt Rate > 60; Glucose 123 mg/dL (65-110); Potassium 3.2 mmol/L (3.4-5.0); Sodium 134 mmol/L (137-145)
--- NOTE | 2025-08-14 21:44 | PM.IMHP ---
H&P: HPI History of Present Illness Date/Time: 08/14/25 21:44 Chief Complaint: Altered mental status, found down Narrative: History is taken from chart review and in collaboration with the patient's daughter. The patient lives with his son-in-law, previously A&O x3. 85-year-old male with a history of seizure disorder, hypertension, arthritis, GERD, CAD status post CABG, hyperlipidemia, subclinical hypothyroidism, aortic stenosis status post bioprosthetic valve replacement 2019. Reportedly, son-in-law heard a commotion 1 day prior to admission but did not check on the patient. On day of admission 08/14/2025 he noticed the patient's TV did not go on to a checked on the patient and found him lying on the floor. Patient was combative and confused. Nonverbal. In the [facility] ER his blood pressure elevated ranging systolic between 119 and 152, saturating 95% on room air, found to be in AFib with RVR, T-max a 100.9?. Laboratory evaluation reviews WBC 24897, hemoglobin 15.9, platelet count 294, band neutrophils 11%, INR 1.1, sodium 136, potassium 4.0, chloride 96, anion gap 17, serum creatinine 1.13, glucose 152, lactic acid 4.7, AST 67, total bilirubin 1.4, ammonia level negative, total creatinine kinase 817, troponin 0.112, CRP 2.7, urinalysis not indicative of infection, 2+ ketones. Head CT without acute intracranial abnormality, cervical spine CT no acute findings, chest abdomen pelvis CT with contrast demonstrating thickening of the gallbladder, no acute process. Blood cultures obtained. Started on diltiazem GTT 15 milligrams/hour, administer Tylenol, Valium, Keppra 2500 mg, 2 L normal saline bolus. Neurology consulted from the ER. ----- After verbal sign-out, evaluated the patient in the intermediate Unit, he is currently nonverbal, thrashing around in the bed, not following commands, he has a large very thick dark green mucus plug in his mouth, the RN PRACTITIONER was able to suction it out but the patient was trying to spit on the nursing staff and myself during this. He has multiple old scabs on his legs, redness on the anterior tibial regions but no active purulence, no swelling/erythema indicative of infection or infected ulcers. Sacrum is red. Unable to evaluate his oral mucosa due to the above. No pain to palpation of the abdomen or suprapubic region. Patient does not participate with inspiration. Unable to elicit nuchal rigidity. Due to the patient's fever, altered mental status, lack of identified source of infection -spoke with the ER physician who agreed patient should be treated for meningitis however due to extreme volume load in the ER they were unable to perform lumbar puncture at this time. The patient's daughter was contacted, she reports he has had seizure episodes were afterwards he is nonverbal like this. None the less, start empiric antibiotic therapy and consult with Neurology, and Infectious Disease if needed. Review of Systems Review of Systems: All systems reviewed & are unremarkable except as noted in HPI and below (Subjective) [facility] Past Medical History Medical History Essential hypertension Seizure disorder Arthritis Gastroesophageal reflux disease Coronary artery disease Hyperlipidemia Aortic stenosis Subclinical hypothyroidism Surgical History Surgical History History of reverse total replacement of right shoulder joint History of arthroplasty of left knee History of arthroplasty of left shoulder History of coronary artery bypass graft x 1 (07/2020) At [facility]. History of aortic valve replacement with bioprosthetic valve (07/2020) At [facility]. History of incisional hernia repair (03/2021) Epigastric incisional hernia with mesh. Family History Family History Mother Hypertension Other Family history unknown Social History Social History Social History: Surrogate medical decision maker: Kalyani Haley, daughter. Code status: Full code. Smoking packs per day: 1 Smoking cigarettes per day: 20.0 Years smoked: 15 Smoking pack-years: 15.00 Smoking status: Never smoker Smokeless tobacco user: chewing tobacco Second hand tobacco smoke exposure: No Additional smoking assessment comments: quit 20 years ago Alcohol intake: former Drinks per week: 6 Alcohol use details: Beer Substance use: current Substance use type: marijuana Other substance usage details: Patient answer-use ranges from a couple times a year to every week. Current Housing: Decline to Answer Concerned About Future Housing: Decline to Answer Difficulty Paying Gas/Electric Bills: Decline to Answer Difficulty Paying for Meds: Decline to Answer Currently Unemployed: Decline to Answer Education: Decline to Answer Difficulty w/ Childcare or Family Care: Decline to Answer Living arrangements: with roommate(s) Additional living arrangements comments: lives with a roommate Occupation/Education: retired Additional occupation/education comments: [employer] Spiritual care concerns: No Agree to blood products: No Meds Home Medications and Allergies Home Medications ?Medication ?Instructions ?Recorded ?Confirmed ?Type levetiracetam 250 mg tablet 250 mg PO Q12HR #60 tabs 04/12/25 08/14/25 Rx sotalol 80 mg tablet 40 mg (1/2 x 80 mg) PO Q12HR #60 06/24/25 08/14/25 Rx tabs levetiracetam 1,000 mg tablet 1,000 mg PO BID #60 tabs 07/21/25 08/14/25 Rx (Keppra) amlodipine 5 mg tablet 5 mg PO DAILY 08/14/25 08/14/25 History Allergies Allergy/AdvReac Type Severity Reaction Status Date / Time peanut AdvReac Intermediate Swelling Verified 08/14/25 21:15 Vital Signs Vital Signs - 24 hr 08/14/25 14:02 08/14/25 14:18 08/14/25 14:19 Temperature 99.1 F Pulse Rate 132 H 150 H Respiratory Rate 29 H Blood Pressure 119/96 H Pulse Oximetry Oxygen Delivery 08/14/25 14:27 08/14/25 14:29 08/14/25 14:35 Temperature 99.6 F 99.7 F H Pulse Rate 112 H 102 H Respiratory Rate 18 15 Blood Pressure 167/118 H 154/97 H Pulse Oximetry 96 98 98 Oxygen Delivery Room Air 08/14/25 14:47 08/14/25 15:18 08/14/25 15:57 Temperature 99.7 F H 99.7 F H 99.9 F H Pulse Rate 137 H 146 H 145 H Respiratory Rate 15 16 15 Blood Pressure 172/95 H 148/79 H 155/105 H Pulse Oximetry 99 99 98 Oxygen Delivery 08/14/25 17:07 08/14/25 17:34 08/14/25 17:46 Temperature 100.2 F H Pulse Rate 100 132 H 153 H Respiratory Rate 16 Blood Pressure 143/100 H 143/100 H 152/138 H Pulse Oximetry 96 Oxygen Delivery 08/14/25 18:00 08/14/25 18:31 08/14/25 19:12 Temperature 100.2 F H 100.8 F H Pulse Rate 129 H 126 H 130 H Respiratory Rate 20 20 16 Blood Pressure 100/75 112/72 128/113 H Pulse Oximetry 96 98 98 Oxygen Delivery 08/14/25 19:13 08/14/25 20:13 08/14/25 20:34 Temperature 100.9 F H Pulse Rate 129 H 106 H Respiratory Rate 17 Blood Pressure 128/113 H 109/75 Pulse Oximetry 95 95 Oxygen Delivery Room Air 08/14/25 20:56 Temperature 99.0 F Pulse Rate 145 H Respiratory Rate 20 Blood Pressure 113/71 Pulse Oximetry 92 Oxygen Delivery Exam Const: Other: Thrashing around in bed, shortly after resting comfortably without intervention. In hand restraints. Multiple scabs and bruising over his legs. No open wounds with purulence. HENMT: Other: Green mucus plug, poor dentition. Eyes: Pupils: Equal, round and reactive pupils present EOM: EOMs intact bilaterally Neck: Neck: supple Resp: Effort & Inspection: normal respiratory effort Other: Limited participation Cardio: Rate: tachycardic Rhythm: abnormal rhythm Heart sounds: no murmurs GI: Inspection: non-distended GI Palp: Yes Soft to palpation and No Tenderness to palpation present (GI) : General: Yes bladder normal to palpation Neuro: Other: Moves all 4 extremities freely Extrem: General: no edema Psych: Affect: Hostile affect present Attitude: Belligerent attititude/behavior present H&P: Results Labs Labs: Short CBC 08/14/25 Range/Units 14:13 WBC 21.1 H (4.5-10.0) K/mm3 Hgb 15.9 D (14.0-18.0) g/dL Hct 47.7 (42.0-52.0) % Plt Count 294 D (150-375) k/mm3 BMP 08/14/25 08/14/25 14:13 21:16 Sodium 136 L 134 L Potassium 4.0 3.2 L Chloride 96 L 104 Carbon Dioxide 23 19 L BUN 18 16 Creatinine 1.13 0.87 Glucose 152 H 123 H Calcium 9.7 8.5 Cardiac Enzymes 08/14/25 08/14/25 Range/Units 14:13 17:10 Total Creatine Kinase 817 H (55-170) U/L Troponin I 0.112 H* (0.000-0.034) ng/mL Liver Function 08/14/25 Range/Units 14:13 Total Bilirubin 1.4 H (0.2-1.3) mg/dL AST 67 H (17-59) U/L ALT 40 (6-50) U/L Alkaline Phosphatase 101 (38-126) U/L Albumin 4.9 (3.5-5.1) g/dL Urine 08/14/25 Range/Units 14:20 Urine Color Yellow (Yellow) Urine Appearance Clear (Clear) Urine pH 7.0 (5.0-9.0) Ur Specific Portal 1.018 (1.001-1.035) Urine Protein 3+ H (Negative) mg/dL Urine Glucose (UA) Negative (Negative) mg/dL Assessment and Plan Assessment and plan (1) Elevated troponin: Code(s): R79.89 - Other specified abnormal findings of blood chemistry Status: Acute (2) Seizure disorder: Code(s): G40.909 - Epilepsy, unspecified, not intractable, without status epilepticus Status: Acute (3) Elevated lactic acid level: Code(s): R79.89 - Other specified abnormal findings of blood chemistry Status: Acute (4) Altered mental status: Code(s): R41.82 - Altered mental status, unspecified Status: Resolved Plan History is taken from chart review and in collaboration with the patient's daughter. The patient lives with his son-in-law, previously A&O x3. 85-year-old male with a history of seizure disorder, hypertension, arthritis, GERD, CAD status post CABG, hyperlipidemia, subclinical hypothyroidism, aortic stenosis status post bioprosthetic valve replacement 2019. Reportedly, son-in-law heard a commotion 1 day prior to admission but did not check on the patient. On day of admission 08/14/2025 he noticed the patient's TV did not go on to a checked on the patient and found him lying on the floor. Patient was combative and confused. Nonverbal. In the [facility] ER his blood pressure elevated ranging systolic between 119 and 152, saturating 95% on room air, found to be in AFib with RVR, T-max a 100.9?. Laboratory evaluation reviews WBC 46808, hemoglobin 15.9, platelet count 294, band neutrophils 11%, INR 1.1, sodium 136, potassium 4.0, chloride 96, anion gap 17, serum creatinine 1.13, glucose 152, lactic acid 4.7, AST 67, total bilirubin 1.4, ammonia level negative, total creatinine kinase 817, troponin 0.112, CRP 2.7, urinalysis not indicative of infection, 2+ ketones. Head CT without acute intracranial abnormality, cervical spine CT no acute findings, chest abdomen pelvis CT with contrast demonstrating thickening of the gallbladder, no acute process. Blood cultures obtained. Started on diltiazem GTT 15 milligrams/hour, administer Tylenol, Valium, Keppra 2500 mg, 2 L normal saline bolus. Neurology consulted from the ER. ----- After verbal sign-out, evaluated the patient in the intermediate Unit, he is currently nonverbal, thrashing around in the bed, not following commands, he has a large very thick dark green mucus plug in his mouth, the RN PRACTITIONER was able to suction it out but the patient was trying to spit on the nursing staff and myself during this. He has multiple old scabs on his legs, redness on the anterior tibial regions but no active purulence, no swelling/erythema indicative of infection or infected ulcers. Sacrum is red. Unable to evaluate his oral mucosa due to the above. No pain to palpation of the abdomen or suprapubic region. Patient does not participate with inspiration. Unable to elicit nuchal rigidity. Due to the patient's fever, altered mental status, lack of identified source of infection -spoke with the ER physician who agreed patient should be treated for meningitis however due to extreme volume load in the ER they were unable to perform lumbar puncture at this time. The patient's daughter was contacted, she reports he has had seizure episodes were afterwards he is nonverbal like this. None the less, start empiric antibiotic therapy and consult with Neurology, and Infectious Disease if needed. Shortly after the patient was resting comfortably. ----- Seizure disorder/altered mental status: Unclear if he had seizure at home. Neurology consulted. Continue Keppra 1000 mg IV b.i.d.. Diazepam p.r.n.. Drugs of abuse screen positive for marijuana. Seizure and fall precautions. Ambulate with assistance. Questionable alcohol use. NPO for now, patient is aspiration risk. febrile illness: No identified source of infection. Start empiric antibiotic with ampicillin, ceftriaxone, vancomycin. Lumbar puncture ordered. Neurology consulted. Tylenol p.r.n.. Blood cultures pending. Leukocytosis, continue to trend, check procalcitonin. Rhabdomyolysis: Renal function intact, continue normal saline at 125 cc/hour, trend total creatinine kinase. Elevated troponin: Patient does not appear to be in pain. Could be due to seizure. Continue to trend. EKG without acute ST elevations, repeat EKG after RVR improved. AFib with RVR: Unclear if patient has been taking medications. Was supposed to be on Eliquis at home. Continue with heparin GTT. On diltiazem GTT 15 milligrams/hour, RVR improving. Continue to titrate. Reportedly on sotalol prior to admission. Continue telemetry. Potassium now 3.2, replacing. Check magnesium. Lactic acidosis, anion gap metabolic acidosis: Resolved, likely due to seizure and/or volume down. ----- Heparin GTT Fall precaution, seizure precaution, ambulate with assistance. Castellanos catheter placed on 08/14/2025 Wrist restraints Admit to IMU, continue telemetry. Full code. NPO. Normal saline at 125 cc/hour. Greater than 75 minute spent on discussion with family, nursing team, ER physician, chart review, [id number] time and medical decision making. Hospitalist [facility] Advance Care Plan I have confirmed that the patient's Advanced Care Plan is present, code status is documented, or surrogate decision maker is listed in patient medical record.: Yes Medication Reconciliation I have utilized all available resources to obtain, update and review the patients current medications (includes all prescriptions, OTC, herbals, cannabis, and nutritional supplements).: Yes
[2025-08-14 21:48] LABS: Troponin I 0.136 ng/mL (0.000-0.034)
[2025-08-14] MEDS: AMPICILLIN SODIUM 2 GM in SODIUM CHLORIDE 0.9% IV 100 ML 200 ML IVPB (22:12)
[2025-08-14] MEDS: HEPARIN SOD/D5W 100 UNITS/ML 25,000 UNITS/250 ML BAG 12 UNITS IV CONT (22:49)
[2025-08-14] MEDS: cefTRIAXone 2 GM in SODIUM CHLORIDE 0.9% IV 100 ML 200 ML IVPB (22:51)
[2025-08-14] MEDS: VANCOMYCIN 1,750 MG/NS 500 ML 1,750 MG/500 ML BAG 250 MG IVPB (23:47)
[2025-08-14] MEDS: KCL 40 MEQ/0.9% SOD CHL 1,000 ML 100 ML IV CONT (23:53)
[2025-08-15] VITALS (27 sets, daily range): BP systolic 95–164; BP diastolic 48–103; PULSE 65–112; RESP 16–22; TEMP 36.3–37.4; O2SAT 90–100
--- NOTE | 2025-08-15 | ECHO_ITS ---
Patient Info Name: Adán Wall Age: 85 years : 1940 Gender: Male Ht: 70 in Wt: 155 lbs BSA: 1.86 m2 HR: 80 bpm BP: 156 / 76 mmHg Technical Quality: Good Exam Date: 08/15/2025 3:03 PM Patient Status: I Admit Date: 08/15/2025 Exam Type: CA echo doppler color flow Complete two-dimensional, color flow and Doppler transthoracic echocardiogram is performed. Staff Referring Physician: Licha Gutierrez Sack Maker: Parrish Ayala III Attending Provider: Nixon Cheng MD Summary 1. Complete two-dimensional, color flow and Doppler transthoracic echocardiogram is performed. 2. Left ventricular chamber dimension is normal. 3. Left ventricular systolic function is normal, estimated at 60-65. 4. There is moderate concentric increased left ventricular wall thickness. 5. The left ventricular diastolic function is abnormal. 6. E/e' 11 is mildly elevated. 7. Left atrial chamber dimension is moderately enlarged. 8. Right atrial chamber dimension is moderately enlarged. 9. Bioprosthetic aortic valve. 10. The mitral valve has a mildly calcified annulus. 11. There is mild mitral valve regurgitation. 12. There is mild tricuspid valve regurgitation. 13. Mild pulmonary hypertension, estimated pulmonary arterial systolic pressure is 40 mmHg. Left Ventricle E/e' 11 is mildly elevated. Left ventricular chamber dimension is normal. Left ventricular systolic function is normal, estimated at 60-65. There is moderate concentric increased left ventricular wall thickness. The left ventricular diastolic function is abnormal. Right Ventricle Right ventricular chamber dimension is normal. Right ventricular systolic function is normal. Left Atria Left atrial chamber dimension is moderately enlarged. Right Atria Right atrial chamber dimension is moderately enlarged. Aortic Valve The bioprosthetic aortic valve is not well visualized. There is no bioprosthetic aortic valve stenosis. There is no regurgitation of the bioprosthetic aortic valve. Bioprosthetic aortic valve. Pulmonic Valve There is no pulmonic regurgitation. Mitral Valve The mitral valve has a mildly calcified annulus. There is no mitral valve stenosis. There is mild mitral valve regurgitation. Tricuspid Valve There is mild tricuspid valve regurgitation. Mild pulmonary hypertension, estimated pulmonary arterial systolic pressure is 40 mmHg. Pericardium/Pleural There is no pericardial effusion. Inferior Vena Cava Normal inferior vena cava with >50% collapse upon inspiration consistent with normal right atrial pressure, 5 mmHg. Aorta The aortic root size at the sinus of Valsalva is normal. Left Ventricular Outflow Tract Name Value Normal LVOT 2D LVOT Diameter 2.2 cm LVOT Doppler LVOT Peak Velocity 109 cm/s LVOT Peak Gradient 5 mmHg LVOT Mean Gradient 2 mmHg LVOT VTI 21 cm LVOT VTI/AV VTI Ratio 0.3 LVOT Stroke Volume 77 ml LVOT CO 5.8 l/min LVOT CI 3.1 l/min/m2 Pulmonic Valve Name Value Normal PV Doppler PV Peak Velocity 165 cm/s PV Peak Gradient 11 mmHg PV Mean Gradient 4 mmHg Mitral Valve Name Value Normal MV Doppler MV Peak Gradient 3 mmHg MV Mean Gradient 2 mmHg MV Area (Cont Eq VTI) 3.4 cm2 MV Regurgitation Doppler MR Peak Gradient 147 mmHg MV Diastolic Function MV E Peak Velocity 94 cm/s MV A Peak Velocity 90 cm/s MV E/A 1.0 MV Decel Time (PW) 236 ms MV Annular TDI MV E/e' (Septal) 16.7 MV E/e' (Lateral) 9.3 MV E/e' (Average) 13.0 Tricuspid Valve Name Value Normal TV Regurgitation Doppler TR Peak Velocity 296 cm/s TR Peak Gradient 35 mmHg Estimated PAP/RSVP RA Pressure 5 mmHg <=5 PA Systolic Pressure 40 mmHg <36 RV Systolic Pressure 40 mmHg <36 TV Annular TDI TV Lateral Altagracia s' Velocity 17.1 cm/s >=9.5 Aortic Valve Name Value Normal AV Doppler AV Peak Velocity 333 cm/s AV Peak Gradient 38 mmHg AV Mean Gradient 17 mmHg AV VTI 60 cm AV Area (Cont Eq VTI) 1.3 cm2 >=3.0 AV Area (Cont Eq Tariq) 1.2 cm2 AV DI (Tariq) 0.33 AV Regurgitation 2D LVOT Area 3.7 cm2 Ventricles Name Value Normal LV Dimensions 2D/MM IVS Diastolic Thickness (2D) 1.2 cm 0.6-1.0 LVID Diastole (2D) 4.0 cm 4.2-5.8 LVIW Diastolic Thickness (2D) 1.2 cm 0.6-1.0 LVID Systole (2D) 2.7 cm 2.5-4.0 LVOT Diameter 2.2 cm LV Mass (2D Cubed) 166.38 g 88.00-224.00 LV Mass Index (2D Cubed) 89 g/m2 49-115 Relative Wall Thickness (2D) 0.57 <=0.42 LV Fractional Shortening/Ejection Fraction 2D/MM LV Fractional Shortening (2D) 33 % 25-43 LV EF (2D Teichholz) 63 % LV Diastolic Volume (4C MOD) 68 ml LV EF (4C MOD) 65 % LV Diastolic Volume (2C MOD) 50 ml LV EF (2C MOD) 56 % LV Diastolic Volume (BP MOD) 62 ml 62-150 LV Diastolic Volume Index (BP MOD) 33 ml/m2 34-74 LV Systolic Volume (BP MOD) 26 ml 21-61 LV Systolic Volume Index (BP MOD) 14 ml/m2 11-31 LV EF (BP MOD) 59 % 52-72 LV Diastolic Length (4C) 7.7 cm LV Systolic Length (4C) 6.1 cm LV Stroke Volume (4C MOD) 44 ml Atria Name Value Normal LA Dimensions LA Volume (4C A-L) 90 ml LA Volume (BP A-L) 98 ml RA Dimensions RA Systolic Major [place] Length (4C) 6.7 cm 2.1-2.7 RA Area (4C) 26.1 cm2 <=18.0 Report Signatures
[2025-08-15] MEDS: dilTIAZem 100 MG/100 ML 100 MG/100 ML BAG 15 MG IV CONT (00:02)
[2025-08-15] MEDS: diazePAM INJ (*CRX) 10 MG/2 ML SYRINGE IV PUSH (01:42)
--- NOTE | 2025-08-15 02:09 | ECG_ITS ---
Test Date: 2025-08-15 02:14:21 Measurements Intervals [place] Rate: 61 P: 49 NH: 177 QRS: 37 QRSD: 101 T: 58 QT: 470 QTc: 476 Interpretive Statements SINUS RHYTHM PROLONGED QT INTERVAL Compared to ECG 08/14/2025 17:07:12 Prolonged QT interval now present Atrial flutter no longer present ST (T wave) deviation no longer present Electronically Signed On 08-15-2025 09:36:32 [employer] APPRENTICE by Selwyn Roblero M.D.
[2025-08-15] MEDS: AMPICILLIN SODIUM 2 GM in SODIUM CHLORIDE 0.9% IV 100 ML 200 ML IVPB ×4 (02:52→13:29)
[2025-08-15 05:28] LABS: Hematocrit 39.8 % (42.0-52.0); Hemoglobin 13.0 g/dL (14.0-18.0); Immature Granulocyte Percent A 0.6 % (0-0.5); Lymphocytes Absolute Auto 3.86 K/mm3 (0.9-3.2); Mean Corpuscular HGB Conc 32.7 g/dl (32-36); Mean Corpuscular Hemoglobin 30.4 pg (26-34); Mean Corpuscular Volume 93.2 fl (80-100); Nucleated Red Blood Cells Absolute Auto 0.000 K/mm3 (0.0-0.012); Nucleated Red Blood Cells Perc 0.0 % (0.0-0.2); Platelet Count Result 226 k/mm3 (150-375); Red Blood Count 4.27 M/mm3 (4.6-6.20); White Blood Count 17.3 K/mm3 (4.5-10.0)
[2025-08-15 05:39] LABS: Alanine Aminotransferase 21 U/L (6-50); Albumin Level 3.7 g/dL (3.5-5.1); Alkaline Phosphatase 72 U/L (38-126); Anion Gap 9 mmol/L (4-12); Aspartate Amino Transferase 56 U/L (17-59); Bilirubin,Total 0.8 mg/dL (0.2-1.3); Carbon Dioxide 22 mmol/L (22-30); Chloride 107 mmol/L (98-107); Creatine Kinase 795 U/L (55-170); Magnesium 1.9 mg/dL (1.6-2.3); Potassium 3.4 mmol/L (3.4-5.0); Sodium 138 mmol/L (137-145); Total Protein 7.5 g/dL (6.3-8.2)
[2025-08-15 05:43] LABS: Blood Urea Nitrogen 16 mg/dL (9-20); Estimated CRCL calculation 55 ml/min; Estimated Glomerular Filt Rate > 60; Partial Thromboplastin Time 99.0 Seconds (22.3-36.8)
[2025-08-15 05:44] LABS: Calcium 8.1 mg/dL (8.4-10.2); Glucose 97 mg/dL (65-110)
[2025-08-15 05:52] LABS: Troponin I 0.162 ng/mL (0.000-0.034)
[2025-08-15] MEDS: POTASSIUM CHLORIDE 20 MEQ ER TABLET PO (06:11)
[2025-08-15] MEDS: MAGNESIUM SULF 1 GM/D5W 100 ML 1 GM/100 ML BAG IVPB (06:14)
[2025-08-15 06:23] LABS: Procalcitonin 0.4 ng/mL
--- NOTE | 2025-08-15 07:37 | P.PNIM_ITS ---
Progress Note: A&P Assessment and Plan (1) Elevated troponin: Code(s): R79.89 - Other specified abnormal findings of blood chemistry Status: Acute Assessment and Plan: Elevated troponin: Patient does not appear to be in pain. Could be due to seizure. Continue to trend. EKG without acute ST elevations, repeat EKG after RVR improved. 08/15: -Trop elevated x3, cards consulted -D/C hep drip and start Eliquis -Repeat EKG: NSR with PVCs at 0209 today -Restart Sotalol 40mg today with discontinuation of dilt gtt, cards consulted (2) Seizure disorder: Code(s): G40.909 - Epilepsy, unspecified, not intractable, without status epilepticus Status: Acute Assessment and Plan: Unclear if he had seizure at home, also unclear if had been taking medications at home. Neurology consulted. Continue Keppra 1000 mg IV b.i.d.. Diazepam p.r.n.. Drugs of abuse screen positive for marijuana. Seizure and fall precautions. Ambulate with assistance. Questionable alcohol use. NPO for now, patient is aspiration risk. 08/15: No seizures while inpt thus far -Continue Keppra 1,500mg PO every 12 after IV -I spoke extensively with Dr. Jean Baptiste on the telephone and he states that he has seen this pt in the past (x9 months ago) and he presented the same and that he h as just been in a prolonged post-ictal state. Neuro has signed off. the patient has had 4 rounds of seizures that brought him to the hospital in the last year. However he does not remember all of them. He does have prolonged postictal. During which he appears combative and confused and sometimes hallucinating. Once he gets better he is back to his normal self and appears fairly pleasant as he is today. Does seem to have some cognitive impairment of course this may require some follow-up before any decision can be made about the memory or cognition. He should be on Keppra 1500 mg twice a day in view of the seizures and he should be followed up at my office and his primary care provider to achieve compliance. Family can set up in the son-in-law to keep an eye on his compliance. (3) Elevated lactic acid level: Code(s): R79.89 - Other specified abnormal findings of blood chemistry Status: Acute Assessment and Plan: Lactic acidosis, anion gap metabolic acidosis: Resolved, likely due to seizure and/or volume down. No identified source of infection. Start empiric antibiotic with ampicillin, ceftriaxone, vancomycin. Lumbar puncture ordered. Neurology consulted. Tylenol p.r.n.. Blood cultures pending. Leukocytosis, continue to trend, check procalcitonin. 08/15: Lactic acid level now WDL, resolved. -Afebrile today, last acetaminophen dose at 1920 08/14/2025 -A&O x 4 -Urinary catheter removed -Procalcitonin WDL -Will continue to trend WBC, LP cancelled and abx d/c due to re-orientation with probable dx of prolonged post ictal state (4) Altered mental status: Code(s): R41.82 - Altered mental status, unspecified Status: Resolved Assessment and Plan: See above. (5) Atrial fibrillation with rapid ventricular response: Code(s): I48.91 - Unspecified atrial fibrillation Status: Acute Assessment and Plan: Unclear if patient has been taking medications. Was supposed to be on Eliquis at home. Continue with heparin GTT. On diltiazem GTT 15 milligrams/hour, RVR improving. Continue to titrate. Reportedly on sotalol prior to admission. Continue telemetry. Potassium now 3.2, replacing. Check magnesium. 08/15: -Tele: 67 bpm -K 3.4 today, replacing with 40meq IV today -Mag WDL -Pending cards for RVR management, currently on dilt 5mg/hr with plans to start sotalol at 1800 and D/C gtt then -Hep drip discontinued, switching to Eliquis (supposed to be on at home per chart and family at the bedside, pt states that he does not take this) (6) Rhabdomyolysis: Code(s): M62.82 - Rhabdomyolysis Status: Acute Assessment and Plan: Renal function intact, continue normal saline at 125 cc/hour, trend total creatinine kinase. 08/15: CK continues to downtrend, renal labs WDL, continue IVF Plan 85-year-old male with a history of seizure disorder, hypertension, arthritis, GERD, CAD status post CABG, hyperlipidemia, subclinical hypothyroidism, aortic stenosis status post bioprosthetic valve replacement 2019. Reportedly, son-in-law heard a commotion 1 day prior to admission but did not check on the patient. On day of admission 08/14/2025 he noticed the patient's TV did not go on to a checked on the patient and found him lying on the floor. Patient was combative and confused. Nonverbal. In the [facility] ER his blood pressure elevated ranging systolic between 119 and 152, saturating 95% on room air, found to be in AFib with RVR, T-max a 100.9?. Laboratory evaluation reviews WBC 88295, hemoglobin 15.9, platelet count 294, band neutrophils 11%, INR 1.1, sodium 136, potassium 4.0, chloride 96, anion gap 17, serum creatinine 1.13, glucose 152, lactic acid 4.7, AST 67, total bilirubin 1.4, ammonia level negative, total creatinine kinase 817, troponin 0.112, CRP 2.7, urinalysis not indicative of infection, 2+ ketones. Head CT without acute intracranial abnormality, cervical spine CT no acute findings, chest abdomen pelvis CT with contrast demonstrating thickening of the gallbladder, no acute process. ----- After verbal sign-out, evaluated the patient in the intermediate Unit, he is currently nonverbal, thrashing around in the bed, not following commands, he has a large very thick dark green mucus plug in his mouth, the BLACK [employer] PAVER OPERATOR was able to suction it out but the patient was trying to spit on the nursing staff and myself during this. He has multiple old scabs on his legs, redness on the anterior tibial regions but no active purulence, no swelling/erythema indicative of infection or infected ulcers. Sacrum is red. Unable to evaluate his oral mucosa due to the above. No pain to palpation of the abdomen or suprapubic region. Patient does not participate with inspiration. Unable to elicit nuchal rigidity. Due to the patient's fever, altered mental status, lack of identified source of infection -spoke with the ER physician who agreed patient should be treated for meningitis however due to extreme volume load in the ER they were unable to perform lumbar puncture at this time. The patient's daughter was contacted, she reports he has had seizure episodes were afterwards he is nonverbal like this. None the less, start empiric antibiotic therapy and co nsult with Neurology, and Infectious Disease if needed. Shortly after the patient was resting comfortably. Fall precaution, seizure precaution, ambulate with assistance. Admit to IMU, continue telemetry. Full code. LR at 75ml/hr Time Spent With Patient Time: 50 Subjective Date/time seen: 08/15/25 0925 Interval history: The patient lives with his son-in-law, baseline A&O x3. pt sleeping upon my arrival to his room. RN at the bedside, pt arousable with speech and touch. Upon re-check, pt with x2 family members at the bedside. Pt A&O x4 now, as well as irritable, he wants to go home. I spoke extensively with Dr. Jean Baptiste on the telephone and he states that he has seen this pt in the past (x9 months ago) and he presented the same and that he has just been in a prolonged post-ictal state. Pt reports that the only medication that he takes at home is for blood pressure. Per chart, he is supposed to also be taking keppra, sotalol, and eliquis. Pt denies any sx today other than feeling tired. Pt aggravated that he is in the hospital, but is agreeable to stay. Review of Systems Review of Systems: All systems reviewed & are unremarkable except as noted in HPI and below (Subjective) ROS unobtainable: Yes unobtainable due to medical condition Exam Const: Other: Multiple scabs and bruising over his legs. No open wounds with purulence. HENMT: Other: Edentulous Eyes: Pupils: Equal, round and reactive pupils present EOM: EOMs intact bilaterally Neck: Neck: supple Resp: Effort & Inspection: normal respiratory effort Auscultation: clear to auscultation bilaterally Cardio: Rate: regular rate Rhythm: regular rhythm Heart sounds: no murmurs GI: Inspection: non-distended Skin: Other: Multiple scabs and bruising over his legs. No open wounds with purulence. Ecchymosis to R periorbital and socket Neuro: Cranial nerves: Yes Equal, round and reactive pupils present Other: Moves all 4 extremities freely, A&O x4 Extrem: General: no edema Psych: Mental Status: mental status grossly normal Affect: Hostile affect present Objective Data Vital Signs Vital Signs: Vital Signs - 24 hr 08/14/25 14:02 08/14/25 14:18 08/14/25 14:19 Temperature 99.1 F Pulse Rate 132 H 150 H Respiratory Rate 29 H Blood Pressure 119/96 H Pulse Oximetry Oxygen Delivery 08/14/25 14:27 08/14/25 14:29 08/14/25 14:35 Temperature 99.6 F 99.7 F H Pulse Rate 112 H 102 H Respiratory Rate 18 15 Blood Pressure 167/118 H 154/97 H Pulse Oximetry 96 98 98 Oxygen Delivery Room Air 08/14/25 14:47 08/14/25 15:18 08/14/25 15:57 Temperature 99.7 F H 99.7 F H 99.9 F H Pulse Rate 137 H 146 H 145 H Respiratory Rate 15 16 15 Blood Pressure 172/95 H 148/79 H 155/105 H Pulse Oximetry 99 99 98 Oxygen Delivery 08/14/25 17:07 08/14/25 17:34 08/14/25 17:46 Temperature 100.2 F H Pulse Rate 100 132 H 153 H Respiratory Rate 16 Blood Pressure 143/100 H 143/100 H 152/138 H Pulse Oximetry 96 Oxygen Delivery 08/14/25 18:00 08/14/25 18:31 08/14/25 19:12 Temperature 100.2 F H 100.8 F H Pulse Rate 129 H 126 H 130 H Respiratory Rate 20 20 16 Blood Pressure 100/75 112/72 128/113 H Pulse Oximetry 96 98 98 Oxygen Delivery 08/14/25 19:13 08/14/25 20:13 08/14/25 20:30 Temperature 100.9 F H Pulse Rate 129 H 106 H 145 H Respiratory Rate 17 Blood Pressure 128/113 H 109/75 113/71 Pulse Oximetry 95 Oxygen Delivery 08/14/25 20:34 08/14/25 20:53 08/14/25 20:56 Temperature 99.0 F Pulse Rate 113 H 145 H Respiratory Rate 20 Blood Pressure 113/71 Pulse Oximetry 95 92 Oxygen Delivery Room Air 08/14/25 21:49 08/14/25 22:00 08/14/25 22:00 Temperature 99.0 F Pulse Rate 105 H 107 H Respiratory Rate Blood Pressure 91/66 L Pulse Oximetry Oxygen Delivery 08/14/25 23:22 08/14/25 23:37 08/15/25 00:00 Temperature 99.5 F 99.3 F Pulse Rate 145 H 112 H 112 H Respiratory Rate 18 16 18 Blood Pressure 102/48 L 102/48 L 102/48 L Pulse Oximetry 99 93 93 Oxygen Delivery 08/15/25 00:00 08/15/25 00:02 08/15/25 01:31 Temperature Pulse Rate 87 83 89 Respiratory Rate 18 Blood Pressure 102/48 L 123/71 Pulse Oximetry 90 Oxygen Delivery 08/15/25 01:46 08/15/25 02:00 08/15/25 02:00 Temperature Pulse Rate 73 77 81 Respiratory Rate 20 Blood Pressure 104/52 L 95/56 L Pulse Oximetry 93 Oxygen Delivery 08/15/25 02:01 08/15/25 02:16 08/15/25 02:18 Temperature Pulse Rate 77 76 83 Respiratory Rate 20 20 Blood Pressure 95/56 L 116/55 L 95/56 L Pulse Oximetry 93 93 Oxygen Delivery 08/15/25 02:22 08/15/25 03:31 08/15/25 04:00 Temperature 98.3 F Pulse Rate 78 76 66 Respiratory Rate 20 20 16 Blood Pressure 99/51 L 125/58 L 125/58 L Pulse Oximetry 97 96 96 Oxygen Delivery 08/15/25 04:00 08/15/25 04:00 08/15/25 04:31 Temperature Pulse Rate 72 72 71 Respiratory Rate 20 Blood Pressure 125/58 L 150/64 H Pulse Oximetry 95 Oxygen Delivery 08/15/25 06:00 08/15/25 06:00 Temperature Pulse Rate 70 70 Respiratory Rate Blood Pressure 139/69 Pulse Oximetry Oxygen Delivery Intake/Output Intake/Output: Intake & Output 08/12/25 08/13/25 08/14/25 08/15/25 23:59 23:59 22:59 23:59 Intake Total 2470.5 835.7 Output Total 1200 250 Balance 1270.5 585.7 Meds/Results Medications: Active Medications Generic Name Dose Route Start Last Admin Trade Name Freq PRN Reason Stop Dose Admin Acetaminophen 650 mg 08/14/25 19:00 Acetaminophen 325 Mg Tablet PO Q4H PRN Mild Pain (1-3) or Fever Heparin Sodium (Porcine) 5,500 units 08/14/25 21:55 Heparin Sodium 5,000 Units/Ml Vial IV PUSH PRN PRN aPTT less than 55 seconds Heparin Sodium (Porcine) 2,500 units 08/14/25 21:55 Heparin Sodium 5,000 Units/Ml Vial IV PUSH PRN PRN aPTT 55 - 70 seconds Levetiracetam 1,000 mg in 100 mls @ 400 mls/hr 08/15/25 09:00 Keppra Iv IVPB Q12HR SHANIQUE Ceftriaxone Sodium 2 gm/ 100 mls @ 200 mls/hr 08/14/25 22:00 08/14/25 23:21 Sodium Chloride IVPB Infused Q12H SHANIQUE Infusion Ampicillin Sodium 2 gm/ Sodium 100 mls @ 200 mls/hr 08/14/25 22:00 08/15/25 06:08 Chloride IVPB Infused Q4H SHANIQUE Infusion Heparin Sodium/Dextrose 25,000 units in 250 mls @ 12 mls/hr 08/14/25 21:55 08/15/25 05:45 Heparin Sodium/D5w 100 Units/Ml IV CONT 1,200 units/hr .[id number] SHANIQUE 12 mls/hr Protocol Titration 1,200 UNITS/HR Vancomycin HCl 1,250 mg in 250 mls @ 166.667 mls/hr 08/15/25 23:00 Vancomycin 1,250 Mg/Ns 250 Ml IVPB Q24H SHANIQUE Potassium Chloride/Sodium Chloride 1,000 mls @ 100 mls/hr 08/14/25 23:15 08/14/25 23:53 Kcl 40 Meq/Ns IV CONT 100 mls/hr .Q10H SHANIQUE Administration Diltiazem HCl 100 mg in 100 mls @ 5 mls/hr 08/15/25 00:02 08/15/25 06:00 Cardizem 100 Mg/100 Ml IV CONT 5 mg/hr .Q20H SHANIQUE 5 mls/hr 5 MG/HR Infusion Radiology Results: ITS Impressions Chest X-Ray 08/14/25 15:06 Impression: Mild CHF Head CT 08/14/25 15:15 Impression: 1.No acute intracranial abnormality. Cervical Spine CT 08/14/25 15:18 Impression: No acute abnormality. Chest/Abdomen/Pelvis CT 08/14/25 16:58 IMPRESSION: 1. No acute process in the chest. 2. Cystitis 3. Incidental findings above Labs Labs: Laboratory Results - last 24 hr 08/14/25 08/14/25 08/14/25 14:02 14:13 14:13 WBC 21.1 H RBC 5.25 Hgb 15.9 D Hct 47.7 MCV 90.9 MCH 30.3 MCHC 33.3 RDW 13.6 Plt Count 294 D MPV 9.7 Immature Gran % (Auto) Not Reportable Neut % (Auto) Not Reportable Lymph % (Auto) Not Reportable [place] % (Auto) Not Reportable Eos % (Auto) Not Reportable Baso % (Auto) Not Reportable Lymph # (Auto) Not Reportable [place] # (Auto) Not Reportable Eos # (Auto) Not Reportable Baso # (Auto) Not Reportable Abs Immat Gran (auto) Not Reportable Absolute Neuts (auto) Not Reportable Absolute Nucleated RBC Not Reportable Total Counted 100 Neutrophils % (Manual) 71 Band Neutrophils % 11 H Lymphocytes % (Manual) 16 L Monocytes % (Manual) 2 L Nucleated RBC % Not Reportable Abs Neuts (Manual) 17.30 H Abs Lymphs (Manual) 3.37 Abs Monocytes (Manual) 0.42 Platelet Estimate Adequate Schistocytes None seen PT 14.5 INR 1.1 APTT 26.5 Sodium 136 L Potassium 4.0 Chloride 96 L Carbon Dioxide 23 Anion Gap 17 H BUN 18 Creatinine 1.13 Estim Creat Clear Calc 42 Estimated GFR > 60 Glucose 152 H POC Capillary Glucose 177 H Lactic Acid 4.7 H* Calcium 9.7 Phosphorus Magnesium Total Bilirubin 1.4 H AST 67 H ALT 40 Alkaline Phosphatase 101 Ammonia Total Creatine Kinase 817 H Troponin I C-Reactive Protein 2.7 H Total Protein 9.5 H Albumin 4.9 Procalcitonin TSH 5.800 H Urine Color Urine Appearance Urine pH Ur Specific [place] Urine Protein Urine Glucose (UA) Urine Ketones Ur Blood (Man) Urine Nitrate Urine Bilirubin Urine Urobilinogen Leukocyte Esterase Rfl Urine RBC Urine WBC Ur Squamous Epith Cells Urine Bacteria Urine Casts Urine Opiates Screen Urine Methadone Screen Ur Barbiturates Screen Ur Phencyclidine Scrn Ur Amphetamine Screen U Benzodiazepines Scrn Urine Cocaine Screen U Cannabinoids Screen Ethyl Alcohol < 10 Cancelled 08/14/25 08/14/25 08/14/25 14:20 17:08 17:10 WBC RBC Hgb Hct MCV MCH MCHC RDW Plt Count MPV Immature Gran % (Auto) Neut % (Auto) Lymph % (Auto) [place] % (Auto) Eos % (Auto) Baso % (Auto) Lymph # (Auto) [place] # (Auto) Eos # (Auto) Baso # (Auto) Abs Immat Gran (auto) Absolute Neuts (auto) Absolute Nucleated RBC Total Counted Neutrophils % (Manual) Band Neutrophils % Lymphocytes % (Manual) Monocytes % (Manual) Nucleated RBC % Abs Neuts (Manual) Abs Lymphs (Manual) Abs Monocytes (Manual) Platelet Estimate Schistocytes PT INR APTT Sodium Potassium Chloride Carbon Dioxide Anion Gap BUN Creatinine Estim Creat Clear Calc Estimated GFR Glucose POC Capillary Glucose Lactic Acid 3.3 H Calcium Phosphorus Magnesium Total Bilirubin AST ALT Alkaline Phosphatase Ammonia Total Creatine Kinase Troponin I 0.112 H* C-Reactive Protein Total Protein Albumin Procalcitonin TSH Urine Color Yellow Urine Appearance Clear Urine pH 7.0 Ur Specific [place] 1.018 Urine Protein 3+ H Urine Glucose (UA) Negative Urine Ketones 2+ H Ur Blood (Man) 2+ H Urine Nitrate Negative Urine Bilirubin Negative Urine Urobilinogen 0.2 Leukocyte Esterase Rfl Negative Urine RBC 6-10 H Urine WBC 0-5 Ur Squamous Epith Cells None seen Urine Bacteria None seen Urine Casts 3-5 Urine Opiates Screen Negative Urine Methadone Screen Negative Ur Barbiturates Screen Negative Ur Phencyclidine Scrn Negative Ur Amphetamine Screen Negative U Benzodiazepines Scrn Negative Urine Cocaine Screen Negative U Cannabinoids Screen Positive A Ethyl Alcohol 08/14/25 08/14/25 08/14/25 18:24 19:35 21:16 WBC RBC Hgb Hct MCV MCH MCHC RDW Plt Count MPV Immature Gran % (Auto) Neut % (Auto) Lymph % (Auto) [place] % (Auto) Eos % (Auto) Baso % (Auto) Lymph # (Auto) [place] # (Auto) Eos # (Auto) Baso # (Auto) Abs Immat Gran (auto) Absolute Neuts (auto) Absolute Nucleated RBC Total Counted Neutrophils % (Manual) Band Neutrophils % Lymphocytes % (Manual) Monocytes % (Manual) Nucleated RBC % Abs Neuts (Manual) Abs Lymphs (Manual) Abs Monocytes (Manual) Platelet Estimate Schistocytes PT INR APTT Sodium 134 L Potassium 3.2 L Chloride 104 Carbon Dioxide 19 L Anion Gap 11 BUN 16 Creatinine 0.87 Estim Creat Clear Calc 49 Estimated GFR > 60 Glucose 123 H POC Capillary Glucose 143 H Lactic Acid 2.0 Calcium 8.5 Phosphorus Magnesium Total Bilirubin AST ALT Alkaline Phosphatase Ammonia < 9 L Total Creatine Kinase Troponin I 0.136 H* D C-Reactive Protein Total Protein Albumin Procalcitonin TSH Urine Color Urine Appearance Urine pH Ur Specific [place] Urine Protein Urine Glucose (UA) Urine Ketones Ur Blood (Man) Urine Nitrate Urine Bilirubin Urine Urobilinogen Leukocyte Esterase Rfl Urine RBC Urine WBC Ur Squamous Epith Cells Urine Bacteria Urine Casts Urine Opiates Screen Urine Methadone Screen Ur Barbiturates Screen Ur Phencyclidine Scrn Ur Amphetamine Screen U Benzodiazepines Scrn Urine Cocaine Screen U Cannabinoids Screen Ethyl Alcohol 08/15/25 08/15/25 02:30 05:20 WBC 17.3 H RBC 4.27 L Hgb 13.0 L Hct 39.8 L MCV 93.2 MCH 30.4 MCHC 32.7 RDW 14.0 Plt Count 226 MPV 9.8 Immature Gran % (Auto) 0.6 H Neut % (Auto) 68.7 Lymph % (Auto) 22.4 [place] % (Auto) 7.5 Eos % (Auto) 0.2 Baso % (Auto) 0.6 Lymph # (Auto) 3.86 H [place] # (Auto) 1.3 H Eos # (Auto) 0.0 Baso # (Auto) 0.1 Abs Immat Gran (auto) 0.10 H Absolute Neuts (auto) 11.9 H Absolute Nucleated RBC 0.000 Total Counted Neutrophils % (Manual) Band Neutrophils % Lymphocytes % (Manual) Monocytes % (Manual) Nucleated RBC % 0.0 Abs Neuts (Manual) Abs Lymphs (Manual) Abs Monocytes (Manual) Platelet Estimate Schistocytes PT INR APTT 99.0 H Sodium 138 Potassium 3.4 Chloride 107 Carbon Dioxide 22 Anion Gap 9 BUN 16 Creatinine 0.82 Estim Creat Clear Calc 55 Estimated GFR > 60 Glucose 97 POC Capillary Glucose 113 H Lactic Acid Calcium 8.1 L Phosphorus 2.8 Magnesium 1.9 Total Bilirubin 0.8 AST 56 ALT 21 Alkaline Phosphatase 72 Ammonia Total Creatine Kinase 795 H Troponin I 0.162 H* C-Reactive Protein Total Protein 7.5 Albumin 3.7 Procalcitonin 0.4 TSH Urine Color Urine Appearance Urine pH Ur Specific [place] Urine Protein Urine Glucose (UA) Urine Ketones Ur Blood (Man) Urine Nitrate Urine Bilirubin Urine Urobilinogen Leukocyte Esterase Rfl Urine RBC Urine WBC Ur Squamous Epith Cells Urine Bacteria Urine Casts Urine Opiates Screen Urine Methadone Screen Ur Barbiturates Screen Ur Phencyclidine Scrn Ur Amphetamine Screen U Benzodiazepines Scrn Urine Cocaine Screen U Cannabinoids Screen Ethyl Alcohol Quality VTE Prophylaxis VTE prophylaxis: pharmacologic ordered
[2025-08-15] MEDS: POTASSIUM CHLORIDE INJ 40 MEQ in SODIUM CHLORIDE 0.9% IV 500 ML 130 MEQ IVPB (09:00)
[2025-08-15 09:07] LABS: Troponin I 0.157 ng/mL (0.000-0.034)
[2025-08-15] MEDS: levETIRAcetam 1000MG/NACL100ML 1,000 MG/100 ML BAG 400 MG IVPB (09:14)
[2025-08-15] MEDS: cefTRIAXone 2 GM in SODIUM CHLORIDE 0.9% IV 100 ML 200 ML IVPB (09:34)
[2025-08-15 12:07] LABS: Partial Thromboplastin Time 131.4 Seconds (22.3-36.8)
[2025-08-15] MEDS: dilTIAZem 100 MG/100 ML 100 MG/100 ML BAG IV CONT (13:18)
[2025-08-15] MEDS: LACTATED RINGERS 1,000 ML 75 ML IV CONT (13:23)
--- NOTE | 2025-08-15 13:54 | WPDNEURCNPN ---
Assessment and Plan Assessment and plan (1) Complex partial seizures: Code(s): G40.209 - Localization-related (focal) (partial) symptomatic epilepsy and epileptic syndromes with complex partial seizures, not intractable, without status epilepticus Status: Acute Assessment and Plan: the patient has had 4 rounds of seizures that brought him to the hospital in the last year. However he does not remember all of them. He does have prolonged postictal. During which he appears combative and confused and sometimes hallucinating. Once he gets better he is back to his normal self and appears fairly pleasant as he is today. Does seem to have some cognitive impairment of course this may require some follow-up before any decision can be made about the memory or cognition. He should be on Keppra 1500 mg twice a day in view of the seizures and he should be followed up at my office and his primary care provider to achieve compliance. Family can set up in the son-in-law to keep an eye on his compliance. (2) Paroxysmal atrial fibrillation: Code(s): I48.0 - Paroxysmal atrial fibrillation Status: Acute (3) History of aortic valve replacement with bioprosthetic valve: Onset Date: 07/2020 Code(s): Z95.3 - Presence of xenogenic heart valve Status: Acute (4) Essential hypertension: Code(s): I10 - Essential (primary) hypertension Status: Acute Plan The white cell count was high and patient was confused and spinal tap was ordered however saccades coming down and based upon my previous knowledge of this patient he has had prolonged periods of confusional state. However he has improved significantly and hence I would suggest to watch another 24 hours and the white cell count comes down to normal as he did before we can defer spinal tap otherwise if there is any change in mental status or temperature or unexplained leukocytosis we may consider the same. Should be kept on Keppra 15 mg twice a day and I would see him for follow-up in my office in 6 weeks time if he agrees to it. There is also question drinking alcohol and of course noncompliance. These may require further data with the family members. Consult date: 08/15/25 HPI: Adán Wall is a 85 year old male With history of seizure disorder with prolonged postictal state including aphasia was seen for an evaluation today. Patient has history of atrial fibrillation. I saw him on the previous occasion in January 2025 when also he took long time to improve from his condition. Was advised to take Keppra 12 50 mg twice a day. Patient lives with his son-in-law. His daughter . The patient states that he always remembers to take the medication but apparently this could be a somewhat of a question according to 1 of the family member who was here in the room. WBC count was high at 21.1 on admission is now still around 17.2. CPK is high at 817. There is some question of drinking alcohol. Currently is on Keppra 1000 mg twice a day. He states that he started having seizure when he was 7 years of old age however he did not have any further seizures until this year. Subsequently I noted that I also had seen him after he had a knee replacement surgery in August 2024 when he had a prolonged course of postictal state during which he was hallucinating and combative he eventually improved and he went back to home. In August 2024 I also advised to keep him on Keppra 1250 mg twice a day. Apparently he also has had a spell in November 2024 when he had a dislocation of the right shoulder. In January 2025 he has developed atrial fibrillation upon arrival in the emergency room after he had a seizure. A CT scan of brain was performed which did not show any significant abnormalities. Review of Systems Review of Systems: Patient denies any other symptoms. He does not think that he makes any mistake in taking the medications. FORMERLY [facility], [facility] Past Medical History Medical History (Updated 08/15/25 @ 14:04 by Isidro Jean Baptiste MD) Complex partial seizures Essential hypertension Seizure disorder Arthritis Gastroesophageal reflux disease Coronary artery disease Hyperlipidemia Aortic stenosis Subclinical hypothyroidism Surgical History Surgical History History of reverse total replacement of right shoulder joint History of arthroplasty of left knee History of arthroplasty of left shoulder History of coronary artery bypass graft x 1 (07/2020) At [facility]. History of aortic valve replacement with bioprosthetic valve (07/2020) At [facility]. History of incisional hernia repair (03/2021) Epigastric incisional hernia with mesh. Family History Family History Mother Hypertension Other Family history unknown Social History Social History Social History: Surrogate medical decision maker: Kalyani Haley, daughter. Code status: Full code. Smoking packs per day: 1 Smoking cigarettes per day: 20.0 Years smoked: 15 Smoking pack-years: 15.00 Smoking status: Never smoker Smokeless tobacco user: chewing tobacco Second hand tobacco smoke exposure: No Additional smoking assessment comments: quit 20 years ago Alcohol intake: former Drinks per week: 6 Alcohol use details: Beer Substance use: current Substance use type: marijuana Other substance usage details: Patient answer-use ranges from a couple times a year to every week. Current Housing: Decline to Answer Concerned About Future Housing: Decline to Answer Difficulty Paying Gas/Electric Bills: Decline to Answer Difficulty Paying for Meds: Decline to Answer Currently Unemployed: Decline to Answer Education: Decline to Answer Difficulty w/ Childcare or Family Care: Decline to Answer Living arrangements: with roommate(s) Additional living arrangements comments: lives with a roommate Occupation/Education: retired Additional occupation/education comments: [employer] care concerns: No Agree to blood products: No Meds Home Medications and Allergies Home Medications ?Medication ?Instructions ?Recorded ?Confirmed ?Type levetiracetam 250 mg tablet 250 mg PO Q12HR #60 tabs 04/12/25 08/14/25 Rx sotalol 80 mg tablet 40 mg (1/2 x 80 mg) PO Q12HR #60 06/24/25 08/14/25 Rx tabs levetiracetam 1,000 mg tablet 1,000 mg PO BID #60 tabs 07/21/25 08/14/25 Rx (Keppra) amlodipine 5 mg tablet 5 mg PO DAILY 08/14/25 08/14/25 History Allergies Allergy/AdvReac Type Severity Reaction Status Date / Time peanut AdvReac Intermediate Swelling Verified 08/14/25 21:15 Vital Signs Vital Signs - 24 hr 08/14/25 14:02 08/14/25 14:18 08/14/25 14:19 Temperature 99.1 F Pulse Rate 132 H 150 H Respiratory Rate 29 H Blood Pressure 119/96 H Pulse Oximetry Oxygen Delivery 08/14/25 14:27 08/14/25 14:29 08/14/25 14:35 Temperature 99.6 F 99.7 F H Pulse Rate 112 H 102 H Respiratory Rate 18 15 Blood Pressure 167/118 H 154/97 H Pulse Oximetry 96 98 98 Oxygen Delivery Room Air 08/14/25 14:47 08/14/25 15:18 08/14/25 15:57 Temperature 99.7 F H 99.7 F H 99.9 F H Pulse Rate 137 H 146 H 145 H Respiratory Rate 15 16 15 Blood Pressure 172/95 H 148/79 H 155/105 H Pulse Oximetry 99 99 98 Oxygen Delivery 08/14/25 17:07 08/14/25 17:34 08/14/25 17:46 Temperature 100.2 F H Pulse Rate 100 132 H 153 H Respiratory Rate 16 Blood Pressure 143/100 H 143/100 H 152/138 H Pulse Oximetry 96 Oxygen Delivery 08/14/25 18:00 08/14/25 18:31 08/14/25 19:12 Temperature 100.2 F H 100.8 F H Pulse Rate 129 H 126 H 130 H Respiratory Rate 20 20 16 Blood Pressure 100/75 112/72 128/113 H Pulse Oximetry 96 98 98 Oxygen Delivery 08/14/25 19:13 08/14/25 20:13 08/14/25 20:30 Temperature 100.9 F H Pulse Rate 129 H 106 H 145 H Respiratory Rate 17 Blood Pressure 128/113 H 109/75 113/71 Pulse Oximetry 95 Oxygen Delivery 08/14/25 20:34 08/14/25 20:53 08/14/25 20:56 Temperature 99.0 F Pulse Rate 113 H 145 H Respiratory Rate 20 Blood Pressure 113/71 Pulse Oximetry 95 92 Oxygen Delivery Room Air 08/14/25 21:49 08/14/25 22:00 08/14/25 22:00 Temperature 99.0 F Pulse Rate 105 H 107 H Respiratory Rate Blood Pressure 91/66 L Pulse Oximetry Oxygen Delivery 08/14/25 23:22 08/14/25 23:37 08/15/25 00:00 Temperature 99.5 F 99.3 F Pulse Rate 145 H 112 H 112 H Respiratory Rate 18 16 18 Blood Pressure 102/48 L 102/48 L 102/48 L Pulse Oximetry 99 93 93 Oxygen Delivery 08/15/25 00:00 08/15/25 00:02 08/15/25 01:31 Temperature Pulse Rate 87 83 89 Respiratory Rate 18 Blood Pressure 102/48 L 123/71 Pulse Oximetry 90 Oxygen Delivery 08/15/25 01:46 08/15/25 02:00 08/15/25 02:00 Temperature Pulse Rate 73 77 81 Respiratory Rate 20 Blood Pressure 104/52 L 95/56 L Pulse Oximetry 93 Oxygen Delivery 08/15/25 02:01 08/15/25 02:16 08/15/25 02:18 Temperature Pulse Rate 77 76 83 Respiratory Rate 20 20 Blood Pressure 95/56 L 116/55 L 95/56 L Pulse Oximetry 93 93 Oxygen Delivery 08/15/25 02:22 08/15/25 03:31 08/15/25 04:00 Temperature 98.3 F Pulse Rate 78 76 66 Respiratory Rate 20 20 16 Blood Pressure 99/51 L 125/58 L 125/58 L Pulse Oximetry 97 96 96 Oxygen Delivery 08/15/25 04:00 08/15/25 04:00 08/15/25 04:31 Temperature Pulse Rate 72 72 71 Respiratory Rate 20 Blood Pressure 125/58 L 150/64 H Pulse Oximetry 95 Oxygen Delivery 08/15/25 06:00 08/15/25 06:00 08/15/25 07:51 Temperature 98.3 F Pulse Rate 70 70 65 Respiratory Rate 18 Blood Pressure 139/69 142/63 H Pulse Oximetry 97 Oxygen Delivery 08/15/25 08:00 08/15/25 08:00 08/15/25 10:00 Temperature Pulse Rate 65 67 67 Respiratory Rate Blood Pressure 142/63 H 130/77 Pulse Oximetry Oxygen Delivery 08/15/25 10:00 08/15/25 12:00 08/15/25 12:05 Temperature 97.9 F Pulse Rate 70 71 71 Respiratory Rate 18 Blood Pressure 164/103 H 140/85 Pulse Oximetry 99 Oxygen Delivery 08/15/25 12:05 08/15/25 13:18 08/15/25 13:18 Temperature Pulse Rate 71 85 85 Respiratory Rate Blood Pressure 140/85 145/100 H 145/100 H Pulse Oximetry Oxygen Delivery Exam Narrative: Patient is fully conscious alert and awake. Appears to mild cognitive impairment. There is some bruising around the right eye or so-called work on side. No other evidence for injuries around the head and neck. No nuchal rigidity. Carotid bruit. Cranial nerves on individual testing show pupils were equal react to light. Visual richards and cord extraocular movements intact. There is no facial asymmetry. Face sensation intact. Other cranial nerves within normal limits. Motor system normal power and tone in both upper lower limbs. Deep tendon reflexes did not show any significant asymmetry. Plantars were downgoing. Sensory examination intact to pin temperature and vibration. No involuntary movements are seen. Results Labs 08/15/25 05:20 08/15/25 05:20 Labs: Short CBC 08/14/25 08/15/25 Range/Units 14:13 05:20 WBC 21.1 H 17.3 H (4.5-10.0) K/mm3 Hgb 15.9 D 13.0 L (14.0-18.0) g/dL Hct 47.7 39.8 L (42.0-52.0) % Plt Count 294 D 226 (150-375) k/mm3 BMP 08/14/25 08/14/25 08/15/25 14:13 21:16 05:20 Sodium 136 L 134 L 138 Potassium 4.0 3.2 L 3.4 Chloride 96 L 104 107 Carbon Dioxide 23 19 L 22 BUN 18 16 16 Creatinine 1.13 0.87 0.82 Glucose 152 H 123 H 97 Calcium 9.7 8.5 8.1 L Cardiac Enzymes 08/14/25 08/14/25 08/14/25 Range/Units 14:13 17:10 21:16 Total Creatine Kinase 817 H (55-170) U/L Troponin I 0.112 H* 0.136 H* D (0.000-0.034) ng/mL 08/15/25 08/15/25 Range/Units 05:20 08:15 Total Creatine Kinase 795 H (55-170) U/L Troponin I 0.162 H* 0.157 H* (0.000-0.034) ng/mL Liver Function 08/14/25 08/15/25 Range/Units 14:13 05:20 Total Bilirubin 1.4 H 0.8 (0.2-1.3) mg/dL AST 67 H 56 (17-59) U/L ALT 40 21 (6-50) U/L Alkaline Phosphatase 101 72 (38-126) U/L Albumin 4.9 3.7 (3.5-5.1) g/dL Urine 08/14/25 Range/Units 14:20 Urine Color Yellow (Yellow) Urine Appearance Clear (Clear) Urine pH 7.0 (5.0-9.0) Ur Specific [place] 1.018 (1.001-1.035) Urine Protein 3+ H (Negative) mg/dL Urine Glucose (UA) Negative (Negative) mg/dL
--- NOTE | 2025-08-15 14:51 | PCSTNOTE ---
Please refer to the Bedside Swallow Evaluation in the EMR. Please note, silent aspiration cannot be ruled out at bedside. Pt is an 85 year old male who presents at the hospital for a fall and seizure-like activity. His family was present outside of the room briefly and agreeable to evaluation. RN states orders for bedside swallow evaluation are due to concern for minimal swallowing and prolonged NPO status. RN agreeable to evaluation and present for a majority of the evaluation. RN states that pt with previous altered mental status and has previously been combative; however, as the day progressed, notable improvements have been observed in his mental status and combative behavior has reduced. Upon ENVIRONMENTAL PROTECTION GEOLOGIST entry, pt was agreeable to evaluation and pt's wrist band was checked. Pt correctly stated his birthday and was conversational with the ENVIRONMENTAL PROTECTION GEOLOGIST. Pt with notable confusion (stated stories about previous unrelated events); however, was able to follow all presented directives. An oral mechanism exam was completed and was remarkable for pt missing a majority of his dentition. He reports that he does not use dentures and was previously eating tough foods such as steak; however, after further questions were presented, he stated that he doesn't eat crunchy foods at baseline. PO trials included ice chips x2, thin liquids (via teaspoon, cup edge, and straw(sip, normal drink, and 3oz)), pudding, soft solid, and hard solids. Pt self-fed for a majority of trials. Pt's oral phase notable for prolonged mastication of hard solids; however, no oral residue was observed. Across all consistencies and volumes, pt with no overt signs and symptoms of aspiration. Pt with a clear voice and no throat clearing or coughing was noted across all trials. Of note, pt with occasional difficulty self-feeding hard solids; however, was able to consistently feed himself from a spoon. Frequent observation warranted to ensure tolerance of diet and ensure pt is able to feed himself consistently. No further ST services indicated at this time. Recommendations: 1. Level 7 EC (Easy to Chew) and Level 0 (Thin Liquids) 2. Upright with all PO; small bites and sips; frequent observation 3. No further ST services indicated at this time. Please re-consult ST if further concerns arise.
--- NOTE | 2025-08-15 16:04 | P.CONCA_ITS ---
Assessment and Plan Assessment and plan (1) Paroxysmal atrial fibrillation: Code(s): I48.0 - Paroxysmal atrial fibrillation Status: Acute Assessment and Plan: Back in sinus rhythm. [id number] 4. Stop Diltiazem drip. Restart Sotalol 40 mg BID apparently he has not been taking it at home. Stop Heparin drip. Start Eliquis 5 mg BID and apparently he has not been taking this either. (2) Essential hypertension: Code(s): I10 - Essential (primary) hypertension Status: Acute Assessment and Plan: Stable. (3) History of aortic valve replacement with bioprosthetic valve: Onset Date: 07/2020 Code(s): Z95.3 - Presence of xenogenic heart valve Status: Acute Assessment and Plan: Stable. (4) Hyperlipidemia: Code(s): E78.5 - Hyperlipidemia, unspecified Status: Acute (5) CAD (coronary artery disease), autologous vein bypass graft: Code(s): I25.810 - Atherosclerosis of coronary artery bypass graft(s) without angina pectoris Status: Acute Assessment and Plan: Stable. (6) Elevated troponin: Code(s): R79.89 - Other specified abnormal findings of blood chemistry Status: Acute Assessment and Plan: Mildly high and peaked at 0.162, probably seizure related and demand ischemia from atrial fib. Obtain echo. History of Present Illness History of Present Illness Consult date/time: 08/15/25 16:04 Reason For Visit: altered mental status, elevated troponin, elevated Narrative: 84 yr old man who is my regular cardiology patient and a patient of Ana Murillo presents to ER after a seizure episode. He has a history of CAD, CABG x1 vessel, aortic stenosis with S/P SAVR in [place] in around 2018, PAF, hypertension, former smoking, seizure. Son is at bedside. Reports he was at home in bed and was found on floor by his son and he had a black eye from hitting night stand. Patient does not recall it which may have been a seizure episode as he was combative when found on floor. He was found to be in atrial fibrillation as he was in January 2025 when admitted for same. Currently no longer confused. He is limited at walking a couple of blocks due to fatigue and WINSTON. He had left knee surgery. Denies chest pain, orthopnea, PND, edema, dizziness, palpitations. Cardiovascular Procedures Echo/MUGA:: 08/09/24 Echo: EF 60-65%, grade I diastolic dysfunction (E/e' 11), mod biatrial enlargement, bioprosthetic AVR, mod MR/TR. 06/25/19 Echo: EF 60-65%, mod LVH, diastolic dysfunction (E/e' 15), mod biatrial enlargement, mod-severe (CHRISTI 1.0 cm2), mild-mod MR, severe TR, RVSP 54 mmHg. Electrophysiology:: 07/06/24 EKG: Sinus rhythm. 06/17/24 EKG: Sinus rhythm, frequent PAC's, borderline AV conduction delay, delayed precordial R/S transition, borderline ST-T wave abnormality. Stress test: 08/09/24 Lexiscan myoview: Negative. Review of Systems 2 Review of Systems: All systems reviewed & are unremarkable except as noted in HPI and below Constitutional: Constitutional: Reports as per HPI, Denies chills and Denies fever(s) Cardiovascular: Cardiovascular: Reports as per HPI, Denies chest pain and Denies irregular heart rhythm Respiratory: Respiratory: Reports as per HPI and Denies dyspnea Gastrointestinal: Gastrointestinal: Reports as per HPI and Denies abdominal pain Genitourinary: Genitourinary: Reports as per HPI and Denies dysuria Musculoskeletal: Musculoskeletal: Reports as per HPI Neurologic: Reports as per HPI, Denies dizziness and Denies syncope [facility] Past Medical History Medical History (Updated 08/15/25 @ 14:04 by Isidro Jean Baptiste MD) Complex partial seizures Essential hypertension Seizure disorder Arthritis Gastroesophageal reflux disease Coronary artery disease Hyperlipidemia Aortic stenosis Subclinical hypothyroidism Surgical History Surgical History History of reverse total replacement of right shoulder joint History of arthroplasty of left knee History of arthroplasty of left shoulder History of coronary artery bypass graft x 1 (07/2020) At [facility]. History of aortic valve replacement with bioprosthetic valve (07/2020) At [facility]. History of incisional hernia repair (03/2021) Epigastric incisional hernia with mesh. Family History Family History Mother Hypertension Other Family history unknown Social History Social History Social History: Surrogate medical decision maker: Kalyani Haley, daughter. Code status: Full code. Smoking packs per day: 1 Smoking cigarettes per day: 20.0 Years smoked: 15 Smoking pack-years: 15.00 Smoking status: Never smoker Smokeless tobacco user: chewing tobacco Second hand tobacco smoke exposure: No Additional smoking assessment comments: quit 20 years ago Alcohol intake: former Drinks per week: 6 Alcohol use details: Beer Substance use: current Substance use type: marijuana Other substance usage details: Patient answer-use ranges from a couple times a year to every week. Current Housing: Decline to Answer Concerned About Future Housing: Decline to Answer Difficulty Paying Gas/Electric Bills: Decline to Answer Difficulty Paying for Meds: Decline to Answer Currently Unemployed: Decline to Answer Education: Decline to Answer Difficulty w/ Childcare or Family Care: Decline to Answer Living arrangements: with roommate(s) Additional living arrangements comments: lives with a roommate Occupation/Education: retired Additional occupation/education comments: [employer] care concerns: No Agree to blood products: No Meds Home Medications and Allergies Home Medications ?Medication ?Instructions ?Recorded ?Confirmed ?Type levetiracetam 250 mg tablet 250 mg PO Q12HR #60 tabs 0 04/12/25 08/14/25 Rx sotalol 80 mg tablet 40 mg (1/2 x 80 mg) PO Q12HR #60 06/24/25 08/14/25 Rx tabs levetiracetam 1,000 mg tablet 1,000 mg PO BID #60 tabs 07/21/25 08/14/25 Rx (Keppra) amlodipine 5 mg tablet 5 mg PO DAILY 08/14/2508/14 History Allergies Allergy/AdvReac Type Severity Reaction Status Date / Time peanut AdvReac Intermediate Swelling Verified 08/14/25 21:15 Vital Signs Vital Signs - 24 hr 08/14/25 17:07 08/14/25 17:34 08/14/25 17:46 Temperature 100.2 F H Pulse Rate 100 132 H 153 H Respiratory Rate 16 Blood Pressure 143/100 H 143/100 H 152/138 H Pulse Oximetry 96 Oxygen Delivery 08/14/25 18:00 08/14/25 18:31 08/14/25 19:12 Temperature 100.2 F H 100.8 F H Pulse Rate 129 H 126 H 130 H Respiratory Rate 20 20 16 Blood Pressure 100/75 112/72 128/113 H Pulse Oximetry 96 98 98 Oxygen Delivery 08/14/25 19:13 08/14/25 20:13 08/14/25 20:30 Temperature 100.9 F H Pulse Rate 129 H 106 H 145 H Respiratory Rate 17 Blood Pressure 128/113 H 109/75 113/71 Pulse Oximetry 95 Oxygen Delivery 08/14/25 20:34 08/14/25 20:53 08/14/25 20:56 Temperature 99.0 F Pulse Rate 113 H 145 H Respiratory Rate 20 Blood Pressure 113/71 Pulse Oximetry 95 92 Oxygen Delivery Room Air 08/14/25 21:49 08/14/25 22:00 08/14/25 22:00 Temperature 99.0 F Pulse Rate 105 H 107 H Respiratory Rate Blood Pressure 91/66 L Pulse Oximetry Oxygen Delivery 08/14/25 23:22 08/14/25 23:37 08/15/25 00:00 Temperature 99.5 F 99.3 F Pulse Rate 145 H 112 H 112 H Respiratory Rate 18 16 18 Blood Pressure 102/48 L 102/48 L 102/48 L Pulse Oximetry 99 93 93 Oxygen Delivery 08/15/25 00:00 08/15/25 00:02 08/15/25 01:31 Temperature Pulse Rate 87 83 89 Respiratory Rate 18 Blood Pressure 102/48 L 123/71 Pulse Oximetry 90 Oxygen Delivery 08/15/25 01:46 08/15/25 02:00 08/15/25 02:00 Temperature Pulse Rate 73 77 81 Respiratory Rate 20 Blood Pressure 104/52 L 95/56 L Pulse Oximetry 93 Oxygen Delivery 08/15/25 02:01 08/15/25 02:16 08/15/25 02:18 Temperature Pulse Rate 77 76 83 Respiratory Rate 20 20 Blood Pressure 95/56 L 116/55 L 95/56 L Pulse Oximetry 93 93 Oxygen Delivery 08/15/25 02:22 08/15/25 03:31 08/15/25 04:00 Temperature 98.3 F Pulse Rate 78 76 66 Respiratory Rate 20 20 16 Blood Pressure 99/51 L 125/58 L 125/58 L Pulse Oximetry 97 96 96 Oxygen Delivery 08/15/25 04:00 08/15/25 04:00 08/15/25 04:31 Temperature Pulse Rate 72 72 71 Respiratory Rate 20 Blood Pressure 125/58 L 150/64 H Pulse Oximetry 95 Oxygen Delivery 08/15/25 06:00 08/15/25 06:00 08/15/25 07:51 Temperature 98.3 F Pulse Rate 70 70 65 Respiratory Rate 18 Blood Pressure 139/69 142/63 H Pulse Oximetry 97 Oxygen Delivery 08/15/25 08:00 08/15/25 08:00 08/15/25 10:00 Temperature Pulse Rate 65 67 67 Respiratory Rate Blood Pressure 142/63 H 130/77 Pulse Oximetry Oxygen Delivery 08/15/25 10:00 08/15/25 12:00 08/15/25 12:00 Temperature 97.9 F Pulse Rate 70 71 77 Respiratory Rate 18 Blood Pressure 164/103 H Pulse Oximetry 99 Oxygen Delivery 08/15/25 12:05 08/15/25 12:05 08/15/25 13:18 Temperature Pulse Rate 71 71 85 Respiratory Rate Blood Pressure 140/85 140/85 145/100 H Pulse Oximetry Oxygen Delivery 08/15/25 13:18 08/15/25 14:00 08/15/25 14:00 Temperature Pulse Rate 85 80 80 Respiratory Rate Blood Pressure 145/100 H 156/76 H 156/76 H Pulse Oximetry Oxygen Delivery 08/15/25 15:47 Temperature 98 F Pulse Rate 82 Respiratory Rate 22 H Blood Pressure 150/84 H Pulse Oximetry 98 Oxygen Delivery Exam 2 Const: General: cooperative, healthy appearing and comfortable Resp: Auscultation: clear to auscultation bilaterally, no crackles, no rales, no rhonchi and no wheezes Cardio: Rate: regular rate Rhythm: regular rhythm Heart sounds: no murmurs Peripheral pulses: dorsalis pedis present GI: GI Palp: No abdominal tenderness and Yes Soft to palpation Neuro: General: oriented to person, oriented to place and oriented to time Extrem: Right lower extremity: no edema Left lower extremity: no edema Results Labs and Meds 08/15/25 05:20 08/15/25 05:20 Lab results: Cardiac Enzymes 08/14/25 08/14/25 08/15/25 Range/Units 17:10 21:16 05:20 AST 56 (17-59) U/L Troponin I 0.112 H* 0.136 H* D 0.162 H* (0.000-0.034) ng/mL 08/15/25 Range/Units 08:15 AST (17-59) U/L Troponin I 0.157 H* (0.000-0.034) ng/mL Coagulation 08/15/25 08/15/25 Range/Units 05:20 11:48 APTT 99.0 H 131.4 H (22.3-36.8) Seconds CBC 08/15/25 Range/Units 05:20 WBC 17.3 H (4.5-10.0) K/mm3 RBC 4.27 L (4.6-6.20) M/mm3 Hgb 13.0 L (14.0-18.0) g/dL Hct 39.8 L (42.0-52.0) % Plt Count 226 (150-375) k/mm3 Lymph # (Auto) 3.86 H (0.9-3.2) K/mm3 [place] # (Auto) 1.3 H (0.1-0.6) K/mm3 Eos # (Auto) 0.0 (0-0.3) K/mm3 Baso # (Auto) 0.1 (0.0-0.1) K/mm3 Comprehensive Metabolic Panel 08/14/25 08/15/25 Range/Units 21:16 05:20 Sodium 134 L 138 (137-145) mmol/L Potassium 3.2 L 3.4 (3.4-5.0) mmol/L Chloride 104 107 (98-107) mmol/L Carbon Dioxide 19 L 22 (22-30) mmol/L BUN 16 16 (9-20) mg/dL Creatinine 0.87 0.82 (0.7-1.3) mg/dL Glucose 123 H 97 (65-110) mg/dL Calcium 8.5 8.1 L (8.4-10.2) mg/dL AST 56 (17-59) U/L ALT 21 (6-50) U/L Alkaline Phosphatase 72 (38-126) U/L Total Protein 7.5 (6.3-8.2) g/dL Albumin 3.7 (3.5-5.1) g/dL Intake and Output 08/15/25 08/15/25 08/15/25 07:59 15:59 23:59 Intake Total 835.7 1319.8 Output Total 250 Balance 585.7 1319.8 Intake: IV 835.7 1319.8 Heparin Sod/D5w 100 Units/ml 25 83.2 79.8 ,000 units In 250 ml @ 1,200 UNITS/HR 12 mls/hr IV CONT . [id number] [facility] Rx#:[id number] KCl 40 Meq/0.9% Sod Chl 1,000 800 ml @ 100 mls/hr IV CONT .Q10H [facility] Rx#:[id number] dilTIAZem 100 MG/100 ML 100 mg 52.5 40.0 In 100 ml @ 5 MG/HR 5 mls/hr IV CONT .Q20H [facility] Rx#:[id number] Ampicillin Sodium 2 gm In 200 200 Sodium Chloride 0.9% IV 100 ml @ 200 mls/hr IVPB Q4H [facility] Rx#: [id number] Vancomycin 1,750 mg/Ns 500 ml 1 500 ,750 mg In 500 ml @ 250 mls/hr IVPB ONCE ONE Rx#:[id number] cefTRIAXone 2 gm In Sodium 100 Chloride 0.9% IV 100 ml @ 200 mls/hr IVPB Q12H [facility] Rx#: [id number] levETIRAcetam 1000MG/[id number] 100 1,000 mg In 100 ml @ 400 mls/hr IVPB Q12HR [facility] Rx#:[id number] Oral 0 Output: Catheter Urine 250 Urethral Catheter 250 Patient Weight 08/15/25 23:59 Weight 70.5 kg
[2025-08-15] MEDS: APIXABAN 5 MG TABLET PO (17:52)
--- NOTE | 2025-08-15 18:50 | ECG_ITS ---
Test Date: 2025-08-15 19:01:01 Measurements Intervals [place] Rate: 79 P: 143 [place]: 195 QRS: 31 QRSD: 97 T: 6 QT: 414 QTc: 477 Interpretive Statements SINUS RHYTHM WITH OCCASIONAL SUPRAVENTRICULAR PREMATURE COMPLEXES artifact Electronically Signed On 08-16-2025 21:18:15 DESOLDERER by Ingrid Goodwin M.D.
[2025-08-16] VITALS (19 sets, daily range): BP systolic 136–195; BP diastolic 64–105; PULSE 78–100; RESP 16–22; TEMP 36.4–37.1; O2SAT 93–100; BMI 21.4
[2025-08-16] MEDS: LACTATED RINGERS 1,000 ML 75 ML IV CONT ×2 (02:38→17:50)
[2025-08-16 04:00] LABS: Hematocrit 41.3 % (42.0-52.0); Hemoglobin 13.5 g/dL (14.0-18.0); Immature Granulocyte Percent A 0.5 % (0-0.5); Lymphocytes Absolute Auto 2.85 K/mm3 (0.9-3.2); Mean Corpuscular HGB Conc 32.7 g/dl (32-36); Mean Corpuscular Hemoglobin 30.7 pg (26-34); Mean Corpuscular Volume 93.9 fl (80-100); Nucleated Red Blood Cells Absolute Auto 0.000 K/mm3 (0.0-0.012); Nucleated Red Blood Cells Perc 0.0 % (0.0-0.2); Platelet Count Result 210 k/mm3 (150-375); Red Blood Count 4.40 M/mm3 (4.6-6.20); White Blood Count 11.6 K/mm3 (4.5-10.0)
[2025-08-16 04:23] LABS: Alanine Aminotransferase 26 U/L (6-50); Albumin Level 4.3 g/dL (3.5-5.1); Alkaline Phosphatase 72 U/L (38-126); Anion Gap 11 mmol/L (4-12); Aspartate Amino Transferase 69 U/L (17-59); Bilirubin,Total 0.9 mg/dL (0.2-1.3); Blood Urea Nitrogen 10 mg/dL (9-20); Calcium 8.9 mg/dL (8.4-10.2); Carbon Dioxide 23 mmol/L (22-30); Chloride 104 mmol/L (98-107); Estimated CRCL calculation 71 ml/min; Estimated Glomerular Filt Rate > 60; Glucose 85 mg/dL (65-110); Potassium 3.7 mmol/L (3.4-5.0); Sodium 138 mmol/L (137-145); Total Protein 8.4 g/dL (6.3-8.2)
[2025-08-16] MEDS: APIXABAN 5 MG TABLET PO ×2 (05:54→17:50)
--- NOTE | 2025-08-16 07:40 | PM.PNCARD ---
Progress Note: A&P Assessment and Plan (1) Paroxysmal atrial fibrillation: Code(s): I48.0 - Paroxysmal atrial fibrillation Status: Acute Assessment and Plan: Back in sinus rhythm. [id number] 4. Back on Sotalol and Eliquis. Will sign off, please call with any questions. Upon discharge have him f/u with me in 2 weeks. (2) Essential hypertension: Code(s): I10 - Essential (primary) hypertension Status: Acute Assessment and Plan: High. Start Losartan 50 mg daily. (3) History of aortic valve replacement with bioprosthetic valve: Onset Date: 07/2020 Code(s): Z95.3 - Presence of xenogenic heart valve Status: Acute Assessment and Plan: Stable. (4) CAD (coronary artery disease), autologous vein bypass graft: Code(s): I25.810 - Atherosclerosis of coronary artery bypass graft(s) without angina pectoris Status: Acute Assessment and Plan: Stable. (5) Elevated troponin: Code(s): R79.89 - Other specified abnormal findings of blood chemistry Status: Acute Assessment and Plan: Mildly high and peaked at 0.162, probably seizure related and demand ischemia from atrial fib. Obtain echo. Subjective Date/time seen: 08/16/25 07:40 Interval history: Denies chest pain, sob. Exam Const: General: cooperative, healthy appearing and comfortable Orientation/consciousness: oriented to person, oriented to place and oriented to time Resp: Auscultation: clear to auscultation bilaterally, no crackles, no rales, no rhonchi and no wheezes Cardio: Rate: regular rate Rhythm: regular rhythm Heart sounds: no murmurs Peripheral pulses: dorsalis pedis present Neuro: General: oriented to person, oriented to place and oriented to time Extrem: Right lower extremity: no edema Left lower extremity: no edema Objective Data Vital Signs Vital Signs: Vital Signs - 24 hr 08/15/25 07:51 08/15/25 08:00 08/15/25 08:00 Temperature 98.3 F Pulse Rate 65 65 67 Respiratory Rate 18 Blood Pressure 142/63 H 142/63 H Pulse Oximetry 97 Oxygen Delivery 08/15/25 10:00 08/15/25 10:00 08/15/25 12:00 Temperature 97.9 F Pulse Rate 67 70 71 Respiratory Rate 18 Blood Pressure 130/77 164/103 H Pulse Oximetry 99 Oxygen Delivery 08/15/25 12:00 08/15/25 12:05 08/15/25 12:05 Temperature Pulse Rate 77 71 71 Respiratory Rate Blood Pressure 140/85 140/85 Pulse Oximetry Oxygen Delivery 08/15/25 13:18 08/15/25 13:18 08/15/25 14:00 Temperature Pulse Rate 85 85 80 Respiratory Rate Blood Pressure 145/100 H 145/100 H 156/76 H Pulse Oximetry Oxygen Delivery 08/15/25 14:00 08/15/25 14:00 08/15/25 15:47 Temperature 98 F Pulse Rate 80 70 82 Respiratory Rate 22 H Blood Pressure 156/76 H 150/84 H Pulse Oximetry 98 Oxygen Delivery 08/15/25 16:00 08/15/25 16:30 08/15/25 16:30 Temperature Pulse Rate 82 73 73 Respiratory Rate 22 H Blood Pressure 150/84 H Pulse Oximetry 98 Oxygen Delivery Room Air 08/15/25 17:50 08/15/25 17:50 08/15/25 17:51 Temperature Pulse Rate 75 75 73 Respiratory Rate Blood Pressure 140/85 Pulse Oximetry Oxygen Delivery 08/15/25 20:00 08/15/25 20:00 08/15/25 20:00 Temperature 97.7 F Pulse Rate 77 65 Respiratory Rate 22 H Blood Pressure 159/81 H Pulse Oximetry 100 Oxygen Delivery Room Air 08/15/25 23:42 08/16/25 00:00 08/16/25 00:00 Temperature 97.3 F L Pulse Rate 74 86 Respiratory Rate 22 H Blood Pressure 154/84 H Pulse Oximetry 98 Oxygen Delivery Room Air 08/16/25 02:00 08/16/25 03:59 08/16/25 04:00 Temperature 97.5 F L Pulse Rate 79 85 Respiratory Rate 22 H Blood Pressure 185/76 H Pulse Oximetry 93 Oxygen Delivery Room Air 08/16/25 04:00 08/16/25 05:53 08/16/25 06:00 Temperature Pulse Rate 91 82 84 Respiratory Rate Blood Pressure Pulse Oximetry Oxygen Delivery Intake/Output Intake/Output: Intake & Output 08/13/25 08/14/25 08/15/25 08/16/25 23:59 22:59 23:59 23:59 Intake Total 2470.5 3025.5 993.8 Output Total 1200 1150 900 Balance 1270.5 1875.5 93.8 Meds/Results Medications: Active Medications Generic Name Dose Route Start Last Admin Trade Name Freq PRN Reason Stop Dose Admin Acetaminophen 650 mg 08/14/25 19:00 Acetaminophen 325 Mg Tablet PO Q4H PRN Mild Pain (1-3) or Fever Amlodipine Besylate 5 mg 08/16/25 09:00 Amlodipine Besylate 5 Mg Tablet PO DAILY SHANIQUE Apixaban 5 mg 08/15/25 18:00 08/16/25 05:54 Apixaban 5 Mg Tablet PO 5 mg Q12H SHANIQUE Administration Lactated Ringer's 1,000 mls @ 75 mls/hr 08/15/25 12:00 08/16/25 02:38 Lr - Lactated Ringers Iv IV CONT 75 mls/hr .[id number] SHANIQUE Administration Levetiracetam 1,500 mg 08/15/25 21:00 08/15/25 20:39 Levetiracetam 500 Mg Tablet PO 1,500 mg Q12HR SHANIQUE Administration Losartan Potassium 50 mg 08/16/25 09:00 Losartan Potassium 50 Mg Tablet PO DAILY SHANIQUE Perflutren Lipid Microsphere 0 ml 08/15/25 14:22 Perflutren Lipid Microspheres 1.5 Ml Vial Diluted To 10 Ml Total Volume IV PUSH 08/18/25 14:22 ONCE PRN adequate visualization Protocol Sotalol HCl 40 mg 08/15/25 18:00 08/16/25 05:53 Sotalol Hcl 40 Mg Tablet PO 40 mg Q12H SHANIQUE Administration Radiology Results: ITS Impressions Chest X-Ray 08/14/25 15:06 Impression: Mild CHF Head CT 08/14/25 15:15 Impression: 1.No acute intracranial abnormality. Cervical Spine CT 08/14/25 15:18 Impression: No acute abnormality. Chest/Abdomen/Pelvis CT 08/14/25 16:58 IMPRESSION: 1. No acute process in the chest. 2. Cystitis 3. Incidental findings above Labs Labs: Laboratory Results - last 24 hr 08/15/25 08/15/25 08/15/25 08:15 11:48 12:14 WBC RBC Hgb Hct MCV MCH MCHC RDW Plt Count MPV Immature Gran % (Auto) Neut % (Auto) Lymph % (Auto) [place] % (Auto) Eos % (Auto) Baso % (Auto) Lymph # (Auto) [place] # (Auto) Eos # (Auto) Baso # (Auto) Abs Immat Gran (auto) Absolute Neuts (auto) Absolute Nucleated RBC Nucleated RBC % APTT 131.4 H Sodium Potassium Chloride Carbon Dioxide Anion Gap BUN Creatinine Estim Creat Clear Calc Estimated GFR Glucose POC Capillary Glucose 96 Calcium Total Bilirubin AST ALT Alkaline Phosphatase Troponin I 0.157 H* Total Protein Albumin 08/15/25 08/16/25 19:50 03:52 WBC 11.6 H RBC 4.40 L Hgb 13.5 L Hct 41.3 L MCV 93.9 MCH 30.7 MCHC 32.7 RDW 14.0 Plt Count 210 MPV 9.6 Immature Gran % (Auto) 0.5 Neut % (Auto) 63.1 Lymph % (Auto) 24.6 [place] % (Auto) 8.1 Eos % (Auto) 2.7 Baso % (Auto) 1.0 Lymph # (Auto) 2.85 [place] # (Auto) 0.9 H Eos # (Auto) 0.3 Baso # (Auto) 0.1 Abs Immat Gran (auto) 0.06 H Absolute Neuts (auto) 7.3 H Absolute Nucleated RBC 0.000 Nucleated RBC % 0.0 APTT Sodium 138 Potassium 3.7 Chloride 104 Carbon Dioxide 23 Anion Gap 11 BUN 10 D Creatinine 0.62 L Estim Creat Clear Calc 71 Estimated GFR > 60 Glucose 85 POC Capillary Glucose 92 Calcium 8.9 Total Bilirubin 0.9 AST 69 H ALT 26 Alkaline Phosphatase 72 Troponin I Total Protein 8.4 H Albumin 4.3
--- NOTE | 2025-08-16 08:42 | ECG_ITS ---
Test Date: 2025-08-16 09:07:32 Measurements Intervals [place] Rate: 108 P: 49 [place]: 170 QRS: 15 QRSD: 100 T: -4 QT: 364 QTc: 490 Interpretive Statements SINUS TACHYCARDIA WITH FREQUENT SUPRAVENTRICULAR PREMATURE COMPLEXES PROBABLE INFERIOR MYOCARDIAL INFARCTION [35 ms Q WAVE IN II/aVF], PROBABLY OLD Compared to ECG 08/15/2025 19:01:01 Myocardial infarct finding now present Sinus rhythm no longer present Electronically Signed On 08-16-2025 21:25:06 LOCK ASSEMBLER by Ingrid Goodwin M.D.
[2025-08-16] MEDS: LOSARTAN POTASSIUM 50 MG TABLET PO (08:44)
--- NOTE | 2025-08-16 11:05 | PM.IMPN ---
Progress Note: A&P Assessment and Plan (1) Elevated troponin: Code(s): R79.89 - Other specified abnormal findings of blood chemistry Status: Acute Assessment and Plan: Elevated troponin: Patient does not appear to be in pain. Could be due to seizure. Continue to trend. EKG without acute ST elevations, repeat EKG after RVR improved. 08/15: -Trop elevated x3, cards consulted -D/C hep drip and start Eliquis -Repeat EKG: NSR with PVCs at 0209 today -Restart Sotalol 40mg today with discontinuation of dilt gtt, cards consulted 08/16: Pt continues to deny CP, SOB, palpitations, or any other sx. Cards consulted, added Losartan 50mg on for HTN. Agreeable with Sotalol and Eliquis continuation as well as elevated trop likely due to seizure. They are signing off with a plan to D/C with him in the office in x2 weeks. (2) Seizure disorder: Code(s): G40.909 - Epilepsy, unspecified, not intractable, without status epilepticus Status: Acute Assessment and Plan: Unclear if he had seizure at home, also unclear if had been taking medications at home. Neurology consulted. Continue Keppra 1000 mg IV b.i.d.. Diazepam p.r.n.. Drugs of abuse screen positive for marijuana. Seizure and fall precautions. Ambulate with assistance. Questionable alcohol use. NPO for now, patient is aspiration risk. 08/15: No seizures while inpt thus far -Continue Keppra 1,500mg PO every 12 after IV -I spoke extensively with Dr. Jean Baptiste on the telephone and he states that he has seen this pt in the past (x9 months ago) and he presented the same and that he has just been in a prolonged post-ictal state. Neuro has signed off. the patient has had 4 rounds of seizures that brought him to the hospital in the last year. However he does not remember all of them. He does have prolonged postictal. During which he appears combative and confused and sometimes hallucinating. Once he gets better he is back to his normal self and appears fairly pleasant as he is today. Does seem to have some cognitive impairment of course this may require some follow-up before any decision can be made about the memory or cognition. He should be on Keppra 1500 mg twice a day in view of the seizures and he should be followed up at my office and his primary care provider to achieve compliance. Family can set up in the son-in-law to keep an eye on his compliance. 08/16: Pt more pleasant today and continues to be oriented x4. Although, still wanting to go home. -No seizures per nursing -Educated pt again today on plan for him to take Keppra at home, 1,500mg twice daily. Pt agreeable. He is taking this dose now, PO, here in the hospital. (3) Elevated lactic acid level: Code(s): R79.89 - Other specified abnormal findings of blood chemistry Status: Acute Assessment and Plan: Lactic acidosis, anion gap metabolic acidosis: Resolved, likely due to seizure and/or volume down. No identified source of infection. Start empiric antibiotic with ampicillin, ceftriaxone, vancomycin. Lumbar puncture ordered. Neurology consulted. Tylenol p.r.n.. Blood cultures pending. Leukocytosis, continue to trend, check procalcitonin. 08/15: Lactic acid level now WDL, resolved. -Afebrile today, last acetaminophen dose at 1920 08/14/2025 -A&O x 4 -Urinary catheter removed -Procalcitonin WDL -Will continue to trend WBC, LP cancelled and abx d/c due to re-orientation with probable dx of prolonged post ictal state 08/16: Pt continues to be oriented x4. -Labs continue to be stable, continue to trend. (4) Altered mental status: Code(s): R41.82 - Altered mental status, unspecified Status: Resolved Assessment and Plan: See above. (5) Atrial fibrillation with rapid ventricular response: Code(s): I48.91 - Unspecified atrial fibrillation Status: Acute Assessment and Plan: Unclear if patient has been taking medications. Was supposed to be on Eliquis at home. Continue with heparin GTT. On diltiazem GTT 15 milligrams/hour, RVR improving. Continue to titrate. Reportedly on sotalol prior to admission. Continue telemetry. Potassium now 3.2, replacing. Check magnesium. 08/15: -Tele: 67 bpm -K 3.4 today, replacing with 40meq IV today -Mag WDL -Pending cards for RVR management, currently on dilt 5mg/hr with plans to start sotalol at 1800 and D/C gtt then -Hep drip discontinued, switching to Eliquis (supposed to be on at home per chart and family at the bedside, pt states that he does not take this) 08/16: Continues to be in sinus rhythm -Tele: 77 bpm, NSR -Continue with sotalol loading protocol, dose 2/5 given this AM. Continue Eliquis. -K 3.7 today, replacing with 40meq IV today for a goal of 4 or higher (6) Rhabdomyolysis: Code(s): M62.82 - Rhabdomyolysis Status: Acute Assessment and Plan: Renal function intact, continue normal saline at 125 cc/hour, trend total creatinine kinase. 08/15: CK continues to downtrend, renal labs WDL, continue IVF 08/16: Continue LR for hydration Plan Fall precaution, seizure precaution, ambulate with assistance. Admit to IMU, continue telemetry. Full code. LR at 75ml/hr Time Spent With Patient Time: 50 Subjective Date/time seen: 08/16/25 1050 Interval history: Pt resting lying in bed upon my arrival. Pt denies any sx today, he reports no SOB or CP. He is wanting to go home but I explained the sotalol loading process and he is agreeable to stay, reluctantly. Review of Systems Review of Systems: All systems reviewed & are unremarkable except as noted in HPI and below (Subjective) ROS unobtainable: Yes unobtainable due to medical condition Exam Const: Other: Multiple scabs and bruising over his legs, he states that these are bug bites that he keeps picking. No open wounds with purulence. HENMT: Other: Edentulous Eyes: Pupils: Equal, round and reactive pupils present EOM: EOMs intact bilaterally Neck: Neck: supple Resp: Effort & Inspection: normal respiratory effort Auscultation: clear to auscultation bilaterally Cardio: Rate: regular rate Rhythm: regular rhythm Heart sounds: no murmurs GI: Inspection: non-distended Skin: Other: Multiple scabs and bruising over his legs, he states that these are bug bites that he keeps picking. No open wounds with purulence. Ecchymosis to R periorbital and socket Neuro: Cranial nerves: Yes Equal, round and reactive pupils present Other: Moves all 4 extremities freely, A&O x4 Extrem: General: no edema Psych: Mental Status: mental status grossly normal Affect: normal affect Objective Data Vital Signs Vital Signs: Vital Signs - 24 hr 08/15/25 12:00 08/15/25 12:00 08/15/25 12:05 Temperature 97.9 F Pulse Rate 71 77 71 Respiratory Rate 18 Blood Pressure 164/103 H 140/85 Pulse Oximetry 99 Oxygen Delivery 08/15/25 12:05 08/15/25 13:18 08/15/25 13:18 Temperature Pulse Rate 71 85 85 Respiratory Rate Blood Pressure 140/85 145/100 H 145/100 H Pulse Oximetry Oxygen Delivery 08/15/25 14:00 08/15/25 14:00 08/15/25 14:00 Temperature Pulse Rate 80 80 70 Respiratory Rate Blood Pressure 156/76 H 156/76 H Pulse Oximetry Oxygen Delivery 08/15/25 15:47 08/15/25 16:00 08/15/25 16:30 Temperature 98 F Pulse Rate 82 82 73 Respiratory Rate 22 H 22 H Blood Pressure 150/84 H 150/84 H Pulse Oximetry 98 98 Oxygen Delivery Room Air 08/15/25 16:30 08/15/25 17:50 08/15/25 17:50 Temperature Pulse Rate 73 75 75 Respiratory Rate Blood Pressure 140/85 Pulse Oximetry Oxygen Delivery 08/15/25 17:51 08/15/25 20:00 08/15/25 20:00 Temperature 97.7 F Pulse Rate 73 77 Respiratory Rate 22 H Blood Pressure 159/81 H Pulse Oximetry 100 Oxygen Delivery Room Air 08/15/25 20:00 08/15/25 23:42 08/16/25 00:00 Temperature 97.3 F L Pulse Rate 65 74 Respiratory Rate 22 H Blood Pressure 154/84 H Pulse Oximetry 98 Oxygen Delivery Room Air 08/16/25 00:00 08/16/25 02:00 08/16/25 03:59 Temperature 97.5 F L Pulse Rate 86 79 85 Respiratory Rate 22 H Blood Pressure 185/76 H Pulse Oximetry 93 Oxygen Delivery 08/16/25 04:00 08/16/25 04:00 08/16/25 05:53 Temperature Pulse Rate 91 82 Respiratory Rate Blood Pressure Pulse Oximetry Oxygen Delivery Room Air 08/16/25 06:00 08/16/25 07:57 08/16/25 10:33 Temperature 98.7 F Pulse Rate 84 87 78 Respiratory Rate 18 Blood Pressure 195/105 H 153/95 H Pulse Oximetry 99 Oxygen Delivery Intake/Output Intake/Output: Intake & Output 08/13/25 08/14/25 08/15/25 08/16/25 23:59 22:59 23:59 23:59 Intake Total 2470.5 3025.5 1353.8 Output Total 1200 1150 900 Balance 1270.5 1875.5 453.8 Meds/Results Medications: Active Medications Generic Name Dose Route Start Last Admin Trade Name Freq PRN Reason Stop Dose Admin Acetaminophen 650 mg 08/14/25 19:00 Acetaminophen 325 Mg Tablet PO Q4H PRN Mild Pain (1-3) or Fever Amlodipine Besylate 5 mg 08/16/25 09:00 08/16/25 08:45 Amlodipine Besylate 5 Mg Tablet PO 5 mg DAILY SHANIQUE Administration Apixaban 5 mg 08/15/25 18:00 08/16/25 05:54 Apixaban 5 Mg Tablet PO 5 mg Q12H SHANIQUE Administration Lactated Ringer's 1,000 mls @ 75 mls/hr 08/15/25 12:00 08/16/25 02:38 Lr - Lactated Ringers Iv IV CONT 75 mls/hr .[id number] SHANIQUE Administration Levetiracetam 1,500 mg 08/15/25 21:00 08/16/25 08:44 Levetiracetam 500 Mg Tablet PO 1,500 mg Q12HR SHANIQUE Administration Losartan Potassium 50 mg 08/16/25 09:00 08/16/25 08:44 Losartan Potassium 50 Mg Tablet PO 50 mg DAILY SHANIQUE Administration Perflutren Lipid Microsphere 0 ml 08/15/25 14:22 Perflutren Lipid Microspheres 1.5 Ml Vial Diluted To 10 Ml Total Volume IV PUSH 08/18/25 14:22 ONCE PRN adequate visualization Protocol Sotalol HCl 40 mg 08/15/25 18:00 08/16/25 05:53 Sotalol Hcl 40 Mg Tablet PO 40 mg Q12H SHANIQUE Administration Radiology Results: ITS Impressions Chest X-Ray 08/14/25 15:06 Impression: Mild CHF Head CT 08/14/25 15:15 Impression: 1.No acute intracranial abnormality. Cervical Spine CT 11/02/25 15:18 Impression: No acute abnormality. Chest/Abdomen/Pelvis CT 08/14/25 16:58 IMPRESSION: 1. No acute process in the chest. 2. Cystitis 3. Incidental findings above Labs Labs: Laboratory Results - last 24 hr 08/15/25 08/15/25 08/15/25 11:48 12:14 19:50 WBC RBC Hgb Hct MCV MCH MCHC RDW Plt Count MPV Immature Gran % (Auto) Neut % (Auto) Lymph % (Auto) [place] % (Auto) Eos % (Auto) Baso % (Auto) Lymph # (Auto) [place] # (Auto) Eos # (Auto) Baso # (Auto) Abs Immat Gran (auto) Absolute Neuts (auto) Absolute Nucleated RBC Nucleated RBC % APTT 131.4 H Sodium Potassium Chloride Carbon Dioxide Anion Gap BUN Creatinine Estim Creat Clear Calc Estimated GFR Glucose POC Capillary Glucose 96 92 Calcium Total Bilirubin AST ALT Alkaline Phosphatase Total Protein Albumin 08/16/25 08/16/25 03:52 07:28 WBC 11.6 H RBC 4.40 L Hgb 13.5 L Hct 41.3 L MCV 93.9 MCH 30.7 MCHC 32.7 RDW 14.0 Plt Count 210 MPV 9.6 Immature Gran % (Auto) 0.5 Neut % (Auto) 63.1 Lymph % (Auto) 24.6 [place] % (Auto) 8.1 Eos % (Auto) 2.7 Baso % (Auto) 1.0 Lymph # (Auto) 2.85 [place] # (Auto) 0.9 H Eos # (Auto) 0.3 Baso # (Auto) 0.1 Abs Immat Gran (auto) 0.06 H Absolute Neuts (auto) 7.3 H Absolute Nucleated RBC 0.000 Nucleated RBC % 0.0 APTT Sodium 138 Potassium 3.7 Chloride 104 Carbon Dioxide 23 Anion Gap 11 BUN 10 D Creatinine 0.62 L Estim Creat Clear Calc 71 Estimated GFR > 60 Glucose 85 POC Capillary Glucose 86 Calcium 8.9 Total Bilirubin 0.9 AST 69 H ALT 26 Alkaline Phosphatase 72 Total Protein 8.4 H Albumin 4.3 Quality VTE Prophylaxis VTE prophylaxis: pharmacologic ordered
[2025-08-16] MEDS: POTASSIUM CHLORIDE INJ 40 MEQ in SODIUM CHLORIDE 0.9% IV 500 ML 130 MEQ IVPB (11:48)
--- NOTE | 2025-08-16 19:52 | ECG_ITS ---
Test Date: 2025-08-16 20:04:14 Measurements Intervals [place] Rate: 83 P: 0 AR: 0 QRS: 40 QRSD: 93 T: 50 QT: 388 QTc: 457 Interpretive Statements sinus rhythm with PACs POSSIBLE INFERIOR MYOCARDIAL INFARCTION [30 ms Q WAVE IN II/aVF], PROBABLY OLD ABNORMAL RHYTHM ECG Compared to ECG 08/16/2025 09:07:32 Sinus tachycardia no longer present Myocardial infarct finding still present Electronically Signed On 08-16-2025 21:28:56 PROFESSIONAL N[employer]SING [employer]OR by Ingrid Goodwin M.D.
[2025-08-17] VITALS (17 sets, daily range): BP systolic 146–178; BP diastolic 72–97; PULSE 65–102; RESP 18–20; TEMP 36.7–37.2; O2SAT 98–100
[2025-08-17 04:46] LABS: Hematocrit 40.2 % (42.0-52.0); Hemoglobin 13.0 g/dL (14.0-18.0); Immature Granulocyte Percent A 0.3 % (0-0.5); Lymphocytes Absolute Auto 2.78 K/mm3 (0.9-3.2); Mean Corpuscular HGB Conc 32.3 g/dl (32-36); Mean Corpuscular Hemoglobin 31.0 pg (26-34); Mean Corpuscular Volume 95.9 fl (80-100); Nucleated Red Blood Cells Absolute Auto 0.000 K/mm3 (0.0-0.012); Nucleated Red Blood Cells Perc 0.0 % (0.0-0.2); Platelet Count Result 214 k/mm3 (150-375); Red Blood Count 4.19 M/mm3 (4.6-6.20); White Blood Count 8.9 K/mm3 (4.5-10.0)
[2025-08-17 05:09] LABS: Alanine Aminotransferase 22 U/L (6-50); Albumin Level 3.6 g/dL (3.5-5.1); Alkaline Phosphatase 64 U/L (38-126); Anion Gap 6 mmol/L (4-12); Aspartate Amino Transferase 48 U/L (17-59); Bilirubin,Total 0.6 mg/dL (0.2-1.3); Blood Urea Nitrogen 15 mg/dL (9-20); Calcium 8.4 mg/dL (8.4-10.2); Carbon Dioxide 25 mmol/L (22-30); Chloride 106 mmol/L (98-107); Estimated CRCL calculation 51 ml/min; Estimated Glomerular Filt Rate > 60; Glucose 90 mg/dL (65-110); Potassium 3.8 mmol/L (3.4-5.0); Sodium 137 mmol/L (137-145); Total Protein 7.2 g/dL (6.3-8.2)
[2025-08-17] MEDS: LACTATED RINGERS 1,000 ML 75 ML IV CONT ×2 (05:58→17:52)
[2025-08-17] MEDS: APIXABAN 5 MG TABLET PO ×2 (05:58→17:50)
--- NOTE | 2025-08-17 08:00 | ECG_ITS ---
Test Date: 2025-08-17 09:08:23 Measurements Intervals [place] Rate: 106 P: -11 [place]: 184 QRS: 20 QRSD: 93 T: 35 QT: 391 QTc: 520 Interpretive Statements SINUS TACHYCARDIA WITH FREQUENT ECTOPIC PREMATURE COMPLEXES POSSIBLE LEFT ATRIAL ENLARGEMENT [-0.1mV P-WAVE IN V1/V2] INFERIOR MYOCARDIAL INFARCTION , PROBABLY OLD [40+ ms Q WAVE AND/OR ST/T ABNORMALITY IN II/aVF] NONSPECIFIC ST AND T-WAVE ABNORMALITY ABNORMAL ECG Compared to ECG 08/16/2025 20:04:14 Sinus rhythm no longer present Myocardial infarct finding still present Electronically Signed On 08-17-2025 14:38:58 [employer] by Felix Powell M.D.
[2025-08-17] MEDS: LOSARTAN POTASSIUM 50 MG TABLET PO (09:21)
--- NOTE | 2025-08-17 13:29 | P.PNIM_ITS ---
Progress Note: A&P Assessment and Plan (1) Elevated troponin: Code(s): R79.89 - Other specified abnormal findings of blood chemistry Status: Acute Assessment and Plan: Elevated troponin: Patient does not appear to be in pain. Could be due to seizure. Continue to trend. EKG without acute ST elevations, repeat EKG after RVR improved. 08/15: -Trop elevated x3, cards consulted -D/C hep drip and start Eliquis -Repeat EKG: NSR with PVCs at 0209 today -Restart Sotalol 40mg today with discontinuation of dilt gtt, cards consulted 08/16: Pt continues to deny CP, SOB, palpitations, or any other sx. Cards consulted, added Losartan 50mg on for HTN. Agreeable with Sotalol and Eliquis continuation as well as elevated trop likely due to seizure. They are signing off with a plan to D/C with him in the office in x2 weeks. 08/17 Last scheduled loading dose for today. Trend QTC EKG p.r.n. Continues in sinus rhythm (2) Seizure disorder: Code(s): G40.909 - Epilepsy, unspecified, not intractable, without status epilepticus Status: Acute Assessment and Plan: Unclear if he had seizure at home, also unclear if had been taking medications at home. Neurology consulted. Continue Keppra 1000 mg IV b.i.d.. Diazepam p.r.n.. Drugs of abuse screen positive for marijuana. Seizure and fall precautions. Ambulate with assistance. Questionable alcohol use. NPO for now, patient is aspiration risk. 08/15: No seizures while inpt thus far -Continue Keppra 1,500mg PO every 12 after IV -I spoke extensively with Dr. Jean Baptiste on the telephone and he states that he has seen this pt in the past (x9 months ago) and he presented the same and that he has just been in a prolonged post-ictal state. Neuro has signed off. the patient has had 4 rounds of seizures that brought him to the hospital in the last year. However he does not remember all of them. He does have prolonged postictal. During which he appears combative and confused and sometimes hallucinating. Once he gets better he is back to his normal self and appears fairly pleasant as he is today. Does seem to have some cognitive impairment of course this may require some follow-up before any decision can be made about the memory or cognition. He should be on Keppra 1500 mg twice a day in view of the seizures and he should be followed up at my office and his primary care provider to achieve compliance. Family can set up in the son-in-law to keep an eye on his compliance. 08/16: Pt more pleasant today and continues to be oriented x4. Although, still wanting to go home. -No seizures per nursing -Educated pt again today on plan for him to take Keppra at home, 1,500mg twice daily. Pt agreeable. He is taking this dose now, PO, here in the hospital. 08/17: No current signs or symptoms seizure Continue Keppra Outpatient follow-up on discharge (3) Elevated lactic acid level: Code(s): R79.89 - Other specified abnormal findings of blood chemistry Status: Acute Assessment and Plan: Lactic acidosis, anion gap metabolic acidosis: Resolved, likely due to seizure and/or volume down. No identified source of infection. Start empiric antibiotic with ampicillin, ceftriaxone, vancomycin. Lumbar puncture ordered. Neurology consulted. Tylenol p.r.n.. Blood cultures pending. Leukocytosis, continue to trend, check procalcitonin. 08/15: Lactic acid level now WDL, resolved. -Afebrile today, last acetaminophen dose at 1920 08/14/2025 -A&O x 4 -Urinary catheter removed -Procalcitonin WDL -Will continue to trend WBC, LP cancelled and abx d/c due to re-orientation with probable dx of prolonged post ictal state 08/16: Pt continues to be oriented x4. -Labs continue to be stable, continue to trend. 08/17 Resolved (4) Altered mental status: Code(s): R41.82 - Altered mental status, unspecified Status: Resolved Assessment and Plan: See above. (5) Atrial fibrillation with rapid ventricular response: Code(s): I48.91 - Unspecified atrial fibrillation Status: Acute Assessment and Plan: Unclear if patient has been taking medications. Was supposed to be on Eliquis at home. Continue with heparin GTT. On diltiazem GTT 15 milligrams/hour, RVR improving. Continue to titrate. Reportedly on sotalol prior to admission. Continue telemetry. Potassium now 3.2, replacing. Check magnesium. 08/15: -Tele: 67 bpm -K 3.4 today, replacing with 40meq IV today -Mag WDL -Pending cards for RVR management, currently on dilt 5mg/hr with plans to start sotalol at 1800 and D/C gtt then -Hep drip discontinued, switching to Eliquis (supposed to be on at home per chart and family at the bedside, pt states that he does not take this) 08/16: Continues to be in sinus rhythm -Tele: 77 bpm, NSR -Continue with sotalol loading protocol, dose 2/5 given this AM. Continue Eliquis. -K 3.7 today, replacing with 40meq IV today for a goal of 4 or higher 08/17 Potassium today is 3.8 40 mcg given x1 Repeat labs in the a.m. Stable (6) Rhabdomyolysis: Code(s): M62.82 - Rhabdomyolysis Status: Acute Assessment and Plan: Renal function intact, continue normal saline at 125 cc/hour, trend total cre atinine kinase. 08/15: CK continues to downtrend, renal labs WDL, continue IVF 08/16: Continue LR for hydration Plan Fall precaution, seizure precaution, ambulate with assistance. Admit to IMU, continue telemetry. Full code. LR at 75ml/hr Time Spent With Patient Time: 56 minutes used Subjective Date/time seen: 08/17/25 13:29 Interval history: Currently patient is lying in bed. He states he wants to go home however patient is still getting loaded for sotalol. Will continue to strain to monitor for side effects of medication. Patient verbalizes no complaints of chest pain, shortness breast, nausea, vomiting, diarrhea constipation. Review of Systems Review of Systems: All systems reviewed & are unremarkable except as noted in HPI and below (Subjective) Exam Narrative: Const: Other: Multiple scabs and bruising over his legs, he states that these are related fleas and cats. HENMT: Other: Edentulou s Eyes: Pupils: Equal, rou nd and reactive pu pils present EOM: EOMs intact bilat erally Neck: Neck: supple Resp: Effort & Inspectio n: normal respirat ory effort Auscul tation: clear to a uscultation bilate rally Cardio: Rate: Mildly tach ycardic Rhythm: re gular rhythm Hear t sounds: no murmu rs GI: Inspection: non-di stended Skin: Other: Multiple scabs and bruising over his legs, he states that these are bug bites thelma t he keeps picking . No open wounds with purulence. Ec chymosis to R aundrea orbital and socket Neuro: Cranial nerves: Ye s Equal, round and reactive pupils p resent Other: M oves all 4 extremi ties freely, A&O x 4 Extrem: General: no edema Psych: Mental Status: men martha status grossly normal Affect: n ormal affect Objective Data Vital Signs Vital Signs: Vital Signs - 24 hr 08/16/25 13:43 08/16/25 16:00 08/16/25 16:39 Temperature 98.2 F Pulse Rate 87 82 Respiratory Rate 18 Blood Pressure 136/73 Pulse Oximetry 100 Oxygen Delivery Room Air 08/16/25 16:39 08/16/25 17:49 08/16/25 19:49 Temperature 98.1 F Pulse Rate 82 100 88 Respiratory Rate 16 Blood Pressure 137/71 Pulse Oximetry 98 Oxygen Delivery 08/16/25 20:00 08/16/25 20:00 08/16/25 22:00 Temperature Pulse Rate 82 84 Respiratory Rate Blood Pressure Pulse Oximetry Oxygen Delivery Room Air 08/16/25 23:24 08/17/25 00:00 08/17/25 00:00 Temperature 97.6 F Pulse Rate 78 79 Respiratory Rate 16 Blood Pressure 160/88 H Pulse Oximetry 98 Oxygen Delivery Room Air 08/17/25 02:00 08/17/25 03:43 08/17/25 04:00 Temperature 98.3 F Pulse Rate 65 67 Respiratory Rate 18 Blood Pressure 146/85 H Pulse Oximetry 99 Oxygen Delivery Room Air 08/17/25 04:00 08/17/25 05:58 08/17/25 06:00 Temperature Pulse Rate 73 85 70 Respiratory Rate Blood Pressure Pulse Oximetry Oxygen Delivery 08/17/25 08:00 08/17/25 12:00 Temperature 98.1 F 98.0 F Pulse Rate 76 101 H Respiratory Rate 19 19 Blood Pressure 178/72 H 150/97 H Pulse Oximetry 100 100 Oxygen Delivery Intake/Output Intake/Output: Intake & Output 08/14/25 08/15/25 08/16/25 08/17/25 22:59 23:59 23:59 23:59 Intake Total 2470.5 3025.5 3172.5 1390 Output Total 1200 1150 1150 875 Balance 1270.5 1875.5 2022.5 515 Meds/Results Medications: Active Medications Generic Name Dose Route Start Last Admin Trade Name Freq PRN Reason Stop Dose Admin Acetaminophen 650 mg 08/14/25 19:00 Acetaminophen 325 Mg Tablet PO Q4H PRN Mild Pain (1-3) or Fever Amlodipine Besylate 5 mg 08/16/25 09:00 08/17/25 09:21 Amlodipine Besylate 5 Mg Tablet PO 5 mg DAILY SHANIQUE Administration Apixaban 5 mg 08/15/25 18:00 08/17/25 05:58 Apixaban 5 Mg Tablet PO 5 mg Q12H HSANIQUE Administration Lactated Ringer's 1,000 mls @ 75 mls/hr 08/15/25 12:00 08/17/25 05:58 Lr - Lactated Ringers Iv IV CONT 75 mls/hr .[id number] SHANIQUE Administration Levetiracetam 1,500 mg 08/15/25 21:00 08/17/25 09:21 Levetiracetam 500 Mg Tablet PO 1,500 mg Q12HR SHANIQUE Administration Losartan Potassium 50 mg 08/16/25 09:00 08/17/25 09:21 Losartan Potassium 50 Mg Tablet PO 50 mg DAILY SHANIQUE Administration Perflutren Lipid Microsphere 0 ml 08/15/25 14:22 Perflutren Lipid Microspheres 1.5 Ml Vial Diluted To 10 Ml Total Volume IV PUSH 08/18/25 14:22 ONCE PRN adequate visualization Protocol Sotalol HCl 40 mg 08/15/25 18:00 08/17/25 05:58 Sotalol Hcl 40 Mg Tablet PO 40 mg Q12H SHANIQUE Administration Radiology Results: ITS Impressions Chest X-Ray 08/14/25 15:06 Impression: Mild CHF Head CT 08/14/25 15:15 Impression: 1.No acute intracranial abnormality. Cervical Spine CT 08/14/25 15:18 Impression: No acute abnormality. Chest/Abdomen/Pelvis CT 08/14/25 16:58 IMPRESSION: 1. No acute process in the chest. 2. Cystitis 3. Incidental findings above Labs Labs: Laboratory Results - last 24 hr 08/16/25 08/16/25 08/16/25 16:14 20:21 22:01 WBC RBC Hgb Hct MCV MCH MCHC RDW Plt Count MPV Immature Gran % (Auto) Neut % (Auto) Lymph % (Auto) [place] % (Auto) Eos % (Auto) Baso % (Auto) Lymph # (Auto) [place] # (Auto) Eos # (Auto) Baso # (Auto) Abs Immat Gran (auto) Absolute Neuts (auto) Absolute Nucleated RBC Nucleated RBC % Sodium Potassium Chloride Carbon Dioxide Anion Gap BUN Creatinine Estim Creat Clear Calc Estimated GFR Glucose POC Capillary Glucose 100 145 H Calcium Total Bilirubin AST ALT Alkaline Phosphatase Total Protein Albumin Vancomycin Trough < 5.0 L 08/17/25 08/17/25 08/17/25 04:19 07:19 11:24 WBC 8.9 RBC 4.19 L Hgb 13.0 L Hct 40.2 L MCV 95.9 MCH 31.0 MCHC 32.3 RDW 13.6 Plt Count 214 MPV 10.3 Immature Gran % (Auto) 0.3 Neut % (Auto) 52.8 Lymph % (Auto) 31.2 [place] % (Auto) 9.0 H Eos % (Auto) 5.8 H Baso % (Auto) 0.9 Lymph # (Auto) 2.78 [place] # (Auto) 0.8 H Eos # (Auto) 0.5 H Baso # (Auto) 0.1 Abs Immat Gran (auto) 0.03 Absolute Neuts (auto) 4.7 Absolute Nucleated RBC 0.000 Nucleated RBC % 0.0 Sodium 137 Potassium 3.8 Chloride 106 Carbon Dioxide 25 Anion Gap 6 BUN 15 D Creatinine 0.85 Estim Creat Clear Calc 51 Estimated GFR > 60 Glucose 90 POC Capillary Glucose 77 99 Calcium 8.4 Total Bilirubin 0.6 AST 48 ALT 22 Alkaline Phosphatase 64 Total Protein 7.2 Albumin 3.6 Vancomycin Trough Quality VTE Prophylaxis VTE prophylaxis: pharmacologic ordered
--- NOTE | 2025-08-17 19:50 | ECG_ITS ---
Test Date: 2025-08-17 20:50:49 Measurements Intervals [place] Rate: 80 P: 0 [place]: 0 QRS: 4 QRSD: 100 T: 28 QT: 412 QTc: 477 Interpretive Statements sinus rhythm with occasional ectopic premature complexes INFERIOR MYOCARDIAL INFARCTION [40+ ms Q WAVE AND/OR ST/T ABNORMALITY IN II/aVF], PROBABLY OLD Compared to ECG 08/17/2025 09:08:23 Sinus tachycardia no longer present T-wave abnormality no longer present Myocardial infarct finding still present Electronically Signed On 08-18-2025 08:52:57 [employer] by Selwyn Roblero M.D.
[2025-08-18] VITALS (10 sets, daily range): BP systolic 139–162; BP diastolic 80–94; PULSE 74–96; RESP 14–20; TEMP 36–36.4; O2SAT 95–100
[2025-08-18 04:35] LABS: Hematocrit 39.9 % (42.0-52.0); Hemoglobin 12.9 g/dL (14.0-18.0); Immature Granulocyte Percent A 0.6 % (0-0.5); Lymphocytes Absolute Auto 2.61 K/mm3 (0.9-3.2); Mean Corpuscular HGB Conc 32.3 g/dl (32-36); Mean Corpuscular Hemoglobin 30.4 pg (26-34); Mean Corpuscular Volume 93.9 fl (80-100); Nucleated Red Blood Cells Absolute Auto 0.000 K/mm3 (0.0-0.012); Nucleated Red Blood Cells Perc 0.0 % (0.0-0.2); Platelet Count Result 224 k/mm3 (150-375); Red Blood Count 4.25 M/mm3 (4.6-6.20); White Blood Count 8.6 K/mm3 (4.5-10.0)
[2025-08-18 04:55] LABS: Alanine Aminotransferase 22 U/L (6-50); Albumin Level 3.9 g/dL (3.5-5.1); Alkaline Phosphatase 69 U/L (38-126); Anion Gap 6 mmol/L (4-12); Aspartate Amino Transferase 41 U/L (17-59); Bilirubin,Total 0.6 mg/dL (0.2-1.3); Blood Urea Nitrogen 12 mg/dL (9-20); Calcium 8.9 mg/dL (8.4-10.2); Carbon Dioxide 27 mmol/L (22-30); Chloride 105 mmol/L (98-107); Estimated CRCL calculation 60 ml/min; Estimated Glomerular Filt Rate > 60; Glucose 98 mg/dL (65-110); Magnesium 1.7 mg/dL (1.6-2.3); Potassium 3.7 mmol/L (3.4-5.0); Sodium 138 mmol/L (137-145); Total Protein 7.7 g/dL (6.3-8.2)
[2025-08-18] MEDS: APIXABAN 5 MG TABLET PO (05:20)
[2025-08-18] MEDS: LACTATED RINGERS 1,000 ML 75 ML IV CONT (05:23)
[2025-08-18] MEDS: LOSARTAN POTASSIUM 50 MG TABLET PO (09:18)
--- NOTE | 2025-08-18 09:25 | P.PNIM_ITS ---
Progress Note: A&P Assessment and Plan (1) Elevated troponin: Code(s): R79.89 - Other specified abnormal findings of blood chemistry Status: Acute Assessment and Plan: Elevated troponin: Patient does not appear to be in pain. Could be due to seizure. Cards consulted, added Losartan 50mg on for HTN. Agreeable with Sotalol and Eliquis continuation as well as elevated trop likely due to seizure. They are signing off with a plan to D/C with him in the office in x2 weeks. Patient completed loading doses of sotalol yesterday with QTC 477 (2) Seizure disorder: Code(s): G40.909 - Epilepsy, unspecified, not intractable, without status epilepticus Status: Acute Assessment and Plan: Unclear if he had seizure at home, also unclear if had been taking medications at home. Neurology consulted. Continue Keppra 1000 mg IV b.i.d.. Diazepam p.r.n.. Drugs of abuse screen positive for marijuana. Seizure and fall precautions. Ambulate with assistance. Questionable alcohol use. NPO for now, patient is aspiration risk. Dr. Jean Baptiste states that he has seen this pt in the past (x9 months ago) and he presented the same and that he has just been in a prolonged post-ictal state. Neuro has signed off. the patient has had 4 rounds of seizures that brought him to the hospital in the last year. However he does not remember all of them. He does have prolonged postictal. During which he appears combative and confused and sometimes hallucinating. Once he gets better he is back to his normal self and appears fairly pleasant as he is today. Does seem to have some cognitive impairment of course this may require some follow-up before any decision can be made about the memory or cognition. He should be on Keppra 1500 mg twice a day in view of the seizures and he should be followed up at my office and his primary care provider to achieve compliance. Family can set up in the son-in-law to keep an eye on his compliance. No current signs or symptoms seizure Continue Keppra Outpatient follow-up on discharge (3) Elevated lactic acid level: Code(s): R79.89 - Other specified abnormal findings of blood chemistry Status: Acute Assessment and Plan: Lactic acidosis, anion gap metabolic acidosis: Resolved, likely due to seizure and/or volume down. No identified source of infection. Start empiric antibiotic with ampicillin, ceftriaxone, vancomycin. Lumbar puncture ordered. Neurology consulted. Tylenol p.r.n.. Blood cultures pending. Leukocytosis, continue to trend, check procalcitonin. -A&O x 4 -Urinary catheter removed -Procalcitonin WDL LP cancelled and abx d/c due to re-orientation with probable dx of prolonged post ictal state Resolved (4) Altered mental status: Code(s): R41.82 - Altered mental status, unspecified Status: Resolved Assessment and Plan: See above. (5) Atrial fibrillation with rapid ventricular response: Code(s): I48.91 - Unspecified atrial fibrillation Status: Acute Assessment and Plan: Unclear if patient has been taking medications. Was supposed to be on Eliquis at home. Continue with heparin GTT. On diltiazem GTT 15 milligrams/hour, RVR improving. Continue to titrate. Reportedly on sotalol prior to admission. Continue telemetry. Potassium now 3.2, replacing. Check magnesium. Patient completed loading doses of sotalol 08/17 with QTC 477 (6) Rhabdomyolysis: Code(s): M62.82 - Rhabdomyolysis Status: Acute Assessment and Plan: Renal function intact, trend total creatinine kinase. Plan Fall precaution, seizure precaution, ambulate with assistance. Admit to IMU, continue telemetry. Full code. Subjective Date/time seen: 08/18/25 09:25 Interval history: 85-year-old male with a history of seizure disorder, hypertension, arthritis, GERD, CAD status post CABG, hyperlipidemia, subclinical hypothyroidism, aortic stenosis status post bioprosthetic valve replacement 2020 found down after fall. Exam Narrative: General: well appearing, appears stated age. HEENT: normocephalic, atraumatic. Mucous membranes moist. EOMI, PERRLA, bilateral sclera anicteric, no conjunctival injection. Neck supple without JVD, lymphadenopathy, or bruit. Respiratory: clear bilaterally. No rales/rhonic/wheezes. Cardiovascular: Regular rate and rhythm, normal S1-S2. No murmurs, rubs, or clicks. PMI is nondisplaced, capillary refill less than 3 second. Abdomen: Soft, round, no pulsatile masses, nondistended and nontender. No rebound, no guarding. Bowel sounds present to all four quadrants. No high pitch or tinkling sounds, resonant to percussion. Extremities: No cyanosis, clubbing, or edema present. Pulses are palpable 2/2. Active ROM to all four extremities. Neuro: Alert and orientated x 4. PERRLA. Cranial nerves 2-12 intact without focal deficit. Skin: Warm, dry, and intact, without rash, erythema, or lesion. Psych: pleasant, cooperative, normal speech, normal affect, no hallucinations, no dysarthia Objective Data Vital Signs Vital Signs: Vital Signs - 24 hr 08/17/25 10:00 08/17/25 12:00 08/17/25 12:00 Temperature 98.0 F Pulse Rate 88 101 H 96 Respiratory Rate 19 Blood Pressure 150/97 H Pulse Oximetry 100 Oxygen Delivery 08/17/25 13:44 08/17/25 14:00 08/17/25 16:00 Temperature 98.2 F Pulse Rate 100 102 H Respiratory Rate 20 Blood Pressure 154/91 H Pulse Oximetry 98 Oxygen Delivery Room Air 08/17/25 16:00 08/17/25 17:49 08/17/25 18:00 Temperature Pulse Rate 96 99 86 Respiratory Rate Blood Pressure Pulse Oximetry Oxygen Delivery 08/17/25 20:00 08/17/25 20:00 08/17/25 20:04 Temperature 98.0 F Pulse Rate 85 85 93 Respiratory Rate 18 18 Blood Pressure 157/81 H Pulse Oximetry 100 99 Oxygen Delivery Room Air 08/17/25 22:00 08/17/25 23:22 08/18/25 00:00 Temperature 98.9 F Pulse Rate 88 92 85 Respiratory Rate 18 18 Blood Pressure 161/81 H Pulse Oximetry 100 100 Oxygen Delivery Room Air 08/18/25 00:00 08/18/25 02:00 08/18/25 03:55 Temperature 97.6 F Pulse Rate 85 96 82 Respiratory Rate 20 Blood Pressure 162/94 H Pulse Oximetry 95 Oxygen Delivery 08/18/25 03:58 08/18/25 03:58 08/18/25 05:19 Temperature Pulse Rate 81 81 84 Respiratory Rate 20 Blood Pressure Pulse Oximetry 95 Oxygen Delivery Room Air 08/18/25 06:00 08/18/25 07:56 Temperature 96.8 F L Pulse Rate 88 86 Respiratory Rate 14 Blood Pressure 139/81 Pulse Oximetry 98 Oxygen Delivery Intake/Output Intake/Output: Intake & Output 08/15/25 08/16/25 08/17/25 08/18/25 23:59 23:59 23:59 23:59 Intake Total 3025.5 3172.5 2522.5 1890.8 Output Total 1150 1150 3025 1850 Balance 1875.5 2022.5 -502.5 40.8 Meds/Results Medications: Active Medications Generic Name Dose Route Start Last Admin Trade Name Freq PRN Reason Stop Dose Admin Acetaminophen 650 mg 08/14/25 19:00 Acetaminophen 325 Mg Tablet PO Q4H PRN Mild Pain (1-3) or Fever Amlodipine Besylate 5 mg 08/16/25 09:00 08/18/25 09:18 Amlodipine Besylate 5 Mg Tablet PO 5 mg DAILY SHANIQUE Administration Apixaban 5 mg 08/15/25 18:00 08/18/25 05:20 Apixaban 5 Mg Tablet PO 5 mg Q12H SHANIQUE Administration Calcium Carbonate 200 mg 08/17/25 22:02 Calcium Carbonate (Tums) 500 Mg (200 Mg Elemental) PO Q6H PRN Indigestion Lactated Ringer's 1,000 mls @ 75 mls/hr 08/15/25 12:00 08/18/25 05:23 Lr - Lactated Ringers Iv IV CONT 75 mls/hr .[id number] SHANIQUE Administration Levetiracetam 1,500 mg 08/15/25 21:00 08/18/25 09:18 Levetiracetam 500 Mg Tablet PO 1,500 mg Q12HR SHANIQUE Administration Losartan Potassium 50 mg 08/16/25 09:00 08/18/25 09:18 Losartan Potassium 50 Mg Tablet PO 50 mg DAILY SHANIQUE Administration Perflutren Lipid Microsphere 0 ml 08/15/25 14:22 Perflutren Lipid Microspheres 1.5 Ml Vial Diluted To 10 Ml Total Volume IV PUSH 08/18/25 14:22 ONCE PRN adequate visualization Protocol Sotalol HCl 40 mg 08/15/25 18:00 08/18/25 05:19 Sotalol Hcl 40 Mg Tablet PO 40 mg Q12H SHANIQUE Administration Radiology Results: ITS Impressions Chest X-Ray 08/14/25 15:06 Impression: Mild CHF Head CT 08/14/25 15:15 Impression: 1.No acute intracranial abnormality. Cervical Spine CT 08/14/25 15:18 Impression: No acute abnormality. Chest/Abdomen/Pelvis CT 08/14/25 16:58 IMPRESSION: 1. No acute process in the chest. 2. Cystitis 3. Incidental findings above Labs Labs: Laboratory Results - last 24 hr 08/17/25 08/17/25 08/17/25 11:24 16:28 20:16 WBC RBC Hgb Hct MCV MCH MCHC RDW Plt Count MPV Immature Gran % (Auto) Neut % (Auto) Lymph % (Auto) [place] % (Auto) Eos % (Auto) Baso % (Auto) Lymph # (Auto) [place] # (Auto) Eos # (Auto) Baso # (Auto) Abs Immat Gran (auto) Absolute Neuts (auto) Absolute Nucleated RBC Nucleated RBC % Sodium Potassium Chloride Carbon Dioxide Anion Gap BUN Creatinine Estim Creat Clear Calc Estimated GFR Glucose POC Capillary Glucose 99 115 H 110 H Calcium Magnesium Total Bilirubin AST ALT Alkaline Phosphatase Total Protein Albumin 08/18/25 08/18/25 04:15 07:09 WBC 8.6 RBC 4.25 L Hgb 12.9 L Hct 39.9 L MCV 93.9 MCH 30.4 MCHC 32.3 RDW 13.6 Plt Count 224 MPV 9.8 Immature Gran % (Auto) 0.6 H Neut % (Auto) 51.9 Lymph % (Auto) 30.4 [place] % (Auto) 9.0 H Eos % (Auto) 7.2 H Baso % (Auto) 0.9 Lymph # (Auto) 2.61 [place] # (Auto) 0.8 H Eos # (Auto) 0.6 H Baso # (Auto) 0.1 Abs Immat Gran (auto) 0.05 H Absolute Neuts (auto) 4.5 Absolute Nucleated RBC 0.000 Nucleated RBC % 0.0 Sodium 138 Potassium 3.7 Chloride 105 Carbon Dioxide 27 Anion Gap 6 BUN 12 Creatinine 0.76 Estim Creat Clear Calc 60 Estimated GFR > 60 Glucose 98 POC Capillary Glucose 95 Calcium 8.9 Magnesium 1.7 Total Bilirubin 0.6 AST 41 ALT 22 Alkaline Phosphatase 69 Total Protein 7.7 Albumin 3.9 Quality VTE Prophylaxis VTE prophylaxis: pharmacologic ordered
[2025-08-18 10:00] LABS: Creatine Kinase 128 U/L (55-170)
--- NOTE | 2025-08-18 12:49 | P.DS_ITS ---
DS: Admitting Diagnosis Discharge Date 08/18/2025 Admitting Diagnosis Seizure DS: Discharge Diagnosis Discharge Diagnosis (1) Elevated troponin: Code(s): R79.89 - Other specified abnormal findings of blood chemistry Status: Acute Assessment and Plan: Elevated troponin: Patient does not appear to be in pain. Could be due to seizure. Cards consulted, added Losartan 50mg on for HTN. Agreeable with Sotalol and Eliquis continuation as well as elevated trop likely due to seizure. They are signing off with a plan to D/C with him in the office in x2 weeks. Patient completed loading doses of sotalol yesterday with QTC 477 (2) Seizure disorder: Code(s): G40.909 - Epilepsy, unspecified, not intractable, without status epilepticus Status: Acute Assessment and Plan: Unclear if he had seizure at home, also unclear if had been taking medications at home. Neurology consulted. Continue Keppra 1000 mg IV b.i.d.. Diazepam p.r.n.. Drugs of abuse screen positive for marijuana. Seizure and fall precautions. Ambulate with assistance. Questionable alcohol use. NPO for now, patient is aspiration risk. Dr. Jean Baptiste states that he has seen this pt in the past (x9 months ago) and he presented the same and that he has just been in a prolonged post-ictal state. Neuro has signed off. the patient has had 4 rounds of seizures that brought him to the hospital in the last year. However he does not remember all of them. He does have prolonged postictal. During which he appears combative and confused and sometimes hallucinating. Once he gets better he is back to his normal self and appears fairly pleasant as he is today. Does seem to have some cognitive impairment of course this may require some follow-up before any decision can be made about the memory or cognition. He should be on Keppra 1500 mg twice a day in view of the seizures and he should be followed up at my office and his primary care provider to achieve compliance. Family can set up in the son-in-law to keep an eye on his compliance. No current signs or symptoms seizure Continue Keppra Outpatient follow-up on discharge (3) Elevated lactic acid level: Code(s): R79.89 - Other specified abnormal findings of blood chemistry Status: Acute Assessment and Plan: Lactic acidosis, anion gap metabolic acidosis: Resolved, likely due to seizure and/or volume down. No identified source of infection. Start empiric antibiotic with ampicillin, ceftriaxone, vancomycin. Lumbar puncture ordered. Neurology consulted. Tylenol p.r.n.. Blood cultures pending. Leukocytosis, continue to trend, check procalcitonin. -A&O x 4 -Urinary catheter removed -Procalcitonin WDL LP cancelled and abx d/c due to re-orientation with probable dx of prolonged post ictal state Resolved (4) Altered mental status: Code(s): R41.82 - Altered mental status, unspecified Status: Resolved Assessment and Plan: See above. (5) Atrial fibrillation with rapid ventricular response: Code(s): I48.91 - Unspecified atrial fibrillation Status: Acute Assessment and Plan: Unclear if patient has been taking medications. Was supposed to be on Eliquis at home. Continue with heparin GTT. On diltiazem GTT 15 milligrams/hour, RVR improving. Continue to titrate. Reportedly on sotalol prior to admission. Continue telemetry. Potassium now 3.2, replacing. Check magnesium. Patient completed loading doses of sotalol 08/17 with QTC 477 (6) Rhabdomyolysis: Code(s): M62.82 - Rhabdomyolysis Status: Acute Assessment and Plan: Renal function intact, trend total creatinine kinase. Resolved Plan Full code. DS: Summary Hospital Course Reason for hospitalization: Seizure rhabdomyolysis Hospital Course: 85-year-old male with a history of seizure disorder, hypertension, arthritis, GERD, CAD status post CABG, hyperlipidemia, subclinical hypothyroidism, aortic stenosis status post bioprosthetic valve replacement 2020 found down after fall. Patient was found to have a seizure due to not taking medication and rhabdomyolysis from lying on the floor overnight. Neurology was consulted for Neurology the new the patient while and has seizures whenever he is noncompliant with his medications. Patient was given loading dose of in the emergency room patient was found to be in our started cell home Eliquis. Patient's lactic acidosis was likely due to the seizure and not due to infection. In his postictal phase he is agitated and combative, that has since resolved. Patient was also found to have elevated troponin while in hospital cardiology was consulted and started on losartan for hypertension. Patient's acute problems have been resolved he is doing well A&O x4. 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 At this time is does not qualify for to need SNF so we will order him home health. Status at Discharge Functional status at discharge: independent ambulation Overall status at discharge: patient is back to baseline Time Spent with Patient Time attestation: Total time spent providing and/or coordinating discharge services: Time spent: Greater than 30 minutes Exam Narrative: General: well appearing, appears stated age. HEENT: normocephalic, atraumatic. Mucous membranes moist. EOMI, PERRLA, bilateral sclera anicteric, no conjunctival injection. Neck supple without JVD, lymphadenopathy, or bruit. Right eye ecchymosis Respiratory: clear bilaterally. No rales/rhonic/wheezes. Cardiovascular: Regular rate and rhythm, normal S1-S2. No murmurs, rubs, or clicks. PMI is nondisplaced, capillary refill less than 3 second. Abdomen: Soft, round, no pulsatile masses, nondistended and nontender. No rebound, no guarding. Bowel sounds present to all four quadrants. No high pitch or tinkling sounds, resonant to percussion. Extremities: No cyanosis, clubbing, or edema present. Pulses are palpable 2/2. Active ROM to all four extremities. Neuro: Alert and orientated x 4. PERRLA. Cranial nerves 2-12 intact without focal deficit. Skin: Warm, dry, and intact, without rash, erythema, or lesion. Psych: pleasant, cooperative, normal speech, normal affect, no hallucinations, no dysarthia Generalized ecchymosis of present DS: Data Data Completed and Pending Labs on day of discharge: Labs from last 24 hours 08/18/25 08/18/25 08/18/25 11:16 07:09 04:15 WBC 8.6 RBC 4.25 L Hgb 12.9 L Hct 39.9 L MCV 93.9 MCH 30.4 MCHC 32.3 RDW 13.6 Plt Count 224 MPV 9.8 Immature Gran % (Auto) 0.6 H Neut % (Auto) 51.9 Lymph % (Auto) 30.4 [place] % (Auto) 9.0 H Eos % (Auto) 7.2 H Baso % (Auto) 0.9 Lymph # (Auto) 2.61 [place] # (Auto) 0.8 H Eos # (Auto) 0.6 H Baso # (Auto) 0.1 Abs Immat Gran (auto) 0.05 H Absolute Neuts (auto) 4.5 Absolute Nucleated RBC 0.000 Nucleated RBC % 0.0 Sodium 138 Potassium 3.7 Chloride 105 Carbon Dioxide 27 Anion Gap 6 BUN 12 Creatinine 0.76 Estim Creat Clear Calc 60 Estimated GFR > 60 Glucose 98 POC Capillary Glucose 124 H 95 Calcium 8.9 Magnesium 1.7 Total Bilirubin 0.6 AST 41 ALT 22 Alkaline Phosphatase 69 Total Creatine Kinase 128 Total Protein 7.7 Albumin 3.9 08/17/25 08/17/25 20:16 16:28 WBC RBC Hgb Hct MCV MCH MCHC RDW Plt Count MPV Immature Gran % (Auto) Neut % (Auto) Lymph % (Auto) [place] % (Auto) Eos % (Auto) Baso % (Auto) Lymph # (Auto) [place] # (Auto) Eos # (Auto) Baso # (Auto) Abs Immat Gran (auto) Absolute Neuts (auto) Absolute Nucleated RBC Nucleated RBC % Sodium Potassium Chloride Carbon Dioxide Anion Gap BUN Creatinine Estim Creat Clear Calc Estimated GFR Glucose POC Capillary Glucose 110 H 115 H Calcium Magnesium Total Bilirubin AST ALT Alkaline Phosphatase Total Creatine Kinase Total Protein Albumin Preliminary micro results at discharge 08/14/25 14:13 Blood Culture - Preliminary Blood 08/14/25 14:46 Blood Culture - Preliminary Blood Discharge Plan Discharge Consulting providers: Gwyn Farmer; Louise Vargas; Steve Tinsley Discharging Clinician: Suyapa Cedeno Anticipated Discharge Date/Time: 08/18/25 12:56 Patient Disposition: Home Activity: may shower Diet: regular Discharge Instructions: Discharge instructions: Take medications as prescribed Continue to take your medications as prescribed. Pay special attention to the additions of LOSARTAN (for high blood pressure), SOTALOL (abnormal heart rhythm), ELIQUIS (blood thinner to prevent blood clots), AND KEPPRA (higher dose now to prevent seizures). You cannot drive for 6 months after seizure You are activity as tolerated Monitor blood pressures Avoid social areas, you wear a mask when in social settings Encouraged to continue with yearly vaccinations Return to the emergency department if he developed sudden shortness of breath, chest pain, nausea, vomiting, upset stomach or intractable diarrhea Return to the emergency department if you develop fever greater than 101.5 Follow-up with: Your primary care physician within 1-2 weeks for post hospitalization check up Follow-up with your primary care provider, the neurologist (Dr. Jean Baptiste), and the flower cheniller (Dr. Tinsley) after you are discharged for routine maintenance of these new medications. Thank you for [facility] for your healthcare needs Patient Instructions: Antibiotic Form, Sotalol (By mouth), Levetiracetam (By mouth), Apixaban (By mouth) Patient Language: P[place] Stand Alone Forms: General Discharge Information Follow-up/Referrals: Steve Tinsley DO [Physician, Cardiology] - 2 Weeks Triny Robledo DO [Primary Care Provider, Family Practice] - 1 Week Isidro Jean Baptiste MD [Physician, Neurology] - 2 Weeks Discharge Medications: New Eliquis 5 mg Tablet 5 mg PO Q12H 30 Days Qty: 60 0RF losartan [Cozaar] 50 mg Tablet 50 mg PO DAILY 30 Days Qty: 30 0RF Continued levetiracetam 250 mg tablet 250 mg PO Q12HR Qty: 60 1RF Rx Instructions: Take with 1000mg table = 1250mg total dose every 12 hours. amlodipine 5 mg tablet 5 mg PO DAILY sotalol 80 mg tablet 40 mg PO Q12HR Qty: 60 1RF levetiracetam [Keppra] 1,000 mg tablet 1,000 mg PO BID Qty: 60 0RF Date of admission: 08/15/25 16:15 Primary Care Provider: Triny Robledo Admitting Provider: Nixon Cheng Attending physician on admission: Nixon Cheng Condition: Stable
== END 2025-08-18 14:36 | disposition home or self-care (01) | DRG 101 ==
LOC: ANHED 14:42 → ANHIMU 19:53
PROVIDERS: Emergency Medicine; General Practice; Admitting Provider Internal Medicine; Emergency Provider Registered Nurse; PCP Family Medicine; Visit Provider Nurse Practitioner Gerontology
DX: G40.209 Localization-related (focal) (partial) symptomatic epilepsy and epileptic syndromes with complex partial seizures, not intractable, without status epilepticus (principal); E87.21 Acute metabolic acidosis; M62.82 Rhabdomyolysis; R44.2 Other hallucinations; R47.01 Aphasia; R45.1 Restlessness and agitation; E78.5 Hyperlipidemia, unspecified; K21.9 Gastro-esophageal reflux disease without esophagitis; I25.10 Atherosclerotic heart disease of native coronary artery without angina pectoris; I35.0 Nonrheumatic aortic (valve) stenosis; E02 Subclinical iodine-deficiency hypothyroidism; I48.0 Paroxysmal atrial fibrillation; I10 Essential (primary) hypertension; F10.91 Alcohol use, unspecified, in remission; F12.90 Cannabis use, unspecified, uncomplicated; W01.190A Fall on same level from slipping, tripping and stumbling with subsequent striking against furniture, initial encounter; S00.11XA Contusion of right eyelid and periocular area, initial encounter; Z96.612 Presence of left artificial shoulder joint; Z96.611 Presence of right artificial shoulder joint; Z96.652 Presence of left artificial knee joint; Z95.5 Presence of coronary angioplasty implant and graft; Z91.148 Patient's other noncompliance with medication regimen for other reason; Z91.81 History of falling; Z87.891 Personal history of nicotine dependence; Z95.3 Presence of xenogenic heart valve
CPT/HCPCS: 36415; 70450; 71045; 71260; 72125; 74177; 80048; 80053; 80202; 80307; 81001; 82077; 82140; 82550; 82948; 83605; 83735; 84100; 84145; 84443; 84484; 85025; 85610; 85730; 86140; 87040; 92610; 93005; 93306; 96361; 96365; 96366; 96367; 96375; 96376; 97110; 97116; 97162; 97165; 97530; 97535; 99285; A9270; G0378; J0290; J0696; J1163; J1644; J1790; J1953; J3360; J3373; J3475; J3480; J7030; J7040; J7120; Q9967